=== PATIENT | female | born 1960 | race Caucasian/White ===

== ENCOUNTER 2024-11-26 13:51 | Outpatient (AMB) | payer OTHER, SELFPAY ==
--- NOTE | 2024-11-26 14:02 | MHC.OFFVIS ---
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 The patient describes her pain as sharp and severe in nature. Her pain and weakness have gotten worse over the last year in spite of continued non operative treatments. The patient also has intermittent right shoulder pain. She states that her left shoulder pain is more severe than is her right at this time. She did undergo right shoulder rotator cuff repair surgery in 2015. She injured both of her shoulders when she fell off of a ladder in 2022. He has been to formal physical therapy. She has also had cortisone injections. The most recent injection gave her minimal relief. She has tried Tylenol, anti-inflammatory medicines and gabapentin which gave her only mild relief. She also reports ?shooting pain? down her right arm to her right hand. Allergies No Known Allergies Allergy (Verified 11/26/24 14:05) Medication List - Last Reconciled 11/26/24 by Alonzo Costello MD gabapentin mg PO vilazodone 20 mg PO DAILY Physical Exam Vital Signs: BMI result Body Mass Index 29.6 Const Other: Well-nourished well-developed very friendly female awake alert and oriented x3 in no acute distress Extrem Other: Left shoulder examination shows decreased range of motion when compared to her right shoulder, 3/5 strength with supraspinatus testing, positive impingement signs, no instability Assessment & Plan Assessment & Plan (1) Rotator cuff insufficiency of left shoulder: Code(s): M25.312 - Other instability, left shoulder Category: Medical Plan Ms. Hill presents with progressively worsening left shoulder pain and weakness due to impingement syndrome and most likely a full-thickness rotator cuff tear. Thus, I will send the patient for an MRI of her left shoulder for further evaluation. I will see her back once the MRI is available to discuss the findings and treatment options. Feel free to call me at any time should questions regarding her orthopedic management arise. I spent 21 minutes in reviewing the patient's records and imaging studies, seeing the patient and documenting in the medical record. Orders: Orders MR shoulder LT wo con Today M25.312 - Other instability, left shoulder Coding Level of Care Code Est Pt Level 3 (57670) Complex EM visit Add On G2211 Diagnoses Rotator cuff insufficiency of left shoulder M25.312
[2024-11-26 14:05] VITALS: BMI 29.6
== END 2024-11-26 14:30 | disposition home or self-care (01) ==
LOC: HO.HOS 13:51
PROVIDERS: PCP Internal Medicine; Visit Provider Orthopaedic Surgery
DX: M25.312 Other instability, left shoulder (principal)
CPT/HCPCS: 99213; G2211

== ENCOUNTER → 2024-11-26 13:51 | Outpatient (BNVA) | payer OTHER, SELFPAY | PROVIDERS: PCP Internal Medicine; Visit Provider Orthopaedic Surgery | DX: M25.312 Other instability, left shoulder (principal) | CPT/HCPCS: 99212 ==

== ENCOUNTER 2024-11-29 19:26 | Outpatient (REF) | payer OTHER, SELFPAY ==
--- NOTE | ~2024-11-29 | MR_ITS ---
EXAMINATION: MRI LEFT SHOULDER WITHOUT CONTRAST HISTORY: M25.312 - Other instability, left shoulder COMPARISON: There are no prior studies for comparison. TECHNIQUE: Coronal T1, T2, and fat suppressed T2, axial fat suppressed proton density, and sagittal T2 weighted MR images of the left shoulder were obtained. FINDINGS: Bone Marrow: There are multiple cystic foci humeral head and the greater tuberosity. Bone marrow signal intensity is otherwise normal. Joint effusion: There is a large glenohumeral joint effusion. Glenohumeral joint: The humeral head is subluxed superiorly and posteriorly. AC joint: There is moderate osteoarthritis of the AC joint with osteophyte formation. Supraspinatus muscle/tendon: There is a large full-thickness tear of the supraspinatus tendon with retraction of the tendon to the level of the AC joint. There may be a few intact fibers anteriorly. There is moderate atrophy of the spinatus muscle. Infraspinatus muscle/tendon: There is rupture of the infraspinatus tendon with mild retraction. There is moderate muscle atrophy. Teres minor muscle/tendon: The teres minor tendon is intact. Normal muscle bulk. Subscapularis muscle/tendon: The subscapularis tendon is intact. Normal muscle bulk. Biceps tendon: The biceps tendon is intact and normally located. Glenoid labrum: No labral abnormality is identified. Other findings: None MR/MR shoulder LT wo con IMPRESSION: 1. Near-complete rupture of the supraspinatus tendon with a few probable intact fibers noted anteriorly. Complete rupture of the infraspinatus tendon. Moderate muscle atrophy involving the supraspinatus and infraspinatus muscles. 2. Large joint effusion. Superior and posterior subluxation of the humeral head. 3. Moderate osteoarthritis of the AC joint. Electronically signed by: Parish Goldsmith MD 12/03/2024 07:15 AM EDT
== END 2024-11-29 19:27 | disposition home or self-care (01) ==
LOC: HO.MRI 19:26
PROVIDERS: PCP Nurse Practitioner Family; Visit Provider Orthopaedic Surgery
DX: M25.312 Other instability, left shoulder (principal)
CPT/HCPCS: 73221

== ENCOUNTER → 2024-11-29 19:26 | Outpatient (BNV) | payer OTHER, SELFPAY | PROVIDERS: PCP Nurse Practitioner Family; Visit Provider Radiology Diagnostic Radiology | DX: M75.122 Complete rotator cuff tear or rupture of left shoulder, not specified as traumatic (principal); M25.412 Effusion, left shoulder; M19.012 Primary osteoarthritis, left shoulder | CPT/HCPCS: 73221 ==

== ENCOUNTER 2024-12-12 11:00 | Outpatient (AMB) | payer OTHER, SELFPAY ==
[2024-12-12 11:06] VITALS: BMI 29.6
--- NOTE | 2024-12-12 11:06 | MHC.OFFVIS ---
Vital Signs 12/12/24 11:06 Height 5 ft 3 in Weight 167 lb BMI 29.6 Intake Visit Reasons: Left shoulder pain, neck pain Intake Note: Khloe is a 64 year old right hand dominant female who presents with complaints of progressively worsening left shoulder pain and weakness as well as progressively worsening neck pain which radiates down her right arm. The patient describes her pain as sharp and severe in nature. Her pain and weakness have gotten worse over the last year in spite of continued non operative treatments. The patient also has intermittent right shoulder pain. She states that her left shoulder pain is more severe than is her right at this time. She did undergo right shoulder rotator cuff repair surgery in 2015. She injured both of her shoulders when she fell off of a ladder in 2022. He has been to formal physical therapy. She has also had cortisone injections. The most recent injection gave her minimal relief. She has tried Tylenol, anti-inflammatory medicines and gabapentin which gave her only mild relief. She also reports ?shooting pain? down her right arm to her right hand. She also reports intermittent weakness in her right upper extremity. Allergies No Known Allergies Allergy (Verified 12/12/24 11:06) Medication List - Last Reconciled 12/12/24 by Alonzo Costello MD gabapentin mg PO vilazodone 20 mg PO DAILY PFSH Social History (Updated 12/12/24 @ 09:12 by JESUS Del Cid) Current occupation: rt handed Physical Exam Vital Signs: BMI result Body Mass Index 29.6 Const Other: Well-nourished well-developed very friendly female awake alert and oriented x3 in no acute distress Neck Other: Cervical spine examination shows pain with range of motion, right-sided paraspinal muscle tenderness, positive Spurling's test, 4/5 strength with testing of her right biceps and wrist extensors when compared to 5/5 strength on her left side Extrem Other: Left shoulder examination shows decreased active range of motion when compared to her right shoulder, 3/5 strength with supraspinatus testing, no instability Results Reviewed Results Reviewed: MRI of the patient's left shoulder shows a large, chronic rotator cuff tear involving the supraspinatus and infraspinatus tendons with retraction almost to the lip of the glenoid, no acute bony abnormalities Assessment & Plan Assessment & Plan (1) Neck pain: Code(s): M54.2 - Cervicalgia Category: Medical (2) Left shoulder pain: Code(s): M25.512 - Pain in left shoulder Plan Ms. Hill presents with left shoulder pain due to a large, chronic rotator cuff tear. She also has neck pain which radiates into her right arm possibly due to cervical stenosis or a disc herniation. Thus, I will send the patient for an MRI of her cervical spine for further evaluation. I will contact her by phone once the MRI results are available. I will also arrange for her to have an evaluation with my partner, Dr. Perez, to further discuss the risks and benefits of reverse total shoulder replacement surgery. Feel free to call me at any time should questions regarding her orthopedic management arise. I spent 21 minutes in reviewing the patient's records and imaging studies, seeing the patient and documenting in the medical record. Orders: Orders MR cervical spine wo con Today M54.2 - Cervicalgia Coding Level of Care Code Est Pt Level 3 (89290) Complex EM visit Add On G2211 Diagnoses Neck pain M54.2 Left shoulder pain M25.512
--- OUTSIDE RECORDS SUMMARY | 2024-12-12 12:23 | XMS_ITS | Clinical Summary ---
Author Organization [facility] Address [address] [place], [place] [id number] Care Team Providers Care Manager Fashion Name Role Phone Unavailable Primary Care Provider Unavailabl e Allergies No known active allergies Medications Medication Sig Dispensed Refills Start Date End Date Status amphetamine-dextroa mphetamine (ADDERALL XR, 30MG,) 30 MG 24 hr capsule Take 1 capsule (30 mg total) by mouth. 0 09/30/2022 Active methylPREDNISolone (MEDROL DOSEPACK) 4 MG tablet FOLLOW PACKAGE DIRECTIONS 0 11/04/2022 Active escitalopram (Lexapro) 20 MG tablet See Instructions, 2 tablets, 0 Refills, Maintenance, 09/30/22 14:49:00 EST, Tablet, Partial fill upon patient request if the prescription is for a schedule II opioid drug. 0 09/30/2022 Active diclofenac (VOLTAREN) 75 MG EC tablet TAKE 1 TABLET BY MOUTH TWICE DAILY NEEDED FOR MODERATE PAIN 0 11/04/2022 Active clonazePAM (KlonoPIN) 0.5 MG tablet Take 1 tablet (0.5 mg total) by mouth 3 (three) times a day. 0 11/01/2022 Active naproxen (NAPROSYN) 500 MG tablet TAKE 1 TABLET BY MOUTH TWICE DAILY FOR 5 DAYS NEEDED FOR PAIN 0 09/30/2022 Active omeprazole (PriLOSEC) 20 MG capsule Take 1 capsule (20 mg total) by mouth daily. 0 11/04/2022 Active Social History Tobacco Use Types Packs/Day Years Used Date Smoking Tobacco: Unknown Tobacco Cessation:Counseling Given: Not Answered Alcohol Use Standard Drinks/Week Comments Not Currently 0 (1 standard drink = 0.6 oz pur e alcohol) Sex and Gender Information Value Date Recorded Sex Assigned at Not on file Gender Identity Not on file Sexual Orientation Not on file Job Start Date Occupation Industry Not on file Not on file Not on file Last Filed Vital Signs Vital Sign Reading Time Taken Comments Blood Pressure - - Pulse - - Temperature - - Respiratory Rate - - Oxygen Saturation - - Inhaled Oxygen Concentration - - Weight 81.6 kg (180 lb) 11/15/2022 11:31 AM EST Height 160 cm (5' 3 ) 11/15/2022 11:31 AM EST Body Mass Index 31.89 11/15/2022 11:31 AM EST Plan of Treatment Health Maintenance Due Date Last Done Comments Hepatitis C Screening 1960 Depression Screening 1972 BMI Counseling 02/17/1978 Preventative Health Evaluation 02/17/1978 DTap / Tdap / Td (1 - Tdap) 02/17/1979 Cervical Cancer Screening (Pap Smear) 02/17/1981 Colon Cancer Screening (Colonoscopy) 02/17/2005 Breast Cancer Screening (Mammogram) 02/17/2010 Shingrix-Zoster Vaccine (1 o f 2) 02/17/2010 COVID-19 Vaccine (3 - 2023-2 5 season) 2024 04/13/2021, 03/23/2021 Influenza Vaccine (#1) 2024 Pneumococcal Vaccine (1 of 1 - PCV) 02/17/2025 RSV Adult > 60+ Yrs or (1 - 1-dose 75+ series) 02/17/2035 Hepatitis B Vaccines Aged Out No long er eligible based on patient's age to complete this topic Pneumococcal Vaccine Aged Out No long er eligible based on patient's age to complete this topic RSV Ped < 20 months Aged Out No longe r eligible based on patient's age to complete this topic Insurance Payer Benefit Plan / Group Subscriber ID Effect nicole Dates Phone Address Type Fiksu. [id number] 08/11/2022-Pres ent [address] [place] [id number] PPO
--- OUTSIDE RECORDS SUMMARY | 2024-12-12 12:23 | XMS_ITS | Data Portability ---
Author Organization [facility] DCWafers, svmg_admin Address [address] [place] [id number] Care Team Providers Care Mail Sorting Supervisor Name Role Phone ROYA PALAFOX Primary Care Provider [phone] Assessment Encounter Date Assessment Date Assessment LastModified by Organization Details LastModified Time 02/15/2021 02/15/2021 F/u for physical in 4 months. Request sent to past PCP for medical records. Patient declines shingles vaccine. kmako Not available 02/15/2021 14:39:42 05/10/2021 05/10/2021 F/u in June for physical. kmako Not available 05/10/2021 10:17:46 06/29/2021 06/29/2021 Health maintenance discussed with patient The importance of regular pap smears, breast evaluation and sexual health discussed with patient. We discussed intake of calcium and Vitamin D and exercises for bone health Diet intake the importance of balanced diet and avoidance of excessive animal fats and red meat discussed with patient Labs reviewed and multivitamin use discussed The importance of regular sleep cycle and adequate hours of sleep discussed with patient We talked about avoidance of stress and healing therapies for the mind such as meditation and yoga. We discussed the importance of regular exercise and benefits of walking. We reviewed medications supplements and vaccines. All of patients questions answered to her satisfaction. Patient is comfortable with plan Flu shot declined. kmako Not available 06/29/2021 13:35:37 Plan of Treatment Reminders Order Date Submit Date Provider Last Modified By Organization Details Last Modified Time Details Appointments None recorded. Lab lipid panel, serum 2020 021 [facility], [address] [place] [address], [address], 2 07:56:34 HbA1c (hemoglobin A1c), blood 2020 [email or web address], [address] [place] [address], [address], 07:56:34 hepatitis panel (A+B+C), acute, serum 2020 [facility]21 [email or web address], [address] [place] [address], [address], 2 07:56:34 celiac disease comprehensi ve panel, serum 2020 021 [facility] [address] [place] [address], [address], 12:07:15 CMP, serum or plasma 2020 021 [facility], [address] [place] [address], [address], 12:07:17 CBC w/ auto diff 2020 021 [facility], [address] [place] [address], [address], 12:07:16 food allergen panel, serum 2020 021 [facility], [address] [place] [address], [address], 12:07:19 H pylori igm+igg+iga Ab, serum 2020 021 [facility], [address] [place] [address], [address], 12:07:18 Referral physical therapist referral [email or web address] [facility], [address] [facility], [place], [address], 11:44:06 physical therapist referral [address] Physical Therapy, [address] [facility], [place], [address], 11:44:05 nutritionis t/dietitian referral 2020 021 [facility] (N[facility]), [address] [place] [address], [address], 15:08:15 physical therapist referral [address] Physical Therapy, [address] [place] [address], [place], [address], 11:44:05 Procedures None recorded. Surgeries None recorded. Imaging MAMMO, screening, digital, bilateral [address] ([facility]), [place], [address], 09:05:41 US, liver [address] ([facility]), [address] [place] [address], [address], 09:05:51 electrocard iogram 2020 021 [email or web address] In-Office Order, Internal Use Only DO Not Attach Compendium DO Not Attach Compendium, Do Not Delete/merge, [id number] 12:10:49 Medication Orders omeprazole 40 mg capsule,del ayed release 2020 021 [facility] #[facility], [address] [address], [place], [address], 14:23:51 ropinirole 0.5 mg tablet 2020 021 [facility]/Pharmacy #0001, [address] [facility] [address], [place], [address], 13:08:25 Patient TargetsNo targets recorded. Patient Instructions Encounter Date Encounter Id Patient Instructions Last Modified By Organization Details Last Modified Time 02/15/2021 [id number] gastroesophageal reflux disease (GERD): care instructions kmako Not available 02/15/2021 14:23:43 restless legs syndrome: care instructions kmako Not available 02/15/2021 14:23:43 learning about m ood disorders kmako Not available 02/15/2021 14:39:27 body mass index: care instructions kmako Not available 02/15/2021 14:24:44 [facility] Not available 02/15/2021 14:24:44 06/29/2021 [id number] learning about breast cancer screening [facility] Not available 06/29/2021 13:27:21 Reason for Referral Physical Therapist Referral for Pain of right shoulder joint Referring Physician: Roya Palafox [facility], Encounter Date: 02/15/2021 Physical Therapist Referral for Bilateral hip joint pain Referring Physician: Roya Palafox [facility], Encounter Date: 02/15/2021 Physical Therapist Referral for Pain of left ankle joint Referring Physician: Roya Palafox [facility] Stefani, Encounter Date: 02/15/2021 Life Science Research Assistant/dietitian Refer ral for Body mass index 30+ - obesity Referring Physician: Roya Palafox [facility], Encounter Date: 02/15/2021 Results Created Date Observation Date Name Description Value Unit Range Abnormal Flag Note LastModifiedBy Organization Detail LastModifiedTime 05/10/20 21 05/11/2021 JOSE C DISEA SE PANEL T-transgluta minase (ttg) IgA <2 U/mL 0-3 Negat nicole 0 - 3 Weak Posit nicole 4 - 10 Posit nicole >10 Tissu e Trans gluta irene e (tTG) has been ident ified as the endom ysial antig en. Studi es have demon str- ated that endom ysial IgA antib odies have over 99% speci ficit y for glute n sensi tive enter opath y. Not Available [facility] ([facility]) [address] [facility], [place], [address], 05/13/2021 12:07:15 05/10/20 21 05/11/2021 JOSE C DISEA SE PANEL immunoglobul in A, qn, serum 241 mg/dL 87-352 Not Available [facility] ([facility]) [address] [facility], [place], [address], 05/13/2021 12:07:15 05/10/20 21 05/13/2021 JOSE C DISEA SE PANEL endomysial antibody IgA Negati ve negati ve Not Available [facility] ([facility]) [address] [facility], [place], [address], 05/13/2021 12:07:15 05/10/20 21 05/10/2021 CBC WITH DIFFE RENTI AL/PL ATELE T WBC 6.5 x10e3 /uL 3.4-10 .8 Not Available [facility] ([facility]) [address] [facility], [place], [address], 05/13/2021 12:07:16 05/10/20 21 05/10/2021 CBC WITH DIFFE RENTI AL/PL ATELE T RBC 5.15 x10e6 /uL 3.77-5 .28 Not Available [facility] ([facility]) [address] [facility], [place], [address], 05/13/2021 12:07:16 05/10/20 21 05/10/2021 CBC WITH DIFFE RENTI AL/PL ATELE T hemoglobin 14.9 g/dL 11.1-1 5.9 Not Available [facility] ([facility]) [address] [facility], [place], [address], 05/13/2021 12:07:16 05/10/20 21 05/10/2021 CBC WITH DIFFE RENTI AL/PL ATELE T hematocrit 43.6 % 34.0-4 6.6 Not Available [facility] ([facility]) [address] [facility], [place], [address], 05/13/2021 12:07:16 05/10/20 21 05/10/2021 CBC WITH DIFFE RENTI AL/PL ATELE T MCV 85 fL 79-97 Not Available [facility] ([facility]) [address] [facility], [place], [address], 05/13/2021 12:07:16 05/10/20 21 05/10/2021 CBC WITH DIFFE RENTI AL/PL ATELE T MCH 28.9 pg 26.6-3 3.0 Not Available [facility] ([facility]) [address] [facility], [place], [address], 05/13/2021 12:07:16 05/10/20 21 05/10/2021 CBC WITH DIFFE RENTI AL/PL ATELE T MCHC 34.2 g/dL 31.5-3 5.7 Not Available [facility] ([facility]) [address] [facility], [place], [address], 05/13/2021 12:07:16 05/10/20 21 05/10/2021 CBC WITH DIFFE RENTI AL/PL ATELE T RDW 14.4 % 11.7-1 5.4 Not Available [facility] ([facility]) [address] [facility], [place], [address], 05/13/2021 12:07:16 05/10/20 21 05/10/2021 CBC WITH DIFFE RENTI AL/PL ATELE T platelets 278 x10e3 /uL 150-45 0 Not Available [facility] ([facility]) [address] [place], [address], 05/13/2021 12:07:16 05/10/20 21 05/10/2021 CBC WITH DIFFE RENTI AL/PL ATELE T neutrophils 55 % not estab. Not Available [facility] ([facility]) [address] [facility], [place], [address], 05/13/2021 12:07:16 05/10/20 21 05/10/2021 CBC WITH DIFFE RENTI AL/PL ATELE T lymphs 33 % not estab. Not Available [facility] ([facility]) [address] [facility], [place], [address], 05/13/2021 12:07:16 05/10/20 21 05/10/2021 CBC WITH DIFFE RENTI AL/PL ATELE T monocytes 8 % not estab. Not Available [facility] ([facility]) [address] [facility], [place], [address], 05/13/2021 12:07:16 05/10/20 21 05/10/2021 CBC WITH DIFFE RENTI AL/PL ATELE T eos 3 % not estab. Not Available [facility] ([facility]) [address] [facility], [place], [address], 05/13/2021 12:07:16 05/10/20 21 05/10/2021 CBC WITH DIFFE RENTI AL/PL ATELE T basos 1 % not estab. Not Available [facility] ([facility]) [address] [facility], [place], [address], 05/13/2021 12:07:16 05/10/2005/10/2021 CBC WITH DIFFE RENTI AL/PL ATELE T immature cells ADMISSIONS OFFICER Not Available [facility] ([facility]) [address] [facility], [place], [address], 05/13/2021 12:07:16 05/10/20 21 05/10/2021 CBC WITH DIFFE RENTI AL/PL ATELE T neutrophils (absolute) 3.7 x10e3 /uL 1.4-7. 0 Not Available [facility] ([facility]) [address] [place], [address], 05/13/2021 12:07:16 05/10/20 21 05/10/2021 CBC WITH DIFFE RENTI AL/PL ATELE T lymphs (absolute) 2.1 x10e3 /uL 0.7-3. 1 Not Available [facility] ([facility]) [address] [facility], [place], [address], 05/13/2021 12:07:16 05/10/20 21 05/10/2021 CBC WITH DIFFE RENTI AL/PL ATELE T monocytes(ab solute) 0.5 x10e3 /uL 0.1-0. 9 Not Available [facility] ([facility]) [address] [facility], [place], [address], 05/13/2021 12:07:16 05/10/20 21 05/10/2021 CBC WITH DIFFE RENTI AL/PL ATELE T eos (absolute) 0.2 x10e3 /uL 0.0-0. 4 Not Available [facility] ([facility]) [address] [facility], [place], [address], 05/13/2021 12:07:16 05/10/20 21 05/10/2021 CBC WITH DIFFE RENTI AL/PL ATELE T baso (absolute) 0.0 x10e3 /uL 0.0-0. 2 Not Available [facility] ([facility]) [address] [facility], [place], [address], 05/13/2021 12:07:16 05/10/20 21 05/10/2021 CBC WITH DIFFE RENTI AL/PL ATELE T immature granulocytes ADMISSIONS OFFICER Not Available [facility] ([facility]) [address] [place], [address], 05/13/2021 12:07:16 05/10/20 21 05/10/2021 CBC WITH DIFFE RENTI AL/PL ATELE T immature grans (abs) ADMISSIONS OFFICER Not Available [facility] ([facility]) [address] [place], [address], 05/13/2021 12:07:16 05/10/20 21 05/10/2021 CBC WITH DIFFE RENTI AL/PL ATELE T NRBC ADMISSIONS OFFICER Not Available [facility] ([facility]) [address] [facility], [place], [address], 05/13/2021 12:07:16 05/10/20 21 05/10/2021 CBC WITH DIFFE RENTI AL/PL ATELE T hematology comments: ADMISSIONS OFFICER Not Available [facility] ([facility]) [address] [facility], [place], [address], 05/13/2021 12:07:16 05/10/20 21 05/10/2021 COMP. METAB OLIC PANEL (14) glucose 97 mg/dL 65-99 Not Available [facility] ([facility]) [address] [facility], [place], [address], 05/13/2021 12:07:17 05/10/20 21 05/10/2021 COMP. METAB OLIC PANEL (14) BUN 15 mg/dL 8-27 Not Available [facility] ([facility]) [address] [place], [address], 05/13/2021 12:07:17 05/10/20 21 05/10/2021 COMP. METAB OLIC PANEL (14) creatinine 0.78 mg/dL 0.57-1 .00 Not Available [facility] ([facility]) [address] [facility], [place], [address], 05/13/2021 12:07:17 05/10/20 21 05/10/2021 COMP. METAB OLIC PANEL (14) eGFR if nonafricn AM 82 mL/mi n/1.7 3 >59 Not Available [facility] ([facility]) [address] [facility], [place], [address], 05/13/2021 12:07:17 05/10/20 21 05/10/2021 COMP. METAB OLIC PANEL (14) eGFR if africn AM 95 mL/mi n/1.7 3 >59 Lab [facility] curre ntly repor ts eGFR in compl iance with the curre nt recom menda tions of the [facility] [employer] ation . [facility] will updat e repor ting as new guide lines are publi shed from the NKF-A SN Task force . Not Available [facility] ([facility]) [address] [place], [address], 05/13/2021 12:07:17 05/10/20 21 05/10/2021 COMP. METAB OLIC PANEL (14) BUN/creatini ne ratio 19 12-28 Not Available [facility] ([facility]) [address] [place], [address], 05/13/2021 12:07:17 05/10/20 21 05/10/2021 COMP. METAB OLIC PANEL (14) sodium 141 mmol/ L 134-14 4 Not Available [facility] ([facility]) [address] [place], [address], 05/13/2021 12:07:17 05/10/20 21 05/10/2021 COMP. METAB OLIC PANEL (14) potassium 4.7 mmol/ L 3.5-5. 2 Not Available [facility] ([facility]) [address] [place], [address], 05/13/2021 12:07:17 05/10/20 21 05/10/2021 COMP. METAB OLIC PANEL (14) chloride 103 mmol/ L 96-106 Not Available [facility] ([facility]) [address] [place], [address], 05/13/2021 12:07:17 05/10/20 21 05/10/2021 COMP. METAB OLIC PANEL (14) carbon dioxide, total 23 mmol/ L 20-29 Not Available [facility] ([facility]) [address] [place], [address], 05/13/2021 12:07:17 05/10/20 21 05/10/2021 COMP. METAB OLIC PANEL (14) calcium 9.9 mg/dL 8.7-10 .3 Not Available [facility] ([facility]) [address] [facility] [place], [address], 05/13/2021 12:07:17 05/10/20 21 05/10/2021 COMP. METAB OLIC PANEL (14) protein, total 6.9 g/dL 6.0-8. 5 Not Available [facility] ([facility]) [address] [facility] [place], [address], 05/13/2021 12:07:17 05/10/20 21 05/10/2021 COMP. METAB OLIC PANEL (14) albumin 4.7 g/dL 3.8-4. 8 Not Available [facility] ([facility]) [address] [facility] [place], [address], 05/13/2021 12:07:17 05/10/20 21 05/10/2021 COMP. METAB OLIC PANEL (14) globulin, total 2.2 g/dL 1.5-4. 5 Not Available [facility] ([facility]) [address] [facility] [place], [address], 05/13/2021 12:07:17 05/10/20 21 05/10/2021 COMP. METAB OLIC PANEL (14) A/G ratio 2.1 1.2-2. 2 Not Available [facility] ([facility]) [address] [facility] [place], [address], 05/13/2021 12:07:17 05/10/20 21 05/10/2021 COMP. METAB OLIC PANEL (14) bilirubin, total 0.3 mg/dL 0.0-1. 2 Not Available [facility] ([facility]) [address] [place], [address], 05/13/2021 12:07:17 05/10/20 21 05/10/2021 COMP. METAB OLIC PANEL (14) alkaline phosphatase 113 IU/L 48-121 Not Available [facility]) [address] [place], [address], 05/13/2021 12:07:17 05/10/20 21 05/10/2021 COMP. METAB OLIC PANEL (14) AST (SGOT) 45 IU/L 0-40 above high normal Not Available [facility] ([facility]) [address] [place], [address], 05/13/2021 12:07:17 05/10/20 21 05/10/2021 COMP. METAB OLIC PANEL (14) ALT (SGPT) 54 IU/L 0-32 above high normal Not Available [facility] ([facility]) [address] [place], [address], 05/13/2021 12:07:17 05/10/20 21 05/11/2021 H PYLOR I, IGM, IGG, IGA AB H. pylori, IgG abs 0.26 index _valu e 0.00-0 .79 Negat nicole <0.80 Equiv ocal 0.80 - 0.89 Posit nicole >0.89 Not Available [facility] ([facility]) [address] [place], [address], 05/13/2021 12:07:18 05/10/20 21 05/11/2021 H PYLOR I, IGM, IGG, IGA AB H. pylori, IgA abs 9.7 units 0.0-8. 9 above high normal Negat nicole <9.0 Equiv ocal 9.0 - 11.0 Posit nicole >11.0 Not Available [facility] ([facility]) [address] [place], [address], 05/13/2021 12:07:18 05/10/20 21 05/11/2021 H PYLOR I, IGM, IGG, IGA AB H pylori, IgM abs <9.0 units 0.0-8. 9 Negat nicole <9.0 Equiv ocal 9.0 - 11.0 Posit nicole >11.0 This test was clement cat and its perfo fani e ananya tiwari stics deter mined by [employer]. It has not been clear ed or appro taya by the Food and Drug Admin istra tion. Not Available [facility] ([facility]) [address] [place], [address], 05/13/2021 12:07:18 05/10/20 21 05/10/2021 FOOD ALLER GY PROFI LE class description Commen t Level s of Speci fic IgE Class Descr iptio n of Class ----- ----- ----- ----- ----- -- ----- ----- ----- ----- ----- < 0.10 0 Negat nicole 0.10 - 0.31 0/I Equiv ocal/ Low 0.32 - 0.55 I Low 0.56 - 1.40 II Moder ate 1.41 - 3.90 III High 3.91 - 19.00 IV Very High 19.01 - 100.0 0 V Very High >100. 00 Very High Not Available [facility] ([facility]) [address] [place], [address], 05/13/2021 12:07:19 05/10/2005/13/2021 FOOD ALLER GY PROFI LE C143-McB egg white <0.10 kU/L class 0 Not Available [facility] ([facility]) [address] [place], [address], 05/13/2021 12:07:19 05/10/2005/13/2021 FOOD ALLER GY PROFI LE O902-UgN peanut <0.10 kU/L class 0 Not Available [facility] ([facility]) [address] [place], [address], 05/13/2021 12:07:19 05/10/20 21 05/13/2021 FOOD ALLER GY PROFI LE Q069-KbI soybean <0.10 kU/L class 0 Not Available [facility] ([facility]) [address] [place], [address], 05/13/2021 12:07:19 05/10/20 21 05/13/2021 FOOD ALLER GY PROFI LE J637-NnT milk <0.10 kU/L class 0 Not Available [facility] ([facility]) [address] [place], [address], 05/13/2021 12:07:19 05/10/20 21 05/13/2021 FOOD ALLER GY PROFI LE B163-IfU clam <0.10 kU/L class 0 Not Available [facility] ([facility]) [address] [place], [address], 05/13/2021 12:07:19 05/10/20 21 05/13/2021 FOOD ALLER GY PROFI LE Z008-EhQ shrimp <0.10 kU/L class 0 Not Available [facility] ([facility]) [address] [place], [address], 05/13/2021 12:07:19 05/10/20 21 05/13/2021 FOOD ALLER GY PROFI LE F720-MgN walnut <0.10 kU/L class 0 Not Available [facility] ([facility]) [address] [place], [address], 05/13/2021 12:07:19 05/10/20 21 05/13/2021 FOOD ALLER GY PROFI LE C608-ShD codfish <0.10 kU/L class 0 Not Available [facility] ([facility]) [address] [place], [address], 05/13/2021 12:07:19 05/10/20 21 05/13/2021 FOOD ALLER GY PROFI LE V847-BdG scallop <0.10 kU/L class 0 Not Available [facility] ([facility]) [address] [facility], [place], [address], 05/13/2021 12:07:19 05/10/20 21 05/13/2021 FOOD ALLER GY PROFI LE B830-ZbO wheat <0.10 kU/L class 0 Not Available [facility] ([facility]) [address] [facility], [place], [address], 05/13/2021 12:07:19 05/10/20 21 05/13/2021 FOOD ALLER GY PROFI LE S470-GjO corn <0.10 kU/L class 0 Not Available [facility] ([facility]) [address] [facility], [place], [address], 05/13/2021 12:07:19 05/10/20 21 05/13/2021 FOOD ALLER GY PROFI LE K488-GwV sesame seed <0.10 kU/L class 0 Not Available [facility] ([facility]) [address] [facility], [place], [address], 05/13/2021 12:07:19 05/10/20 21 elect rocar diogr am No observ ation record ed. [email or web address] In-Office Order Internal Use Only DO Not Attach Compendium DO Not Attach Compendium, Do Not Delete/merge, [id number] 05/10/2021 09:54:21 05/10/20 21 05/10/2021 elect rocar diogr am No observ ation record ed. [email or web address] In-Office Order Internal Use Only DO Not Attach Compendium DO Not Attach Compendium, Do Not Delete/merge, [id number] 05/11/2021 14:27:15 07/19/20 21 07/19/2021 US, abdom en, limit ed [facility] [address], [address] Name: ARLENE HIDALGO : [id number] Date of Servic e: 0839 Acct Number : [id number] Order Number : [id number] Locati on: WUS Report Number : [id number] Servic e: REG REF/ Reques ting Physic hansa: Joaquin Orourke ADMISSIONS OFFICER Catego ry: ULTRAS OUND Exam: US ABDOME N SINGLE [employer] LTD Access ion #: [id number] VH Signs/ Sympto ms: ELEVAT ED LIVER ENZYME LEVEL Report Status : Sig jeffy LIMITE D ABDOME N ULTRAS OUND. INDICA TION: Elevat ed liver enzyme levels COMPAR MAXI: CT abdome n pelvis 03/14/20 16 FINDIN GS: PANCRE : Visual ized pancre atic head and proxim al body are unrema rkable . The pancre atic tail is not visual ized. HEPATO BILIAR Y: The liver is normal in contou r. There is at least modera tely increa sed echoge nicity of liver parenc hyma as compar ed to the renal. Liver is border line enlarg ed. No focal hepati c lesion . No intrah epatic or extrah epatic biliar y ductal dilata tion. Common bile duct measur es 3 mm. No gallbl adder stones . Sludge is noted within the gallbl adder lumen. Focal fatty sparin g is noted adjace nt to the gallbl adder fossa. No perich olecys tic fluid/ edema or gallbl adder wall thicke katy. Absent sonogr aphic Dominguez sign was report ed by the techno logist . RIGHT KIDNEY : Partia lly seen right kidney is unrema rkable . OTHER: No free fluid seen in the right upper quadra nt. IMPRES LISBETH: 1. Gallbl adder sludge noted. 2. No eviden ce of gallst ones or ultras ound findin gs sugges tive of acute cholec ystiti s. 3. Modera te hepati c steato sis. Date/T nathaly of Dictat ion: 48 Radiol ogy Reside nt (if applic able): Joaquin Briceno MD Approv ed By Attend ing Radiol ogist: Nathalia Garcia MD 48 Orderi ng physic hansa: Candy Orourke Other provid ers: Candy Orourke, Candy Orourke, , Brandee King, , , [facility] (Radiology) [address] [place] [address], [address], 08/09/2021 08:54:29 08/04/20 21 08/04/2021 MAMMO , scree katy, tomos ynthe sis, bilat eral [facility] Radiol ogy [address] [place] [address], [address] Name: ARLENE HIDALGO : [id number] Date of Servic e: 1431 Acct Number : [id number] Order Number : [id number] Locati on: WWELL Report Number : [id number] Servic e: REG REF/ Reques ting Physic hansa: Joaquin Orourek ADMISSIONS OFFICER Catego ry: MAMMOG SHINE Exam: DIGITA L BREAST JORDANA SCREEN ING Access ion #: [id number] VH Signs/ Sympto ms: SCREEN ING Report Status : Sig jeffy STUDY: Bilate ral screen ing mammog alethea with CAD and tomosy nthesi s. TECHNI QUE: Bilate ral cranio caudal and mediol ateral obliqu e views obtain ed. R2 [employer] Versio n 1.3 comput er aided detect ion system utiliz ed.R2 [employer] Versio n 1.3 comput er aided detect ion system utiliz ed with Tomosy nthesi s. COMPAR MAXI: No prior mammog robi are availa ble for compar maxi at comple tion of 10 day waitin g period . FAMILY HISTOR Y OF BREAST CANCER : None. PERSON AL HISTOR Y: Bilate ral breast reduct ion 20 years ago. BREAST COMPOS ITION: The breast s are almost entire ly fatty. RIGHT BREAST : Tomosy nthesi s images were review ed. No suspic ious mass, abnorm al calcif icatio n or levi ectura l distor tion is identi fied. A few charac terist ically benign calcif icatio ns are noted. Most of the calcif icatio ns are dermal . Postsu rgical change s relate d to prior reduct ion are noted in the lower breast . LEFT BREAST : Tomosy nthesi s images were review ed. No suspic ious mass, abnorm al calcif icatio n or levi ectura l distor tion is identi fied. A few charac terist ically benign calcif icatio ns are noted. Most of these calcif icatio ns are dermal calcif icatio ns. Postsu rgical change s relate d to prior reduct ion are noted in the lower breast . IMPRES LISBETH: RIGHT BREAST :Benig n findin gs. LEFT BREAST : Benign findin gs. BR- 2 - Benign Findin g FU- 1Y - Normal screen ing interv al D- A - Breast s are almost entire ly fatty Patien t was entere d into remain ward for annual screen ing mammog alethea. Date/T nathaly of Dictat ion: 164 Radiol ogy Reside nt (if applic able): Sheldon De La Cruz MD Approv ed By Attend ing Radiol ogist: Criselda Grayson MD 1643 Orderi ng physic hansa: Candy Orourke Other provid ers: Candy Ororuke, Candy Orourke, , Candy [place], , , [facility] (Radiology) [address] [place] [address], [id number], 08/09/2021 10:37:39 Result Notes None recorded. Problems Name Problem SNOMED Code Status Onset Date Resolution Date Notes Provider Name and Address Organization Details Recorded Time Depressi ve disorder 77496082 Active 2020 Kimberly gutiérrez MA [facility] 13:34:32 Anxiety 51329758 Active 2020 Kimberly gutiérrez MA [facility] 13:34:37 Gastroes ophageal reflux disease 247906407 Active 2020 Kimberly gutiérrez MA [facility] 13:34:42 Screenin g for malignan t neoplasm of breast Active 202007/08/20 wnl, 08/04/21 wnl ROYA PALAFOX NP [address] [place], [address], [facility] 08:56:16 Screenin g for malignan t neoplasm of cervix Completed 202002/15/2021 ROYA PALAFOX NP [address] [place], [address], [facility] 14:32:49 Screenin g for malignan t neoplasm of colon Active 2020 2019 [facility], repeat in 10 years ROYA PALAFOX NP [address] [place], [address], [facility] 13:39:33 Screenin g for osteopor osis Active 202007/08/20- osteopeni a ROYA PALAFOX NP [address] [place], [address], [facility] 15:20:47 Body mass index 30+ - obesity 506765219 Active 2020 ROYA PALAFOX NP [address] [place] [address], [address], [facility] 13:44:20 Osteopen ia 964441100 Active 2020 ROYA PALAFOX NP [address] [place], [address], [facility] 13:16:55 Steatosi s of liver 200176919 Active 2020 Moderate- abd US 07/19/21 ROYA PALAFOX NP [address] [place], [address], [facility] 10:21:31 Biliary sludge 75815611 Active 2020 ROYA PALAFOX NP [address] [place], [address], [facility] 10:21:44 Problem Notes None recorded. Procedures Surgical History Date Name Laterality Status Provider Name and Address Organization Details Recorded Time Orthopedic Surgery completed [facility] 05/10/2021 09:35:10 Breast Surgery (Lumpectomy, Biopsy, Implants) completed [facility] 05/10/2021 09:35:10 Imaging Results Imaging Date Name Status LastModified by Organization Details LastModified Time 05/10/2021 electrocardiogram completed [email or web address] Order Internal Use Only DO Not Attach Compendium DO Not Attach Compendium, Do Not Delete/merge, [id number] 05/10/2021 09:54:21 05/10/2021 electrocardiogram completed [email or web address] In-Offi ce Order Internal Use Only DO Not Attach Compendium DO Not Attach Compendium, Do Not Delete/merge, [id number] 05/11/2021 14:27:15 07/19/2021 US, abdomen, limited completed [facility] (Radiology) [address] [place] [address], [address], 08/09/2021 08:54:29 08/04/2021 MAMMO, screening, tomosynthesis, bilateral completed [facility] (Radiology) [address] [place] [address], [id number], 08/09/2021 10:37:39 Procedure Notes None recorded. Medical Equipment None Reported. Allergies No known drug allergies Medications Name Sig Start Date Stop Date Status Note LastModified by Organization Details LastModified Time clonazepam 1 mg tablet 1 tablet BID active Not Available Not Available No t Available omeprazole 40 mg capsule,de layed release Take 1 capsule every day by oral route. 2020 active Not Available Not Available Not Avai lable buspirone 30 mg tablet TAKE 1 TABLET BY MOUTH TWICE A DAY 05/10 completed Not Available Not Available Not Available ropinirole 0.5 mg tablet TAKE 1 TABLET BY MOUTH EVERYDAY AT BEDTIME 06/29 completed Not Available Not Available Not Available buspirone 10 mg tablet TAKE 1 TABLET (10 MG) BY ORAL ROUTE 2 TIMES PER DAY 05/10 completed Not Available Not Available Not Available dextroamph etamine-am phetamine 20 mg tablet active Not Available Not Available Not Available gabapentin 300 mg capsule Take 1 capsule 3 times a day by oral route. 02/15 completed Not Available Not Available Not Available omeprazole 20 mg capsule,de layed release Take 1 capsule every day by oral route. 05/10 completed Not Available Not Available Not Available dextroamph etamine-am phetamine ER 30 mg 24hr capsule,ex tend release active Not Available Not Available Not Available escitalopr am 20 mg tablet TAKE 1 TABLET BY MOUTH TWICE A DAY active 20mg daily Not Available Not Available Not Available Vitals Date Recorded Body height Body mass index (BMI) Body weight Body temperature Heart rate Oxygen saturation Oxygen saturation in Arterial blood by Pulse oximetry Systolic blood pressure Diastolic blood pressure Provider Name and Address Organization Details Last Updated DateTime 1 160.02 cm 33.1 kg/m2 10807.7 7 g 96.4 [degF] 65 /min 97 % 97 % 112 mm[Hg] 68 mm[Hg] [facility] 1 13:42:22 Date Recorded Body height Body mass index (BMI) Body weight Body temperature Heart rate Oxygen saturation Oxygen saturation in Arterial blood by Pulse oximetry Systolic blood pressure Diastolic blood pressure Provider Name and Address Organization Details Last Updated DateTime 1 160.02 cm 34 kg/m2 46447.7 4 g 98.7 [degF] 72 /min 98 % 98 % 116 mm[Hg] 72 mm[Hg] [facility] 1 09:39:34 Date Recorded Body height Body mass index (BMI) Body weight Body temperature Pain severity - 0-10 verbal numeric rating [Score] - Reported Oxygen saturation Oxygen saturation in Arterial blood by Pulse oximetry Heart rate Systolic blood pressure Diastolic blood pressure Provider Name and Address Organization Details Last Updated DateTime 1 158.75 cm 32.8 kg/m2 97148.6 1 g 97 [degF] 0 98 % 98 % 84 /min 114 mm[Hg] 70 mm[Hg] [place] [facility] 13:13:38 Social History Question Answer Notes LastModified by Organizat ion Details LastModified Time Tobacco Smoking Status Former Smoker [facility] 06/29/2021 13:10:59 Do You Have An Advance Directive? Yes Information not available 02/15/2021 What Is Your Level Of Alcohol Consumption? None Information not available 02/15/2021 Animal Exposure? Yes 1 Cat Informat ion not available 05/10/2021 Are You Blind Or Do You Have Difficulty Seeing? No Information not available 02/15/2021 Is Blood Transfusion Acceptable In An Emergency? Yes Information not available 02/15/2021 What Is Your Level Of Caffeine Consumption? Moderate Information not available 02/15/2021 How Much Tobacco Do You Chew? None Information not available 02/15/2021 Are You Currently Employed? Yes Information not available 05/10/2021 Are You Deaf Or Do You Have Serious Difficulty Hearing? No Information not available 02/15/2021 What Type Of Diet Are You Following? REGULAR Information not available 02/15/2021 Which Illicit Or Recreational Drugs Have You Used? Marijuana Information not available 05/10/2021 Do You Or Have You Ever Used E-cigarettes Or Vape? Never Used Electronic Cigarettes Information not available 02/15/2021 What Is The Highest Grade Or Level Of School You Have Completed Or The Highest Degree You Have Received? 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 No Information no t available 05/10/2021 How Hard Is It For You To Pay For The Very Basics Like Food, Housing, Medical Care, And Heating? Not Very Hard Information not available 05/10/2021 When Did You Quit Smoking? 16+yearssincel maxine oconnell Information not available 06/29/2021 How Many Days In The Past Year Have You Had A Heavy Drinking Consumption (4+ Female, 5+ Male)? 0 Information no t available 02/15/2021 Are There Any Guns Present In Your Home? No Information not available 05/10/2021 Which Of Your Hands Is Dominant? Right Information not available 02/15/2021 Do You Use Insect Repellent Routinely? Yes Information not available 05/10/2021 Live Alone Or With Others? Alone Information not available 05/10/2021 Do You Feel Safe In Your Home? Yes Information not available 02/15/2021 Do You Have Trouble Sleeping? Yes Information no t available 02/15/2021 Average Hours Of Sleep Per Night? 9 Information not available 02/15/2021 Does The Patient Have Fever OR Cough OR Shortness Of Breath? No Information not available 02/15/2021 If Yes To Fever Is There An Alternate Reason For The Fever? N/a Information not available 02/15/2021 In The Last 14 Days, Has The Patient Had Contact With A COVID-19 Positive Patient Or A COVID-19 Suspect Patient Awaiting Test Results? No Information not available 02/15/2021 If Pulse Oximetry Was Done: Is The Patient's Sp02 Less Than 93% On Room Air? No Information not available 02/15/2021 Document If There Could Be An Alternative Reason For The Low Sp02 Such As COPD. N/a Information not available 02/15/2021 Does The Patient Have At Least TWO Of These Symptoms? Diarrhea, Chills, Muscle Pain, Repeated Shaking & Chills, Headache, Sore Throat, Or New Loss Of Taste/Smell No Information not available 02/15/2021 If Yes, List Symptoms. N/a Information not available 02/15/2021 History Of Domestic Violence? No Information not available 02/15/2021 Recreational Drug Use Pre-? No Information not available 02/15/2021 Marital Status Informatio n not available 05/10/2021 What Was The Date Of Your Most Recent Tobacco Screening? 06/29/2021 Information not available 06/29/2021 How Many Children Do You Have? 1 Information not available 05/10/2021 Performs Monthly Self-breast Exam? No Information no t available 05/10/2021 Do You Have Any Pets? Yes Information not available 05/10/2021 What Is Your Relationship Status? Information not available 05/10/2021 Do You Have Smoke And Carbon Monoxide Detectors In Your Home? Yes Information not available 05/10/2021 At What Age Did You Start Smoking Tobacco? 15 Information not available 06/29/2021 Are You Passively Exposed To Smoke? Yes Information no t available 05/10/2021 Do You Or Have You Ever Used Smokeless Tobacco? Never Used Smokeless Tobacco Information not available 02/15/2021 Are There Any Smokers In Your House? Yes Information not available 05/10/2021 Smoking Pre- No Information not available 05/10/2021 General Stress Level Medium Information not available 05/10/2021 Do You Feel Stressed (tense, Restless, Nervous, Or Anxious, Or Unable To Sleep At Night)? [id number] Information not available 05/10/2021 Do You Use Any Illicit Or Recreational Drugs? Yes Information not available 05/10/2021 Do You Use Sunscreen Routinely? Yes Information not available 05/10/2021 Has Tobacco Cessation Counseling Been Provided? Yes Information not available 02/15/2021 On What Date Was Tobacco Cessation Counseling Provided? 06/29/2021 Information not available 06/29/2021 How Many Years Have You Smoked Tobacco? 25 Information not available 06/29/2021 Have You Used IV Drugs? No Information not available 05/10/2021 Are You Currently In School? No Information not available 05/10/2021 Do You Or Have You Ever Used Any Other Forms Of Tobacco Or Nicotine? No Information not available 06/29/2021 Sex: Female Functional Status Question Answer Note LastModified by Organizat ion Details LastModified Time Do you have difficulty walking or climbing stairs? No Information not available 05/10/2021 Do you have transportation difficulties? No Information not available 05/10/2021 Urinary incontinence assessment performed? Yes Information not available 05/10/2021 Are you able to walk? YESWOREST Information not available 05/10/2021 Do you have difficulty doing errands alone? No Information not available 05/10/2021 Are you able to care for yourself? Yes Information not available 02/15/2021 What is your exercise level? None Information not available 02/15/2021 Mental Status Question Answer Note LastModified by Organizat ion Details LastModified Time Do you have difficulty concentrating, remembering or making decisions? Yes concentrating Information not available 05/10/2021 Family History Relationship Description Onset Age of this Age Resolved Age Notes LastModified by Organization Details LastModified Time Mother No current problems or disability [email or web address] Not available 05/10 09:27:42 Mother Plaque psoriasis [email or web address] Not available 2020 09:27:42 Father Alcoholism [email or web address] Not available 05/10/2021 09:27:42 Father Malignant tumor of lung [email or web address] Not available 2020 09:27:42 Sister Depressive disorder [email or web address] Not available 2020 14:12:41 Brother Alcoholism [email or web address] Not availabl e 05/10/2021 09:27:42 Notes:mother- BOOP- Bronchio litis obliterans organizing pneumonia- she from this Medical History Condition Response Anxiety Y Back/Neck Pain Y Depression Y ADD/ADHD Y Bladder Problems Y Gynecological History Statement/Question Response History of Endometriosis N Date of last mammogram 06/2020 Breast Problems none History of polycystic ovarian disease N Date of last pap 2005 Facility of last mammogram [place] History of infertility N Number of Terminations? 0 Duration of Flow (days) 0 Do you perform routine breast exams? N Current Control Method Hysterectom y Vaginal discharge N Result of last mammogram normal Menses Monthly N Number of Pregnancies? 2 History of Abnormal Pap Smear? N Number of Live Births? 2 LMP Unknown History of frequent UTI N Number of Miscarriages? 0 Obstetrics History GPAL:G 2 P 0 0 0 2 Type Value Living 2 Total 2 Immunizations Vaccine Type Date Status Note Provider Nam e and Address Organization Details Recorded Time Tdap 02/15/2021 completed ROYA PALAFOX NP [address] [place], [address], [facility] 02/15/2021 15:11:54 COVID-19, mRNA, LNP-S, PF, 30 mcg/0.3 mL dose 04/13/2021 completed Kimberly gutiérrez [facility] 05/10/2021 09:40:46 COVID-19, mRNA, LNP-S, PF, 30 mcg/0.3 mL dose 03/23/2021 completed Kimberly gutiérrez [facility] 05/10/2021 09:40:55 Past Encounters Encounter ID Performer Location Encounter Start Date Encounter Closed Date Diagnosis/Indication Diagnosis SNOMED-CT Code Diagnosis ICD10 Code Diagnosis Note [id number] ROYA PALAFOX NP [facility] [address] [place] [address] 02/15/2021 13:27:22 02/15/2021 14:38:43 Borderline personality disorder 34702002 F60.3 Long history of anxiety, depression , and borderline personalit y disorder. Patient grew up with an alcoholic father and also lost her several years ago to a heart attack. She has been on lexapro, paxil, wellbutrin , abilify, buspirone, clonazepam , and adderall at various times in the past. She has also done holisitic healing, grief counseling and other mental health programs. She has an upcoming appt with a psychophar macist through [facility]. She is interested in restarting her adderall and will consult with them. Restless legs 74530491 G 25.81 For the past several years. Muscle cramping and restless legs keep her up every night. She has been taking gabapentin 300mg at bedtime but it has not been helping. She will d/c gabapentin and start ropinirole 0.5mg at bedtime. Gastroesop hageal reflux disease 578678623 K21.9 Gerd- Discussed etiology and management of gastoesoph ageal reflux. Non - pharmacolo gical management reviewed. Advised avoidance or strict limits on caffeine and alcohol intake, raising the head of the bed and avoidance of lying down within 2-3 hours of a meal . Reviewed dietary modificati on and smoking cessation. The various meds available and duration of therapy discussed. The following advised- {{OTC PPI or H2 jimy PP I as prescribed * change in med as below}}. Will increase omeprazole from 20mg to 40mg daily. Bilateral hip joint pain [id number] 7015558 M25.551 M25.552 Chronic. Patient has had cortisone injections in the past. She has also gained weight recently which could be adding to her pain. She will start PT. If no improvemen t, will consider imaging or referral for injections . Pain of ri ght shoulder joint [id number] 8956106 M25.511 Hx of right rotator cuff surgery. Referral to PT to help increase ROM and strength. Administra tion of diphtheria, pertussis, and tetanus vaccine 999781360 Z23 Pain of le ft ankle joint 6958839586 6685144 M25.572 S/p ankle fracture and surgery. She has been wearing a brace for 2 years and continues to have pain. Referral placed to PT. Body mass index 30+ - obesity 853655683 Z68.33 Diet and Exercise recommenda tions have been discussed with the patient. Patient setup for a followup to get patients BMI within normal range. Frequency of exercise and the utility of cardiac workout as well as weight training discussed with patient. A detailed nutritiona l assessment have been done with patient. We discussed the importance of different food groups in weight loss and avoidance of empty calories in diet. We discussed impact of of soda, alcohol and sweetened beverages on weight gain. We talked about counting steps. [facility] Anxiety 10527180 F41.9 Long history of anxiety, depression , and borderline personalit y disorder. Patient grew up with an alcoholic father and also lost her several years ago to a heart attack. She has been on lexapro, paxil, wellbutrin , abilify, buspirone, clonazepam , and adderall at various times in the past. She has also done holisitic healing, grief counseling and other mental health programs. She has an upcoming appt with a psychophar macist through [facility]. She is interested in restarting her adderall and will consult with them. Depressive disorder 0168 5475 F32.9 Long history of anxiety, depression , and borderline personalit y disorder. Patient grew up with an alcoholic father and also lost her several years ago to a heart attack. She has been on lexapro, paxil, wellbutrin , abilify, buspirone, clonazepam , and adderall at various times in the past. She has also done holisitic healing, grief counseling and other mental health programs. She has an upcoming appt with a psychophar macist through [facility]. She is interested in restarting her adderall and will consult with them. [id number] ROYA PALAFOX NP [facility] [address] [address] 05/10/2021 09:27:40 05/10/2021 12:10:48 Restless legs 10944570 G25.81 For the past several years. Muscle cramping and restless legs keep her up every night. She has been taking gabapentin 300mg at bedtime but it has not been helping. She stopped gabapentin and switched to ropinirole at her last visit. Restless legs have improved but she is now having trouble falling asleep for several hours. She will f/u with rehabilitation psychologist on Monday to discuss any sleep aids. Loose stool 307422331 R1 9.5 Multiple loose stools a day. Patient has not been able to identify any specific food triggers. She also has urgency, especially first thing in the morning. Will check labs. Advised bland diet and increased fluids as well. Anxiety 50659954 F41.9 Long history of anxiety, depression , and borderline personalit y disorder. Patient grew up with an alcoholic father and also lost her several years ago to a heart attack. She has been on lexapro, paxil, wellbutrin , abilify, buspirone, clonazepam , and adderall at various times in the past. She has also done holisitic healing, grief counseling and other mental health programs. She would like to restart her adderall but is still looking for a psych provider. She has an appt with a rehabilitation psychologist on Monday. She needs to EKG prior to her visit. EKG done today, normal sinus rhythm. She is currently on escitalopr am 40mg daily. Advised patient that all psych meds should come from psych provider. [id number] ROYA PALAFOX NP [facility] y [address] [facility] [place] [place] [address] 06/29/2021 12:59:34 06/29/2021 13:42:19 Adult health examination 784881486 Z00.00 Anxiety 67479877 F41.9 Long history of anxiety, depression , and borderline personalit y disorder. Patient grew up with an alcoholic father and also lost her several years ago to a heart attack. She has been on lexapro, paxil, wellbutrin , abilify, buspirone, clonazepam , and adderall at various times in the past. She has also done holisitic healing, grief counseling and other mental health programs. She has now establishe d care with a psychiatri and is feeling much better on current meds. She is on Adderall 30mg in am, 20mg in pm if needed, clonazepam 1mg BID, and escitalopr am 20mg daily. Screening for malignant neoplasm of breast 890526372 Z12.39 Liver enzy mes level above reference range 555638358 R74.8 AST 45, ALT 54 on 05/10/21. Will repeat. Order placed for liver US. Screening for cardiovascular system disease 964221424 Z13.6 Health Concerns Section Related Observation LastModified by Organization Detai ls LastModified Time None Recorded Concern Status LastModified by Organization Details LastModified Time None Recorded Advance Directives Directive Y: Payers Encounter Date Sequence Insurance Name Policy Number Policy Grace Covered Member ID Grace Member ID Guarantor Name 02/15/2021 1 [facility] [place] [facility] [employer] (O) [id number] Arlene F Liz [id number] Arlene Liz 05/10/2021 1 [facility] [employer] (O) [id number] Arlene F Liz [id number] Arlene Liz 06/29/2021 1 [facility] (O) [id number] Arlene Hidalgo [id number] Arlene Hidalgo Notes Date Note Type Note Provider Name and Address Organization Details Recorded Time 02/15/2021 text/html Patient thinks s he might have acid reflux. She has been taking omeprazole since June, she initially noticed some improvement but now it is wearing off. she was on an MAO inhibitor as a teen. She has been on several different medications. Lexapro, paxil, wellbutrin, abilify, buspirone. She was then put back on lexapro last year. She has also been on a low dose of adderall. clonazepam prn. she weaned herself off of clonazepam over the course of 8 months. She then developed restless leg syndrome. she did a skills class for borderline personality. Her anxiety levels are high, she is eating more than normal, she has been gaining weight. She is having a hard time focusing. She is looking to restart some of her medications. She is looking to restart adderall 20mg daily. She is taking gabapentin 300mg once a night for restless legs. She has b/l hip bursitis, she has had cortisone injections in the past. She also has low back pain. No recent imaging or PT recently. She has an appt with a psychopharmacist- [facility] in a few weeks. She will also get muscle cramps in her feet and legs. She also gets cramps in her fingers. Left ankle pain. She saw [facility] in [facility]. Mammogram, colonoscopy, bone density.Pt had a partial hysterectomy. ROYA PALAFOX NP [address] [place] [address], [address], [facility]. 02/15/2021 14:40:20 05/10/2021 text/html Patient has been on ropinorole since February. It is impacting her sleep, she is not falling asleep until late at night. She is still trying to find an appt with psychiatrist. She is very anxious. She is having a hard time focusing. She was on adderall in the past. She has also gained weight since being off of it. She weaned herself off of klonopin. She has been having multiple bowel movements a day. She is having urgency to use the restroom. Difficult to trace a food pattern. She is still having acid reflux. She is on 40mg of omeprazole daily. She is currently on escitalopram 40mg daily. She has been on multiple medications. She had multiple side effects from most other medications. She had an appt with [facility] but they do not prescribe adderall. She has an appt with a rehabilitation psychologist on Monday. She is working with a therapist. ROYA PALAFOX NP [address] [place], [address], [facility]. 05/10/2021 10:18:04 06/29/2021 text/html Patient has been feeling better. She is seeing a psych and is on adderall 30mg in the am, 20mg in the pm. She is on the clonazepam 1mg.She has been sleeping well, she has a hard time getting up in the morning.She is seeing psych once a month.Her stools have become less loose. She has been going regularly.Colonosc opy was in [place]- she was told to repeat in 10 years. 01/09/19. [facility] ROYA PALAFOX NP [address] [place], [address], [facility]. 06/29/2021 13:41:05 OBGyn Episode No OBEpisode recorded.
--- OUTSIDE RECORDS SUMMARY | 2024-12-12 12:23 | XMS_ITS | Data Portability ---
Author Organization [place] [facility] Coco Pittman [facility] [place] Address [address] [place] [address] Assessment Encounter Date Assessment Date Assessment LastModified by Organization Details LastModified Time 12/01/2022 12/01/2022 Diagnosis #1 bilateral trochanteric bursitis. I had a lengthy discussion with patient guarding management including therapy, lifestyle modification as well as [id number]-[id number] remedies. She states she has had good relief with cortisone injections within the trochanteric bursa of the hips which was done many years ago for which she opted for at today's visit bilaterally. After verbal consent was obtained the procedures were carried out. Patient tolerated the procedures well. Aftercare was as were discussed in detail. Follow-up visit 3 months time for repeat clinical exam. Should her symptoms not improve or worsen she should contact my office. The procedures and exam/interview were conducted in the presence of female plywood scarfer tender RT Rajan (Ken). Additional treatment plan discussed with the patient in detail included the following; - Provider focused nonsteroidal anti-inflammator y regimen (discussed were the pros, cons, benefits and risks as well as any black box warnings) - Analgesic pain medication for pain suppression (discussed were the pros, cons, benefits and risks as well as any black box warnings) - The use of topical pain relieving medication were discussed - The use of ice to decrease inflammation and pain - The use of assistive ambulatory devices for ambulation and fall prevention - Formal specific guided physical therapy program I reviewed my findings at length with the patient today. ? ? ?We discussed the nature and etiology of this problem along with current treatment options. We discussed the expected course and outcomes and what to expect. We also discussed risks and benefits. ? ? ?All of their questions were answered today, and there was exhibited understanding and comprehension of all that was discussed. 10 minutes were spent reviewing previous imaging and charting. ? ? ?10 minutes were spent obtaining patient history. ? ? ?5 minutes were spent on physical exam. ? ? ?5? ? ?minutes were spent explaining diagnosis and assessment. Today's documentation was made using voice recognition software. This note may contain grammatical errors secondary to the software. Not available 12/01/2022 12:15:10 12/21/2022 12/21/2022 62-year-old female ongoing right shoulder pain treated with cortisone injections. She has been taking [id number] pain medications for symptomatic relief which is minimal at best. She complains of weakness. She is still babying her arm . I explained to her this would likely worsen her symptoms of adhesive capsulitis. She does have previous history of rotator cuff repair many years ago. I will send her for an MRI for further work-up. I will call her with the results depending upon the findings I may have her see Dr. Pardo for surgical consultation if indicated. Once again I did reinforce her stretching her arm utilizing wall crawls, pendulum swings to prevent further freezing of the shoulder as well as discussing rotator cuff protective measures. Indirect care and treatment in conjunction with Dr. Ayala Additional treatment plan discussed with the patient in detail included the following; - Provider focused nonsteroidal anti-inflammator y regimen (discussed were the pros, cons, benefits and risks as well as any black box warnings) - Analgesic pain medication for pain suppression (discussed were the pros, cons, benefits and risks as well as any black box warnings) - The use of topical pain relieving medication were discussed - The use of ice to decrease inflammation and pain - The use of assistive ambulatory devices for ambulation and fall prevention - Formal specific guided physical therapy program I reviewed my findings at length with the patient today. ? ? ?We discussed the nature and etiology of this problem along with current treatment options. We discussed the expected course and outcomes and what to expect. We also discussed risks and benefits. ? ? ?All of their questions were answered today, and there was exhibited understanding and comprehension of all that was discussed. 10 minutes were spent reviewing previous imaging and charting. ? ? ?10 minutes were spent obtaining patient history. ? ? ?5 minutes were spent on physical exam. ? ? ?5? ? ?minutes were spent explaining diagnosis and assessment. Today's documentation was made using voice recognition software. This note may contain grammatical errors secondary to the software. Not available 12/21/2022 18:32:14 01/27/2023 01/27/2023 Diagnosis #1 recurrent rotator cuff tear of the right shoulder with retraction. I had a discussion with the patient regarding management. Due to the amount of retraction and atrophy she is not likely a rotator cuff repair candidate. Her best option would be to see a shoulder replacement specialist unfortunately due to her insurance she cannot be seen by Dr. Thomsaon in the [place] office. I will refer her to either [facility] for surgical consultation. Patient is asking regarding timeframe for which how quickly can we get this done. I explained to her we will put the referral in however they are not a part of our practice and they will deem scheduling as appropriate. In the meantime she can continue with stretching exercises. Rotator cuff protective measures were discussed. She was instructed to take her MRI study on disc with her to her appointment once that is established. We did burn copies of her x-rays. She is in agreement with the above-noted plan. Indirect care and treatment in conjunction with Dr. Ayala Additional treatment plan discussed with the patient in detail included the following; - Provider focused nonsteroidal anti-inflammator y regimen (discussed were the pros, cons, benefits and risks as well as any black box warnings) in patients over 60 years old they should be very cautious in taking these medications due to potential decreased kidney function and or elevated blood pressure. - Analgesic pain medication for pain suppression (discussed were the pros, cons, benefits and risks as well as any black box warnings) - The use of topical pain relieving medication were discussed - The use of ice to decrease inflammation and pain - The use of assistive ambulatory devices for ambulation and fall prevention - Formal specific guided physical therapy program I reviewed my findings at length with the patient today. ? ? ?We discussed the nature and etiology of this problem along with current treatment options. We discussed the expected course and outcomes and what to expect. We also discussed risks and benefits. ? ? ? All of their questions were answered today, and there was exhibited understanding and comprehension of all that was discussed. Time Spent: 15 minutes were spent reviewing previous imaging and charting. ? ? ?15 minutes were spent obtaining patient history. ? ? ?5 minutes were spent on physical exam. ? ? ?15? ? ?minutes were spent explaining diagnosis and assessment. Today's documentation was made using voice recognition software. This note may contain grammatical errors secondary to the software. [email or web address] Not available 01/27/2023 12:16:57 Plan of Treatment Reminders Order Date Submit Date Provider Last Modified By Organization Details Last Modified Time Details Appointments None recorded. Lab None recorded. Referral None recorded. Procedures None recorded. Surgeries None recorded. Imaging MRI, shoulder, w/o contrast - Previous history of rotator cuff tear and repair 2 suture anchors in right proximal humerus 2022 023 [email or web address] [facility] ([facility]), [address], [place], [address], 13:33:32 XR, hip + pelvis, unilateral, 2 or 3 view 2022 023 [facility], [address], [address], [place], [address], 3 10:06:52 XR, hip + pelvis, unilateral, 1 view 2022 023 [facility], [address], [address], [place], [address], 3 10:06:52 Medication Orders Kenalog 40 mg/mL suspension for injection 2022 023 [facility] #[id number], [address] [place] [address], [id number], 3 12:19:59 lidocaine (PF) 10 mg/mL (1 %) injection solution 2022 023 [facility] #[id number], [address] [place] [address], [id number], 3 12:19:59 Kenalog 40 mg/mL suspension for injection 2022 023 [facility] #[id number], [address] [place], [place], [id number], 12:19:59 lidocaine (PF) 10 mg/mL (1 %) injection solution 2022 023 [facility][id number], [address], [place], [id number], 12:19:59 Patient TargetsNo targets recorded. Patient Instructions Encounter Date Encounter Id Patient Instructions Last Modified By Organization Details Last Modified Time 12/01/2022 [id number] Patient Instructions Following Cortisone Injections Orlando Baker PA-C has recommended a cortisone injection for you in the office today. He/she has injected the area in order to reduce the pain and inflammation that you are experiencing. Please note that not everyone will have a lasting response following the injection. Here is some information that he would like for you to have: Content of the Injection: The injection consists of two medications. Cortisone (an anti-inflammatory that will take 48-72 hours to take effect) and Lidocaine (a numbing agent that will last 2-3 hours). Once the Lidocaine wears off, you may have an increase in your pain. Orlando Baker PA-C recommend icing the affected area for 20 minutes 3-4 times per day. Post-injection Instructions: It is recommended that you refrain from any high level activities using the joint or limb that was injected for approximately 24-48 hours. Normal day to day activities are generally not a problem. Possible Side Effects: Skin discoloration: Individuals with dark complexions may experience some skin discoloration locally at the site of the injection. Steroid Flare-Up: There is the possibility of an increase in discomfort within 48 hours following the injection. This is called a ? f lare? . To help minimize the chances of this, please see the post-injection instructions above. Infection: There is a less than 1% chance of an infection. If you notice any signs of infection (redness, warmth, drainage, fever greater than 100 degrees) you should call Orlando Baker PA-C office immediately. Not available 12/01/2022 12:18:51 X-rays of the AP pelvis left and right frog-leg view reveal well-maintained joint space mild superior acetabular subchondral sclerosis and lateral osteophyte formation without acute bony abnormality. Normal bone mineralization. Not available 12/01/2022 11:36:50 Reason for Referral None Reported. Results Created Date Observation Date Name Description Value Unit Range Abnormal Flag Note LastModifiedBy Organization Detail LastModifiedTime 01/26/2001/23/2023 MRI, shoul ward, w/o contr ast No observ ation record ed. [email or web address] [facility] ([facility]) [address] [place], [address], 01/30/2023 12:08:33 01/28/20 MRI, shoul ward, w/o contr ast No observ ation record ed. [email or web address] [facility] ([facility] [address] [place], [address], 01/27/2023 08:25:49 Result Notes None recorded. Problems Name Problem SNOMED Code Status Onset Date Resolution Date Notes Provider Name and Address Organization Details Recorded Time Adhesive capsulitis of right shoulder 2220609290904 09 Active 2022 ORLANDO BAKER PA-C [address], [place], [place], [address], [place] [facility] P 3 15:37:37 Full thickness rotator cuff tear 064369631 Active 2022 ORLANDO BAKER PA-C [address], [place], [address], [place] [facility], [facility] 3 12:16:35 Trochanteri c bursitis of right hip [id number] 00 Active 2022 ORLANDO BAKER PA-C [address], [place], [address], [place] [facility], [facility] 3 12:15:16 Trochanteri c bursitis of left hip 4670684982579 03 Active 2022 ORLANDO BAKER PA-C [address], [place], [address], [place] [facility] 12:15:21 Problem Notes None recorded. Procedures Surgical History Date Name Laterality Status Provider Name and Address Organization Details Recorded Time 12/02/19 LEOBARDO Troch Bursa Inj completed ORLANDO BAKER PA-C [address], [place], [address], [place] [facility], P 12/01/2022 12:13:08 Breast reduction completed Krystal Ba [facility] [place], P 12/01/2022 11:02:46 hysterectomy completed Krystal Ba [facility] 12/01/2022 11:02:59 Shoulder Surgery completed Krystal Ba [facility] [place] P 12/01/2022 11:03:08 Imaging Results Imaging Date Name Status LastModified by Organiz ation Details LastModified Time 01/23/2023 MRI, shoulder, w/o contrast completed [email or web address] [facility] ([facility] [address] [place], [address], 01/30/2023 12:08:33 01/27/2023 MRI, shoulder, w/o contrast completed [email or web address] [facility] [address] [place], [address], 01/27/2023 08:25:49 Procedure Notes None recorded. Medical Equipment None Reported. Allergies No known drug allergies Medications Name Sig Start Date Stop Date Status Note LastModified by Organization Details LastModified Time ibuprofen 800 mg tablet TAKE 1 TABLET BY MOUTH EVERY 8 HOURS NEEDED FOR PAIN active Not Available Not Available No t Available Medrol (Ian) 4 mg tablets in a dose pack Take by oral route. active Not Available Not Available No t Available clonazepam 0.5 mg tablet TAKE 1 TABLET BY MOUTH FOUR TIMES DAILY NEEDED FOR PANIC OR ANXIETY active Not Available Not Available No t Available clonazepam 1 mg tablet TAKE ONE TABLET BY MOUTH EVERY DAY ANXIETY -- NEEDED active Not Available Not Available No t Available amoxicillin 500 mg tablet TAKE 1 TABLET BY MOUTH THREE TIMES DAILY UNTIL ALL TAKEN active Not Available Not Available No t Available Kenalog 40 mg/mL suspension for injection Take 1 mL by injection route. 2022 active Not Available Not Available Not Avai lable dextroampheta mine-amphetam ine 30 mg tablet TAKE 1 TABLET BY MOUTH IN THE AM AND 1 TABLET AT NOON active Not Available Not Available No t Available omeprazole 20 mg capsule,delay ed release TAKE 1 CAPSULE BY MOUTH DAILY active Not Available Not Available No t Available diclofenac sodium 75 mg tablet,delaye d release TAKE 1 TABLET BY MOUTH TWICE DAILY NEEDED FOR MODERATE PAIN active Not Available Not Available No t Available dextroampheta mine-amphetam ine ER 30 mg 24hr capsule,exten d release TAKE 1 CAPSULE BY MOUTH DAILY IN THE MORNING active Not Available Not Available No t Available naproxen 500 mg tablet TAKE 1 TABLET BY MOUTH TWICE DAILY FOR 5 DAYS NEEDED FOR PAIN active Not Available Not Available No t Available escitalopram 20 mg tablet TAKE 2 TABLETS BY MOUTH EVERY DAY active Not Available Not Available No t Available Voltaren active Not Available Not Avai lable Not Available Klonopin active Not Available Not Avai lable Not Available Naprosyn active Not Available Not Avai lable Not Available Prilosec active Not Available Not Avai lable Not Available Adderall active Not Available Not Avai lable Not Available Lexapro active Not Available Not Avail able Not Available lidocaine (PF) 10 mg/mL (1 %) injection solution Take 2 mL by injection route. 2022 active Not Available Not Available Not Avai lable Vitals None Recorded Social History None recorded. Functional Status None recorded. Mental Status None recorded. Family History Nothing Reported. Medical History Condition Response Coronary Artery Disease N Gout N Hyperthyroidism N MRSA N Blood Transfusion N Emphysema N Depression N COPD N Hypothyroidism N Pacemaker N Vascular Disease N Gastrointestinal Disease N Anxiety Disorder N Autoimmune disease N Arthritis N Cancer N Stroke N High Cholesterol N Neurologic Disorder N Liver Disease N Organ Transplant N Rheumatoid Arthritis N Arrhythmia N Fibromyalgia N Kidney Disease N Allergies/Hayfever N Adverse Reaction to Anesthesia N Thyroid Problems N Anemia N Brain Injury N Heart Attack (SD) N Osteopenia N Diabetes N Bleeding Disorder N Seizures/Epilepsy N AIDS/HIV N Congestive Heart Failure (CHF) N Asthma N Amputation N Reflux/GERD N Sleep Apnea N Hepatitis N Aneurysm N Heart Disease N Pulmonary Embolism N Hypertension N Osteoporosis N Gynecological HistoryNo gynecological history recorded. Obstetrics History GPAL:G 0 P 0 0 0 0 Past Encounters Encounter ID Performer Location Encounter Start Date Encounter Closed Date Diagnosis/Indication Diagnosis SNOMED-CT Code Diagnosis ICD10 Code Diagnosis Note [id number] MD TYLOR Palmer [facility] [address] [facility] [address] [place] [address] 12/01/2022 10:58:59 12/01/2022 11:37:56 Pain in right hip joint [id number] 04286 M25.551 Pain of le ft hip joint 5466219979 30227 M25.552 Trochanter ic bursitis of right hip 7383810034 98354 M70.61 Trochanter ic bursitis of left hip 9348015675 33663 M70.62 [id number] MD TYLOR Avila [facility] [address] [facility] [address] [place] [address] 12/21/2022 15:06:01 12/21/2022 15:45:14 Adhesive capsulitis of right shoulder 4326164631 51229 M75.01 [id number] MD TYLOR Avila [facility] [address] [facility] [address] [place] [address] 01/27/2023 11:16:14 01/27/2023 12:01:48 Adhesive capsulitis of right shoulder 0778343050 63023 M75.01 Full thick ness rotator cuff tear 070373773 M75.121 Health Concerns Section Related Observation LastModified by Organization Detai ls LastModified Time None Recorded Concern Status LastModified by Organization Details LastModified Time None Recorded Advance Directives Directive None Recorded Payers Encounter Date Sequence Insurance Name Policy Number Policy Grace Covered Member ID Grace Member ID Guarantor Name 12/21/2022 1 [employer] (PP[employer] Khloe Liz [id number] K[place]oe [place] 01/27/2023 1 [employer] Khloe Liz [id number] Khloe Liz Notes Date Note Type Note Provider Name and Address Organization Details Recorded Time 12/01/2022 text/html 62-year-old fema le here for evaluation of bilateral outer hip pain. Patient states that she has had diagnosis of bilateral trochanteric bursitis many years ago for which she was treated out in [facility] with cortisone injections greater than 5 years ago. 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 She denies groin symptoms. She states she is currently in the process of being worked up for chronic neck and back pain which is been addressed by her primary care provider. She denies any urinary or bowel changes or saddle anesthesia. She denies any knee discomfort on either knee. She states she takes Tylenol which gives her mild symptomatic relief. ORLANDO BAKER PA-C [address] [facility],[address], [place], [address], [place] [facility] 12/01/2022 12:20:52 12/21/2022 text/html Assessment and Plan: Date of visit [id number] female with right shoulder pain history of rotator cuff repair back in 2017 with onset of discomfort after using a power tool 5 weeks ago. She is been doing physical therapy for 3 weeks.? ? ?She has however been in her sling which is impeding on her progress. We discussed treatment options including pros, cons, benefits and risk both inherent and unexpected regarding cortisone injection for which she did opt for. After verbal consent was obtained the procedure was carried out the right shoulder she had notable improvement immediately aftercare instructions were discussed in detail.? ? ?She has been instructed not to utilize the sling she should continue with stretching exercises which I gave her handout with diagrams. She will continue with physical therapy. She does not show improvement in 4 weeks we will obtain an MRI otherwise I will see her back in 3 months time for repeat clinical exam. Patient agrees with the above-noted plan. HPI:Patient states that she still has ongoing discomfort. States certain movements make it more difficult. She also complains of weakness. She states the cortisone injection did nothing for her . Here for follow-up evaluation. She does admit to babying her arm and not stretching it. I did review review her x-rays which were conducted on 11/15/2022 which show to suture anchors within the right proximal humerus. She has a type III acromion, AC joint space narrowing and mild glenohumeral joint space narrowing. ORLANDO BAKER PA-C [address] [facility],[address], [place], [address], [place] [facility] 12/21/2022 18:35:33 01/27/2023 text/html Female plywood scarfer tender present for the entirety of the interview and exam until exiting the room Leigh Denson This is a 62-year-old female who is following up after undergoing her MRI at [facility]. Imaging study was delayed secondary to the patient had an MRI already arranged up at [facility] however the patient did not feel as though the imaging was of the correct area within her shoulder. We had to reschedule it for which she then had a on the date of 01/23/2023. 1. MRI of the right shoulder reveals recurrent full-thickness retracted tears of the supraspinatus and infraspinatus tendons2. Patient still complains of ongoing weakness. Here for follow-up and treatment modalities. AC joint degenerative change, mild glenohumeral degenerative changes and degenerative tearing of the superior labrum and partial tear of the intra-articular biceps tendon. ORLANDO BAKER PA-C [address] [place] [address], [place], [address], [place] [facility], 01/27/2023 12:17:14 OBGyn Episode No OBEpisode recorded.
--- OUTSIDE RECORDS SUMMARY | 2024-12-12 12:24 | XMS_ITS | Data Portability ---
Author Organization [facility] [employer] Address [address] [place] [address] Assessment No assessment recorded. Plan of Treatment Reminders Order Date Submit Date Provider Last Modified By Organization Details Last Modified Time Details Appointments None recorded. Lab urinalysis , dipstick 2020 MATT [employer] [facility], [address] [facility] [address], [place], [address], 14:46:44 urinalysis complete, reflex culture 2020 MATT Not available 11:28:37 vitamin D, 25-hydroxy , total, serum 2020 MATT Not available 04:51:32 lipid panel, serum 2020 MATT Not available 04:51:30 TSH + free T4, serum 2020 MATT Not available 04:51:30 CBC w/ auto diff 2020 MATT Not available 04:51:32 CMP, serum or plasma 2020 MATT Not available 04:51:31 urinalysis complete, reflex culture 2020 MATT Not available 04:51:33 HbA1c (hemoglobi n A1c), blood 01/10/ 2021 01/11/2 021 MATT Not available 1 04:51:31 iron + TIBC + ferritin, serum 2019 MATT Not available 1 05:02:36 vitamin B12 + folate, serum or blood 2019 MATT Not available 1 05:02:36 H pylori Ag, stool 2019 MATT Not available 0 04:09:14 vitamin D, 25-hydroxy , total, serum 2019 wneira Not available 1 15:48:02 CBC w/ auto diff 2019 MATT Not available 0 11:09:19 CMP, serum or plasma 2019 MATT Not available 0 11:09:18 lipid panel, serum 2019 MATT Not available 0 11:09:16 HbA1c (hemoglobi n A1c), blood 2019 MATT Not available 0 11:09:19 TSH + free T4, serum 2019 MATT Not available 0 11:09:17 Referral physical therapist referral 2019 [facility], [address] [place], [address], 1 05:03:50 Procedures None recorded. Surgeries None recorded. Imaging electrocar diogram [address] [facility], [address], [address], [place], [address], 0 11:49:05 XR, chest, 2 view 2019 [facility], [address] [place], [address], 0 12:38:39 DEXA 2019 [facility], [address] [place], [address], 0 10:55:28 MAMMO, screening, digital, bilateral 2019 [facility], [address] [place], [address], 0 15:37:39 XR, ankle, 3 or more view 2019 [facility], [address] [place], [address], 1 05:08:53 Medication Orders Bactrim DS 800 mg-160 mg tablet 2020 021 [facility][id number], [address] [place], [address], 1 14:44:54 fluconazol e 150 mg tablet 2020 021 [facility][id number], [address] [place], [address], 1 14:44:55 gabapentin 300 mg capsule 2020 021 [facility] #[id number], [address] [place], [address], 1 08:55:14 pregabalin 50 mg capsule 2019 020 [facility][id number], [address] [place], [place], [id number], 1 08:35:15 omeprazole 20 mg capsule,de layed release 2019 020 INTERFACE [facility][id number], [address], [place], [place], [id number], 0 11:21:40 diclofenac 1 % topical gel 2019 020 INTERFACE [facility] #[id number], [address], [place], [place], [id number], 0 11:16:14 buspirone 30 mg tablet 2019 020 [email or web address] #[id number], [address], [place], [place], [id number], 0 11:16:50 Patient TargetsNo targets recorded. Patient Instructions Encounter Date Encounter Id Patient Instructions Last Modified By Organization Details Last Modified Time 06/24/2020 [id number] shoulder stretches: exercises [email or web address] Not available 06/24/2020 10:17:19 shoulder arthritis: exercises [email or web address] Not available 06/24/2020 10:17:19 Reason for Referral Physical Therapist Referral for Pain of right shoulder joint Referring Physician: Marina Gonzalez, Internal Medicine, Encounter Date: 06/24/2020 Results Created Date Observation Date Name Description Value Unit Range Abnormal Flag Note LastModifiedBy Organization Detail LastModifiedTime 06/24/2006/25/2020 lipid panel , serum cholesterol, total 260 mg/dL <200 high Not Available [employer] [facility] [address], [place], [address], 06/25/2020 11:09:16 06/24/2006/25/2020 lipid panel , serum HDL cholesterol 59 mg/dL > or = 50 normal Not Available [facility] [address], [place], [address], 06/25/2020 11:09:16 06/24/20 20 06/25/2020 lipid panel , serum triglyceride s 222 mg/dL <150 high If a non-f astin g speci men was colle cted, consi ward repea t trigl yceri de testi ng on a fasti ng speci men if clini bailey indic ated. Farhat potts et al. J. of Clin. Lipid ol. 2015; 9:129 -169. Not Available [facility] [place] [facility] [address], [place], [address], 06/25/2020 11:09:16 06/24/2006/25/2020 lipid panel , serum LDL-choleste rol 163 mg/dL _(david c) high Refer ence range : <100 Fabian able range <100 mg/dL for prima ry preve ntion ; <70 mg/dL for patie nts with CHD or diabe tic patie nts with > or = 2 CHD risk facto rs. LDL-C is now calcu lated using the Kaitlin n-Hop kins calcu jessie n, which is a valid ated novel roberto carloso grady provi ding liliana r accur acy than the Fried tamiko equat ion in the estim ation of LDL-C . Kaitlin hooks SS et al. NERY. 2013; 310(1 9): 2061- 2068 (http ://ed ucati on.Qu Seat 14A. com/f aq/FA Q164) Not Available [facility] [place] [facility] [address], [place], [address], 06/25/2020 11:09:16 06/24/2006/25/2020 lipid panel , serum chol/HDLC ratio 4.4 (calc ) <5.0 normal Not Available [facility] [place] [facility] [address], [place], [address], 06/25/2020 11:09:16 06/24/2006/25/2020 lipid panel , serum non HDL cholesterol 201 mg/dL _(david c) <130 high For patie nts with diabe patience plus 1 major ASCVD risk facto r, treat ing to a non-H DL-C goal of <100 mg/dL (LDL- C of <70 mg/dL ) is consi dered a thera peuti c optio n. Not Available [facility] [address], [place], [address], 06/25/2020 11:09:16 06/24/2006/25/2020 TSH + free T4, serum TSH 1.47 mIU/L 0.40-4 .50 normal Not Available [facility] [place] [facility] [address], [place], [address], 06/25/2020 11:09:17 06/24/2006/25/2020 TSH + free T4, serum T4, free 1.1 NG/dL 0.8-1. 8 normal Not Available [facility] [address], [place], [address], 06/25/2020 11:09:17 06/24/2006/25/2020 CMP, serum or plasm a glucose 89 mg/dL 65-99 normal Fasti ng refer ence inter izzy Not Available [facility] [address], [place], [address], 06/25/2020 11:09:18 06/24/2006/25/2020 CMP, serum or plasm a urea nitrogen (BUN) 19 mg/dL 7-25 normal Not Available [facility] [address], [place], [address], 06/25/2020 11:09:18 06/24/2006/25/2020 CMP, serum or plasm a creatinine 0.85 mg/dL 0.50-0 .99 normal For patie nts >49 years of age, the refer ence limit for Creat inine is appro ximat magda 13% highe r for peopl e ident ified as Afric an-Am anita n. Not Available [facility] [address], [place], [address], 06/25/2020 11:09:18 06/24/2006/25/2020 CMP, serum or plasm a eGFR non-afr. belgian 74 mL/mi n/1.7 3m2 > or = 60 normal Not Available [facility] [address], [place], [address], 06/25/2020 11:09:18 06/24/2006/25/2020 CMP, serum or plasm a eGFR 86 mL/mi n/1.7 3m2 > or = 60 normal Not Available [facility] [address], [place], [address], 06/25/2020 11:09:18 06/24/2006/25/2020 CMP, serum or plasm a BUN/creatini ne ratio NOT APPLIC ABLE (calc ) 6-22 Not Available [facility] [address], [place], [address], 06/25/2020 11:09:18 06/24/2006/25/2020 CMP, serum or plasm a sodium 142 mmol/ L 135-14 6 normal Not Available [facility] [address], [place], [address], 06/25/2020 11:09:18 06/24/2006/25/2020 CMP, serum or plasm a potassium 4.3 mmol/ L 3.5-5. 3 normal Not Available [facility] [address], [place], [address], 06/25/2020 11:09:18 06/24/2006/25/2020 CMP, serum or plasm a chloride 103 mmol/ L 98-110 normal Not Available [facility] [address], [place], [address], 06/25/2020 11:09:18 06/24/2006/25/2020 CMP, serum or plasm a carbon dioxide 25 mmol/ L 20-32 normal Not Available [facility] [address], [place], [address], 06/25/2020 11:09:18 06/24/2006/25/2020 CMP, serum or plasm a calcium 9.5 mg/dL 8.6-10 .4 normal Not Available [facility] [address], [place], [address], 06/25/2020 11:09:18 06/24/2006/25/2020 CMP, serum or plasm a protein, total 6.5 g/dL 6.1-8. 1 normal Not Available [facility] [address], [place], [address], 06/25/2020 11:09:18 06/24/2006/25/2020 CMP, serum or plasm a albumin 4.3 g/dL 3.6-5. 1 normal Not Available [facility] [address], [place], [address], 06/25/2020 11:09:18 06/24/2006/25/2020 CMP, serum or plasm a globulin 2.2 g/dL_ (calc ) 1.9-3. 7 normal Not Available [facility] [address], [place], [address], 06/25/2020 11:09:18 06/24/2006/25/2020 CMP, serum or plasm a albumin/glob ulin ratio 2.0 (calc ) 1.0-2. 5 normal Not Available [facility] [address], [place], [address], 06/25/2020 11:09:18 06/24/2006/25/2020 CMP, serum or plasm a bilirubin, total 0.6 mg/dL 0.2-1. 2 normal Not Available [facility] [address], [place], [address], 06/25/2020 11:09:18 06/24/20 20 06/25/2020 CMP, serum or plasm a alkaline phosphatase 81 U/L 37-153 normal Not Available [facility] [place] [facility] [address], [place], [address], 06/25/2020 11:09:18 06/24/2006/25/2020 CMP, serum or plasm a AST 26 U/L 10-35 normal Not Available [facility] [place] [facility] [address], [place], [address], 06/25/2020 11:09:18 06/24/2006/25/2020 CMP, serum or plasm a ALT 34 U/L 6-29 high Not Available [facility] [place] [facility] [address], [place], [address], 06/25/2020 11:09:18 06/24/2006/25/2020 HbA1c (hemo globi n A1c), blood hemoglobin A1C 5.0 %_of_ total _HGB <5.7 normal For the purpo se of scree katy for the prese nce of diabe patience: <5.7% Consi stent with the absen ce of diabe patience 5.7-6 .4% Consi stent with incre ased risk for diabe patience (pred iabet es) > or =6.5% Consi stent with diabe patience This assay resul t is consi stent with a decre ased risk of diabe patience. Curre ntly, no conse nsus exist s denise lopez use of hemog lobin A1c for diagn osis of diabe patience in child jason. Accor ding to Ameri can Diabe patience Assoc iatio n (ADA) guide lines , hemog lobin A1c <7.0% repre sents optim al contr ol in non-p regna nt diabe tic patie nts. Diffe rent metri cs may apply to speci fic patie nt popul ation s. Stand ards of Medic al Care in Diabe patience(A DA). Not Available [facility] [place] [facility] [address], [place], [address], 06/25/2020 11:09:19 06/24/2006/25/2020 CBC w/ auto diff white blood cell count 7.4 thous and/u L 3.8-10 .8 normal Not Available [facility] [address], [place], [address], 06/25/2020 11:09:19 06/24/2006/25/2020 CBC w/ auto diff red blood cell count 4.80 ne on/uL 3.80-5 .10 normal Not Available [facility] [address], [place], [address], 06/25/2020 11:09:19 06/24/2006/25/2020 CBC w/ auto diff hemoglobin 14.2 g/dL 11.7-1 5.5 normal Not Available [facility] [address], [place], [address], 06/25/2020 11:09:19 06/24/2006/25/2020 CBC w/ auto diff hematocrit 42.4 % 35.0-4 5.0 normal Not Available [facility] [address], [place], [address], 06/25/2020 11:09:19 06/24/2006/25/2020 CBC w/ auto diff MCV 88.3 fL 80.0-1 00.0 normal Not Available [facility] [address], [place], [address], 06/25/2020 11:09:19 06/24/2006/25/2020 CBC w/ auto diff MCH 29.6 pg 27.0-3 3.0 normal Not Available [facility] [address], [place], [address], 06/25/2020 11:09:19 06/24/2006/25/2020 CBC w/ auto diff MCHC 33.5 g/dL 32.0-3 6.0 normal Not Available [facility] [address], [place], [address], 06/25/2020 11:09:19 06/24/2006/25/2020 CBC w/ auto diff RDW 13.8 % 11.0-1 5.0 normal Not Available [facility] [address], [place], [address], 06/25/2020 11:09:19 06/24/2006/25/2020 CBC w/ auto diff platelet count 242 thous and/u L 140-40 0 normal Not Available [facility] [address], [place], [address], 06/25/2020 11:09:19 06/24/2006/25/2020 CBC w/ auto diff MPV 10.3 fL 7.5-12 .5 normal Not Available [facility] [address], [place], [address], 06/25/2020 11:09:19 06/24/2006/25/2020 CBC w/ auto diff absolute neutrophils 4248 cells /uL 1500-7 800 normal Not Available [facility] [address], [place], [address], 06/25/2020 11:09:19 06/24/2006/25/2020 CBC w/ auto diff absolute lymphocytes 2546 cells /uL 850-39 00 normal Not Available [facility] [address], [place], [address], 06/25/2020 11:09:19 06/24/2006/25/2020 CBC w/ auto diff absolute monocytes 459 cells /uL 200-95 0 normal Not Available [facility] [address], [place], [address], 06/25/2020 11:09:19 06/24/2006/25/2020 CBC w/ auto diff absolute eosinophils 111 cells /uL 15-500 normal Not Available [facility] [address], [place], [address], 06/25/2020 11:09:19 06/24/2006/25/2020 CBC w/ auto diff absolute basophils 37 cells /uL 0-200 normal Not Available [facility] [address], [place], [address], 06/25/2020 11:09:19 06/24/2006/25/2020 CBC w/ auto diff neutrophils 57.4 % normal Not Available [facility] [address], [place], [address], 06/25/2020 11:09:19 06/24/2006/25/2020 CBC w/ auto diff lymphocytes 34.4 % normal Not Available [facility] [address], [place], [address], 06/25/2020 11:09:19 06/24/2006/25/2020 CBC w/ auto diff monocytes 6.2 % normal Not Available [facility] [address], [place], [address], 06/25/2020 11:09:19 06/24/2006/25/2020 CBC w/ auto diff eosinophils 1.5 % normal Not Available [facility] [address], [place], [address], 06/25/2020 11:09:19 06/24/2006/25/2020 CBC w/ auto diff basophils 0.5 % normal Not Available [facility] [address], [place], [address], 06/25/2020 11:09:19 07/17/2007/18/2020 test in quest ion- quant ity not suffi cient question/pro blem: THE QUANT ITY OF SPECI MEN(S ) SUBMI TTED IS INSUF FICIE NT FOR THE TEST( S) REQUE TRISTAND. Not Available [facility] [place] [facility] [address] [place], [address], 07/18/2020 04:09:12 07/17/2007/18/2020 test in quest ion- quant ity not suffi cient test(s) ordered: 5616/7 306 Not Available [facility] [place] [facility] [address], [place], [address], 07/18/2020 04:09:12 07/17/2007/18/2020 test in quest ion- quant ity not suffi cient quantity received: 1.0 ML SERUM Not Available [facility] [address], [place], [address], 07/18/2020 04:09:12 07/17/2007/18/2020 test in quest ion- quant ity not suffi cient qn required: 2.7 ML SERUM Not Available [facility] [place] [facility] [address] [place], [address], 07/18/2020 04:09:12 07/17/2007/18/2020 test in quest ion- quant ity not suffi cient resolution: * Not Available [facility] [place] [facility] [address], [place], [address], 07/18/2020 04:09:12 07/17/2007/18/2020 test in quest ion- quant ity not suffi cient comment REQUE STED INFOR TRESA N ___ AUTHO RIZED SIGNA TURE ____ TO PREVE NT FURTH ER DELAY S IN TESTI NG, PLEAS E COMPL ETE INFOR TRESA N ABOVE AND FAX TO [phone] [phone] TO RESOL VE THIS ORDER . Not Available [facility] [place] [facility] [address], [place], [address], 07/18/2020 04:09:12 07/17/2007/18/2020 H pylor i Ag, stool result: SEE NOTE Not Available [facility] [place] [facility] [address], [place], [address], 07/18/2020 04:09:12 07/17/2007/20/2020 H pylor i Ag, stool helicobacter pylori Ag, EIA, stool HELIC OBACT ER PYLOR I AG, EIA, STOOL Micro Numbe r: [id number] Test Statu s: Final Speci men Sourc e: NOT GIVEN Speci men Quali ty: Adequ ate H.pyl hali Ag: Test not perfo rmed. No speci men recei taya. Refer ence Range : Not Detec damian Not Available [facility] [place] [facility] [address], [place], [address], 07/20/2020 13:05:44 08/26/2008/2608/26/2020 elect rocar diogr am Rate & Rhythm Not Available [facility] [address] [facility] [address] [facility] [address], [place], [address], 07/17/2020 11:19:45 08/26/20 20 08/26/2020 elect rocar diogr am QRS Not Available [facility] [employer] [facility] [address] [facility] [facility] [address], [place], [address], 07/17/2020 11:19:45 08/26/20 20 08/26/2020 elect rocar diogr am [place] Interval Not Available [facility] [address] [facility] [address] [facility] [address], [place], [address], 07/17/2020 11:19:45 08/26/20 20 08/26/2020 elect rocar diogr am QRS Duration Not Available [facility] [address] [facility] [address] [facility] [facility] [address], [place], [address], 07/17/2020 11:19:45 08/26/20 20 08/26/2020 elect rocar diogr am QT Interval Not Available [facility] [address] [facility] [address] [facility] [address], [place], [address], 07/17/2020 11:19:45 09/21/19 21 09/23/2020 lipid panel , serum cholesterol, total 231 mg/dL <200 high Not Available [facility] [facility] [address] [place], [address], 09/23/2020 04:51:30 09/21/19 21 09/23/2020 lipid panel , serum HDL cholesterol 52 mg/dL > or = 50 normal Not Available [facility] [address] [place], [address], 09/23/2020 04:51:30 09/21/19 21 09/23/2020 lipid panel , serum triglyceride s 152 mg/dL <150 high Not Available [facility] [address], [place], [address], 09/23/2020 04:51:30 09/21/19 21 09/23/2020 lipid panel , serum LDL-choleste rol 151 mg/dL _(david c) high Refer ence range : <100 Fabian able range <100 mg/dL for prima ry preve ntion ; <70 mg/dL for patie nts with CHD or diabe tic patie nts with > or = 2 CHD risk facto rs. LDL-C is now calcu lated using the Kaitlin n-Hop kins calcu lataneudy n, which is a valid ated novel ricky barr accur acy than the Fried tamiko equat ion in the estim ation of LDL-C . Kaitlin hooks SS et al. NERY. 2013; 310(1 9): 2061- 2068 (http ://ed ucati on.Radario skyVaioni. com/f aq/FA Q164) Not Available [facility] [place] [facility] [address], [place], [address], 09/23/2020 04:51:30 09/21/1909/23/2020 lipid panel , serum chol/HDLC ratio 4.4 (calc ) <5.0 normal Not Available [facility] [place] [facility] [address], [place], [address], 09/23/2020 04:51:30 09/21/19 21 09/23/2020 lipid panel , serum non HDL cholesterol 179 mg/dL _(david c) <130 high For patie nts with diabe patience plus 1 major ASCVD risk facto r, treat ing to a non-H DL-C goal of <100 mg/dL (LDL- C of <70 mg/dL ) is consi yulid froilan castilloo n. Not Available [facility] [place] [facility] [address], [place], [address], 09/23/2020 04:51:30 09/21/1909/23/2020 TSH + free T4, serum TSH 1.15 mIU/L 0.40-4 .50 normal Not Available [facility] [place] [facility] [address], [place], [address], 09/23/2020 04:51:30 09/21/19 21 09/23/2020 TSH + free T4, serum T4, free 1.1 NG/dL 0.8-1. 8 normal Not Available [facility] [place] [facility] [address], [place], [address], 09/23/2020 04:51:30 09/21/1909/23/2020 CMP, serum or plasm a glucose 103 mg/dL 65-99 high Fasti ng refer ence inter izzy For someo ne witho ut known diabe patience, a gluco se value betwe en 100 and 125 mg/dL is consi stent with predi abete s and shoul d be confi rmed with a follo w-up test. Not Available [facility] [place] [facility] [address], [place], [address], 09/23/2020 04:51:31 09/21/1909/23/2020 CMP, serum or plasm a urea nitrogen (BUN) 19 mg/dL 7-25 normal Not Available [facility] [place] [facility] [address], [place], [address], 09/23/2020 04:51:31 09/21/1909/23/2020 CMP, serum or plasm a creatinine 0.90 mg/dL 0.50-0 .99 normal For patie nts >49 years of age, the refer ence limit for Creat inine is appro ximat magda 13% highe r for peopl e ident ified as Afric an-Am anita n. Not Available [facility] [place] [facility] [address], [place], [address], 09/23/2020 04:51:31 09/21/19 21 09/23/2020 CMP, serum or plasm a eGFR non-afr. belgian 69 mL/mi n/1.7 3m2 > or = 60 normal Not Available [facility] [address], [place], [address], 09/23/2020 04:51:31 09/21/19 21 09/23/2020 CMP, serum or plasm a eGFR 81 mL/mi n/1.7 3m2 > or = 60 normal Not Available [facility] [address], [place], [address], 09/23/2020 04:51:31 09/21/1909/23/2020 CMP, serum or plasm a BUN/creatini ne ratio NOT APPLIC ABLE (calc ) 6-22 Not Available [facility] [address], [place], [address], 09/23/2020 04:51:31 09/21/19 21 09/23/2020 CMP, serum or plasm a sodium 144 mmol/ L 135-14 6 normal Not Available [facility] [address], [place], [address], 09/23/2020 04:51:31 09/21/19 21 09/23/2020 CMP, serum or plasm a potassium 4.4 mmol/ L 3.5-5. 3 normal Not Available [facility] [address], [place], [address], 09/23/2020 04:51:31 09/21/1909/23/2020 CMP, serum or plasm a chloride 105 mmol/ L 98-110 normal Not Available [facility] [address], [place], [address], 09/23/2020 04:51:31 09/21/19 21 09/23/2020 CMP, serum or plasm a carbon dioxide 20 mmol/ L 20-32 normal Not Available [facility] [place] [facility] [address], [place], [address], 09/23/2020 04:51:31 09/21/19 21 09/23/2020 CMP, serum or plasm a calcium 10.0 mg/dL 8.6-10 .4 normal Not Available [facility] [address], [place], [address], 09/23/2020 04:51:31 09/21/1909/23/2020 CMP, serum or plasm a protein, total 7.2 g/dL 6.1-8. 1 normal Not Available [facility] [address], [place], [address], 09/23/2020 04:51:31 09/21/1909/23/2020 CMP, serum or plasm a albumin 4.8 g/dL 3.6-5. 1 normal Not Available [facility], [place], [address], 09/23/2020 04:51:31 09/21/1909/23/2020 CMP, serum or plasm a globulin 2.4 g/dL_ (calc ) 1.9-3. 7 normal Not Available [facility] [address], [place], [address], 09/23/2020 04:51:31 09/21/1909/23/2020 CMP, serum or plasm a albumin/glob ulin ratio 2.0 (calc ) 1.0-2. 5 normal Not Available [facility] [address], [place], [address], 09/23/2020 04:51:31 09/21/1909/23/2020 CMP, serum or plasm a bilirubin, total 0.6 mg/dL 0.2-1. 2 normal Not Available [facility] [address], [place], [address], 09/23/2020 04:51:31 09/21/19 21 09/23/2020 CMP, serum or plasm a alkaline phosphatase 83 U/L 37-153 normal Not Available [facility] [place] [facility] [address], [place], [address], 09/23/2020 04:51:31 09/21/19 21 09/23/2020 CMP, serum or plasm a AST 31 U/L 10-35 normal Not Available [facility] [place] [facility] [address], [place], [address], 09/23/2020 04:51:31 09/21/19 21 09/23/2020 CMP, serum or plasm a ALT 35 U/L 6-29 high Not Available [facility] [place] [facility] [address], [place], [address], 09/23/2020 04:51:31 09/21/19 21 09/23/2020 HbA1c (hemo globi n A1c), blood hemoglobin A1C 5.0 %_of_ total _HGB <5.7 normal For the purpo se of screharry katy for the prese nce of diabe patience: <5.7% Consi stent with the absen ce of diabe patience 5.7-6 .4% Consi stent with incre ased risk for diabe patience (pred iabet es) > or =6.5% Consi stent with diabe patience This assay resul t is consi stent with a decre ased risk of diabe patience. Curre ntly, no conse nsus exist s denise lopez use of hemog lobin A1c for diagn osis of diabe patience in child jason. Accor ding to Ameri can Diabe patience Assoc iatio n (ADA) guide lines , hemog lobin A1c <7.0% repre sents optim al contr ol in non-p regna nt diabe tic patie nts. Diffe rent metri cs may apply to speci fic patie nt popul ation s. Stand ards of Medic al Care in Diabe patience(A DA). Not Available [facility] [place] [facility] [address], [place], [address], 09/23/2020 04:51:31 09/21/19 21 09/23/2020 vitam in D, 25-hy droxy , total , serum vitamin D,25-oh,tota l,ia 34 NG/mL 30-100 normal Vitam in D Statu s 25-OH Vitam in D: Defic iency : <20 ng/mL Insuf ficie ncy: 20 - 29 ng/mL Optim al: > or = 30 ng/mL For 25-OH Vitam in D testi ng on patie nts on D2-dukes pplem entat ion and patie nts for whom quant itati on of D2 and D3 fract ions is requi red, the [facility](TM ) 25-OH VIT D, (D2,D 3), LC/MS /MS is recom marilin d: order code 63197 (chioma ents >2yrs ). See Note 1 Note 1 For addit ional infor anais marshall e refer to http: //[facility] gn[employer].c om/fa q/FAQ 199 (This link is being provi ded for infor tresa ya/ educa renita l purpo ses only. ) Not Available [facility] [place] [facility] [address], [place], [address], 09/23/2020 04:51:32 09/21/19 21 09/23/2020 CBC w/ auto diff white blood cell count 5.4 thous and/u L 3.8-10 .8 normal Not Available [facility] [place] [facility] [address], [place], [address], 09/23/2020 04:51:32 09/21/19 21 09/23/2020 CBC w/ auto diff red blood cell count 5.06 en on/uL 3.80-5 .10 normal Not Available [facility] [place] [facility] [address], [place], [address], 09/23/2020 04:51:32 09/21/19 21 09/23/2020 CBC w/ auto diff hemoglobin 14.8 g/dL 11.7-1 5.5 normal Not Available [facility] [address], [place], [address], 09/23/2020 04:51:32 09/21/19 21 09/23/2020 CBC w/ auto diff hematocrit 43.4 % 35.0-4 5.0 normal Not Available [facility] [address], [place], [address], 09/23/2020 04:51:32 09/21/1909/23/2020 CBC w/ auto diff MCV 85.8 fL 80.0-1 00.0 normal Not Available [facility] [address], [place], [address], 09/23/2020 04:51:32 09/21/1909/23/2020 CBC w/ auto diff MCH 29.2 pg 27.0-3 3.0 normal Not Available [facility] [address], [place], [address], 09/23/2020 04:51:32 09/21/19 21 09/23/2020 CBC w/ auto diff MCHC 34.1 g/dL 32.0-3 6.0 normal Not Available [facility] [address], [place], [address], 09/23/2020 04:51:32 09/21/1909/23/2020 CBC w/ auto diff RDW 13.5 % 11.0-1 5.0 normal Not Available [facility] [address], [place], [address], 09/23/2020 04:51:32 09/21/19 21 09/23/2020 CBC w/ auto diff platelet count 278 thous and/u L 140-40 0 normal Not Available [facility] [address], [place], [address], 09/23/2020 04:51:32 09/21/19 21 09/23/2020 CBC w/ auto diff MPV 11.5 fL 7.5-12 .5 normal Not Available [facility] [address], [place], [address], 09/23/2020 04:51:32 09/21/19 21 09/23/2020 CBC w/ auto diff absolute neutrophils 2813 cells /uL 1500-7 800 normal Not Available [facility] [address], [place], [address], 09/23/2020 04:51:32 09/21/19 21 09/23/2020 CBC w/ auto diff absolute lymphocytes 1993 cells /uL 850-39 00 normal Not Available [facility] [address], [place], [address], 09/23/2020 04:51:32 09/21/19 21 09/23/2020 CBC w/ auto diff absolute monocytes 443 cells /uL 200-95 0 normal Not Available [facility] [address], [place], [address], 09/23/2020 04:51:32 09/21/19 21 09/23/2020 CBC w/ auto diff absolute eosinophils 119 cells /uL 15-500 normal Not Available [facility] [address], [place], [address], 09/23/2020 04:51:32 09/21/19 21 09/23/2020 CBC w/ auto diff absolute basophils 32 cells /uL 0-200 normal Not Available [facility] [address], [place], [address], 09/23/2020 04:51:32 09/21/19 21 09/23/2020 CBC w/ auto diff neutrophils 52.1 % normal Not Available [facility] [place] [facility] [address], [place], [address], 09/23/2020 04:51:32 09/21/19 21 09/23/2020 CBC w/ auto diff lymphocytes 36.9 % normal Not Available [facility] [place] [facility] [address], [place], [address], 09/23/2020 04:51:32 09/21/19 21 09/23/2020 CBC w/ auto diff monocytes 8.2 % normal Not Available [facility] [place] [facility] [address], [place], [address], 09/23/2020 04:51:32 09/21/19 21 09/23/2020 CBC w/ auto diff eosinophils 2.2 % normal Not Available [facility] [place] [facility] [address], [place], [address], 09/23/2020 04:51:32 09/21/19 21 09/23/2020 CBC w/ auto diff basophils 0.6 % normal Not Available [facility] [place] [facility] [address], [place], [address], 09/23/2020 04:51:32 09/21/19 21 09/23/2020 urina lysis compl ete, refle x cultu re color YELLOW yellow normal Not Available [facility] [place] [facility] [address], [place], [address], 09/23/2020 04:51:33 09/21/1909/23/2020 urina lysis compl ete, refle x cultu re appearance CLEAR clear normal Not Available [facility] [place] [facility] [address], [place], [address], 09/23/2020 04:51:33 09/21/19 21 09/23/2020 urina lysis compl ete, refle x cultu re specific gravity 1.022 1.001- 1.035 normal Not Available [facility] [place] [facility] [address], [place], [address], 09/23/2020 04:51:33 09/21/19 21 09/23/2020 urina lysis compl ete, refle x cultu re pH 5.5 5.0-8. 0 normal Not Available [facility] [place] [facility] [address], [place], [address], 09/23/2020 04:51:33 09/21/19 21 09/23/2020 urina lysis compl ete, refle x cultu re glucose NEGATI VE negati ve normal Not Available [facility] [place] [facility] [address], [place], [address], 09/23/2020 04:51:33 09/21/19 21 09/23/2020 urina lysis compl ete, refle x cultu re bilirubin NEGATI VE negati ve normal Not Available [facility] [place] [facility] [address], [place], [address], 09/23/2020 04:51:33 09/21/19 21 09/23/2020 urina lysis compl ete, refle x cultu re ketones TRACE negati ve abnormal Not Available [facility] [place] [facility] [address], [place], [address], 09/23/2020 04:51:33 09/21/1909/23/2020 urina lysis compl ete, refle x cultu re occult blood NEGATI VE negati ve normal Not Available [facility] [place] [facility] [address], [place], [address], 09/23/2020 04:51:33 01/11/20 21 09/23/2020 urina lysis compl ete, refle x cultu re protein NEGATI VE negati ve normal Not Available [facility] [place] [facility] [address], [place], [address], 09/23/2020 04:51:33 09/21/19 21 09/23/2020 urina lysis compl ete, refle x cultu re nitrite NEGATI VE negati ve normal Not Available [facility] [place] [facility] [address], [place], [address], 09/23/2020 04:51:33 09/21/19 21 09/23/2020 urina lysis compl ete, refle x cultu re leukocyte esterase NEGATI VE negati ve normal Not Available [facility] [place] [facility] [address], [place], [address], 09/23/2020 04:51:33 09/21/19 21 09/23/2020 urina lysis compl ete, refle x cultu re WBC NONE SEEN /hpf < or = 5 normal Not Available [facility] [place] [facility] [address], [place], [address], 09/23/2020 04:51:33 09/21/19 21 09/23/2020 urina lysis compl ete, refle x cultu re RBC NONE SEEN /hpf < or = 2 normal Not Available [facility] [place] [facility] [address], [place], [address], 09/23/2020 04:51:33 09/21/19 21 09/23/2020 urina lysis compl ete, refle x cultu re squamous epithelial cells 0-5 /hpf < or = 5 Not Available [facility] [address], [place], [address], 09/23/2020 04:51:33 09/21/19 21 09/23/2020 urina lysis compl ete, refle x cultu re bacteria NONE SEEN /hpf none seen normal Not Available [facility] [place] [facility] [address], [place], [address], 09/23/2020 04:51:33 09/21/19 21 09/23/2020 urina lysis compl ete, refle x cultu re hyaline cast NONE SEEN /lpf none seen normal Not Available [facility] [place] [facility] [address], [place], [address], 09/23/2020 04:51:33 09/21/19 21 09/23/2020 cultu re, urine reflexive urine culture NO CULTU RE INDIC ATED Not Available [facility] [address], [place], [address], 09/23/2020 04:51:33 10/15/19 21 10/17/2020 urina lysis compl ete, refle x cultu re color DARK YELLOW yellow normal Not Available [facility] [address], [place], [address], 10/17/2020 11:28:37 10/15/19 21 10/17/2020 urina lysis compl ete, refle x cultu re appearance TURBID clear abnormal Not Available [facility] [address], [place], [address], 10/17/2020 11:28:37 10/15/19 21 10/17/2020 urina lysis compl ete, refle x cultu re specific gravity 1.026 1.001- 1.035 normal Not Available [facility] [place] [facility] [address], [place], [address], 10/17/2020 11:28:37 10/15/19 21 10/17/2020 urina lysis compl ete, refle x cultu re pH 6.0 5.0-8. 0 normal Not Available [facility] [address], [place], [address], 10/17/2020 11:28:37 10/15/19 21 10/17/2020 urina lysis compl ete, refle x cultu re glucose NEGATI VE negati ve normal Not Available [facility] [place] [facility] [address], [place], [address], 10/17/2020 11:28:37 10/15/19 21 10/17/2020 urina lysis compl ete, refle x cultu re bilirubin NEGATI VE negati ve normal Not Available [facility] [place] [facility] [address], [place], [address], 10/17/2020 11:28:37 10/15/19 21 10/17/2020 urina lysis compl ete, refle x cultu re ketones NEGATI VE negati ve normal Not Available [facility] [place] [facility] [address], [place], [address], 10/17/2020 11:28:37 10/15/19 21 10/17/2020 urina lysis compl ete, refle x cultu re occult blood 3+ negati ve abnormal Not Available [facility] [place] [facility] [address], [place], [address], 10/17/2020 11:28:37 10/15/19 21 10/17/2020 urina lysis compl ete, refle x cultu re protein 2+ negati ve abnormal Not Available [facility] [place] [facility] [address], [place], [address], 10/17/2020 11:28:37 10/15/19 21 10/17/2020 urina lysis compl ete, refle x cultu re nitrite POSITI VE negati ve abnormal Not Available [facility] [place] [facility] [address], [place], [address], 10/17/2020 11:28:37 10/15/19 21 10/17/2020 urina lysis compl ete, refle x cultu re leukocyte esterase 2+ negati ve abnormal Not Available [facility] [place] [facility] [address], [place], [address], 10/17/2020 11:28:37 10/15/19 21 10/17/2020 urina lysis compl ete, refle x cultu re WBC > OR = 60 /hpf < or = 5 abnormal Not Available [facility] [place] [facility] [address], [place], [address], 10/17/2020 11:28:37 10/15/19 21 10/17/2020 urina lysis compl ete, refle x cultu re RBC > OR = 60 /hpf < or = 2 abnormal Not Available [facility] [place] [facility] [address], [place], [address], 10/17/2020 11:28:37 10/15/19 21 10/17/2020 urina lysis compl ete, refle x cultu re squamous epithelial cells 0-5 /hpf < or = 5 Not Available [facility] [place] [facility] [address], [place], [address], 10/17/2020 11:28:37 10/15/19 21 10/17/2020 urina lysis compl ete, refle x cultu re bacteria MODERA TE /hpf none seen abnormal Not Available [facility] [place] [facility] [address], [place], [address], 10/17/2020 11:28:37 10/15/19 21 10/17/2020 urina lysis compl ete, refle x cultu re hyaline cast NONE SEEN /lpf none seen normal Not Available [facility] [place] [facility] [address], [place], [address], 10/17/2020 11:28:37 10/15/19 21 10/17/2020 urina lysis compl ete, refle x cultu re comments FEW MUCOUS THREAD S Not Available [facility] [place] [facility] [address], [place], [address], 10/17/2020 11:28:37 10/15/19 21 10/17/2020 urina lysis compl ete, refle x cultu re reflexive urine culture CULTU RE INDIC ATED - RESUL TS TO FOLLO W Not Available [facility] [place] [facility] [address], [place], [address], 10/17/2020 11:28:37 10/15/19 21 10/18/2020 cultu re, urine culture, urine, routine SEE NOTE abnormal CULTU RE, URINE , ROUTI NE Micro Numbe r: [id number] Test Statu s: Final Speci men Sourc e: URINE Speci men Quali ty: Adequ ate Resul t: Great er than 100,0 00 CFU/m L of [place] a coli COMME NT: Addit ional non-p redom inati ng organ ism(s ) isola damian. These organ isms, commo nly found on exter nal and inter nal genit silverio, are consi dered colon izers . No furth er testi ng perfo rmed. E.col i ----- ----- ----- - INT GERA AMOX/ CLAVU LANAT E S <=2.0 AMPIC ILLIN S <=2.0 AMP/S ULBAC BUNN S <=2.0 CEFAZ JOSE NR <=4.0 2 CEFEP SANTIAGO S <=1.0 CEFTR IAXON E S <=1.0 CIPRO FLOXA MELIZA S <=0.2 5 GENTA MICIN S <=1.0 IMIPE NEM S 0.5 LEVOF LOXAC IN I 1.0 NITRO FURAN TOIN S <=16. 0 PIP/T AZOBA CTAM S <=4.0 TOBRA MYCIN S <=1.0 TRIME THOPR IM/DUKES LFA S <=20. 0 S=Denice cepti ble I=Int ermed iate R=Res istan t * = Not Teste d NR = Not Repor damian NN = See Thera py Comme nts THERA PY COMME NTS Note 1: For infec tions other than uncom plica damian UTI cause d by E. coli, K. pneum oniae or P. mirab ilis: Cefaz jose is resis tant if GERA > or = 8 mcg/m L. (Dist ingui shing susce ptibl e versu s inter media te for isola patience with GERA < or = 4 mcg/m L requi res addit ional testi ng.) Note 2: For uncom plica damian UTI cause d by E. coli, K. pneum oniae or P. mirab ilis: Cefaz jose is susce ptibl e if GERA <32 mcg/m L and predi cts susce ptibl e to the oral agent s cefac tanvi, cefdi nay, cefpo doxim e, cefpr ozil, cefur oxime , cepha lexin and lorac arbef . Not Available [facility] [place] [facility] [address], [place], [address], 10/18/2020 09:21:54 10/15/1910/15/2020 urina lysis , dipst ick Color Brown Not Available [facility] [address] [facility] [facility] [address], [place], [address], 10/15/2020 12:36:15 10/15/1910/15/2020 urina lysis , dipst ick Appearance Turbid Not Available [facility] [address] [facility] [address], [place], [address], 10/15/2020 12:36:15 10/15/19 21 10/15/2020 urina lysis , dipst ick Leukocytes Modera te 125 (++) Not Available [facility] [address] [facility] [address], [place], [address], 10/15/2020 12:36:15 10/15/19 21 10/15/2020 urina lysis , dipst ick Nitrite Positi ve Not Available [facility] [address] [facility] [address], [place], [address], 10/15/2020 12:36:15 10/15/19 21 10/15/2020 urina lysis , dipst ick Urobilinogen 8 (140) mg/dL Not Available [facility] [address], [place], [address], 10/15/2020 12:36:15 10/15/19 21 10/15/2020 urina lysis , dipst ick Protein 100 (1.0) mg/dL (++) Not Available [facility] [address], [place], [address], 10/15/2020 12:36:15 10/15/19 21 10/15/2020 urina lysis , dipst ick pH 5.0 Not Available [facility] [address], [place], [address], 10/15/2020 12:36:15 10/15/19 21 10/15/2020 urina lysis , dipst ick Blood Trace Not Available [facility] [address] [facility] [address] [address], [place], [address], 10/15/2020 12:36:15 10/15/19 21 10/15/2020 urina lysis , dipst ick Specific Shevlin 1.030 Not Available [facility] [address] [facility] [address], [place], [address], 10/15/2020 12:36:15 10/15/19 21 10/15/2020 urina lysis , dipst ick Ketone X-Larg e (++++) Not Available [facility] [address] [facility] [address], [place], [address], 10/15/2020 12:36:15 10/15/19 21 10/15/2020 urina lysis , dipst ick Bilirubin Small 1(17) mg/dL (+) Not Available [facility] [address], [place], [address], 10/15/2020 12:36:15 10/15/19 21 10/15/2020 urina lysis , dipst ick Glucose Negati ve Not Available [facility] [address], [place], [address], 10/15/2020 12:36:15 07/16/20 20 07/08/2020 DEXA No observ ation record ed. [facility] [address] [place], [address], 08/24/2020 16:00:56 07/16/2007/15/2020 XR, chest , 2 view No observ ation record ed. [facility] Not Available 2019 16:00:56 07/17/20 elect rayar diogr am No observ ation record ed. [email or web address] Not Available 2019 17:59:16 07/17/20 20 07/08/2020 MAMMO , scree katy, digit al, bilat eral No observ ation record ed. [facility] [address] [place], [address], 08/24/2020 16:00:57 Result Notes None recorded. Problems Name Problem SNOMED Code Status Onset Date Resolution Date Notes Provider Name and Address Organization Details Recorded Time Insomnia 574113939 Active 2019 Marina lauren MD [address], [place], [address], [facility] 0 10:04:17 Anxiety 40953609 Active 2019 Marina lauren MD [address], [place], [address], [facility] 0 10:04:18 Abnormal weight gain 131931411 Active 2019 Marina lauren MD [address], [place], [address], [facility] 0 10:04:20 Recurrent major depression 78752750 Active 2019 Marina lauren MD [address], [place], [address], [facility] 0 10:04:22 Persistent cough 822640171 Active 2019 Marina lauren MD [address], [place], [address], [facility] 0 10:04:26 Ankle pain 322747648 Active 2019 Marina lauren MD [address], [place], [address], [facility] 0 10:04:27 Pain of right shoulder joint 0619329296351 9100 Active 2019 Marina lauren MD [address], [place], [address], [facility] 0 10:04:29 Restless legs 19195979 Active 2019 Pili Ching MD [address], [place], [address], [facility] 0 11:11:16 Hyperlipide zachery 13739805 Active 2019 Pili Ching MD [address], [place], [address], [place] [facility] 0 11:11:21 Osteopenia 665092955 Active 2019 Pili Ching MD [address], [place], [address], [place] [facility] 0 01:59:25 Gastroesoph ageal reflux disease 574127883 Active 2019 Pili Ching MD [address], [place], [address], [place] [facility] 0 02:03:26 Problem Notes None recorded. Procedures Surgical History Date Name Laterality Status Provider Name and Address Organization Details Recorded Time 04/25/20 19 Date of Last Mammogram completed [facility] 06/24/2020 08:53:49 01/10/20 19 Colonoscopy completed [facility] 06/24/2020 08:53:03 12/20/19 18 Other completed [facility] 06/24/2020 08:53:03 10/11/19 17 Other completed [facility] 06/24/2020 08:53:03 10/21/19 14 Other completed [facility] 06/24/2020 08:53:03 01/10/20 05 Breast Surgery completed [facility] 06/24/2020 08:53:03 Hysterectomy completed [facility] 06/24/2020 08:53:03 Imaging Results Imaging Date Name Status LastModified by Organization Details LastModified Time 07/08/2020 DEXA completed [facility] [address] [place], [address], 08/24/2020 16:00:56 07/15/2020 XR, chest, 2 view completed [email or web address] Informa tion not available 08/24/2020 16:00:56 07/17/2020 electrocardiogram completed [email or web address] Informa tion not available 08/03/2020 17:59:16 07/08/2020 MAMMO, screening, digital, bilateral completed [facility] [address] [place], [address], 08/24/2020 16:00:57 Procedure Notes None recorded. Medical Equipment None Reported. Allergies No known drug allergies Medications Name Sig Start Date Stop Date Status Note LastModified by Organization Details LastModified Time glyburide micronized 6 mg tablet active Not Available Not Available Not Available fluconazole 150 mg tablet TAKE ONE TABLET BY MOUTH ONCE, IF NO RESOLUTIO N CAN REPEAT DOSE IN 72 HOURS. active Not Available Not Available No t Available sulfamethox azole 800 mg-trimetho prim 160 mg tablet TAKE 1 TABLET EVERY 12 HOURS BY ORAL ROUTE FOR 3 DAYS. active Not Available Not Available No t Available trazodone 150 mg tablet Take 1 tablet every day by oral route as needed. 09/21 completed Not Available Not Available Not Available buspirone 30 mg tablet Take 1 tablet twice a day by oral route for 90 days. 07/17 completed Not Available Not Available Not Available gabapentin 300 mg capsule TAKE 1 CAPSULE EVERY DAY BY ORAL ROUTE FOR 30 DAYS. active Not Available Not Available No t Available omeprazole 20 mg capsule,del ayed release TAKE 1 CAPSULE EVERY DAY BY ORAL ROUTE FOR 90 DAYS. active Not Available Not Available No t Available metronidazo le 0.75 % topical gel Apply by topical route for 30 days. active Not Available Not Available No t Available escitalopra m 20 mg tablet TAKE 1 TABLET BY MOUTH EVERY DAY active Not Available Not Available No t Available pregabalin 50 mg capsule Take 1 capsule 3 times a day by oral route for 30 days. 09/21 completed Not Available Not Available Not Available diclofenac 1 % topical gel APPLY 2 GRAMS TO THE AFFECTED AREA(S) BY TOPICAL ROUTE 4 TIMES PER DAY 2019 active Not Available Not Available Not Avai lable COVID-19 test specimen collection TEST DIRECTED active Not Available Not Available No t Available Vitals Date Recorded Body height Body mass index (BMI) Body weight Body temperature Heart rate Oxygen saturation Oxygen saturation in Arterial blood by Pulse oximetry Systolic blood pressure Diastolic blood pressure Provider Name and Address Organization Details Last Updated DateTime 0 160.02 cm 33.5 kg/m2 98586.9 6 g 97.4 [degF] 63 /min 96 % 96 % 115 mm[Hg] 75 mm[Hg] Juan barr [facility] 0 08:59:27 Date Recorded Body height Body mass index (BMI) Body weight Heart rate Oxygen saturation Oxygen saturation in Arterial blood by Pulse oximetry Body temperature Systolic blood pressure Diastolic blood pressure Provider Name and Address Organization Details Last Updated DateTime 0 160.02 cm 33.1 kg/m2 77309.7 7 g 59 /min 97 % 97 % 96.3 [degF] 107 mm[Hg] 73 mm[Hg] Juan barr [facility] 0 10:24:30 Date Recorded Body height Body temperature Body mass index (BMI) Body weight Heart rate Oxygen saturation Oxygen saturation in Arterial blood by Pulse oximetry Systolic blood pressure Diastolic blood pressure Provider Name and Address Organization Details Last Updated DateTime 1 160.02 cm 96.8 [degF] 33.4 kg/m2 69141.8 g 73 /min 95 % 95 % 121 mm[Hg] 75 mm[Hg] Fernandez Evin [facility] 1 08:35:26 Date Recorded Body height Body temperature Body mass index (BMI) Body weight Heart rate Oxygen saturation Oxygen saturation in Arterial blood by Pulse oximetry Systolic blood pressure Diastolic blood pressure Provider Name and Address Organization Details Last Updated DateTime 1 160.02 cm 96.7 [degF] 33.2 kg/m2 67820.2 1 g 61 /min 97 % 97 % 110 mm[Hg] 71 mm[Hg] Juan barr [facility] 1 14:22:49 Social History Question Answer Notes LastModified by Organizat ion Details LastModified Time Tobacco Smoking Status Former Smoker Juan gutiérrez [facility] 06/24/2020 08:53:30 What Is Your Level Of Alcohol Consumption? None Information not available 06/24/2020 What Is Your Level Of Caffeine Consumption? Occasional Information not available 06/24/2020 How Much Tobacco Do You Chew? None Information not available 06/24/2020 What Type Of Diet Are You Following? REGULAR Information not available 06/24/2020 Which Illicit Or Recreational Drugs Have You Used? 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 16+yearssincel astcigarette Information not available 06/24/2020 Recent Colonoscopy? 2019 Information not available 06/24/2020 Marital Status Informat ion not available 06/24/2020 What Is Your Current Pack Years? 30ormorepackye ars Information not available 06/24/2020 Do You Use Protection During Sex? No Information not available 06/24/2020 Are You Sexually Active? No Information not available 06/24/2020 Smoke Alarm In Home Yes Information not available 06/24/2020 Are You Passively Exposed To Smoke? No Information no t available 06/24/2020 How Much Tobacco Do You Smoke? 1 PPW Information not available 06/24/2020 General Stress Level Medium Information not available 06/24/2020 How Many Years Have You Smoked Tobacco? 15 Information not available 06/24/2020 Sex: Unknown Functional Status Question Answer Note LastModified by Organizat ion Details LastModified Time What is your exercise level? Occasional Information not available 06/24/2020 Mental Status None recorded. Family History Relationship Description Onset Age of this Age Resolved Age Notes LastModified by Organization Details LastModified Time Father Alcohol abuse [age] Not available 08:53:39 Medical History Condition Response HIV N Coronary Artery Disease N Mood Disorders N Sleep Disorders N Weight Problems Y Depression Y Anemia N Kidney disease N CVA/Stroke N Arthritis/Joint Disease N Anxiety Disorder Y Diabetes N Hemorrhoids N High blood pressure/Hypertension N Psych disorders N COPD/Lung Disease N Kidney stones N Cancer N Hearing problems N Heart disease N DVT/Blood clot N Dementia N Asthma N High cholesterol N ADHD N GERD N Liver Disease N Memory Loss N Vision problems N Heart murmur N Osteoporosis N Stomach issues N Muscle/joint/bone problems Y Gynecological History Statement/Question Response Date of Last Mammogram 04/25/2019 Date of LMP Sexually Active? N Menses Monthly N STIs/STDs N HPV Vaccine N Date of Last Pap Smear Age at Menarche 12 Current Control Method Hysterectom y Age at First Child 31 Hormone Replacement Therapy N Obstetrics History GPAL:G 4 P 0 0 0 2 Type Value Living 2 Total 4 Immunizations Vaccine Type Date Status Note Provider Nam e and Address Organization Details Recorded Time COVID-19, mRNA, LNP-S, PF, 30 mcg/0.3 mL dose 03/23/2021 completed Diaina Prepetit null, [facility] 03/25/2021 12:26:32 COVID-19, mRNA, LNP-S, PF, 30 mcg/0.3 mL dose 04/13/2021 completed Diaina Prepetit null, [facility] 04/15/2021 10:25:26 Past Encounters Encounter ID Performer Location Encounter Start Date Encounter Closed Date Diagnosis/Indication Diagnosis SNOMED-CT Code Diagnosis ICD10 Code Diagnosis Note [id number] Marina villegas MD [facility] [address] [place] [address] [address] [place] [address] 06/24/2020 08:44:32 06/24/2020 10:26:08 Pain of right shoulder joint 1796062492 3028068 M25.511 No red flag findings on exam May take NSAID as needed, must take with food to prevent GI upset Muscle relaxant prescribed for more severe and persistent pain Discussed medication regimen as well as diet and exercise modificati on Patient will apply heat/ice as needed for pain relief Follow up in 2 weeks for re-evaluat ion Ankle pain 018128935 M25 .5[address] Hx of [address] in place, referred for x-ray, further management as indicate dafter that Persistent cough 4152208 02 R05 Exam unremarkab le, will refer for chest x-ray Abnormal weight gain 161 245124 R63.5 R73.09 E78.9 R53.83 E61.1 Discussed lifestyle modificati ons, regular exercise and dietary changes Risk stratifica tion with A1c and lipids Follow up scheduled for monitoring Anxiety 33765146 F41.9 Contineu lexapro with busparPati ent identified triggers for anxiety and impact of anxious thinking on functionin g.Discusse d strategies to regulate symptoms and need for compliance with treatment. Insomnia 037242962 G47.0 0 Good sleep hygiene and natural remedies discussed: melatonin, sleepy time tea Trazodone as needed for persistent symptoms Recurrent major depression 84582179 F33.9 Stable on lexapro, continue as prescribed Renewal of prescription 091813195 Z76.0 Screening for malignant neoplasm of breast 058251055 Z12.39 Osteopenia 466384151 M85 .80 [id number] Pili Ching MD [place] [address] [facility],[address] [place] [address] 07/17/2020 10:13:59 07/17/2020 11:49:05 Pain of right shoulder joint 4300707365 4399354 M25.511 No red flag findings on exam May take NSAID as needed, must take with food to prevent GI upset Muscle relaxant prescribed for more severe and persistent pain Discussed medication regimen as well as diet and exercise modificati on Patient will apply heat/ice as needed for pain relief Ankle pain 200981507 M25 .579 Hx of hardware in place, x-ray 07/08/20 shows hardware intact.jhonny l place on diclofenac gel. further eval and ortho eval based on symptoms. Persistent cough 5059936 02 R05 Exam unremarkab le, CXR 07/15/20 N. Will treat for gerd. If symptoms persist despite PPI will get further eval with CT chest. Recurrent major depression 22232857 F33.9 Stable on lexapro, continue as prescribed Abnormal weight gain 161 960605 R63.5 R73.09 E78.9 R53.83 E61.1 Discussed lifestyle modificati ons, regular exercise and dietary changes Risk stratifica tion with A1c and lipids Follow up scheduled for monitoring Anxiety 82027438 F41.9 Continue lexapro with busparPati ent identified triggers for anxiety and impact of anxious thinking on functionin g.Discusse d strategies to regulate symptoms and need for compliance with treatment. Insomnia 348176590 G47.0 0 Good sleep hygiene and natural remedies discussed: melatonin, sleepy time tea Trazodone as needed for persistent symptoms but makes her feel groggy the next day. Osteopenia 799270511 M85 .80 DEXA 07/08/20 osteopenia L1-4 -1.5Patien t had bone density study performed that showed osteopenia . I recommende d calcium supplement ation with a goal of {{1200mg * 1000 mg}} daily including dietary intake and vitamin D {{800 units * 600 units}} daily; goal 25-OH vitamin D level >/= 30ng/mL. {{Plan to start oral bisphospho nates Do not plan to start oral bisphospho nates at this time*}}. Advised patient to perform daily weight bearing exercises daily, for instance walking 30 minutes/da y. Plan to recheck bone density q24 months. I discussed these results with the patient and the current guidelines for treatment of osteoporos is and osteopenia . We reviewed the various treatment options including conservati ve management with calcium, vitamin D and increased weight-patrizia ring exercise. Risks/bene fits and possible side effects of each were discussed. Questions were answered to the patient? s satisfact ion. Restless legs 77838783 G 25.81 will eval with labs. For now will start on lyrica and reassess. Hyperlipidemia 25234014 E78.5 06/24/20 TC 260, HDL 59, TG 222, LDL 163advised to exercise, eat a prudent diet and lose weight as appropriat e.pt advised to eat a diet full of fruits/veg etables and whole grains; replace butter/mar garine/hyd rogenated oils with olive or canola oil. Replace red meats with fish and chicken. Be physically active and get at least 30 min of exercise on most days of the week. Atypical chest pain 1025 04433 R07.89 Patient presents with {{chest* a rm back ja w}} pain with atypical features. Given the history, exam findings and {{his her* }} risk factors, I {{feel do not feel*}} additional investigat ion is warranted. Appropriat e labwork {{has* has not}} been performed recently, therefore I {{have not* have} } made arrangemen ts for further testing. I have {{made no made the following* }} adjustment s to the present medical regimen.If symptoms persist or worsen she is to inform. Pt to seek emergent medical care if symptoms worsen. Gastroesop hageal reflux disease 237179097 K21.[address] on trial of PPE and reassessIn structions to : Maintain a healthy weight. Get help to lose any extra pounds. Avoid lying down after meals. Avoid eating late at night. Elevate the head of your bed by 6 inches. Avoid wearing tight-fitt ing clothes. Avoid foods that might irritate your stomach Begin an exercise program Avoid over-the-c ounter nonsteroid al anti-infla mmatory medicines and asa [id number] HUMERA ALCANTARA [facility] [address] [facility] [address] [place] [address] 09/21/2020 08:27:49 09/21/2020 09:08:39 Recurrent major depression 93335832 F33.9 Stable on lexapro, continue as prescribed PHQ 9 score zero today. Abnormal weight gain 161 322338 R63.5 R73.09 E78.9 R53.83 E61.1 Discussed lifestyle modificati ons, regular exercise and dietary changes Risk stratifica tion with A1c and lipids Follow up scheduled for monitoring Anxiety 75600998 F41.9 Continue lexaproPat ient identified triggers for anxiety and impact of anxious thinking on functionpavel rasmussen strategies to regulate symptoms and need for compliance with treatment. Insomnia 071480771 G47.0 0 Good sleep hygiene and natural remedies discussed: melatonin, sleepy time tea Gabapentin prescribed for her restless legs since lyrica was not covered, it maybe able to help with her sleep . Osteopenia 866779075 M85 .80 Dexa 06/2020. Adult heal th examination 036918538 Z00.00 Patient presented to office today for their Annual Wellness Visit. She has started a diet and has lost 10 lbs since her last visit.Cont inue current regimen. No acute findings on exam.Refus es influenza vaccine and all other vaccines. Screening for disorder 493512657 Z13.9 CAGE and PHQ-9 screening, negative Advance di rective discussed with patient 154781647 Z71.89 Does not have a living will. She is working on it at this time. Hyperlipidemia 40973063 E78.5 LDL elevated at last visit.She has changed her diet and lost weigh.Foll ow up labs. Restless legs 33231613 G 25.81 Lyrica was not covered by Insurance. Trial of Gabapentin today discussed. [id number] HUMERA ALCANTARA [facility] [address] [place] [address] 10/15/2020 13:58:29 10/15/2020 14:46:58 Acute urinary tract infection 382123945 N39.0 Meds as directed.D iscussed clear fluids.David l if no resolution . Candidiasis of vagina 72 208521 B37.3 Discussed meds as directed.D iscussed probiotics . Health Concerns Section Related Observation LastModified by Organization Detai ls LastModified Time None Recorded Concern Status LastModified by Organization Details LastModified Time None Recorded Advance Directives Directive None Recorded Payers Encounter Date Sequence Insurance Name Policy Number Policy Grace Covered Member ID Grace Member ID Guarantor Name 06/24/2020 1 [place] Pamela Liz [id number] Pamela Liz 07/17/2020 1 [employer] Pamela Liz [id number] Pamela Liz 09/21/2020 1 [employer] Pamela Liz [id number] Pamela Liz 10/15/2020 1 [employer] Pamela Liz [id number] Pamela Liz Notes Date Note Type Note Provider Name and Address Organization Details Recorded Time 06/24/2020 text/html New patient visi t for chronic disease management:- Right shoulder pain: she has a history of rotator cuff injury with surgery in 2017, has pain now that is concerning - Left ankle: Hx of ankle surgery with hardware, reports recents swelling and pain. - Chest pressure, dry cough: developed recently, has had similar symptoms at the onset of COVID, but never had a fever. No history of asthma, does not smoke. - Abnormal weight gain: has gained 19 lbs since the pandemic, recently joined weight watchers - Depression/Anxiety disorder/Insomnia: lost her a few years ago, moved to [place] for healing, she recently moved to [place], lives with her elderly aunt. Takes trazodone as needed at bedtime. She is on lexapro and buspar. Marina desai MD [address], [place], [address], [facility] 06/24/2020 10:18:27 07/17/2020 text/html Seen on follow u p for continued management of multiple chronic health issues. The patient does not have any new problem since the last visit. All medications taken as prescribed, no unwanted side effects. Denies shortness of breath, lower extremity swelling or PND symptoms. She complains of multiple joint pains of her ankle and hip.She states the past 2 years she has hip pains since her hip fracture 2 years ago.- Right shoulder pain: she has a history of rotator cuff injury with surgery in 2017, has pain now that is concerning - Left ankle: Hx of ankle surgery with hardware, reports recents swelling and pain. chest pressure/cough- She complains of a chest heaviness/pressure sensation that lasts all day.It makes her want to cough. Denies exertional symptoms or any restriction on exercise capacity.She has had similar symptoms at the onset of COVID, but never had a fever. No history of asthma, does not smoke. Insomnia- Trazodone made her groggy the next day so takes it only as needed.She feels she hasnt slept well since she stopped the benzo.She weaned off clonazepam over covid. She was on a few mg for many years for her anxiety. - Depression/Anxiety disorder/Insomnia: lost her a few years ago, moved to [place] for healing, she recently moved to [place], lives with her elderly aunt. Takes trazodone as needed at bedtime. She is on lexapro and buspar. She feels she has restless leg syndrome since september when she stopped taking the clonazepam 07/2019. She saw neurology as she also developed tingling and numbness and told she likely was experiencing withdrawals. She was placed on buspirone which did not help. - Abnormal weight gain: has gained 19 lbs since the pandemic, recently joined weight watchers Pili Ching MD [address], [place], [address], [facility] 08/10/2020 02:18:49 09/21/2020 text/html 60 y/o female presents today for annual wellness exam.Lyrica was prescribed at her last visit for her restless legs however it was not covered by her insurance. Chronic medical conditions:- Right shoulder pain: she has a history of rotator cuff injury with surgery in 2017. - Left ankle: Hx of ankle surgery with hardware, reports recents swelling and pain. - Insomnia- Trazodone made her groggy the next day so takes it only as needed.She feels she hasnt slept well since she stopped the benzo.She weaned off clonazepam over covid. She was on a few mg for many years for her anxiety. - Depression/Anxiety disorder/Insomnia: lost her a few years ago, moved to [place] for healing, she recently moved to [place], lives with her elderly aunt. She is on lexapro. She feels she has restless leg syndrome since september when she stopped taking the clonazepam 07/2019. She saw neurology as she also developed tingling and numbness and told she likely was experiencing withdrawals. She was placed on buspirone which did not help. - Abnormal weight gain: has gained 19 lbs since the pandemic, had gained 10 lbs since her last visit in 06/2020, now down the 10 lbs again by diet. Mammogram 07/08/2020CXR 07/15/2020 NegativeDexa 07/08/2020 Osteopenia HUMERA DAVIS [address], [place], [address], [facility] 09/21/2020 08:59:05 10/15/2020 text/html 60 y/o female presents today for a same day sick visit.C/O of dysuria for the past 2 days. Took AZO and cranberry without any help.Admits to some urinary frequency and urgency and suprapubic discomfort. Denies any hematuria.Admits to discharge and some pruritus. HUMERA DAVIS [address], [place], [address], [facility] 10/15/2020 14:47:24 OBGyn Episode No OBEpisode recorded.
--- OUTSIDE RECORDS SUMMARY | 2024-12-12 12:24 | XMS_ITS | Continuity of Care Document ---
Author Organization [facility] Address [address] [address] [place] [address] Phone Care Team Providers Care Energy Economist Name Role Phone Angelo Ochoa OD Unavailable [...] Date Provider Providers Copied on Encounter Eye [facility], [address] [address], [place], [place], [id number], [place] tel:[phone] Patient is here for a complete eye exam (chief complaint) Nuclear sclerosis senile cataract, bilateral H25.13Myopi a, bilateral H52.13 Don Stephens. Daria [employer] [place], [address], [place], [id number], [place]. tel:[phone] Referring Provider: Daria Buenrostro [employer] [place] [address], [place], [address]. tel:[phone] Family History Family Member Type Diagnosis Age At Onset Problem (finding) No relevant family hist ory Payers Payer name Insurance type Covered libertarian ID Authoriza tion(s) No Information Social History [...]
== END 2024-12-12 11:27 | disposition home or self-care (01) ==
LOC: HO.HOS 11:00
PROVIDERS: PCP Nurse Practitioner Family; Visit Provider Orthopaedic Surgery
DX: M54.2 Cervicalgia (principal); M25.512 Pain in left shoulder
CPT/HCPCS: 99213; G2211

== ENCOUNTER → 2024-12-12 11:00 | Outpatient (BNVA) | payer OTHER, SELFPAY | PROVIDERS: PCP Nurse Practitioner Family; Visit Provider Orthopaedic Surgery | DX: M25.512 Pain in left shoulder (principal); M54.2 Cervicalgia | CPT/HCPCS: 99212 ==

== ENCOUNTER → 2024-12-25 17:41 | Outpatient (BNV) | payer OTHER, SELFPAY | PROVIDERS: PCP Nurse Practitioner Family; Visit Provider Radiology Diagnostic Radiology | DX: M99.61 Osseous and subluxation stenosis of intervertebral foramina of cervical region (principal) | CPT/HCPCS: 72141 ==

== ENCOUNTER 2024-12-25 18:00 | Outpatient (REF) | payer OTHER, SELFPAY ==
--- NOTE | ~2024-12-25 | MR_ITS ---
EXAMINATION: MR CERVICAL SPINE WITHOUT CONTRAST CLINICAL INFORMATION: Cervicalgia COMPARISON: None available. TECHNIQUE: MRI of the cervical spine was obtained using routine sequences without contrast. FINDINGS: Craniocervical junction is intact. No bone marrow STIR signal abnormality. Multilevel disc desiccation and marginal osteophyte formation C4 C6. Buckling deformity of the dorsal aspect of the thecal sac related to ligamentum flavum hypertrophy at C4-5 C5-6 and C6-7 levels. Cervical spinal cord signal is normal. C2-3: No disc herniation. No neuroforamina stenosis. C3-4: Broad-based disc osteophyte complex formation. No cord compression. Right neuroforamina narrowing on a degenerative basis. The C4-5: Broad-based disc osteophyte complex formation resulting in ventral deformity of the spinal cord. Bilateral neuroforamina narrowing right greater than left on a degenerative basis. C5-6: Broad-based disc osteophyte complex formation resulting in ventral deformity of spinal cord and CSF effacement of the thecal sac. Bilateral neuroforamina left greater than right stenosis. Small perineural cysts, bilaterally. C6-7: Central and left subarticular disc herniation resulting in ventral deformity of the spinal cord. No cord signal abnormality. No neuroforamina stenosis. Small perineural cysts bilaterally. C7-T1: Broad-based osteophyte complex formation resulting in ventral deformity of spinal cord no cord signal abnormality. No neuroforamina stenosis. No prevertebral compartment hematoma, mass or fluid collection. Flow-void signal within the vessels is normal. Right vertebral artery slightly dominant. MR/MR cervical spine wo con IMPRESSION: Multilevel cervical spondylosis C4 C7 more conspicuous at C6-7 with the central and left subarticular disc herniation resulting in cord deformity without cord edema and or myelopathy. Bilateral neuroforamina stenosis at C4-5 C5-6 levels on a degenerative basis. Electronically signed by: Umer Castro MD 12/26/2024 07:40 AM EDT
--- OUTSIDE RECORDS SUMMARY | 2024-12-25 18:27 | XMS_ITS | Clinical Summary ---
Author Organization [facility] Address [address] [place], [place] [id number] Care Team Providers Care Multisensor Intelligence Officer Name Role Phone Unavailable Primary Care Provider [...] ID Effect nicole Dates Phone Address Type [employer]. [id number] 08/11/2022-Pres ent [address] HUMERA BOLAÑOS [id number] PPO
--- OUTSIDE RECORDS SUMMARY | 2024-12-25 18:27 | XMS_ITS | Continuity of Care Document ---
Author Organization [facility] Address [address] [place] [address]- Care Team Providers Care Sternman Name Role Phone Yue GRAPHIC ART DESIGNER, Rio Aguirre Primary Care Physician Encounter [facility] Date(s): 11/22/24 - 12/22/24 [facility] Care [address] [address] Encounter Type: Triage Allergies, Adverse Reactions, Alerts No Known Allergies Immunizations Given and Recorded Vaccine Date Status Refusal Reason tetanus/diphtheria/pertussis, acel(Tdap) 08/23/23 Given tetanus/diphtheria/pertussis, acel(Tdap) 02/15/21 Recorded tetanus/diphtheria/pertussis, acel(Tdap) 09/17/15 Recorded SARS-CoV-2 (COVID-19) mRNA BNT-162b2 vac 04/13/21 Recorded SARS-CoV-2 (COVID-19) mRNA BNT-162b2 vac 03/23/21 Recorded Medications hydrOXYzine hydrochloride 25 mg oral tablet 1 tablet = 25 mg, By Mouth, 2 times a day, PRN for anxiety, for 30 days, # 60 tablet, 1 Refills, Acute 01/03/25 1:13:00 PM EDT, 11/04/24 1:13:00 PM EST, Tablet, [id number], Partial fill upon patient request if the prescription is for a schedule II opioid drug., 158, cm, 11/04/24 11:53:00 EST, Height, 75.6, kg, 07/10/24 13:19:00 EDT, Dry Weight Start Date: 11/04/24 Stop Date: 01/03/25 Status: Ordered Quantity: 60.0 Unit: tablet Repeat number: 2 Indication: Generalized anxiety disorder vilazodone 40 mg oral tablet 1 tablet = 40 mg, By Mouth, Daily, with food, # 90 tablet, 1 Refills, Maintenance, 11/22/24 4:49:00 PM EDT, Tablet, [facility] #[id number], Partial fill upon patient request if the prescription is for a schedule II opioid drug., 160, cm, 11/10/24 13:37:00 EST, Height, 78.2, kg, 11/10/24 13:37:00 EST, Dry Weight Start Date: 11/22/24 Status: Ordered Quantity: 90.0 Unit: tablet Repeat number: 2 Vyvanse 50 mg oral capsule TAKE 1 CAPSULE BY MOUTH DAILY Start Date: 09/17/24 Status: Ordered Repeat number: 1 Problem List Condition Confirmation Course Effective Dates Status H ealth Status Informant ADHD (attention deficit hyperactivity disorder) Confirmed Active ELISABET (generalized anxiety disorder) Confirmed Active Obese class I Confirmed Active RLS (restless legs syndrome) Confirmed Active Pain in right shoulder Confirmed Active Social History Social History Type Response Smoking Status Former smoker, quit more than 30 days ago entered on: 03/10/23 Sex Sex Representation Female (finding) Patient Care team information Care Team Personnel Name: Rio Turner NP Position: [facility] PCO Associate Professional Member Role: PCP Address: [address] [place] [address] [address] Telecom: Care Team Related Persons Name: LACEY DOWNEY Name: ADY HIDALGO Name: MATEO HIDALGO Insurance Providers Guarantor name: ARLENE ROCKY Health Plan Information #: 1 Payer: [facility] [employer] Member Number: NA Policy Number: NA Group Number: NA
--- OUTSIDE RECORDS SUMMARY | 2024-12-25 18:27 | XMS_ITS | Data Portability ---
Author Organization [place] [facility] Coco Pittman AONE [place] Address [address] [place] [address] Assessment Encounter Date Assessment Date Assessment LastModified by Organization Details LastModified Time 12/01/2022 12/01/2022 Diagnosis #1 bilateral trochanteric bursitis. I had a lengthy discussion with patient guarding management including therapy, lifestyle modification as well as jzak-[id number]-[id number] remedies. She states she has had good [...] were conducted in the presence of female general surgeon RT Rajan (Ken). Additional treatment plan discussed [...] with cortisone injections. She has been taking lkiy-put-pgjjolo pain medications for symptomatic relief which is [...] insurance she cannot be seen by Dr. Thomason in the [place] office. I will refer her to either [place] [facility] for surgical consultation. Patient is [...] in right proximal humerus 2022 023 [email or web address] [facility] ([facility]), [address], [place], [address], 13:33:32 XR, hip + pelvis, unilateral, 2 or 3 view 2022 023 [facility], [address], [address], [place], [address], 3 10:06:52 XR, hip + pelvis, unilateral, 1 view 2022 023 [facility], [address], [address], [place], [address], 3 10:06:52 Medication Orders Kenalog 40 mg/mL suspension for injection 2022 023 [facility] #[id number], [address] [place] [address], [id number], 3 12:19:59 lidocaine (PF) 10 mg/mL (1 %) injection solution 2022 023 [facility] #[id number], [address] [place] [address], [id number], 3 12:19:59 Kenalog 40 mg/mL suspension for injection 2022 023 [facility] #[id number], [address], [place], [id number], 12:19:59 lidocaine (PF) 10 mg/mL (1 %) injection solution 2022 023 [facility] #[id number], [address], [place], [id number], 12:19:59 Patient TargetsNo targets recorded. Patient Instructions Encounter Date Encounter Id Patient Instructions Last Modified By Organization Details Last Modified Time 12/01/2022 [id number] Patient Instructions Following Cortisone Injections Orlando Baker [...] contr ast No observ ation record ed. [email or web address] [facility] ([facility]) [address] [place], [address], 01/30/2023 12:08:33 01/28/20 MRI, shoul ward, w/o contr ast No observ ation record ed. [email or web address] [facility] ([facility] [address], [address], 01/27/2023 08:25:49 Result Notes None recorded. Problems Name Problem SNOMED Code Status Onset Date Resolution Date Notes Provider Name and Address Organization Details Recorded Time Adhesive capsulitis of right shoulder 3487455946776 09 Active 2022 ORLANDO BAKER PA-C [address], [place], [place], [address], [place] [facility], [facility] 3 15:37:37 Full thickness rotator cuff tear 042173822 Active 2022 ORLANDO BAKER PA-C [address], [place], [address], [place] [facility], P 3 12:16:35 Trochanteri c bursitis of right hip 7193815264221 00 Active 2022 ORLANDO BAKER PA-C [address], [place], [address], [place] [facility] [place], P 3 12:15:16 Trochanteri c bursitis of left hip 7155818106776 03 Active 2022 ORLANDO BAKER PA-C [address], [place], [address], [place] [facility] [place], P 12:15:21 Problem Notes None recorded. Procedures Surgical History Date Name Laterality Status Provider Name and Address Organization Details Recorded Time 12/02/19 LEOBARDO Troch Bursa Inj completed ORLANDO BAKER PA-C [address], [place], [address], [place] [facility] [place], P 12/01/2022 12:13:08 Breast reduction completed Krystal Ba [facility] [place], P 12/01/2022 11:02:46 hysterectomy completed [place]rystal Ba [facility] [place], P 12/01/2022 11:02:59 Shoulder Surgery completed Krystal Ba [facility] [place], P 12/01/2022 11:03:08 Imaging Results Imaging Date Name Status LastModified by Organiz ation Details LastModified Time 01/23/2023 MRI, shoulder, w/o contrast completed [email or web address] [facility] ([facility] [address] [place], [address], 01/30/2023 12:08:33 01/27/2023 MRI, shoulder, w/o contrast completed [email or web address] [facility] ([facility] [address] [place], [address], 01/27/2023 08:25:49 Procedure Notes None recorded. Medical [...] MRSA N Blood Transfusion N Emphysema N Hypothyroidism N COPD N Depression N Pacemaker N Vascular Disease N Gastrointestinal Disease N Anxiety Disorder N Autoimmune disease N Arthritis N Cancer N Stroke N High Cholesterol N Neurologic Disorder N Liver Disease N Organ Transplant N Arrhythmia N Rheumatoid Arthritis N Fibromyalgia N Kidney Disease N Allergies/Hayfever N Adverse Reaction to Anesthesia N Thyroid Problems N Anemia N Brain Injury N Heart Attack ([place]) N Osteopenia N Diabetes N Bleeding Disorder [...] Code Diagnosis Note [id number] [facility] [address] [facility] [address] [place] [address] 12/01/2022 10:58:59 12/01/2022 11:37:56 Pain in right hip joint [id number] 59126 M25.551 Pain of le ft hip joint 4260213480 91854 M25.552 Trochanter ic bursitis of right hip 7272818075 39332 M70.61 Trochanter ic bursitis of left hip 5003546756 45908 M70.62 [id number] [facility] [address] [facility] [address] [place] [address] 12/21/2022 15:06:01 12/21/2022 15:45:14 Adhesive capsulitis of right shoulder 2912930188 02154 M75.[id number] [facility] [address] [facility] [address] [place] [address] 01/27/2023 11:16:14 01/27/2023 12:01:48 Adhesive capsulitis of right shoulder 2019388409 68072 M75.01 Full thick ness rotator cuff tear 624655104 M75.121 Health Concerns Section Related Observation LastModified by Organization Detai ls LastModified Time None Recorded Concern Status LastModified by Organization Details LastModified Time None Recorded Advance Directives Directive None Recorded Payers Encounter Date Sequence Insurance Name Policy Number Policy Grace Covered Member ID Grace Member ID Guarantor Name 12/21/2022 1 [employer] - M[employer] (PPO) Khloe Liz [id number] [place] 01/27/2023 1 [employer] - [employer] (PPO) Khloe Liz [id number] Khloe Liz Notes Date Note Type Note Provider Name and Address Organization Details Recorded Time 12/01/2022 text/html 62-year-old fema le here for evaluation of bilateral outer hip pain. Patient states that she has had diagnosis of bilateral trochanteric bursitis many years ago for which she was treated out in [facility] with cortisone injections greater than 5 years [...] mild symptomatic relief. ORLANDO BAKER PA-C [address] [facility],[address], [place], [address], [place] [facility] [place], P 12/01/2022 12:20:52 12/21/2022 text/html Assessment and Plan: Date of visit [id number] female with right shoulder pain history of [...] joint space narrowing. ORLANDO BAKER PA-C [address] [facility],[address], [place], [address], [place] [facility] [place], [facility] 12/21/2022 18:35:33 01/27/2023 text/html Female general surgeon present for the entirety of the interview and exam until exiting the room Leigh Denson This is a 62-year-old female who is following up after undergoing her MRI at [facility]. Imaging study was delayed secondary to the patient had an MRI already arranged up at [facility] however the patient did not feel as [...] the intra-articular biceps tendon. ORLANDO BAKER PA-C [address] [place] [address], [place], [address], [place] [facility] [place], 01/27/2023 12:17:14 OBGyn Episode No OBEpisode recorded.
--- OUTSIDE RECORDS SUMMARY | 2024-12-25 18:27 | XMS_ITS | Data Portability ---
Author Organization [facility] [employer], svmg_admin Address [address] [place] [id number] Care Team Providers Care Balling Machine Operator Name Role Phone ROYA PALAFOX Primary Care Provider Assessment Encounter Date Assessment Date Assessment LastModified [...] Lab lipid panel, serum 2020 021 [facility], [address] [place] [address], [address], 2 07:56:34 HbA1c (hemoglobin A1c), blood 2020 021 [facility], [address] [place] [address], [address], 07:56:34 hepatitis panel (A+B+C), acute, serum 2020 021 [facility], [address] [place] [address], [address], 2 07:56:34 celiac disease comprehensi ve panel, serum 2020 021 [facility], [address] [place] [address], [address], 12:07:15 CMP, serum or plasma 2020 021 [facility], [address] [place] [address], [address], 12:07:17 CBC w/ auto diff 2020 021 [facility] [facility], [address] [place] [address], [address], 12:07:16 food allergen panel, serum 2020 021 [facility] [facility], [address] [place] [address], [address], 12:07:19 H pylori igm+igg+iga Ab, serum 2020 021 [facility], [address] [place] [address], [address], 12:07:18 Referral physical therapist referral [email or web address] [facility], [address] [facility], [place], [address], 11:44:06 physical therapist referral [address] Physical [facility], [address] [facility], [place], [address], 11:44:05 nutritionis t/dietitian referral 2020 021 [facility] ([facility]), [address] [place] [address], [address], 15:08:15 physical therapist referral [address] [facility], [address] [place] [address], [place], [address], 11:44:05 Procedures None recorded. Surgeries None recorded. Imaging MAMMO, screening, digital, bilateral [address] ([facility] [place], [address], 09:05:41 US, liver [address] ([facility]), [address] [place] [address], [address], 09:05:51 electrocard iogram 2020 021 [email or web address] In-Office Order, Internal Use Only DO Not Attach Compendium DO Not Attach Compendium, Do Not Delete/merge, [id number] 12:10:49 Medication Orders omeprazole 40 mg capsule,del ayed release [address] [facility] #000, [address] [address], [place], [address], 14:23:51 ropinirole 0.5 mg tablet 2020 021 [facility]/Pharmacy #0006, [address] [facility] [address], [place], [address], 13:08:25 Patient TargetsNo targets recorded. Patient Instructions Encounter Date Encounter Id Patient Instructions Last Modified By Organization Details Last Modified Time 02/15/2021 [id number] gastroesophageal reflux disease (GERD): care instructions kmako Not available 02/15/2021 14:23:43 restless legs syndrome: care instructions kmako Not available 02/15/2021 14:23:43 learning about m ood disorders kmako Not available 02/15/2021 14:39:27 body mass index: care instructions kmako Not available 02/15/2021 14:24:44 learning about healthy [facility] Not available 02/15/2021 14:24:44 06/29/2021 [id number] learning about breast cancer screening [facility] Not available 06/29/2021 13:27:21 Reason for Referral Physical Therapist Referral for Pain of right shoulder joint Referring Physician: Roya Palafox [facility], Encounter Date: 02/15/2021 Physical Therapist Referral for Bilateral hip joint pain Referring Physician: Roya Palafox [facility], Encounter Date: 02/15/2021 Physical Therapist Referral for Pain of left ankle joint Referring Physician: Roya Palafox [facility] Stefani, Encounter Date: 02/15/2021 Slip Dumper/dietitian Refer ral for Body mass index 30+ - obesity Referring Physician: Roya Palafox [facility], Encounter Date: 02/15/2021 Results Created Date Observation [...] tive enter opath y. Not Available [facility] ([facility]) [address] [facility], [place], [address], 05/13/2021 12:07:15 05/10/20 21 05/11/2021 JOSE C DISEA SE PANEL immunoglobul in A, qn, serum 241 mg/dL 87-352 Not Available [facility] ([facility]) [address] [facility], [place], [address], 05/13/2021 12:07:15 05/10/20 21 05/13/2021 JOSE C DISEA SE PANEL endomysial antibody IgA Negati ve negati ve Not Available [facility] ([facility]) [address] [facility], [place], [address], 05/13/2021 12:07:15 05/10/20 21 05/10/2021 CBC WITH DIFFE RENTI AL/PL ATELE T WBC 6.5 x10e3 /uL 3.4-10 .8 Not Available [facility] ([facility]) [address] [facility], [place], [address], 05/13/2021 12:07:16 05/10/20 21 05/10/2021 CBC WITH DIFFE RENTI AL/PL ATELE T RBC 5.15 x10e6 /uL 3.77-5 .28 Not Available [facility] ([facility]) [address] [facility], [place], [address], 05/13/2021 12:07:16 05/10/20 21 05/10/2021 CBC WITH DIFFE RENTI AL/PL ATELE T hemoglobin 14.9 g/dL 11.1-1 5.9 Not Available [facility] ([facility]) [address] [facility], [place], [address], 05/13/2021 12:07:16 05/10/20 21 05/10/2021 CBC WITH DIFFE RENTI AL/PL ATELE T hematocrit 43.6 % 34.0-4 6.6 Not Available [facility] ([facility]) [address] [facility], [place], [address], 05/13/2021 12:07:16 05/10/20 21 05/10/2021 CBC WITH DIFFE RENTI AL/PL ATELE T MCV 85 fL 79-97 Not Available [facility] ([facility]) [address] [facility], [place], [address], 05/13/2021 12:07:16 05/10/20 21 05/10/2021 CBC WITH DIFFE RENTI AL/PL ATELE T MCH 28.9 pg 26.6-3 3.0 Not Available [facility] ([facility]) [address] [facility], [place], [address], 05/13/2021 12:07:16 05/10/20 21 05/10/2021 CBC WITH DIFFE RENTI AL/PL ATELE T MCHC 34.2 g/dL 31.5-3 5.7 Not Available [facility] ([facility]) [address] [facility], [place], [address], 05/13/2021 12:07:16 05/10/20 21 05/10/2021 CBC WITH DIFFE RENTI AL/PL ATELE T RDW 14.4 % 11.7-1 5.4 Not Available [facility] ([facility]) [address] [facility], [place], [address], 05/13/2021 12:07:16 05/10/20 21 05/10/2021 CBC WITH DIFFE RENTI AL/PL ATELE T platelets 278 x10e3 /uL 150-45 0 Not Available [facility] ([facility]) [address] [place], [address], 05/13/2021 12:07:16 05/10/20 21 05/10/2021 CBC WITH DIFFE RENTI AL/PL ATELE T neutrophils 55 % not estab. Not Available [facility] ([facility]) [address] [facility], [place], [address], 05/13/2021 12:07:16 05/10/20 21 05/10/2021 CBC WITH DIFFE RENTI AL/PL ATELE T lymphs 33 % not estab. Not Available [facility] ([facility]) [address] [facility], [place], [address], 05/13/2021 12:07:16 05/10/20 21 05/10/2021 CBC WITH DIFFE RENTI AL/PL ATELE T monocytes 8 % not estab. Not Available [facility] ([facility]) [address] [facility], [place], [address], 05/13/2021 12:07:16 05/10/20 21 05/10/2021 CBC WITH DIFFE RENTI AL/PL ATELE T eos 3 % not estab. Not Available [facility] ([facility]) [address] [facility], [place], [address], 05/13/2021 12:07:16 05/10/20 21 05/10/2021 CBC WITH DIFFE RENTI AL/PL ATELE T basos 1 % not estab. Not Available [facility] ([facility]) [address] [facility], [place], [address], 05/13/2021 12:07:16 05/10/2005/10/2021 CBC WITH DIFFE RENTI AL/PL ATELE T immature cells FELLING MACHINE OPERATOR Not Available [facility]) [address] [facility], [place], [address], 05/13/2021 12:07:16 05/10/20 21 05/10/2021 CBC WITH DIFFE RENTI AL/PL ATELE T neutrophils (absolute) 3.7 x10e3 /uL 1.4-7. 0 Not Available [facility] ([facility]) [address] [place], [address], 05/13/2021 12:07:16 05/10/20 21 05/10/2021 CBC WITH DIFFE RENTI AL/PL ATELE T lymphs (absolute) 2.1 x10e3 /uL 0.7-3. 1 Not Available [facility] ([facility]) [address] [facility], [place], [address], 05/13/2021 12:07:16 05/10/20 21 05/10/2021 CBC WITH DIFFE RENTI AL/PL ATELE T monocytes(ab solute) 0.5 x10e3 /uL 0.1-0. 9 Not Available [facility] ([facility]) [address] [facility], [place], [address], 05/13/2021 12:07:16 05/10/20 21 05/10/2021 CBC WITH DIFFE RENTI AL/PL ATELE T eos (absolute) 0.2 x10e3 /uL 0.0-0. 4 Not Available [facility] ([facility]) [address] [facility], [place], [address], 05/13/2021 12:07:16 05/10/20 21 05/10/2021 CBC WITH DIFFE RENTI AL/PL ATELE T baso (absolute) 0.0 x10e3 /uL 0.0-0. 2 Not Available [facility] ([facility]) [address] [facility], [place], [address], 05/13/2021 12:07:16 05/10/20 21 05/10/2021 CBC WITH DIFFE RENTI AL/PL ATELE T immature granulocytes FELLING MACHINE OPERATOR Not Available [facility]) [address] [place], [address], 05/13/2021 12:07:16 05/10/20 21 05/10/2021 CBC WITH DIFFE RENTI AL/PL ATELE T immature grans (abs) FELLING MACHINE OPERATOR Not Available [facility]) [address] [place], [address], 05/13/2021 12:07:16 05/10/20 21 05/10/2021 CBC WITH DIFFE RENTI AL/PL ATELE T NRBC FELLING MACHINE OPERATOR Not Available [facility] ([facility]) [address] [facility], [place], [address], 05/13/2021 12:07:16 05/10/20 21 05/10/2021 CBC WITH DIFFE RENTI AL/PL ATELE T hematology comments: FELLING MACHINE OPERATOR Not Available [facility] ([facility]) [address] [facility], [place], [address], 05/13/2021 12:07:16 05/10/20 21 05/10/2021 COMP. METAB OLIC PANEL (14) glucose 97 mg/dL 65-99 Not Available [facility] ([facility]) [address] [facility], [place], [address], 05/13/2021 12:07:17 05/10/20 21 05/10/2021 COMP. METAB OLIC PANEL (14) BUN 15 mg/dL 8-27 Not Available [facility] ([facility]) [address] [place], [address], 05/13/2021 12:07:17 05/10/20 21 05/10/2021 COMP. METAB OLIC PANEL (14) creatinine 0.78 mg/dL 0.57-1 .00 Not Available [facility] ([facility]) [address] [facility], [place], [address], 05/13/2021 12:07:17 05/10/20 21 05/10/2021 COMP. METAB OLIC PANEL (14) eGFR if nonafricn AM 82 mL/mi n/1.7 3 >59 Not Available [facility] ([facility]) [address] [facility], [place], [address], 05/13/2021 12:07:17 05/10/20 21 05/10/2021 COMP. METAB [...] SN Task force . Not Available [facility] ([facility]) [address] [place], [address], 05/13/2021 12:07:17 05/10/20 21 05/10/2021 COMP. METAB OLIC PANEL (14) BUN/creatini ne ratio 19 12-28 Not Available [facility] ([facility]) [address] [place], [address], 05/13/2021 12:07:17 05/10/20 21 05/10/2021 COMP. METAB OLIC PANEL (14) sodium 141 mmol/ L 134-14 4 Not Available [facility] ([facility]) [address] [place], [address], 05/13/2021 12:07:17 05/10/20 21 05/10/2021 COMP. METAB OLIC PANEL (14) potassium 4.7 mmol/ L 3.5-5. 2 Not Available [facility] ([facility]) [address] [place], [address], 05/13/2021 12:07:17 05/10/20 21 05/10/2021 COMP. METAB OLIC PANEL (14) chloride 103 mmol/ L 96-106 Not Available [facility] ([facility]) [address] [place], [address], 05/13/2021 12:07:17 05/10/20 21 05/10/2021 COMP. METAB OLIC PANEL (14) carbon dioxide, total 23 mmol/ L 20-29 Not Available [facility] ([facility]) [address] [place], [address], 05/13/2021 12:07:17 05/10/20 21 05/10/2021 COMP. METAB OLIC PANEL (14) calcium 9.9 mg/dL 8.7-10 .3 Not Available [facility] ([facility]) [address] [place], [address], 05/13/2021 12:07:17 05/10/20 21 05/10/2021 COMP. METAB OLIC PANEL (14) protein, total 6.9 g/dL 6.0-8. 5 Not Available [facility] ([facility]) [address] [place], [address], 05/13/2021 12:07:17 05/10/20 21 05/10/2021 COMP. METAB OLIC PANEL (14) albumin 4.7 g/dL 3.8-4. 8 Not Available [facility] ([facility]) [address] [place], [address], 05/13/2021 12:07:17 05/10/20 21 05/10/2021 COMP. METAB OLIC PANEL (14) globulin, total 2.2 g/dL 1.5-4. 5 Not Available [facility] ([facility]) [address] [place], [address], 05/13/2021 12:07:17 05/10/20 21 05/10/2021 COMP. METAB OLIC PANEL (14) A/G ratio 2.1 1.2-2. 2 Not Available [facility] ([facility]) [address] [place], [address], 05/13/2021 12:07:17 05/10/20 21 05/10/2021 COMP. METAB OLIC PANEL (14) bilirubin, total 0.3 mg/dL 0.0-1. 2 Not Available [facility] ([facility]) [address] [place], [address], 05/13/2021 12:07:17 05/10/20 21 05/10/2021 COMP. METAB OLIC PANEL (14) alkaline phosphatase 113 IU/L 48-121 Not Available [facility]) [address] [place], [address], 05/13/2021 12:07:17 05/10/20 21 05/10/2021 COMP. METAB OLIC PANEL (14) AST (SGOT) 45 IU/L 0-40 above high normal Not Available [facility] ([facility]) [address] [place], [address], 05/13/2021 12:07:17 05/10/20 21 05/10/2021 COMP. METAB OLIC PANEL (14) ALT (SGPT) 54 IU/L 0-32 above high normal Not Available [facility] ([facility]) [address] [place], [address], 05/13/2021 12:07:17 05/10/20 21 05/11/2021 H PYLOR I, IGM, IGG, IGA AB H. pylori, IgG abs 0.26 index _valu e 0.00-0 .79 Negat nicole <0.80 Equiv ocal 0.80 - 0.89 Posit nicole >0.89 Not Available [facility] ([facility]) [address] [place], [address], 05/13/2021 12:07:18 05/10/20 21 05/11/2021 H PYLOR I, IGM, IGG, IGA AB H. pylori, IgA abs 9.7 units 0.0-8. 9 above high normal Negat nicole <9.0 Equiv ocal 9.0 - 11.0 Posit nicole >11.0 Not Available [facility] ([facility]) [address] [place], [address], 05/13/2021 12:07:18 05/10/20 21 05/11/2021 H PYLOR I, IGM, IGG, IGA AB H pylori, IgM abs <9.0 units 0.0-8. 9 Negat nicole <9.0 Equiv ocal 9.0 - 11.0 Posit nicole >11.0 This test was clement cat and its perfo fani e ananya tiwari stics deter mined by [employer]. It has not been clear ed or appro taya by the Food and Drug Admin istra tion. Not Available [facility] ([facility]) [address] [place], [address], 05/13/2021 12:07:18 05/10/20 21 05/10/2021 FOOD ALLER [...] >100. 00 Very High Not Available [facility] ([facility]) [address] [place], [address], 05/13/2021 12:07:19 05/10/2005/13/2021 FOOD ALLER GY PROFI LE M918-KwL egg white <0.10 kU/L class 0 Not Available [facility] ([facility]) [address] [place], [address], 05/13/2021 12:07:19 05/10/2005/13/2021 FOOD ALLER GY PROFI LE W910-IpK peanut <0.10 kU/L class 0 Not Available [facility] ([facility]) [address] [place], [address], 05/13/2021 12:07:19 05/10/20 21 05/13/2021 FOOD ALLER GY PROFI LE L019-DiX soybean <0.10 kU/L class 0 Not Available [facility] ([facility]) [address] [place], [address], 05/13/2021 12:07:19 05/10/20 21 05/13/2021 FOOD ALLER GY PROFI LE M401-EnB milk <0.10 kU/L class 0 Not Available [facility] ([facility]) [address] [place], [address], 05/13/2021 12:07:19 05/10/20 21 05/13/2021 FOOD ALLER GY PROFI LE B629-YyG clam <0.10 kU/L class 0 Not Available [facility] ([facility]) [address] [place], [address], 05/13/2021 12:07:19 05/10/20 21 05/13/2021 FOOD ALLER GY PROFI LE I136-PzT shrimp <0.10 kU/L class 0 Not Available [facility] ([facility]) [address] [place], [address], 05/13/2021 12:07:19 05/10/20 21 05/13/2021 FOOD ALLER GY PROFI LE O297-CsP walnut <0.10 kU/L class 0 Not Available [facility] ([facility]) [address] [place], [address], 05/13/2021 12:07:19 05/10/20 21 05/13/2021 FOOD ALLER GY PROFI LE L846-JfI codfish <0.10 kU/L class 0 Not Available [facility] ([facility]) [address] [place], [address], 05/13/2021 12:07:19 05/10/20 21 05/13/2021 FOOD ALLER GY PROFI LE B899-DlK scallop <0.10 kU/L class 0 Not Available [facility] ([facility]) [address] [facility], [place], [address], 05/13/2021 12:07:19 05/10/20 21 05/13/2021 FOOD ALLER GY PROFI LE X019-BdN wheat <0.10 kU/L class 0 Not Available [facility] ([facility]) [address] [facility], [place], [address], 05/13/2021 12:07:19 05/10/20 21 05/13/2021 FOOD ALLER GY PROFI LE C243-HeM corn <0.10 kU/L class 0 Not Available [facility] ([facility]) [address] [facility], [place], [address], 05/13/2021 12:07:19 05/10/20 21 05/13/2021 FOOD ALLER GY PROFI LE W487-EyI sesame seed <0.10 kU/L class 0 Not Available [facility]) [address] [facility], [place], [address], 05/13/2021 12:07:19 05/10/20 21 elect rocar diogr am No observ ation record ed. [email or web address] In-Office Order Internal Use Only DO Not Attach Compendium DO Not Attach Compendium, Do Not Delete/merge, [id number] 05/10/2021 09:54:21 05/10/20 21 05/10/2021 elect rocar diogr am No observ ation record ed. [email or web address] In-Office Order Internal Use Only DO Not Attach Compendium DO Not Attach Compendium, Do Not Delete/merge, [id number] 05/11/2021 14:27:15 07/19/20 21 07/19/2021 US, abdom en, limit ed [facility] [address], [address] [phone] Name: ARLENE HIDALGO : [id number] Date of Servic e: 08[birth year] Acct Number : [id number] Order Number : [id number] Locati on: WUS Report Number : [id number] Servic e: REG REF/ Reques ting Physic hansa: Joaquin Orourke FELLING MACHINE OPERATOR Catego ry: ULTRAS OUND Exam: US ABDOME N SINGLE [employer]GAN LTD Access ion #: [id number] 8.001S VH Signs/ Sympto ms: ELEVAT ED [...] Candy Orourke, , Brandee King, , , [facility] (Radiology) [address] [place] [address], [address], 08/09/2021 08:54:29 08/04/20 21 08/04/2021 MAMMO , scree katy, tomos ynthe sis, bilat eral [facility] Radiol ogy [address] [place] [address], [address] Name: ARLENE HIDALGO : [id number] Date of Servic e: 1431 Acct Number : [id number] Order Number : [id number] Locati on: WWELL Report Number : [id number] Servic e: REG REF/ Reques ting Physic hansa: Joaquin Orourke FELLING MACHINE OPERATOR Catego ry: MAMMOG SHINE Exam: DIGITA L BREAST JORDANA SCREEN ING Access ion #: [id number] 6.001S VH Signs/ Sympto ms: SCREEN ING [...] provid ers: Candy Orourke, Candy Orourke, , Candy Orourke, , , [facility] (Radiology) [address] [place] [address], [address], 08/09/2021 10:37:39 Result Notes None recorded. Problems Name Problem SNOMED Code Status Onset Date Resolution Date Notes Provider Name and Address Organization Details Recorded Time Depressi ve disorder 60183515 Active 2020 Kimberly gutiérrez MA [facility] 13:34:32 Anxiety 94139796 Active 2020 Kimberly gutiérrez MA [facility] 13:34:37 Gastroes ophageal reflux disease 544288202 Active 2020 Kimberly gutiérrez MA [facility] 13:34:42 Screenin g for malignan t neoplasm of breast Active 202007/08/20 wnl, 08/04/21 wnl ROYA PALAFOX NP [address] [place], [address], [facility] 08:56:16 Screenin g for malignan t neoplasm of cervix Completed 202002/15/2021 ROYA PALAFOX NP [address] [place], [address], [facility] [employer] [facility] 14:32:49 Screenin g for malignan t neoplasm of colon Active 2020 [facility], repeat in 10 years ROYA PALAFOX NP [address] [place], [address], [facility] 13:39:33 Screenin g for osteopor osis Active 202007/08/20- osteopeni a ROYA PALAFOX NP [address] [place], [address], [facility] [employer] [facility] 15:20:47 Body mass index 30+ - obesity 074869222 Active 2020 ROYA PALAFOX NP [address] [place] [address], [address], [facility] [employer] [facility] 13:44:20 Osteopen ia 447432463 Active 2020 ROYA PALAFOX NP [address] [place], [address], [facility] [employer] [facility] 13:16:55 Steatosi s of liver 899004015 Active 2020 Moderate- abd US 07/19/21 ROYA PALAFOX NP [address] [place], [address], [facility] [employer] [facility] 10:21:31 Biliary sludge 83191466 Active 2020 ROYA PALAFOX NP [address] [place], [address], [facility] 10:21:44 Problem Notes None recorded. Procedures Surgical History Date Name Laterality Status Provider Name and Address Organization Details Recorded Time Orthopedic Surgery completed [facility] 05/10/2021 09:35:10 Breast Surgery (Lumpectomy, Biopsy, Implants) completed [facility] 05/10/2021 09:35:10 Imaging Results Imaging Date Name Status LastModified by Organization Details LastModified Time 05/10/2021 electrocardiogram completed [email or web address] In-Offi ce Order Internal Use Only DO Not Attach Compendium DO Not Attach Compendium, Do Not Delete/merge, [id number] 05/10/2021 09:54:21 05/10/2021 electrocardiogram completed [email or web address] In-Offi ce Order Internal Use Only DO Not Attach Compendium DO Not Attach Compendium, Do Not Delete/merge, [id number] 05/11/2021 14:27:15 07/19/2021 US, abdomen, limited completed [facility] (Radiology) [address] [place] [address], [address], 08/09/2021 08:54:29 08/04/2021 MAMMO, screening, tomosynthesis, bilateral completed [facility] (Radiology) [address] [place] [address], [address], 08/09/2021 10:37:39 Procedure Notes None recorded. Medical [...] Updated DateTime 1 160.02 cm 33.1 kg/m2 24519.7 7 g 96.4 [degF] 65 /min 97 % 97 % 112 mm[Hg] 68 mm[Hg] [facility] 1 13:42:22 Date Recorded Body height Body mass index (BMI) Body weight Body temperature Heart rate Oxygen saturation Oxygen saturation in Arterial blood by Pulse oximetry Systolic blood pressure Diastolic blood pressure Provider Name and Address Organization Details Last Updated DateTime 1 160.02 cm 34 kg/m2 52550.7 4 g 98.7 [degF] 72 /min 98 % 98 % 116 mm[Hg] 72 mm[Hg] [facility] 1 09:39:34 Date Recorded Body height Body mass index (BMI) Body weight Body temperature Pain severity - 0-10 verbal numeric rating [Score] - Reported Oxygen saturation Oxygen saturation in Arterial blood by Pulse oximetry Heart rate Systolic blood pressure Diastolic blood pressure Provider Name and Address Organization Details Last Updated DateTime 1 158.75 cm 32.8 kg/m2 78696.6 1 g 97 [degF] 0 98 % 98 % 84 /min 114 mm[Hg] 70 mm[Hg] [place] [facility] 13:13:38 Social History Question Answer Notes LastModified by Organizat ion Details LastModified Time Tobacco Smoking Status Former Smoker [place] [facility] 06/29/2021 13:10:59 Do You Have An Advance [...] Or The Highest Degree You Have Received? 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 [id number] Information not available 05/10/2021 Do You Use [...] she from this Medical History Condition Response Back/Neck Pain Y Depression Y Anxiety Y ADD/ADHD Y Bladder Problems Y Gynecological [...] Tdap 02/15/2021 completed ROYA PALAFOX NP [address] [place], [address], [facility] 02/15/2021 15:11:54 COVID-19, mRNA, LNP-S, PF, 30 mcg/0.3 mL dose 04/13/2021 completed Kimberly gutiérrez [facility] 05/10/2021 09:40:46 COVID-19, mRNA, LNP-S, PF, 30 mcg/0.3 mL dose 03/23/2021 completed Kimberly gutiérrez [facility] 05/10/2021 09:40:55 Past Encounters Encounter ID Performer Location Encounter Start Date Encounter Closed Date Diagnosis/Indication Diagnosis SNOMED-CT Code Diagnosis ICD10 Code Diagnosis Note [id number] ROYA PALAFOX NP [facility] [address] [place] [address] 02/15/2021 13:27:22 02/15/2021 14:38:43 Borderline personality disorder [id number] F60.3 Long history of anxiety, depression , [...] upcoming appt with a psychophar macist through [facility]. She is interested in restarting her adderall and will consult with them. Restless legs [id number] G 25.81 For the past several years. Muscle cramping and restless legs keep her up every night. She has been taking gabapentin 300mg at bedtime but it has not been helping. She will d/c gabapentin and start ropinirole 0.5mg at bedtime. Gastroesop hageal reflux disease [id number] K21.9 Gerd- Discussed etiology and management of [...] to 40mg daily. Bilateral hip joint pain [id number] M25.551 M25.552 Chronic. Patient has had cortisone injections in the past. She has also gained weight recently which could be adding to her pain. She will start PT. If no improvemen t, will consider imaging or referral for injections . Pain of ri ght shoulder joint [id number] M25.511 Hx of right rotator cuff surgery. Referral to PT to help increase ROM and strength. Administra tion of diphtheria, pertussis, and tetanus vaccine 074872429 Z23 Pain of le ft ankle joint [id number] 2163249 M25.572 S/p ankle fracture and surgery. She has been wearing a brace for 2 years and continues to have pain. Referral placed to PT. Body mass index 30+ - obesity 452592633 Z68.33 Diet and Exercise recommenda tions have [...] talked about counting steps. [facility] Anxiety 70804446 F41.9 Long history of anxiety, depression , [...] upcoming appt with a psychophar macist through [email or web address]. She is interested in restarting her adderall and will consult with them. Depressive disorder 2658 [id number] F32.9 Long history of anxiety, depression , [...] upcoming appt with a psychophar macist through [email or web address]. She is interested in restarting her adderall and will consult with them. [id number] ROYA PALAFOX NP [facility] [address] [address] 05/10/2021 09:27:40 05/10/2021 12:10:48 Restless legs [id number] G25.81 For the past several years. Muscle cramping and restless legs keep her up every night. She has been taking gabapentin 300mg at bedtime but it has not been helping. She stopped gabapentin and switched to ropinirole at her last visit. Restless legs have improved but she is now having trouble falling asleep for several hours. She will f/u with psychometric examiner on Monday to discuss any sleep aids. Loose stool [id number] R1 9.5 Multiple loose stools a day. Patient has not been able to identify any specific food triggers. She also has urgency, especially first thing in the morning. Will check labs. Advised bland diet and increased fluids as well. Anxiety 36394656 F41.9 Long history of anxiety, depression , [...] provider. She has an appt with a psychometric examiner on Monday. She needs to EKG prior to her visit. EKG done today, normal sinus rhythm. She is currently on escitalopr am 40mg daily. Advised patient that all psych meds should come from psych provider. [id number] ROYA PALAFOX NP [facility] y [address] [facility] [place] [address] 06/29/2021 12:59:34 06/29/2021 13:42:19 Adult health examination [id number] Z00.00 Anxiety 06459826 F41.9 Long history of anxiety, depression , [...] daily. Screening for malignant neoplasm of breast 771237074 Z12.39 Liver enzy mes level above reference range 346764940 R74.8 AST 45, ALT 54 on 05/10/21. Will repeat. Order placed for liver US. Screening for cardiovascular system disease 738736164 Z13.6 Health Concerns Section Related Observation LastModified by Organization Detai ls LastModified Time None Recorded Concern Status LastModified by Organization Details LastModified Time None Recorded Advance Directives Directive Y: Payers Encounter Date Sequence Insurance Name Policy Number Policy Grace Covered Member ID Grace Member ID Guarantor Name 02/15/2021 1 [facility] [employer] [facility] [employer] (O) [id number] Arlene F Liz [id number] Arlene Liz 05/10/2021 1 [facility] [employer] (O) [id number] Arlene F Liz [id number] Arlene Liz 06/29/2021 1 [facility] (O) [id number] Arlene Hidalgo [id number] Arlene Hidalgo Notes Date Note Type Note [...] Left ankle pain. She saw [facility] in [facility]. Mammogram, colonoscopy, bone density.Pt had a partial hysterectomy. ROYA PALAFOX NP [address] [place] [address], [phone], [facility]. 02/15/2021 14:40:20 05/10/2021 text/html Patient has been [...] other medications. She had an appt with [facility] but they do not prescribe adderall. She has an appt with a psychometric examiner on Monday. She is working with a therapist. ROYA PALAFOX NP [address] [place], [address], [facility]. 05/10/2021 10:18:04 06/29/2021 text/html Patient has been [...] has been going regularly.Colonosc opy was in [place]- she was told to repeat in 10 years. 01/09/19. [facility] ROYA PALAFOX NP [address] [place], [address], [facility]. 06/29/2021 13:41:05 OBGyn Episode No OBEpisode recorded.
--- OUTSIDE RECORDS SUMMARY | 2024-12-25 18:27 | XMS_ITS | Continuity of Care Document ---
Author Organization [facility] Primary Car e [address] Address [address] [place] [address]- Care Team Providers Care Day Spa Manager Name Role Phone Yue SALES COORDINATOR, Rio Aguirre Primary Care Physician ( [phone] Encounter [facility] Date(s): 11/21/24 - 12/21/24 [facility] Care [address] [address] Encounter Type: Triage Allergies, Adverse Reactions, Alerts [...] PM EDT, 11/04/24 1:13:00 PM EST, Tablet, [id number], Partial fill upon patient request if the [...] Refills, Maintenance, 11/22/24 4:49:00 PM EDT, Tablet, [facility] #[id number], Partial fill upon patient request if the [...] Team Personnel Name: Rio Turner NP Position: [facility] Associate Professional Member Role: PCP Address: [address] [place] [address] Primary [address] Telecom: Care Team Related Persons Name: LACEY DOWNEY Name: ADY HIDALGO Name: MATEO HIDALGO Insurance Providers Guarantor name: ARLENE ROCKY Health Plan Information #: 1 Payer: [facility] [employer] DIRECT Member Number: NA Policy Number: NA Group Number: NA
--- OUTSIDE RECORDS SUMMARY | 2024-12-25 18:27 | XMS_ITS | Data Portability ---
Author Organization [facility] GoPlaceIt, [employer] Address [address] [place] [address] Assessment No assessment recorded. Plan of Treatment Reminders Order Date Submit Date Provider Last Modified By Organization Details Last Modified Time Details Appointments None recorded. Lab urinalysis , dipstick [address] [employer] [facility], [address] [facility] [facility], [address], [place], [address], 14:46:44 urinalysis complete, reflex culture 2020 MATT [...] 0 11:09:17 Referral physical therapist referral 2019 [facility], [address] [place], [address], 1 05:03:50 Procedures None recorded. Surgeries None recorded. Imaging electrocar diogram [address] [employer] [facility], [address], [address], [place], [address], 0 11:49:05 XR, chest, 2 view 2019 [facility], [address] [place], [address], 0 12:38:39 DEXA 2019 [facility], [address] [place], [address], 0 10:55:28 MAMMO, screening, digital, bilateral 2019 [facility], [address] [place], [address], 0 15:37:39 XR, ankle, 3 or more view 2019 [facility], [address] [place], [address], 1 05:08:53 Medication Orders Bactrim DS 800 mg-160 mg tablet 2020 021 [facility]acy #[id number], [address] [place], [address], 1 14:44:54 fluconazol e 150 mg tablet 2020 021 [facility] #[id number], [address] [place], [address], 1 14:44:55 gabapentin 300 mg capsule 2020 021 [facility]acy #[id number], [address] [place], [address], 1 08:55:14 pregabalin 50 mg capsule 2019 020 [facility][id number], [address] [place], [place], [id number], 1 08:35:15 omeprazole 20 mg capsule,de layed release 2019 020 INTERFACE [facility] #[id number], [address], [place], [place], [id number], 0 11:21:40 diclofenac 1 % topical gel 2019 020 INTERFACE [facility] #[id number], [address], [place], [place], [id number], 0 11:16:14 buspirone 30 mg tablet 2019 020 [email or web address] [facility] #[id number], [address], [place], [place], [id number], 0 11:16:50 Patient TargetsNo targets recorded. Patient Instructions Encounter Date Encounter Id Patient Instructions Last Modified By Organization Details Last Modified Time 06/24/2020 [id number] shoulder stretches: exercises [email or web address] Not available 06/24/2020 [...] total 260 mg/dL <200 high Not Available [facility] [address], [place], [address], 06/25/2020 11:09:16 06/24/2006/25/2020 lipid panel , serum HDL cholesterol 59 mg/dL > or = 50 normal Not Available [facility] [address], [place], [address], 06/25/2020 11:09:16 06/24/20 20 06/25/2020 lipid panel , serum triglyceride s 222 mg/dL <150 high If a non-f astin g speci men was colle cted, consi ward repea t trigl yceri de testi ng on a fasti ng speci men if clini bailey indic ated. Farhat potts et al. J. of Clin. Lipid ol. 2015; 9:129 -169. Not Available [facility] [place] [facility] [address], [place], [address], 06/25/2020 11:09:16 06/24/2006/25/2020 lipid panel , serum [...] 9): 2061- 2068 (http ://ed ucati on.Qu MyMusic. com/f aq/FA Q164) Not Available [facility] [place] [facility] [address], [place], [address], 06/25/2020 11:09:16 06/24/2006/25/2020 lipid panel , serum chol/HDLC ratio 4.4 (calc ) <5.0 normal Not Available [facility] [place] [facility] [address], [place], [address], 06/25/2020 11:09:16 06/24/2006/25/2020 lipid panel , serum non HDL cholesterol 201 mg/dL _(david c) <130 high For patie nts with diabe patience plus 1 major ASCVD risk facto r, treat ing to a non-H DL-C goal of <100 mg/dL (LDL- C of <70 mg/dL ) is consi dered a thera peuti c optio n. Not Available [facility] [address], [place], [address], 06/25/2020 11:09:16 06/24/2006/25/2020 TSH + free T4, serum TSH 1.47 mIU/L 0.40-4 .50 normal Not Available [facility] [place] [facility] [address], [place], [address], 06/25/2020 11:09:17 06/24/2006/25/2020 TSH + free T4, serum T4, free 1.1 NG/dL 0.8-1. 8 normal Not Available [facility] [address], [place], [address], 06/25/2020 11:09:17 06/24/2006/25/2020 CMP, serum or plasm a glucose 89 mg/dL 65-99 normal Fasti ng refer ence inter izzy Not Available [facility] [address], [place], [address], 06/25/2020 11:09:18 06/24/2006/25/2020 CMP, serum or plasm a urea nitrogen (BUN) 19 mg/dL 7-25 normal Not Available [facility] [address], [place], [address], 06/25/2020 11:09:18 06/24/2006/25/2020 CMP, serum or plasm a creatinine 0.85 mg/dL 0.50-0 .99 normal For patie nts >49 years of age, the refer ence limit for Creat inine is appro ximat magda 13% highe r for peopl e ident ified as Afric an-Am anita n. Not Available [facility] [address], [place], [address], 06/25/2020 11:09:18 06/24/2006/25/2020 CMP, serum or plasm a eGFR non-afr. gibraltarian 74 mL/mi n/1.7 3m2 > or = 60 normal Not Available [facility] [address], [place], [address], 06/25/2020 11:09:18 06/24/2006/25/2020 CMP, serum or plasm a eGFR 86 mL/mi n/1.7 3m2 > or = 60 normal Not Available [facility] [address], [place], [address], 06/25/2020 11:09:18 06/24/2006/25/2020 CMP, serum or plasm a BUN/creatini ne ratio NOT APPLIC ABLE (calc ) 6-22 Not Available [facility] [address], [place], [address], 06/25/2020 11:09:18 06/24/2006/25/2020 CMP, serum or plasm a sodium 142 mmol/ L 135-14 6 normal Not Available [facility] [address], [place], [address], 06/25/2020 11:09:18 06/24/2006/25/2020 CMP, serum or plasm a potassium 4.3 mmol/ L 3.5-5. 3 normal Not Available [facility] [address], [place], [address], 06/25/2020 11:09:18 06/24/2006/25/2020 CMP, serum or plasm a chloride 103 mmol/ L 98-110 normal Not Available [facility] [address], [place], [address], 06/25/2020 11:09:18 06/24/2006/25/2020 CMP, serum or plasm a carbon dioxide 25 mmol/ L 20-32 normal Not Available [facility] [address], [place], [address], 06/25/2020 11:09:18 06/24/2006/25/2020 CMP, serum or plasm a calcium 9.5 mg/dL 8.6-10 .4 normal Not Available [facility] [address], [place], [address], 06/25/2020 11:09:18 06/24/2006/25/2020 CMP, serum or plasm a protein, total 6.5 g/dL 6.1-8. 1 normal Not Available [facility] [address], [place], [address], 06/25/2020 11:09:18 06/24/2006/25/2020 CMP, serum or plasm a albumin 4.3 g/dL 3.6-5. 1 normal Not Available [facility] [address], [place], [address], 06/25/2020 11:09:18 06/24/2006/25/2020 CMP, serum or plasm a globulin 2.2 g/dL_ (calc ) 1.9-3. 7 normal Not Available [facility] [address], [place], [address], 06/25/2020 11:09:18 06/24/2006/25/2020 CMP, serum or plasm a albumin/glob ulin ratio 2.0 (calc ) 1.0-2. 5 normal Not Available [facility] [address], [place], [address], 06/25/2020 11:09:18 06/24/2006/25/2020 CMP, serum or plasm a bilirubin, total 0.6 mg/dL 0.2-1. 2 normal Not Available [facility] [address], [place], [address], 06/25/2020 11:09:18 06/24/20 20 06/25/2020 CMP, serum or plasm a alkaline phosphatase 81 U/L 37-153 normal Not Available [facility] [place] [facility] [address], [place], [address], 06/25/2020 11:09:18 06/24/2006/25/2020 CMP, serum or plasm a AST 26 U/L 10-35 normal Not Available [facility] [place] [facility] [address], [place], [address], 06/25/2020 11:09:18 06/24/2006/25/2020 CMP, serum or plasm a ALT 34 U/L 6-29 high Not Available [facility] [place] [facility] [address], [place], [address], 06/25/2020 11:09:18 06/24/2006/25/2020 HbA1c (hemo globi n [...] patience(A DA). Not Available [facility] [place] [facility] [address], [place], [address], 06/25/2020 11:09:19 06/24/2006/25/2020 CBC w/ auto diff white blood cell count 7.4 thous and/u L 3.8-10 .8 normal Not Available [facility] [address], [place], [address], 06/25/2020 11:09:19 06/24/2006/25/2020 CBC w/ auto diff red blood cell count 4.80 en on/uL 3.80-5 .10 normal Not Available [facility] [address], [place], [address], 06/25/2020 11:09:19 06/24/2006/25/2020 CBC w/ auto diff hemoglobin 14.2 g/dL 11.7-1 5.5 normal Not Available [facility] [address], [place], [address], 06/25/2020 11:09:19 06/24/2006/25/2020 CBC w/ auto diff hematocrit 42.4 % 35.0-4 5.0 normal Not Available [facility] [address], [place], [address], 06/25/2020 11:09:19 06/24/2006/25/2020 CBC w/ auto diff MCV 88.3 fL 80.0-1 00.0 normal Not Available [facility] [address], [place], [address], 06/25/2020 11:09:19 06/24/2006/25/2020 CBC w/ auto diff MCH 29.6 pg 27.0-3 3.0 normal Not Available [facility] [address], [place], [address], 06/25/2020 11:09:19 06/24/2006/25/2020 CBC w/ auto diff MCHC 33.5 g/dL 32.0-3 6.0 normal Not Available [facility] [address], [place], [address], 06/25/2020 11:09:19 06/24/2006/25/2020 CBC w/ auto diff RDW 13.8 % 11.0-1 5.0 normal Not Available [facility] [address], [place], [address], 06/25/2020 11:09:19 06/24/2006/25/2020 CBC w/ auto diff platelet count 242 thous and/u L 140-40 0 normal Not Available [facility] [address], [place], [address], 06/25/2020 11:09:19 06/24/2006/25/2020 CBC w/ auto diff MPV 10.3 fL 7.5-12 .5 normal Not Available [facility] [address], [place], [address], 06/25/2020 11:09:19 06/24/2006/25/2020 CBC w/ auto diff absolute neutrophils 4248 cells /uL 1500-7 800 normal Not Available [facility] [address], [place], [address], 06/25/2020 11:09:19 06/24/2006/25/2020 CBC w/ auto diff absolute lymphocytes 2546 cells /uL 850-39 00 normal Not Available [facility] [address], [place], [address], 06/25/2020 11:09:19 06/24/2006/25/2020 CBC w/ auto diff absolute monocytes 459 cells /uL 200-95 0 normal Not Available [facility] [address], [place], [address], 06/25/2020 11:09:19 06/24/2006/25/2020 CBC w/ auto diff absolute eosinophils 111 cells /uL 15-500 normal Not Available [facility] [address], [place], [address], 06/25/2020 11:09:19 06/24/2006/25/2020 CBC w/ auto diff absolute basophils 37 cells /uL 0-200 normal Not Available [facility] [address], [place], [address], 06/25/2020 11:09:19 06/24/2006/25/2020 CBC w/ auto diff neutrophils 57.4 % normal Not Available [facility] [address], [place], [address], 06/25/2020 11:09:19 06/24/2006/25/2020 CBC w/ auto diff lymphocytes 34.4 % normal Not Available [facility] [address], [place], [address], 06/25/2020 11:09:19 06/24/2006/25/2020 CBC w/ auto diff monocytes 6.2 % normal Not Available [facility] [address], [place], [address], 06/25/2020 11:09:19 06/24/2006/25/2020 CBC w/ auto diff eosinophils 1.5 % normal Not Available [facility] [address], [place], [address], 06/25/2020 11:09:19 06/24/2006/25/2020 CBC w/ auto diff basophils 0.5 % normal Not Available [facility] [address], [place], [address], 06/25/2020 11:09:19 07/17/2007/18/2020 test in quest ion- quant ity not suffi cient question/pro blem: THE QUANT ITY OF SPECI MEN(S ) SUBMI TTED IS INSUF FICIE NT FOR THE TEST( S) REQUE TRISTAND. Not Available [facility] [place] [facility] [address] [place] [place], [address], 07/18/2020 04:09:12 07/17/2007/18/2020 test in quest ion- quant ity not suffi cient test(s) ordered: 5616/7 306 Not Available [facility] [place] [facility] [address], [place], [address], 07/18/2020 04:09:12 07/17/2007/18/2020 test in quest ion- quant ity not suffi cient quantity received: 1.0 ML SERUM Not Available [facility] [address], [place], [address], 07/18/2020 04:09:12 07/17/2007/18/2020 test in quest ion- quant ity not suffi cient qn required: 2.7 ML SERUM Not Available [facility] [place] [facility] [address] [place], [address], 07/18/2020 04:09:12 07/17/2007/18/2020 test in quest ion- quant ity not suffi cient resolution: * Not Available [facility] [place] [facility] [address], [place], [address], 07/18/2020 04:09:12 07/17/2007/18/2020 test in quest ion- quant ity not suffi cient comment REQUE STED INFOR TRESA N ___ AUTHO RIZED SIGNA TURE ____ TO PREVE NT FURTH ER DELAY S IN TESTI NG, PLEAS E COMPL ETE INFOR TRESA N ABOVE AND FAX TO [phone] TO RESOL VE THIS ORDER . Not Available [facility] [place] [facility] [address], [place], [address], 07/18/2020 04:09:12 07/17/2007/18/2020 H pylor i Ag, stool result: SEE NOTE Not Available [facility] [place] [facility] [address], [place], [address], 07/18/2020 04:09:12 07/17/2007/20/2020 H pylor i Ag, stool helicobacter pylori Ag, EIA, stool HELIC OBACT ER PYLOR I AG, EIA, STOOL Micro Numbe r: [id number] Test Statu s: Final Speci men Sourc e: NOT GIVEN Speci men Quali ty: Adequ ate H.pyl hali Ag: Test not perfo rmed. No speci men recei taya. Refer ence Range : Not Detec damian Not Available [facility] [place] [facility] [address], [place], [address], 07/20/2020 13:05:44 08/26/2008/2608/26/2020 elect rocar diogr am Rate & Rhythm Not Available [facility] [employer] [facility] [address], [place], [address], 07/17/2020 11:19:45 08/26/20 20 08/26/2020 elect rocar diogr am QRS Not Available [facility] [employer] [facility] [address], [place], [address], 07/17/2020 11:19:45 08/26/20 20 08/26/2020 elect rocar diogr am SC Interval Not Available [facility] [employer] [facility] [address] [facility] [facility] [address], [place], [address], 07/17/2020 11:19:45 08/26/20 20 08/26/2020 elect rocar diogr am QRS Duration Not Available [facility] [employer] [facility] [address], [place], [address], 07/17/2020 11:19:45 08/26/20 20 08/26/2020 elect rocar diogr am QT Interval Not Available [facility] [employer] [facility] [address], [place], [address], 07/17/2020 11:19:45 09/21/19 21 09/23/2020 lipid panel , serum cholesterol, total 231 mg/dL <200 high Not Available [facility] [address] [place], [address], 09/23/2020 04:51:30 09/21/19 21 09/23/2020 lipid panel , serum HDL cholesterol 52 mg/dL > or = 50 normal Not Available [facility] [address] [place], [address], 09/23/2020 04:51:30 09/21/19 21 09/23/2020 lipid panel , serum triglyceride s 152 mg/dL <150 high Not Available [facility] [address], [place], [address], 09/23/2020 04:51:30 09/21/19 21 09/23/2020 lipid panel [...] 310(1 9): 2061- 2068 (http ://ed ucati on.[employer] skyLocqus. com/f aq/FA Q164) Not Available [facility] [place] [facility] [address], [place], [address], 09/23/2020 04:51:30 09/21/1909/23/2020 lipid panel , serum chol/HDLC ratio 4.4 (calc ) <5.0 normal Not Available [facility] [place] [facility] [address], [place], [address], 09/23/2020 04:51:30 09/21/19 21 09/23/2020 lipid panel , serum non HDL cholesterol 179 mg/dL _(david c) <130 high For patie nts with diabe patience plus 1 major ASCVD risk facto r, treat ing to a non-H DL-C goal of <100 mg/dL (LDL- C of <70 mg/dL ) is consi yulid froilan castilloo n. Not Available [facility] [place] [facility] [address], [place], [address], 09/23/2020 04:51:30 09/21/1909/23/2020 TSH + free T4, serum TSH 1.15 mIU/L 0.40-4 .50 normal Not Available [facility] [place] [facility] [address], [place], [address], 09/23/2020 04:51:30 09/21/19 21 09/23/2020 TSH + free T4, serum T4, free 1.1 NG/dL 0.8-1. 8 normal Not Available [facility] [place] [facility] [address], [place], [address], 09/23/2020 04:51:30 09/21/1909/23/2020 CMP, serum or plasm a glucose 103 mg/dL 65-99 high Fasti ng refer ence inter izzy For someo ne witho ut known diabe patience, a gluco se value betwe en 100 and 125 mg/dL is consi stent with predi abete s and shoul d be confi rmed with a follo w-up test. Not Available [facility] [place] [facility] [address], [place], [address], 09/23/2020 04:51:31 09/21/1909/23/2020 CMP, serum or plasm a urea nitrogen (BUN) 19 mg/dL 7-25 normal Not Available [facility] [place] [facility] [address], [place], [address], 09/23/2020 04:51:31 09/21/1909/23/2020 CMP, serum or plasm a creatinine 0.90 mg/dL 0.50-0 .99 normal For patie nts >49 years of age, the refer ence limit for Creat inine is appro ximat magda 13% highe r for peopl e ident ified as Afric an-Am anita n. Not Available [facility] [place] [facility] [address], [place], [address], 09/23/2020 04:51:31 09/21/19 21 09/23/2020 CMP, serum or plasm a eGFR non-afr. gibraltarian 69 mL/mi n/1.7 3m2 > or = 60 normal Not Available [facility] [address], [place], [address], 09/23/2020 04:51:31 09/21/19 21 09/23/2020 CMP, serum or plasm a eGFR 81 mL/mi n/1.7 3m2 > or = 60 normal Not Available [facility] [address], [place], [address], 09/23/2020 04:51:31 09/21/1909/23/2020 CMP, serum or plasm a BUN/creatini ne ratio NOT APPLIC ABLE (calc ) 6-22 Not Available [facility] [address], [place], [address], 09/23/2020 04:51:31 09/21/19 21 09/23/2020 CMP, serum or plasm a sodium 144 mmol/ L 135-14 6 normal Not Available [facility] [address], [place], [address], 09/23/2020 04:51:31 09/21/19 21 09/23/2020 CMP, serum or plasm a potassium 4.4 mmol/ L 3.5-5. 3 normal Not Available [facility] [address], [place], [address], 09/23/2020 04:51:31 09/21/1909/23/2020 CMP, serum or plasm a chloride 105 mmol/ L 98-110 normal Not Available [facility] [address], [place], [address], 09/23/2020 04:51:31 09/21/19 21 09/23/2020 CMP, serum or plasm a carbon dioxide 20 mmol/ L 20-32 normal Not Available [facility] [place] [facility] [address], [place], [address], 09/23/2020 04:51:31 09/21/19 21 09/23/2020 CMP, serum or plasm a calcium 10.0 mg/dL 8.6-10 .4 normal Not Available [facility] [address], [place], [address], 09/23/2020 04:51:31 09/21/1909/23/2020 CMP, serum or plasm a protein, total 7.2 g/dL 6.1-8. 1 normal Not Available [facility] [address], [place], [address], 09/23/2020 04:51:31 09/21/1909/23/2020 CMP, serum or plasm a albumin 4.8 g/dL 3.6-5. 1 normal Not Available [facility], [place], [address], 09/23/2020 04:51:31 09/21/1909/23/2020 CMP, serum or plasm a globulin 2.4 g/dL_ (calc ) 1.9-3. 7 normal Not Available [facility] [address], [place], [address], 09/23/2020 04:51:31 09/21/1909/23/2020 CMP, serum or plasm a albumin/glob ulin ratio 2.0 (calc ) 1.0-2. 5 normal Not Available [facility] [address], [place], [address], 09/23/2020 04:51:31 09/21/1909/23/2020 CMP, serum or plasm a bilirubin, total 0.6 mg/dL 0.2-1. 2 normal Not Available [facility] [address], [place], [address], 09/23/2020 04:51:31 09/21/19 21 09/23/2020 CMP, serum or plasm a alkaline phosphatase 83 U/L 37-153 normal Not Available [facility] [place] [facility] [address], [place], [address], 09/23/2020 04:51:31 09/21/19 21 09/23/2020 CMP, serum or plasm a AST 31 U/L 10-35 normal Not Available [facility] [place] [facility] [address], [place], [address], 09/23/2020 04:51:31 09/21/19 21 09/23/2020 CMP, serum or plasm a ALT 35 U/L 6-29 high Not Available [facility] [place] [facility] [address], [place], [address], 09/23/2020 04:51:31 09/21/19 21 09/23/2020 HbA1c (hemo [...] patience(A DA). Not Available [facility] [place] [facility] [address], [place], [address], 09/23/2020 04:51:31 09/21/19 21 09/23/2020 vitam in [...] /MS is recom marilin d: order code 70939 (chioma ents >2yrs ). See Note 1 Note 1 For addit ional infor anais marshall e refer to http: //oneida De La Cruzia gnost ics.c om/fa q/FAQ 199 (This link is being provi ded for infor tresa ya/ educa renita l purpo ses only. ) Not Available [facility] [place] [facility] [address], [place], [address], 09/23/2020 04:51:32 09/21/19 21 09/23/2020 CBC w/ auto diff white blood cell count 5.4 thous and/u L 3.8-10 .8 normal Not Available [facility] [place] [facility] [address], [place], [address], 09/23/2020 04:51:32 09/21/19 21 09/23/2020 CBC w/ auto diff red blood cell count 5.06 en on/uL 3.80-5 .10 normal Not Available [facility] [place] [facility] [address], [place], [address], 09/23/2020 04:51:32 09/21/19 21 09/23/2020 CBC w/ auto diff hemoglobin 14.8 g/dL 11.7-1 5.5 normal Not Available [facility] [address], [place], [address], 09/23/2020 04:51:32 09/21/19 21 09/23/2020 CBC w/ auto diff hematocrit 43.4 % 35.0-4 5.0 normal Not Available [facility] [address], [place], [address], 09/23/2020 04:51:32 09/21/1909/23/2020 CBC w/ auto diff MCV 85.8 fL 80.0-1 00.0 normal Not Available [facility] [address], [place], [address], 09/23/2020 04:51:32 09/21/1909/23/2020 CBC w/ auto diff MCH 29.2 pg 27.0-3 3.0 normal Not Available [facility] Lab [address], [place], [address], 09/23/2020 04:51:32 09/21/19 21 09/23/2020 CBC w/ auto diff MCHC 34.1 g/dL 32.0-3 6.0 normal Not Available [facility] [address], [place], [address], 09/23/2020 04:51:32 09/21/1909/23/2020 CBC w/ auto diff RDW 13.5 % 11.0-1 5.0 normal Not Available [facility] [address], [place], [address], 09/23/2020 04:51:32 09/21/19 21 09/23/2020 CBC w/ auto diff platelet count 278 thous and/u L 140-40 0 normal Not Available [facility] [address], [place], [address], 09/23/2020 04:51:32 09/21/19 21 09/23/2020 CBC w/ auto diff MPV 11.5 fL 7.5-12 .5 normal Not Available [facility] [address], [place], [address], 09/23/2020 04:51:32 09/21/19 21 09/23/2020 CBC w/ auto diff absolute neutrophils 2813 cells /uL 1500-7 800 normal Not Available [facility] [address], [place], [address], 09/23/2020 04:51:32 09/21/19 21 09/23/2020 CBC w/ auto diff absolute lymphocytes 1993 cells /uL 850-39 00 normal Not Available [facility] [address], [place], [address], 09/23/2020 04:51:32 09/21/19 21 09/23/2020 CBC w/ auto diff absolute monocytes 443 cells /uL 200-95 0 normal Not Available [facility] [address], [place], [address], 09/23/2020 04:51:32 09/21/19 21 09/23/2020 CBC w/ auto diff absolute eosinophils 119 cells /uL 15-500 normal Not Available [facility] [address], [place], [address], 09/23/2020 04:51:32 09/21/19 21 09/23/2020 CBC w/ auto diff absolute basophils 32 cells /uL 0-200 normal Not Available [facility] [address], [place], [address], 09/23/2020 04:51:32 09/21/19 21 09/23/2020 CBC w/ auto diff neutrophils 52.1 % normal Not Available [facility] [place] [facility] [address], [place], [address], 09/23/2020 04:51:32 09/21/19 21 09/23/2020 CBC w/ auto diff lymphocytes 36.9 % normal Not Available [facility] [place] [facility] [address], [place], [address], 09/23/2020 04:51:32 09/21/19 21 09/23/2020 CBC w/ auto diff monocytes 8.2 % normal Not Available [facility] [place] [facility] [address], [place], [address], 09/23/2020 04:51:32 09/21/19 21 09/23/2020 CBC w/ auto diff eosinophils 2.2 % normal Not Available [facility] [place] [facility] [address], [place], [address], 09/23/2020 04:51:32 09/21/19 21 09/23/2020 CBC w/ auto diff basophils 0.6 % normal Not Available [facility] [place] [facility] [address], [place], [address], 09/23/2020 04:51:32 09/21/19 21 09/23/2020 urina lysis compl ete, refle x cultu re color YELLOW yellow normal Not Available [facility] [place] [facility] [address], [place], [address], 09/23/2020 04:51:33 09/21/1909/23/2020 urina lysis compl ete, refle x cultu re appearance CLEAR clear normal Not Available [facility] [place] [facility] [address], [place], [address], 09/23/2020 04:51:33 09/21/19 21 09/23/2020 urina lysis compl ete, refle x cultu re specific gravity 1.022 1.001- 1.035 normal Not Available [facility] [place] [facility] [address], [place], [address], 09/23/2020 04:51:33 09/21/19 21 09/23/2020 urina lysis compl ete, refle x cultu re pH 5.5 5.0-8. 0 normal Not Available [facility] [place] [facility] [address], [place], [address], 09/23/2020 04:51:33 09/21/19 21 09/23/2020 urina lysis compl ete, refle x cultu re glucose NEGATI VE negati ve normal Not Available [facility] [place] [facility] [address], [place], [address], 09/23/2020 04:51:33 09/21/19 21 09/23/2020 urina lysis compl ete, refle x cultu re bilirubin NEGATI VE negati ve normal Not Available [facility] [place] [facility] [address], [place], [address], 09/23/2020 04:51:33 09/21/19 21 09/23/2020 urina lysis compl ete, refle x cultu re ketones TRACE negati ve abnormal Not Available [facility] [place] [facility] [address], [place], [address], 09/23/2020 04:51:33 09/21/1909/23/2020 urina lysis compl ete, refle x cultu re occult blood NEGATI VE negati ve normal Not Available [facility] [place] [facility] [address], [place], [address], 09/23/2020 04:51:33 01/11/20 21 09/23/2020 urina lysis compl ete, refle x cultu re protein NEGATI VE negati ve normal Not Available [facility] [place] [facility] [address], [place], [address], 09/23/2020 04:51:33 09/21/19 21 09/23/2020 urina lysis compl ete, refle x cultu re nitrite NEGATI VE negati ve normal Not Available [facility] [place] [facility] [address], [place], [address], 09/23/2020 04:51:33 09/21/19 21 09/23/2020 urina lysis compl ete, refle x cultu re leukocyte esterase NEGATI VE negati ve normal Not Available [facility] [place] [facility] [address], [place], [address], 09/23/2020 04:51:33 09/21/19 21 09/23/2020 urina lysis compl ete, refle x cultu re WBC NONE SEEN /hpf < or = 5 normal Not Available [facility] [place] [facility] [address], [place], [address], 09/23/2020 04:51:33 09/21/19 21 09/23/2020 urina lysis compl ete, refle x cultu re RBC NONE SEEN /hpf < or = 2 normal Not Available [facility] [place] [facility] [address], [place], [address], 09/23/2020 04:51:33 09/21/19 21 09/23/2020 urina lysis compl ete, refle x cultu re squamous epithelial cells 0-5 /hpf < or = 5 Not Available [facility] [address], [place], [address], 09/23/2020 04:51:33 09/21/19 21 09/23/2020 urina lysis compl ete, refle x cultu re bacteria NONE SEEN /hpf none seen normal Not Available [facility] [place] [facility] [address], [place], [address], 09/23/2020 04:51:33 09/21/19 21 09/23/2020 urina lysis compl ete, refle x cultu re hyaline cast NONE SEEN /lpf none seen normal Not Available [facility] [place] [facility] [address], [place], [address], 09/23/2020 04:51:33 09/21/19 21 09/23/2020 cultu re, urine reflexive urine culture NO CULTU RE INDIC ATED Not Available [facility] [address], [place], [address], 09/23/2020 04:51:33 10/15/19 21 10/17/2020 urina lysis compl ete, refle x cultu re color DARK YELLOW yellow normal Not Available [facility] [address], [place], [address], 10/17/2020 11:28:37 10/15/19 21 10/17/2020 urina lysis compl ete, refle x cultu re appearance TURBID clear abnormal Not Available [facility] [address], [place], [address], 10/17/2020 11:28:37 10/15/19 21 10/17/2020 urina lysis compl ete, refle x cultu re specific gravity 1.026 1.001- 1.035 normal Not Available [facility] [place] [facility] [address], [place], [address], 10/17/2020 11:28:37 10/15/19 21 10/17/2020 urina lysis compl ete, refle x cultu re pH 6.0 5.0-8. 0 normal Not Available [facility] [address], [place], [address], 10/17/2020 11:28:37 10/15/19 21 10/17/2020 urina lysis compl ete, refle x cultu re glucose NEGATI VE negati ve normal Not Available [facility] [place] [facility] [address], [place], [address], 10/17/2020 11:28:37 10/15/19 21 10/17/2020 urina lysis compl ete, refle x cultu re bilirubin NEGATI VE negati ve normal Not Available [facility] [place] [facility] [address], [place], [address], 10/17/2020 11:28:37 10/15/19 21 10/17/2020 urina lysis compl ete, refle x cultu re ketones NEGATI VE negati ve normal Not Available [facility] [place] [facility] [address], [place], [address], 10/17/2020 11:28:37 10/15/19 21 10/17/2020 urina lysis compl ete, refle x cultu re occult blood 3+ negati ve abnormal Not Available [facility] [place] [facility] [address], [place], [address], 10/17/2020 11:28:37 10/15/19 21 10/17/2020 urina lysis compl ete, refle x cultu re protein 2+ negati ve abnormal Not Available [facility] [place] [facility] [address], [place], [address], 10/17/2020 11:28:37 10/15/19 21 10/17/2020 urina lysis compl ete, refle x cultu re nitrite POSITI VE negati ve abnormal Not Available [facility] [place] [facility] [address], [place], [address], 10/17/2020 11:28:37 10/15/19 21 10/17/2020 urina lysis compl ete, refle x cultu re leukocyte esterase 2+ negati ve abnormal Not Available [facility] [place] [facility] [address], [place], [address], 10/17/2020 11:28:37 10/15/19 21 10/17/2020 urina lysis compl ete, refle x cultu re WBC > OR = 60 /hpf < or = 5 abnormal Not Available [facility] [place] [facility] [address], [place], [address], 10/17/2020 11:28:37 10/15/19 21 10/17/2020 urina lysis compl ete, refle x cultu re RBC > OR = 60 /hpf < or = 2 abnormal Not Available [facility] [place] [facility] [address], [place], [address], 10/17/2020 11:28:37 10/15/19 21 10/17/2020 urina lysis compl ete, refle x cultu re squamous epithelial cells 0-5 /hpf < or = 5 Not Available [facility] [place] [facility] [address], [place], [address], 10/17/2020 11:28:37 10/15/19 21 10/17/2020 urina lysis compl ete, refle x cultu re bacteria MODERA TE /hpf none seen abnormal Not Available [facility] [place] [facility] [address], [place], [address], 10/17/2020 11:28:37 10/15/19 21 10/17/2020 urina lysis compl ete, refle x cultu re hyaline cast NONE SEEN /lpf none seen normal Not Available [facility] [place] [facility] [address], [place], [address], 10/17/2020 11:28:37 10/15/19 21 10/17/2020 urina lysis compl ete, refle x cultu re comments FEW MUCOUS THREAD S Not Available [facility] [place] [facility] [address], [place], [address], 10/17/2020 11:28:37 10/15/19 21 10/17/2020 urina lysis compl ete, refle x cultu re reflexive urine culture CULTU RE INDIC ATED - RESUL TS TO FOLLO W Not Available [facility] [place] [facility] [address], [place], [address], 10/17/2020 11:28:37 10/15/19 21 10/18/2020 cultu re, urine culture, urine, routine SEE NOTE abnormal CULTU RE, URINE , ROUTI NE Micro Numbe r: [id number] Test Statu s: Final Speci men [...] lexin and lorac arbef . Not Available [facility] [place] [facility] [address], [place], [address], 10/18/2020 09:21:54 10/15/1910/15/2020 urina lysis , dipst ick Color Brown Not Available [facility] [address], [place], [address], 10/15/2020 12:36:15 10/15/1910/15/2020 urina lysis , dipst ick Appearance Turbid Not Available [facility] [address], [place], [address], 10/15/2020 12:36:15 10/15/19 21 10/15/2020 urina lysis , dipst ick Leukocytes Modera te 125 (++) Not Available [facility] [address], [place], [address], 10/15/2020 12:36:15 10/15/19 21 10/15/2020 urina lysis , dipst ick Nitrite Positi ve Not Available [facility] [address], [place], [address], 10/15/2020 12:36:15 10/15/19 21 10/15/2020 urina lysis , dipst ick Urobilinogen 8 (140) mg/dL Not Available [facility] [address], [place], [address], 10/15/2020 12:36:15 10/15/19 21 10/15/2020 urina lysis , dipst ick Protein 100 (1.0) mg/dL (++) Not Available [facility] [address], [place], [address], 10/15/2020 12:36:15 10/15/19 21 10/15/2020 urina lysis , dipst ick pH 5.0 Not Available [facility] [address], [place], [address], 10/15/2020 12:36:15 10/15/19 21 10/15/2020 urina lysis , dipst ick Blood Trace Not Available [facility] [address], [place], [address], 10/15/2020 12:36:15 10/15/19 21 10/15/2020 urina lysis , dipst ick Specific [place] 1.030 Not Available [facility] [address], [place], [address], 10/15/2020 12:36:15 10/15/19 21 10/15/2020 urina lysis , dipst ick Ketone X-Larg e (++++) Not Available [facility] [address] [facility] [address], [place], [address], 10/15/2020 12:36:15 10/15/19 21 10/15/2020 urina lysis , dipst ick Bilirubin Small 1(17) mg/dL (+) Not Available [facility] [address], [place], [address], 10/15/2020 12:36:15 10/15/19 21 10/15/2020 urina lysis , dipst ick Glucose Negati ve Not Available [facility] [address], [place], [address], 10/15/2020 12:36:15 07/16/20 20 07/08/2020 DEXA No observ ation record ed. [facility] [address] [place], [address], 08/24/2020 16:00:56 07/16/2007/15/2020 XR, chest , 2 view No observ ation record ed. [facility] Not Available 2019 16:00:56 07/17/20 elect rayar diogr am No observ ation record ed. [email or web address] Not Available 2019 17:59:16 07/17/20 20 07/08/2020 MAMMO , scree katy, digit al, bilat eral No observ ation record ed. [facility] [address] [place], [address], 08/24/2020 16:00:57 Result Notes None recorded. Problems Name Problem SNOMED Code Status Onset Date Resolution Date Notes Provider Name and Address Organization Details Recorded Time Insomnia 835794480 Active 2019 Marina lauren MD [address], [place], [address], [facility] 0 10:04:17 Anxiety 69962723 Active 2019 Marina lauren MD [address], [place], [address], [facility] 0 10:04:18 Abnormal weight gain 976654489 Active 2019 Marina lauren MD [address], [place], [address], [facility] 0 10:04:20 Recurrent major depression 29620733 Active 2019 Marina lauren MD [address], [place], [address], [facility] 0 10:04:22 Persistent cough 339722725 Active 2019 Marina lauren MD [address], [place], [address], [facility] 0 10:04:26 Ankle pain 204049209 Active 2019 Marina lauren MD [address], [place], [address], [facility] 0 10:04:27 Pain of right shoulder joint 5702370914662 9100 Active 2019 Marina lauren MD [address], [place], [address], [facility] 0 10:04:29 Restless legs 17356518 Active 2019 Pili Ching MD [address], [place], [address], [facility] 0 11:11:16 Hyperlipide zachery 89654774 Active 2019 Pili Ching MD [address], [place], [address], [facility] 0 11:11:21 Osteopenia 596091856 Active 2019 iPli Ching MD [address], [place], [address], [facility] 0 01:59:25 Gastroesoph ageal reflux disease 243428666 Active 2019 Pili Ching MD [address], [place], [address], [place] [facility] 0 02:03:26 Problem Notes None recorded. Procedures Surgical History Date Name Laterality Status Provider Name and Address Organization Details Recorded Time 04/25/20 19 Date of Last Mammogram completed [facility] 06/24/2020 08:53:49 01/10/20 19 Colonoscopy completed [facility] 06/24/2020 08:53:03 12/20/19 18 Other completed [facility] 06/24/2020 08:53:03 10/11/19 17 Other completed [facility] 06/24/2020 08:53:03 10/21/19 14 Other completed [facility] 06/24/2020 08:53:03 01/10/20 05 Breast Surgery completed [facility] 06/24/2020 08:53:03 Hysterectomy completed [facility] 06/24/2020 08:53:03 Imaging Results Imaging Date Name Status LastModified by Organization Details LastModified Time 07/08/2020 DEXA completed [facility] [address] [place], [address], 08/24/2020 16:00:56 07/15/2020 XR, chest, 2 view completed [facility] Informa tion not available 08/24/2020 16:00:56 07/17/2020 electrocardiogram completed [email or web address] Informa tion not available 08/03/2020 17:59:16 07/08/2020 MAMMO, screening, digital, bilateral completed [facility] [address] [place], [address], 08/24/2020 16:00:57 Procedure Notes None recorded. Medical [...] Updated DateTime 0 160.02 cm 33.5 kg/m2 35456.9 6 g 97.4 [degF] 63 /min 96 % 96 % 115 mm[Hg] 75 mm[Hg] Juan barr [facility] 0 08:59:27 Date Recorded Body height Body mass index (BMI) Body weight Heart rate Oxygen saturation Oxygen saturation in Arterial blood by Pulse oximetry Body temperature Systolic blood pressure Diastolic blood pressure Provider Name and Address Organization Details Last Updated DateTime 0 160.02 cm 33.1 kg/m2 03195.7 7 g 59 /min 97 % 97 % 96.3 [degF] 107 mm[Hg] 73 mm[Hg] Juan barr [facility] 0 10:24:30 Date Recorded Body height Body temperature Body mass index (BMI) Body weight Heart rate Oxygen saturation Oxygen saturation in Arterial blood by Pulse oximetry Systolic blood pressure Diastolic blood pressure Provider Name and Address Organization Details Last Updated DateTime 1 160.02 cm 96.8 [degF] 33.4 kg/m2 48581.8 g 73 /min 95 % 95 % 121 mm[Hg] 75 mm[Hg] Fernandez Evin [facility] 1 08:35:26 Date Recorded Body height Body temperature Body mass index (BMI) Body weight Heart rate Oxygen saturation Oxygen saturation in Arterial blood by Pulse oximetry Systolic blood pressure Diastolic blood pressure Provider Name and Address Organization Details Last Updated DateTime 1 160.02 cm 96.7 [degF] 33.2 kg/m2 02313.2 1 g 61 /min 97 % 97 % 110 mm[Hg] 71 mm[Hg] Juan barr [facility] 1 14:22:49 Social History Question Answer Notes LastModified by Organizat ion Details LastModified Time Tobacco Smoking Status Former Smoker Juan gutiérrez [facility] 06/24/2020 08:53:30 What Is Your Level Of [...] mL dose 03/23/2021 completed Diaina Prepetit null, [facility] 03/25/2021 12:26:32 COVID-19, mRNA, LNP-S, PF, 30 mcg/0.3 mL dose 04/13/2021 completed Diaina Prepetit null, [facility] 04/15/2021 10:25:26 Past Encounters Encounter ID Performer Location Encounter Start Date Encounter Closed Date Diagnosis/Indication Diagnosis SNOMED-CT Code Diagnosis ICD10 Code Diagnosis Note [id number] Marina villegas MD [facility] [address] [place] [address] [address] [place] [address] 06/24/2020 08:44:32 06/24/2020 10:26:08 Pain of right shoulder joint 4469375543 4640955 M25.511 No red flag findings on exam May take NSAID as needed, must take with food to prevent GI upset Muscle relaxant prescribed for more severe and persistent pain Discussed medication regimen as well as diet and exercise modificati on Patient will apply heat/ice as needed for pain relief Follow up in 2 weeks for re-evaluat ion Ankle pain 052882836 M25 .579 Hx of hardware in place, referred for x-ray, further management as indicate dafter that Persistent cough 9067221 02 R05 Exam unremarkab le, will refer for chest x-ray Abnormal weight gain 161 144891 R63.5 R73.09 E78.9 R53.83 E61.1 Discussed lifestyle modificati ons, regular exercise and dietary changes Risk stratifica tion with A1c and lipids Follow up scheduled for monitoring Anxiety 08227286 F41.9 Contineu lexapro with busparPati ent identified triggers for anxiety and impact of anxious thinking on functionin g.Discusse d strategies to regulate symptoms and need for compliance with treatment. Insomnia 424233105 G47.0 0 Good sleep hygiene and natural remedies discussed: melatonin, sleepy time tea Trazodone as needed for persistent symptoms Recurrent major depression 30724296 F33.9 Stable on lexapro, continue as prescribed Renewal of prescription 630617580 Z76.0 Screening for malignant neoplasm of breast 557539117 Z12.39 Osteopenia 937909520 M85 .80 [id number] Pili Ching MD [facility] [address] [place] [address] 07/17/2020 10:13:59 07/17/2020 11:49:05 Pain of right shoulder joint 2524375299 3259759 M25.511 No red flag findings on exam May take NSAID as needed, must take with food to prevent GI upset Muscle relaxant prescribed for more severe and persistent pain Discussed medication regimen as well as diet and exercise modificati on Patient will apply heat/ice as needed for pain relief Ankle pain 450268770 M25 .579 Hx of [address] in place, x-ray 07/08/20 shows hardware intact.jhonny l place on diclofenac gel. further eval and ortho eval based on symptoms. Persistent cough 9731457 02 R05 Exam unremarkab le, CXR 07/15/20 N. Will treat for gerd. If symptoms persist despite PPI will get further eval with CT chest. Recurrent major depression 08109885 F33.9 Stable on lexapro, continue as prescribed Abnormal weight gain 161 121550 R63.5 R73.09 E78.9 R53.83 E61.1 Discussed lifestyle modificati ons, regular exercise and dietary changes Risk stratifica tion with A1c and lipids Follow up scheduled for monitoring Anxiety 80470179 F41.9 Continue lexapro with busparPati ent identified triggers for anxiety and impact of anxious thinking on functionin g.Discusse d strategies to regulate symptoms and need for compliance with treatment. Insomnia 306268287 G47.0 0 Good sleep hygiene and natural remedies discussed: melatonin, sleepy time tea Trazodone as needed for persistent symptoms but makes her feel groggy the next day. Osteopenia 956063368 M85 .80 DEXA 07/08/20 osteopenia L1-4 -1.5Patien [...] the patient? s satisfact ion. Restless legs 35662714 G 25.81 will eval with labs. For now will start on lyrica and reassess. Hyperlipidemia 75580490 E78.5 06/24/20 TC 260, HDL 59, TG [...] of the week. Atypical chest pain 1025 55379 R07.89 Patient presents with {{chest* a rm [...] if symptoms worsen. Gastroesop hageal reflux disease 286083118 K21.[address] on trial of PPE [...] nonsteroid al anti-infla mmatory medicines and asa [id number] HUMERA ALCANTARA [facility] [address] [facility] [place] [address] 09/21/2020 08:27:49 09/21/2020 09:08:39 Recurrent major depression 02947783 F33.9 Stable on lexapro, continue as prescribed PHQ 9 score zero today. Abnormal weight gain 161 754878 R63.5 R73.09 E78.9 R53.83 E61.1 Discussed lifestyle modificati ons, regular exercise and dietary changes Risk stratifica tion with A1c and lipids Follow up scheduled for monitoring Anxiety 84331116 F41.9 Continue lexaproPat ient identified triggers for anxiety and impact of anxious thinking on functionpavel rasmussen strategies to regulate symptoms and need for compliance with treatment. Insomnia 336528513 G47.0 0 Good sleep hygiene and natural remedies discussed: melatonin, sleepy time tea Gabapentin prescribed for her restless legs since lyrica was not covered, it maybe able to help with her sleep . Osteopenia 428160275 M85 .80 Dexa 06/2020. Adult heal th examination 830670057 Z00.00 Patient presented to office today for their Annual Wellness Visit. She has started a diet and has lost 10 lbs since her last visit.Cont inue current regimen. No acute findings on exam.Refus es influenza vaccine and all other vaccines. Screening for disorder 913812648 Z13.9 CAGE and PHQ-9 screening, negative Advance di rective discussed with patient 420002552 Z71.89 Does not have a living will. She is working on it at this time. Hyperlipidemia 53398521 E78.5 LDL elevated at last visit.She has changed her diet and lost weigh.Foll ow up labs. Restless legs 58301719 G 25.81 Lyrica was not covered by Insurance. Trial of Gabapentin today discussed. [id number] HUMERA ALCANTARA [facility] [address] [place] [address] 10/15/2020 13:58:29 10/15/2020 14:46:58 Acute urinary tract infection 805320050 N39.0 Meds as directed.D iscussed clear fluids.David l if no resolution . Candidiasis of vagina [id number] B37.3 Discussed meds as directed.D iscussed probiotics . Health Concerns Section Related Observation LastModified by Organization Detai ls LastModified Time None Recorded Concern Status LastModified by Organization Details LastModified Time None Recorded Advance Directives Directive None Recorded Payers Encounter Date Sequence Insurance Name Policy Number Policy Grace Covered Member ID Grace Member ID Guarantor Name 06/24/2020 1 [employer] Pamela Liz [id number] Pamela Liz 07/17/2020 1 [employer] [place] Pamela Liz [id number] Pamela Liz 09/21/2020 1 [employer] Pamela Liz [id number] Pamela Liz 10/15/2020 1 [employer] Pamela Liz [id number] Pamela Liz Notes Date Note Type [...] her a few years ago, moved to [place] for healing, she recently moved to [place], lives with her elderly aunt. Takes trazodone as needed at bedtime. She is on lexapro and buspar. Marina desai MD [address], [place], [address], [facility] 06/24/2020 10:18:27 07/17/2020 text/html Seen on [...] her a few years ago, moved to [place] for healing, she recently moved to [place], lives with her elderly aunt. Takes trazodone [...] Ching MD [address], [place], [address], [facility] 08/10/2020 02:18:49 09/21/2020 text/html 60 y/o [...] her a few years ago, moved to [place] for healing, she recently moved to [place], lives with her elderly aunt. She is [...] HUMERA DAVIS [address], [place], [address], [facility] 09/21/2020 08:59:05 10/15/2020 text/html 60 y/o female presents today for a same day sick visit.C/O of dysuria for the past 2 days. Took AZO and cranberry without any help.Admits to some urinary frequency and urgency and suprapubic discomfort. Denies any hematuria.Admits to discharge and some pruritus. HUMERA DAVIS [address], [place], [address], [facility] 10/15/2020 14:47:24 OBGyn Episode No OBEpisode recorded.
== END 2024-12-25 18:01 | disposition home or self-care (01) ==
LOC: HO.MRI 18:00
PROVIDERS: PCP Nurse Practitioner Family; Visit Provider Orthopaedic Surgery
DX: M54.2 Cervicalgia (principal)
CPT/HCPCS: 72141

== ENCOUNTER 2025-01-01 14:03 | Outpatient (AMB) | payer OTHER, SELFPAY ==
--- NOTE | 2025-01-01 14:04 | A.OFFVIS_ITS ---
Intake Visit Reasons: Tele-Cervical Spine MRI Review [phone] Intake Note: Khloe is a 64 year old right hand dominant female who presents with complaints of progressively worsening left shoulder pain and weakness as well as progressively worsening neck pain which radiates down her right arm. The patient describes her pain as sharp and severe in nature. Her pain and weakness have gotten worse over the last year in spite of continued non operative treatments. The patient also has intermittent right shoulder pain. She states that her left shoulder pain is more severe than is her right at this time. She did undergo right shoulder rotator cuff repair surgery in 2015. She injured both of her shoulders when she fell off of a ladder in 2022. He has been to formal physical therapy. She has also had cortisone injections. The most recent injection gave her minimal relief. She has tried Tylenol, anti- inflammatory medicines and gabapentin which gave her only mild relief. She also reports ?shooting pain? down her right arm to her right hand. She also reports intermittent weakness in her right upper extremity. The patient also reports progressively worsening low back pain. Allergies No Known Allergies Allergy (Verified 01/01/25 14:06) Medication List - Last Reconciled 01/01/25 by Alonzo Costello MD vilazodone 20 mg PO DAILY PFSH Social History (Updated 12/12/24 @ 09:12 by JESUS Del Cid) Current occupation: rt handed Physical Exam Const Other: No exam was performed today Telehealth Telehealth Telehealth Platform: Telephone Location of provider rendering services: practice address Location of patient: address on file Patient Identification confirmed using: Name, : Yes Telehealth method: voice only Patient verbally consented to treatment: No Patient verbally consented to billing insurance company: No Patient informed of any privacy concerns related to visit: No Minutes spent on Phone/Video with Pt.: 12 Results Reviewed Results Reviewed: MRI of the patient's cervical spine performed on 12/25/2024 shows bilateral foraminal stenosis at levels C4-C5 and C5-C6, multilevel cervical spondylosis most significant at level C6-C7 with central and left subarticular disc herniation resulting in cord deformity without cord edema or myelopathy Assessment & Plan Assessment & Plan (1) Neck pain: Code(s): M54.2 - Cervicalgia Category: Medical Plan Ms. Hill presents with progressively worsening neck pain due to cervical stenosis. I had a lengthy discussion with the patient regarding the treatment options. The patient is already set up to see our neurosurgery specialists here at [facility] next week. She will follow up as scheduled. She will contact me prior to that appointment should her symptoms worsen in any way. Feel free to call me at any time should questions regarding her orthopedic management arise. Coding Level of Care Code Tele Est Pt Level 2 (09315) Diagnoses Neck pain M54.2
--- OUTSIDE RECORDS SUMMARY | 2025-01-01 16:54 | XMS_ITS | Data Portability ---
Author Organization [facility] [employer], [employer] Address [address] [place] [address] Assessment No assessment recorded. Plan of Treatment Reminders Order Date Submit Date Provider Last Modified By Organization Details Last Modified Time Details Appointments None recorded. Lab urinalysis , dipstick 2020 [facility] [employer] [facility], [address], [address], [place], [address], 14:46:44 urinalysis complete, reflex culture 2020 MATT [...] 0 11:09:17 Referral physical therapist referral 2019 [facility], [address] [place], [address], 1 05:03:50 Procedures None recorded. Surgeries None recorded. Imaging electrocar diogram [address] [facility], [address], [address], [place], [address], 0 11:49:05 XR, chest, 2 view 2019 [facility], [address] [place], [address], 0 12:38:39 DEXA 2019 [facility], [address] [place], [address], 0 10:55:28 MAMMO, screening, digital, bilateral 2019 [facility], [address] [place], [address], 0 15:37:39 XR, ankle, 3 or more view 2019 [facility], [address] [place], [address], 1 05:08:53 Medication Orders Bactrim DS 800 mg-160 mg tablet 2020 021 [facility] #[id number], [address] [place], [address], 1 14:44:54 fluconazol e 150 mg tablet 2020 021 [facility] #[id number], [email or web address] [place], [address], 1 14:44:55 gabapentin 300 mg capsule 2020 021 [facility] #[id number], [address] [place], [address], 1 08:55:14 pregabalin 50 mg capsule 2019 020 [id number], [address], [place], [id number], 1 08:35:15 omeprazole 20 mg capsule,de layed release 2019 020 [facility] #[id number], [address], [place], [place], [id number], 0 11:21:40 diclofenac 1 % topical gel 2019 020 [facility]88404, [address], [place], [place], [id number], 0 11:16:14 buspirone 30 mg tablet 2019 020 [email or web address]29100, [address], [place], [place], [id number], 0 11:16:50 Patient TargetsNo targets recorded. Patient Instructions Encounter Date Encounter Id Patient Instructions Last Modified By Organization Details Last Modified Time 06/24/2020 [id number] shoulder stretches: exercises [email or web address] Not available 06/24/2020 [...] total 260 mg/dL <200 high Not Available [facility] [address], [place], [address], 06/25/2020 11:09:16 06/24/2006/25/2020 lipid panel , serum HDL cholesterol 59 mg/dL > or = 50 normal Not Available [facility] [address], [place], [address], 06/25/2020 11:09:16 06/24/20 20 06/25/2020 lipid panel , serum triglyceride s 222 mg/dL <150 high If a non-f astin g speci men was colle cted, consi ward repea t trigl yceri de testi ng on a fasti ng speci men if clini bailey indic ated. Farhat potts et al. J. of Clin. Lipid ol. 2015; 9:129 -169. Not Available [facility] [place] [facility] [address], [place], [address], 06/25/2020 11:09:16 06/24/2006/25/2020 lipid panel , serum [...] in the estim ation of LDL-C . Kaitlni hooks SS et al. NERY. 2013; 310(1 9): 2061- 2068 (http ://ed ucati on.Qu KartMe. com/f aq/FA Q164) Not Available [facility] [place] [address], [place], [address], 06/25/2020 11:09:16 06/24/2006/25/2020 lipid panel , serum chol/HDLC ratio 4.4 (calc ) <5.0 normal Not Available [facility] [address], [place], [address], 06/25/2020 11:09:16 06/24/2006/25/2020 lipid panel , serum non HDL cholesterol 201 mg/dL _(david c) <130 high For patie nts with diabe patience plus 1 major ASCVD risk facto r, treat ing to a non-H DL-C goal of <100 mg/dL (LDL- C of <70 mg/dL ) is consi dered a thera peuti c optio n. Not Available [facility] [address], [place], [address], 06/25/2020 11:09:16 06/24/2006/25/2020 TSH + free T4, serum TSH 1.47 mIU/L 0.40-4 .50 normal Not Available [facility] [address], [place], [address], 06/25/2020 11:09:17 06/24/2006/25/2020 TSH + free T4, serum T4, free 1.1 NG/dL 0.8-1. 8 normal Not Available [facility] [address], [place], [address], 06/25/2020 11:09:17 06/24/2006/25/2020 CMP, serum or plasm a glucose 89 mg/dL 65-99 normal Fasti ng refer ence inter izzy Not Available [facility] [address], [place], [address], 06/25/2020 11:09:18 06/24/2006/25/2020 CMP, serum or plasm a urea nitrogen (BUN) 19 mg/dL 7-25 normal Not Available [facility] [address], [place], [address], 06/25/2020 11:09:18 06/24/2006/25/2020 CMP, serum or plasm a creatinine 0.85 mg/dL 0.50-0 .99 normal For patie nts >49 years of age, the refer ence limit for Creat inine is appro ximat magda 13% highe r for peopl e ident ified as Afric an-Am anita n. Not Available [facility] [address], [place], [address], 06/25/2020 11:09:18 06/24/2006/25/2020 CMP, serum or plasm a eGFR non-afr. tuvaluan 74 mL/mi n/1.7 3m2 > or = 60 normal Not Available [facility] [address], [place], [address], 06/25/2020 11:09:18 06/24/2006/25/2020 CMP, serum or plasm a eGFR 86 mL/mi n/1.7 3m2 > or = 60 normal Not Available [facility] [address], [place], [address], 06/25/2020 11:09:18 06/24/2006/25/2020 CMP, serum or plasm a BUN/creatini ne ratio NOT APPLIC ABLE (calc ) 6-22 Not Available [facility] [address], [place], [address], 06/25/2020 11:09:18 06/24/2006/25/2020 CMP, serum or plasm a sodium 142 mmol/ L 135-14 6 normal Not Available [facility] [address], [place], [address], 06/25/2020 11:09:18 06/24/2006/25/2020 CMP, serum or plasm a potassium 4.3 mmol/ L 3.5-5. 3 normal Not Available [facility] [address], [place], [address], 06/25/2020 11:09:18 06/24/2006/25/2020 CMP, serum or plasm a chloride 103 mmol/ L 98-110 normal Not Available [facility] [address], [place], [address], 06/25/2020 11:09:18 06/24/2006/25/2020 CMP, serum or plasm a carbon dioxide 25 mmol/ L 20-32 normal Not Available [facility] [address], [place], [address], 06/25/2020 11:09:18 06/24/2006/25/2020 CMP, serum or plasm a calcium 9.5 mg/dL 8.6-10 .4 normal Not Available [facility] [address], [place], [address], 06/25/2020 11:09:18 06/24/2006/25/2020 CMP, serum or plasm a protein, total 6.5 g/dL 6.1-8. 1 normal Not Available [facility] [address], [place], [address], 06/25/2020 11:09:18 06/24/2006/25/2020 CMP, serum or plasm a albumin 4.3 g/dL 3.6-5. 1 normal Not Available [facility] [address], [place], [address], 06/25/2020 11:09:18 06/24/2006/25/2020 CMP, serum or plasm a globulin 2.2 g/dL_ (calc ) 1.9-3. 7 normal Not Available [facility] [address], [place], [address], 06/25/2020 11:09:18 06/24/2006/25/2020 CMP, serum or plasm a albumin/glob ulin ratio 2.0 (calc ) 1.0-2. 5 normal Not Available [facility] [address], [place], [address], 06/25/2020 11:09:18 06/24/2006/25/2020 CMP, serum or plasm a bilirubin, total 0.6 mg/dL 0.2-1. 2 normal Not Available [facility] [address], [place], [address], 06/25/2020 11:09:18 06/24/20 20 06/25/2020 CMP, serum or plasm a alkaline phosphatase 81 U/L 37-153 normal Not Available [facility] [place] [facility] [address], [place], [address], 06/25/2020 11:09:18 06/24/2006/25/2020 CMP, serum or plasm a AST 26 U/L 10-35 normal Not Available [facility] [address], [place], [address], 06/25/2020 11:09:18 06/24/2006/25/2020 CMP, serum or plasm a ALT 34 U/L 6-29 high Not Available [facility] [address], [place], [address], 06/25/2020 11:09:18 06/24/2006/25/2020 HbA1c (hemo globi n [...] patience(A DA). Not Available [facility] [place] [facility] [address], [place], [address], 06/25/2020 11:09:19 06/24/2006/25/2020 CBC w/ auto diff white blood cell count 7.4 thous and/u L 3.8-10 .8 normal Not Available [facility] [address], [place], [address], 06/25/2020 11:09:19 06/24/2006/25/2020 CBC w/ auto diff red blood cell count 4.80 en on/uL 3.80-5 .10 normal Not Available [facility] [address], [place], [address], 06/25/2020 11:09:19 06/24/2006/25/2020 CBC w/ auto diff hemoglobin 14.2 g/dL 11.7-1 5.5 normal Not Available [facility] [address], [place], [address], 06/25/2020 11:09:19 06/24/2006/25/2020 CBC w/ auto diff hematocrit 42.4 % 35.0-4 5.0 normal Not Available [facility] [address], [place], [address], 06/25/2020 11:09:19 06/24/2006/25/2020 CBC w/ auto diff MCV 88.3 fL 80.0-1 00.0 normal Not Available [facility] [address], [place], [address], 06/25/2020 11:09:19 06/24/2006/25/2020 CBC w/ auto diff MCH 29.6 pg 27.0-3 3.0 normal Not Available [facility] [address], [place], [address], 06/25/2020 11:09:19 06/24/2006/25/2020 CBC w/ auto diff MCHC 33.5 g/dL 32.0-3 6.0 normal Not Available [facility] [address], [place], [address], 06/25/2020 11:09:19 06/24/2006/25/2020 CBC w/ auto diff RDW 13.8 % 11.0-1 5.0 normal Not Available [facility] [address], [place], [address], 06/25/2020 11:09:19 06/24/2006/25/2020 CBC w/ auto diff platelet count 242 thous and/u L 140-40 0 normal Not Available [facility] [address], [place], [address], 06/25/2020 11:09:19 06/24/2006/25/2020 CBC w/ auto diff MPV 10.3 fL 7.5-12 .5 normal Not Available [facility] [address], [place], [address], 06/25/2020 11:09:19 06/24/2006/25/2020 CBC w/ auto diff absolute neutrophils 4248 cells /uL 1500-7 800 normal Not Available [facility] [address], [place], [address], 06/25/2020 11:09:19 06/24/2006/25/2020 CBC w/ auto diff absolute lymphocytes 2546 cells /uL 850-39 00 normal Not Available [facility] [address], [place], [address], 06/25/2020 11:09:19 06/24/2006/25/2020 CBC w/ auto diff absolute monocytes 459 cells /uL 200-95 0 normal Not Available [facility] [address], [place], [address], 06/25/2020 11:09:19 06/24/2006/25/2020 CBC w/ auto diff absolute eosinophils 111 cells /uL 15-500 normal Not Available [facility] [address], [place], [address], 06/25/2020 11:09:19 06/24/2006/25/2020 CBC w/ auto diff absolute basophils 37 cells /uL 0-200 normal Not Available [facility] [address], [place], [address], 06/25/2020 11:09:19 06/24/2006/25/2020 CBC w/ auto diff neutrophils 57.4 % normal Not Available [facility] [address], [place], [address], 06/25/2020 11:09:19 06/24/2006/25/2020 CBC w/ auto diff lymphocytes 34.4 % normal Not Available [facility] [address], [place], [address], 06/25/2020 11:09:19 06/24/2006/25/2020 CBC w/ auto diff monocytes 6.2 % normal Not Available [facility] [address], [place], [address], 06/25/2020 11:09:19 06/24/2006/25/2020 CBC w/ auto diff eosinophils 1.5 % normal Not Available [facility] [address], [place], [address], 06/25/2020 11:09:19 06/24/2006/25/2020 CBC w/ auto diff basophils 0.5 % normal Not Available [facility] [address], [place], [address], 06/25/2020 11:09:19 07/17/2007/18/2020 test in quest ion- quant ity not suffi cient question/pro blem: THE QUANT ITY OF SPECI MEN(S ) SUBMI TTED IS INSUF FICIE NT FOR THE TEST( S) REQUE TRISTAND. Not Available [facility] [place] [facility] [address] [place], [address], 07/18/2020 04:09:12 07/17/2007/18/2020 test in quest ion- quant ity not suffi cient test(s) ordered: 5616/7 306 Not Available [facility] [place] [facility] [address], [place], [address], 07/18/2020 04:09:12 07/17/2007/18/2020 test in quest ion- quant ity not suffi cient quantity received: 1.0 ML SERUM Not Available [facility] [address], [place], [address], 07/18/2020 04:09:12 07/17/2007/18/2020 test in quest ion- quant ity not suffi cient qn required: 2.7 ML SERUM Not Available [facility] [place] [facility] [address] [place], [address], 07/18/2020 04:09:12 07/17/2007/18/2020 test in quest ion- quant ity not suffi cient resolution: * Not Available [facility] [place] [facility] [address], [place], [address], 07/18/2020 04:09:12 07/17/2007/18/2020 test in quest ion- quant ity not suffi cient comment REQUE STED INFOR TRESA N ___ AUTHO RIZED SIGNA TURE ____ TO PREVE NT FURTH ER DELAY S IN TESTI NG, PLEAS E COMPL ETE INFOR TRESA N ABOVE AND FAX TO [phone] TO RESOL VE THIS ORDER . Not Available [facility] [place] [facility] [address], [place], [address], 07/18/2020 04:09:12 07/17/2007/18/2020 H pylor i Ag, stool result: SEE NOTE Not Available [facility] [place] [facility] [address], [place], [address], 07/18/2020 04:09:12 07/17/2007/20/2020 H pylor i Ag, stool helicobacter pylori Ag, EIA, stool HELIC OBACT ER PYLOR I AG, EIA, STOOL Micro Numbe r: [id number] Test Statu s: Final Speci men Sourc e: NOT GIVEN Speci men Quali ty: Adequ ate H.pyl hali Ag: Test not perfo rmed. No speci men recei taya. Refer ence Range : Not Detec damian Not Available [facility] [place] [facility] [address], [place], [address], 07/20/2020 13:05:44 08/26/2008/2608/26/2020 elect rocar diogr am Rate & Rhythm Not Available [facility] [address], [place], [address], 07/17/2020 11:19:45 08/26/20 20 08/26/2020 elect rocar diogr am QRS Not Available [facility] [address], [place], [address], 07/17/2020 11:19:45 08/26/20 20 08/26/2020 elect rocar diogr am IN Interval Not Available [facility] [address], [place], [address], 07/17/2020 11:19:45 08/26/20 20 08/26/2020 elect rocar diogr am QRS Duration Not Available [facility] [address], [place], [address], 07/17/2020 11:19:45 08/26/20 20 08/26/2020 elect rocar diogr am QT Interval Not Available [facility] [address], [place], [address], 07/17/2020 11:19:45 09/21/19 21 09/23/2020 lipid panel , serum cholesterol, total 231 mg/dL <200 high Not Available [facility] [address] [place], [address], 09/23/2020 04:51:30 09/21/19 21 09/23/2020 lipid panel , serum HDL cholesterol 52 mg/dL > or = 50 normal Not Available [facility] [address] [place], [address], 09/23/2020 04:51:30 09/21/19 21 09/23/2020 lipid panel , serum triglyceride s 152 mg/dL <150 high Not Available [facility] [address], [place], [address], 09/23/2020 04:51:30 09/21/19 21 09/23/2020 lipid panel [...] 310(1 9): 2061- 2068 (http ://ed ucati on.[employer] skydooub. com/f aq/FA Q164) Not Available [facility] [place] [facility] [address], [place], [address], 09/23/2020 04:51:30 09/21/1909/23/2020 lipid panel , serum chol/HDLC ratio 4.4 (calc ) <5.0 normal Not Available [facility] [place] [facility] [address], [place], [address], 09/23/2020 04:51:30 09/21/19 21 09/23/2020 lipid panel , serum non HDL cholesterol 179 mg/dL _(david c) <130 high For patie nts with diabe patience plus 1 major ASCVD risk facto r, treat ing to a non-H DL-C goal of <100 mg/dL (LDL- C of <70 mg/dL ) is consi yulid froilan castilloo n. Not Available [facility] [place] [facility] [address], [place], [address], 09/23/2020 04:51:30 09/21/1909/23/2020 TSH + free T4, serum TSH 1.15 mIU/L 0.40-4 .50 normal Not Available [facility] [place] [facility] [address], [place], [address], 09/23/2020 04:51:30 09/21/19 21 09/23/2020 TSH + free T4, serum T4, free 1.1 NG/dL 0.8-1. 8 normal Not Available [facility] [place] [facility] [address], [place], [address], 09/23/2020 04:51:30 09/21/1909/23/2020 CMP, serum or plasm a glucose 103 mg/dL 65-99 high Fasti ng refer ence inter izzy For someo ne witho ut known diabe patience, a gluco se value betwe en 100 and 125 mg/dL is consi stent with predi abete s and shoul d be confi rmed with a follo w-up test. Not Available [facility] [place] [facility] [address], [place], [address], 09/23/2020 04:51:31 09/21/1909/23/2020 CMP, serum or plasm a urea nitrogen (BUN) 19 mg/dL 7-25 normal Not Available [facility] [place] [facility] [address], [place], [address], 09/23/2020 04:51:31 09/21/1909/23/2020 CMP, serum or plasm a creatinine 0.90 mg/dL 0.50-0 .99 normal For patie nts >49 years of age, the refer ence limit for Creat inine is appro ximat magda 13% highe r for peopl e ident ified as Afric an-Am anita n. Not Available [facility] [place] [facility] [address], [place], [address], 09/23/2020 04:51:31 09/21/19 21 09/23/2020 CMP, serum or plasm a eGFR non-afr. tuvaluan 69 mL/mi n/1.7 3m2 > or = 60 normal Not Available [facility] [address], [place], [address], 09/23/2020 04:51:31 09/21/19 21 09/23/2020 CMP, serum or plasm a eGFR 81 mL/mi n/1.7 3m2 > or = 60 normal Not Available [facility] [address], [place], [address], 09/23/2020 04:51:31 09/21/1909/23/2020 CMP, serum or plasm a BUN/creatini ne ratio NOT APPLIC ABLE (calc ) 6-[address] [facility] [address], [place], [address], 09/23/2020 04:51:31 09/21/19 21 09/23/2020 CMP, serum or plasm a sodium 144 mmol/ L 135-14 6 normal Not Available [facility] [address], [place], [address], 09/23/2020 04:51:31 09/21/19 21 09/23/2020 CMP, serum or plasm a potassium 4.4 mmol/ L 3.5-5. 3 normal Not Available [facility] [address], [place], [address], 09/23/2020 04:51:31 09/21/1909/23/2020 CMP, serum or plasm a chloride 105 mmol/ L 98-110 normal Not Available [facility] [address], [place], [address], 09/23/2020 04:51:31 09/21/19 21 09/23/2020 CMP, serum or plasm a carbon dioxide 20 mmol/ L 20-32 normal Not Available [facility] [place] [address], [place], [address], 09/23/2020 04:51:31 09/21/19 21 09/23/2020 CMP, serum or plasm a calcium 10.0 mg/dL 8.6-10 [address] [facility] [address], [place], [address], 09/23/2020 04:51:31 09/21/1909/23/2020 CMP, serum or plasm a protein, total 7.2 g/dL 6.1-8. 1 normal Not Available [facility] [address], [place], [address], 09/23/2020 04:51:31 09/21/1909/23/2020 CMP, serum or plasm a albumin 4.8 g/dL 3.6-5. [address] [facility], [place], [address], 09/23/2020 04:51:31 09/21/1909/23/2020 CMP, serum or plasm a globulin 2.4 g/dL_ (calc ) 1.9-3. [address] [facility] [address], [place], [address], 09/23/2020 04:51:31 09/21/1909/23/2020 CMP, serum or plasm a albumin/glob ulin ratio 2.0 (calc ) 1.0-2. 5 normal Not Available [facility] [address], [place], [address], 09/23/2020 04:51:31 09/21/1909/23/2020 CMP, serum or plasm a bilirubin, total 0.6 mg/dL 0.2-1. 2 normal Not Available [facility] [address], [place], [address], 09/23/2020 04:51:31 09/21/19 21 09/23/2020 CMP, serum or plasm a alkaline phosphatase 83 U/L 37-153 normal Not Available [facility] [place] [facility] [address], [place], [address], 09/23/2020 04:51:31 09/21/19 21 09/23/2020 CMP, serum or plasm a AST 31 U/L 10-35 normal Not Available [facility] [place] [facility] [address], [place], [address], 09/23/2020 04:51:31 09/21/19 21 09/23/2020 CMP, serum or plasm a ALT 35 U/L 6-29 high Not Available [facility] [place] [facility] [address], [place], [address], 09/23/2020 04:51:31 09/21/19 21 09/23/2020 HbA1c (hemo [...] patience(A DA). Not Available [facility] [place] [facility] [address], [place], [address], 09/23/2020 04:51:31 09/21/19 21 09/23/2020 vitam in [...] /MS is recom marilin d: order code 14910 (chioma ents >2yrs ). See Note 1 Note 1 For addit ional infor anais marshall e refer to http: //oneida De La Cruzia gnost ics.c om/fa q/FAQ 199 (This link is being provi ded for infor tresa ya/ educa renita l purpo ses only. ) Not Available [facility] [place] [facility] [address], [place], [address], 09/23/2020 04:51:32 09/21/19 21 09/23/2020 CBC w/ auto diff white blood cell count 5.4 thous and/u L 3.8-10 .8 normal Not Available [facility] [place] [facility] [address], [place], [address], 09/23/2020 04:51:32 09/21/19 21 09/23/2020 CBC w/ auto diff red blood cell count 5.06 en on/uL 3.80-5 .10 normal Not Available [facility] [place] [facility] [address], [place], [address], 09/23/2020 04:51:32 09/21/19 21 09/23/2020 CBC w/ auto diff hemoglobin 14.8 g/dL 11.7-1 5.5 normal Not Available [facility] [address], [place], [address], 09/23/2020 04:51:32 09/21/19 21 09/23/2020 CBC w/ auto diff hematocrit 43.4 % 35.0-4 5.0 normal Not Available [facility] [address], [place], [address], 09/23/2020 04:51:32 09/21/1909/23/2020 CBC w/ auto diff MCV 85.8 fL 80.0-1 00.0 normal Not Available [facility] [address], [place], [address], 09/23/2020 04:51:32 09/21/1909/23/2020 CBC w/ auto diff MCH 29.2 pg 27.0-3 3.0 normal Not Available [facility] [address], [place], [address], 09/23/2020 04:51:32 09/21/19 21 09/23/2020 CBC w/ auto diff MCHC 34.1 g/dL 32.0-3 6.0 normal Not Available [facility] [address], [place], [address], 09/23/2020 04:51:32 09/21/1909/23/2020 CBC w/ auto diff RDW 13.5 % 11.0-1 5.0 normal Not Available [facility] [address], [place], [address], 09/23/2020 04:51:32 09/21/19 21 09/23/2020 CBC w/ auto diff platelet count 278 thous and/u L 140-40 0 normal Not Available [facility] [address], [place], [address], 09/23/2020 04:51:32 09/21/19 21 09/23/2020 CBC w/ auto diff MPV 11.5 fL 7.5-12 .5 normal Not Available [facility] [address], [place], [address], 09/23/2020 04:51:32 09/21/19 21 09/23/2020 CBC w/ auto diff absolute neutrophils 2813 cells /uL 1500-7 800 normal Not Available [facility] [address], [place], [address], 09/23/2020 04:51:32 09/21/19 21 09/23/2020 CBC w/ auto diff absolute lymphocytes 1993 cells /uL 850-39 00 normal Not Available [facility] [address], [place], [address], 09/23/2020 04:51:32 09/21/19 21 09/23/2020 CBC w/ auto diff absolute monocytes 443 cells /uL 200-95 0 normal Not Available [facility] [address], [place], [address], 09/23/2020 04:51:32 09/21/19 21 09/23/2020 CBC w/ auto diff absolute eosinophils 119 cells /uL 15-500 normal Not Available [facility] [address], [place], [address], 09/23/2020 04:51:32 09/21/19 21 09/23/2020 CBC w/ auto diff absolute basophils 32 cells /uL 0-200 normal Not Available [facility] [address], [place], [address], 09/23/2020 04:51:32 09/21/19 21 09/23/2020 CBC w/ auto diff neutrophils 52.1 % normal Not Available [facility] [place] [facility] [address], [place], [address], 09/23/2020 04:51:32 09/21/19 21 09/23/2020 CBC w/ auto diff lymphocytes 36.9 % normal Not Available [facility] [place] [facility] [address], [place], [address], 09/23/2020 04:51:32 09/21/19 21 09/23/2020 CBC w/ auto diff monocytes 8.2 % normal Not Available [facility] [place] [facility] [address], [place], [address], 09/23/2020 04:51:32 09/21/19 21 09/23/2020 CBC w/ auto diff eosinophils 2.2 % normal Not Available [facility] [place] [facility] [address], [place], [address], 09/23/2020 04:51:32 09/21/19 21 09/23/2020 CBC w/ auto diff basophils 0.6 % normal Not Available [facility] [place] [facility] [address], [place], [address], 09/23/2020 04:51:32 09/21/19 21 09/23/2020 urina lysis compl ete, refle x cultu re color YELLOW yellow normal Not Available [facility] [place] [facility] [address], [place], [address], 09/23/2020 04:51:33 09/21/1909/23/2020 urina lysis compl ete, refle x cultu re appearance CLEAR clear normal Not Available [facility] [place] [facility] [address], [place], [address], 09/23/2020 04:51:33 09/21/19 21 09/23/2020 urina lysis compl ete, refle x cultu re specific gravity 1.022 1.001- 1.035 normal Not Available [facility] [place] [facility] [address], [place], [address], 09/23/2020 04:51:33 09/21/19 21 09/23/2020 urina lysis compl ete, refle x cultu re pH 5.5 5.0-8. 0 normal Not Available [facility] [place] [facility] [address], [place], [address], 09/23/2020 04:51:33 09/21/19 21 09/23/2020 urina lysis compl ete, refle x cultu re glucose NEGATI VE negati ve normal Not Available [facility] [place] [facility] [address], [place], [address], 09/23/2020 04:51:33 09/21/19 21 09/23/2020 urina lysis compl ete, refle x cultu re bilirubin NEGATI VE negati ve normal Not Available [facility] [place] [facility] [address], [place], [address], 09/23/2020 04:51:33 09/21/19 21 09/23/2020 urina lysis compl ete, refle x cultu re ketones TRACE negati ve abnormal Not Available [facility] [place] [facility] [address], [place], [address], 09/23/2020 04:51:33 09/21/1909/23/2020 urina lysis compl ete, refle x cultu re occult blood NEGATI VE negati ve normal Not Available [facility] [place] [facility] [address], [place], [address], 09/23/2020 04:51:33 01/11/20 21 09/23/2020 urina lysis compl ete, refle x cultu re protein NEGATI VE negati ve normal Not Available [facility] [place] [facility] [address], [place], [address], 09/23/2020 04:51:33 09/21/19 21 09/23/2020 urina lysis compl ete, refle x cultu re nitrite NEGATI VE negati ve normal Not Available [facility] [place] [facility] [address], [place], [address], 09/23/2020 04:51:33 09/21/19 21 09/23/2020 urina lysis compl ete, refle x cultu re leukocyte esterase NEGATI VE negati ve normal Not Available [facility] [place] [facility] [address], [place], [address], 09/23/2020 04:51:33 09/21/19 21 09/23/2020 urina lysis compl ete, refle x cultu re WBC NONE SEEN /hpf < or = 5 normal Not Available [facility] [place] [facility] [address], [place], [address], 09/23/2020 04:51:33 09/21/19 21 09/23/2020 urina lysis compl ete, refle x cultu re RBC NONE SEEN /hpf < or = 2 normal Not Available [facility] [place] [facility] [address], [place], [address], 09/23/2020 04:51:33 09/21/19 21 09/23/2020 urina lysis compl ete, refle x cultu re squamous epithelial cells 0-5 /hpf < or = 5 Not Available [facility] [address], [place], [address], 09/23/2020 04:51:33 09/21/19 21 09/23/2020 urina lysis compl ete, refle x cultu re bacteria NONE SEEN /hpf none seen normal Not Available [facility] [place] [facility] [address], [place], [address], 09/23/2020 04:51:33 09/21/19 21 09/23/2020 urina lysis compl ete, refle x cultu re hyaline cast NONE SEEN /lpf none seen normal Not Available [facility] [place] [facility] [address], [place], [address], 09/23/2020 04:51:33 09/21/19 21 09/23/2020 cultu re, urine reflexive urine culture NO CULTU RE INDIC ATED Not Available [facility] [address], [place], [address], 09/23/2020 04:51:33 10/15/19 21 10/17/2020 urina lysis compl ete, refle x cultu re color DARK YELLOW yellow normal Not Available [facility] [address], [place], [address], 10/17/2020 11:28:37 10/15/19 21 10/17/2020 urina lysis compl ete, refle x cultu re appearance TURBID clear abnormal Not Available [facility] [address], [place], [address], 10/17/2020 11:28:37 10/15/19 21 10/17/2020 urina lysis compl ete, refle x cultu re specific gravity 1.026 1.001- 1.035 normal Not Available [facility] [place] [facility] [address], [place], [address], 10/17/2020 11:28:37 10/15/19 21 10/17/2020 urina lysis compl ete, refle x cultu re pH 6.0 5.0-8. 0 normal Not Available [facility] [address], [place], [address], 10/17/2020 11:28:37 10/15/19 21 10/17/2020 urina lysis compl ete, refle x cultu re glucose NEGATI VE negati ve normal Not Available [facility] [place] [facility] [address], [place], [address], 10/17/2020 11:28:37 10/15/19 21 10/17/2020 urina lysis compl ete, refle x cultu re bilirubin NEGATI VE negati ve normal Not Available [facility] [place] [facility] [address], [place], [address], 10/17/2020 11:28:37 10/15/19 21 10/17/2020 urina lysis compl ete, refle x cultu re ketones NEGATI VE negati ve normal Not Available [facility] [place] [facility] [address], [place], [address], 10/17/2020 11:28:37 10/15/19 21 10/17/2020 urina lysis compl ete, refle x cultu re occult blood 3+ negati ve abnormal Not Available [facility] [place] [facility] [address], [place], [address], 10/17/2020 11:28:37 10/15/19 21 10/17/2020 urina lysis compl ete, refle x cultu re protein 2+ negati ve abnormal Not Available [facility] [place] [facility] [address], [place], [address], 10/17/2020 11:28:37 10/15/19 21 10/17/2020 urina lysis compl ete, refle x cultu re nitrite POSITI VE negati ve abnormal Not Available [facility] [place] [facility] [address], [place], [address], 10/17/2020 11:28:37 10/15/19 21 10/17/2020 urina lysis compl ete, refle x cultu re leukocyte esterase 2+ negati ve abnormal Not Available [facility] [place] [facility] [address], [place], [address], 10/17/2020 11:28:37 10/15/19 21 10/17/2020 urina lysis compl ete, refle x cultu re WBC > OR = 60 /hpf < or = 5 abnormal Not Available [facility] [place] [facility] [address], [place], [address], 10/17/2020 11:28:37 10/15/19 21 10/17/2020 urina lysis compl ete, refle x cultu re RBC > OR = 60 /hpf < or = 2 abnormal Not Available [facility] [place] [facility] [address], [place], [address], 10/17/2020 11:28:37 10/15/19 21 10/17/2020 urina lysis compl ete, refle x cultu re squamous epithelial cells 0-5 /hpf < or = 5 Not Available [facility] [place] [facility] [address], [place], [address], 10/17/2020 11:28:37 10/15/19 21 10/17/2020 urina lysis compl ete, refle x cultu re bacteria MODERA TE /hpf none seen abnormal Not Available [facility] [place] [facility] [address], [place], [address], 10/17/2020 11:28:37 10/15/19 21 10/17/2020 urina lysis compl ete, refle x cultu re hyaline cast NONE SEEN /lpf none seen normal Not Available [facility] [place] [facility] [address], [place], [address], 10/17/2020 11:28:37 10/15/19 21 10/17/2020 urina lysis compl ete, refle x cultu re comments FEW MUCOUS THREAD S Not Available [facility] [place] [facility] [address], [place], [address], 10/17/2020 11:28:37 10/15/19 21 10/17/2020 urina lysis compl ete, refle x cultu re reflexive urine culture CULTU RE INDIC ATED - RESUL TS TO FOLLO W Not Available [facility] [place] [facility] [address], [place], [address], 10/17/2020 11:28:37 10/15/19 21 10/18/2020 cultu re, urine culture, urine, routine SEE NOTE abnormal CULTU RE, URINE , ROUTI NE Micro Numbe r: [id number] Test Statu s: Final Speci men [...] lexin and lorac arbef . Not Available [facility] [place] [facility] [address], [place], [address], 10/18/2020 09:21:54 10/15/1910/15/2020 urina lysis , dipst ick Color Brown Not Available [facility] [address], [place], [address], 10/15/2020 12:36:15 10/15/1910/15/2020 urina lysis , dipst ick Appearance Turbid Not Available [facility] [address], [place], [address], 10/15/2020 12:36:15 10/15/19 21 10/15/2020 urina lysis , dipst ick Leukocytes Modera te 125 (++) Not Available [facility] [address], [place], [address], 10/15/2020 12:36:15 10/15/19 21 10/15/2020 urina lysis , dipst ick Nitrite Positi ve Not Available [facility] [address], [place], [address], 10/15/2020 12:36:15 10/15/19 21 10/15/2020 urina lysis , dipst ick Urobilinogen 8 (140) mg/dL Not Available [facility] [address] [facility] [facility] [address], [place], [address], 10/15/2020 12:36:15 10/15/19 21 10/15/2020 urina lysis , dipst ick Protein 100 (1.0) mg/dL (++) Not Available [facility] [address] [facility] [address] [facility] [address], [place], [address], 10/15/2020 12:36:15 10/15/19 21 10/15/2020 urina lysis , dipst ick pH 5.0 Not Available [facility] [address] [facility] [address] [facility] [address], [place], [address], 10/15/2020 12:36:15 10/15/19 21 10/15/2020 urina lysis , dipst ick Blood Trace Not Available [facility] [address], [place], [address], 10/15/2020 12:36:15 10/15/19 21 10/15/2020 urina lysis , dipst ick Specific Jordan 1.030 Not Available [facility] [address], [place], [address], 10/15/2020 12:36:15 10/15/19 21 10/15/2020 urina lysis , dipst ick Ketone X-Larg e (++++) Not Available [facility] [address] [address], [place], [address], 10/15/2020 12:36:15 10/15/19 21 10/15/2020 urina lysis , dipst ick Bilirubin Small 1(17) mg/dL (+) Not Available [facility] [address], [place], [address], 10/15/2020 12:36:15 10/15/19 21 10/15/2020 urina lysis , dipst ick Glucose Negati ve Not Available [facility] [address], [place], [address], 10/15/2020 12:36:15 07/16/20 20 07/08/2020 DEXA No observ ation record ed. [facility] [address] [place], [address], 08/24/2020 16:00:56 07/16/2007/15/2020 XR, chest , 2 view No observ ation record ed. [facility] Not Available 2019 16:00:56 07/17/20 elect rayar diogr am No observ ation record ed. [email or web address] Not Available 2019 17:59:16 07/17/20 20 07/08/2020 MAMMO , scree katy, digit al, bilat eral No observ ation record ed. [facility] [address] [place], [address], 08/24/2020 16:00:57 Result Notes None recorded. Problems Name Problem SNOMED Code Status Onset Date Resolution Date Notes Provider Name and Address Organization Details Recorded Time Insomnia 690607347 Active 2019 Marina lauren MD [address], [place], [address], [facility] 0 10:04:17 Anxiety 38010147 Active 2019 Marina lauren MD [address], [place], [address], [facility] 0 10:04:18 Abnormal weight gain 392610737 Active 2019 Marina lauren MD [address], [place], [address], [facility] 0 10:04:20 Recurrent major depression 71740420 Active 2019 Marina lauren MD [address], [place], [address], [facility] 0 10:04:22 Persistent cough 493326214 Active 2019 Marina lauren MD [address], [place], [address], [facility] 0 10:04:26 Ankle pain 506004504 Active 2019 Marina lauren MD [address], [place], [address], [facility] 0 10:04:27 Pain of right shoulder joint 4363160214382 9100 Active 2019 Marina lauren MD [address], [place], [address], [facility] 0 10:04:29 Restless legs 79565626 Active 2019 Pili Ching MD [address], [place], [address], [facility] 0 11:11:16 Hyperlipide zachery 66649958 Active 2019 Pili Ching MD [address], [place], [address], [place] [facility] 0 11:11:21 Osteopenia 435264485 Active 2019 Pili Ching MD [address], [place], [address], [place] [facility] 0 01:59:25 Gastroesoph ageal reflux disease 743847127 Active 2019 Pili Ching MD [address], [place], [address], [place] [facility] 0 02:03:26 Problem Notes None recorded. Procedures Surgical History Date Name Laterality Status Provider Name and Address Organization Details Recorded Time 04/25/20 19 Date of Last Mammogram completed [facility] 06/24/2020 08:53:49 01/10/20 19 Colonoscopy completed [facility] 06/24/2020 08:53:03 12/20/19 18 Other completed [facility] 06/24/2020 08:53:03 10/11/19 17 Other completed [facility] 06/24/2020 08:53:03 10/21/19 14 Other completed [facility] 06/24/2020 08:53:03 01/10/20 05 Breast Surgery completed [facility] 06/24/2020 08:53:03 Hysterectomy completed [facility] 06/24/2020 08:53:03 Imaging Results Imaging Date Name Status LastModified by Organization Details LastModified Time 07/08/2020 DEXA completed [facility] [address] [place], [address], 08/24/2020 16:00:56 07/15/2020 XR, chest, 2 view completed [facility] Informa tion not available 08/24/2020 16:00:56 07/17/2020 electrocardiogram completed [email or web address] Informa tion not available 08/03/2020 17:59:16 07/08/2020 MAMMO, screening, digital, bilateral completed [facility] [address] [place], [address], 08/24/2020 16:00:57 Procedure Notes None recorded. Medical [...] Updated DateTime 0 160.02 cm 33.5 kg/m2 21633.9 6 g 97.4 [degF] 63 /min 96 % 96 % 115 mm[Hg] 75 mm[Hg] Juan barr [facility] 0 08:59:27 Date Recorded Body height Body mass index (BMI) Body weight Heart rate Oxygen saturation Oxygen saturation in Arterial blood by Pulse oximetry Body temperature Systolic blood pressure Diastolic blood pressure Provider Name and Address Organization Details Last Updated DateTime 0 160.02 cm 33.1 kg/m2 13390.7 7 g 59 /min 97 % 97 % 96.3 [degF] 107 mm[Hg] 73 mm[Hg] Juan barr [facility] 0 10:24:30 Date Recorded Body height Body temperature Body mass index (BMI) Body weight Heart rate Oxygen saturation Oxygen saturation in Arterial blood by Pulse oximetry Systolic blood pressure Diastolic blood pressure Provider Name and Address Organization Details Last Updated DateTime 1 160.02 cm 96.8 [degF] 33.4 kg/m2 96423.8 g 73 /min 95 % 95 % 121 mm[Hg] 75 mm[Hg] Fernandez Evin [facility] 1 08:35:26 Date Recorded Body height Body temperature Body mass index (BMI) Body weight Heart rate Oxygen saturation Oxygen saturation in Arterial blood by Pulse oximetry Systolic blood pressure Diastolic blood pressure Provider Name and Address Organization Details Last Updated DateTime 1 160.02 cm 96.7 [degF] 33.2 kg/m2 67727.2 1 g 61 /min 97 % 97 % 110 mm[Hg] 71 mm[Hg] Juan barr [facility] 1 14:22:49 Social History Question Answer Notes LastModified by Organizat ion Details LastModified Time Tobacco Smoking Status Former Smoker Juan gutiérrez [facility] 06/24/2020 08:53:30 What Is Your Level [...] Weight Problems Y Depression Y Anemia N CVA/Stroke N Kidney disease N Arthritis/Joint Disease N Anxiety Disorder Y Diabetes N Hemorrhoids N High blood pressure/Hypertension N Psych disorders N COPD/Lung Disease N Kidney stones N Hearing problems N Cancer N DVT/Blood clot N Heart disease N Dementia N Asthma N High cholesterol [...] mL dose 03/23/2021 completed Diaina Prepetit null, [facility] 03/25/2021 12:26:32 COVID-19, mRNA, LNP-S, PF, 30 mcg/0.3 mL dose 04/13/2021 completed Diaina Prepetit null, [facility] 04/15/2021 10:25:26 Past Encounters Encounter ID Performer Location Encounter Start Date Encounter Closed Date Diagnosis/Indication Diagnosis SNOMED-CT Code Diagnosis ICD10 Code Diagnosis Note [id number] Marina villegas MD [facility] [address] [place] [address] [address] [place] [address] 06/24/2020 08:44:32 06/24/2020 10:26:08 Pain of right shoulder joint 7053203341 6752968 M25.511 No red flag findings on exam May take NSAID as needed, must take with food to prevent GI upset Muscle relaxant prescribed for more severe and persistent pain Discussed medication regimen as well as diet and exercise modificati on Patient will apply heat/ice as needed for pain relief Follow up in 2 weeks for re-evaluat ion Ankle pain 678150115 M25 .579 Hx of hardware in place, referred for x-ray, further management as indicate dafter that Persistent cough 3146665 02 R05 Exam unremarkab le, will refer for chest x-ray Abnormal weight gain 161 216253 R63.5 R73.09 E78.9 R53.83 E61.1 Discussed lifestyle modificati ons, regular exercise and dietary changes Risk stratifica tion with A1c and lipids Follow up scheduled for monitoring Anxiety 52998765 F41.9 Contineu lexapro with busparPati ent identified triggers for anxiety and impact of anxious thinking on functionin g.Discusse d strategies to regulate symptoms and need for compliance with treatment. Insomnia 971698482 G47.0 0 Good sleep hygiene and natural remedies discussed: melatonin, sleepy time tea Trazodone as needed for persistent symptoms Recurrent major depression 80738539 F33.9 Stable on lexapro, continue as prescribed Renewal of prescription 773773343 Z76.0 Screening for malignant neoplasm of breast 874846847 Z12.39 Osteopenia 311997652 M85 .80 [id number] Pili Ching MD [facility] [address] [facility] [place] [address] 07/17/2020 10:13:59 07/17/2020 11:49:05 Pain of right shoulder joint 1998307328 1289948 M25.511 No red flag findings on exam May take NSAID as needed, must take with food to prevent GI upset Muscle relaxant prescribed for more severe and persistent pain Discussed medication regimen as well as diet and exercise modificati on Patient will apply heat/ice as needed for pain relief Ankle pain 314853659 M25 .579 Hx of [address] in place, x-ray 07/08/20 shows hardware intact.jhonny l place on diclofenac gel. further eval and ortho eval based on symptoms. Persistent cough 4627058 02 R05 Exam unremarkab le, CXR 07/15/20 N. Will treat for gerd. If symptoms persist despite PPI will get further eval with CT chest. Recurrent major depression 94111156 F33.9 Stable on lexapro, continue as prescribed Abnormal weight gain 161 715328 R63.5 R73.09 E78.9 R53.83 E61.1 Discussed lifestyle modificati ons, regular exercise and dietary changes Risk stratifica tion with A1c and lipids Follow up scheduled for monitoring Anxiety 90496773 F41.9 Continue lexapro with busparPati ent identified triggers for anxiety and impact of anxious thinking on functionin g.Discusse d strategies to regulate symptoms and need for compliance with treatment. Insomnia 177726306 G47.0 0 Good sleep hygiene and natural remedies discussed: melatonin, sleepy time tea Trazodone as needed for persistent symptoms but makes her feel groggy the next day. Osteopenia 395003516 M85 .80 DEXA 07/08/20 osteopenia L1-4 -1.5Patien [...] the patient? s satisfact ion. Restless legs 70983463 G 25.81 will eval with labs. For now will start on lyrica and reassess. Hyperlipidemia 01418709 E78.5 06/24/20 TC 260, HDL 59, TG [...] of the week. Atypical chest pain 1025 86806 R07.89 Patient presents with {{chest* a rm [...] if symptoms worsen. Gastroesop hageal reflux disease 895462971 K21.[address] on trial of PPE [...] nonsteroid al anti-infla mmatory medicines and asa [id number] [facility] [address] [facility] [address] [place] [address] 09/21/2020 08:27:49 09/21/2020 09:08:39 Recurrent major depression 83008895 F33.9 Stable on lexapro, continue as prescribed PHQ 9 score zero today. Abnormal weight gain 161 252416 R63.5 R73.09 E78.9 R53.83 E61.1 Discussed lifestyle modificati ons, regular exercise and dietary changes Risk stratifica tion with A1c and lipids Follow up scheduled for monitoring Anxiety 23519087 F41.9 Continue lexaproPat ient identified triggers for anxiety and impact of anxious thinking on functionpavel rasmussen strategies to regulate symptoms and need for compliance with treatment. Insomnia 219856051 G47.0 0 Good sleep hygiene and natural remedies discussed: melatonin, sleepy time tea Gabapentin prescribed for her restless legs since lyrica was not covered, it maybe able to help with her sleep . Osteopenia 362374837 M85 .80 Dexa 06/2020. Adult heal th examination 595660145 Z00.00 Patient presented to office today for their Annual Wellness Visit. She has started a diet and has lost 10 lbs since her last visit.Cont inue current regimen. No acute findings on exam.Refus es influenza vaccine and all other vaccines. Screening for disorder 771764952 Z13.9 CAGE and PHQ-9 screening, negative Advance di rective discussed with patient 505960889 Z71.89 Does not have a living will. She is working on it at this time. Hyperlipidemia 50533413 E78.5 LDL elevated at last visit.She has changed her diet and lost weigh.Foll ow up labs. Restless legs 52504967 G 25.81 Lyrica was not covered by Insurance. Trial of Gabapentin today discussed. [id number] HUMERA ALCANTARA [facility] [address] [place] [address] 10/15/2020 13:58:29 10/15/2020 14:46:58 Acute urinary tract infection [id number] N39.0 Meds as directed.D iscussed clear fluids.David l if no resolution . Candidiasis of vagina [id number] B37.3 Discussed meds as directed.D iscussed probiotics . Health Concerns Section Related Observation LastModified by Organization Detai ls LastModified Time None Recorded Concern Status LastModified by Organization Details LastModified Time None Recorded Advance Directives Directive None Recorded Payers Encounter Date Sequence Insurance Name Policy Number Policy Grace Covered Member ID Grace Member ID Guarantor Name 06/24/2020 1 [employer] Pamela Liz [id number] Pamela Liz 07/17/2020 1 [employer] Pamela Liz [id number] Pamela Liz 09/21/2020 1 [place] Pameal Liz [id number] Pamela Liz 10/15/2020 1 [employer] Pamela Liz [id number] Pamela Liz Notes Date Note Type [...] her a few years ago, moved to [place] for healing, she recently moved to [place], lives with her elderly aunt. Takes trazodone as needed at bedtime. She is on lexapro and buspar. Marina desai MD [address], [place], [address], [facility] 06/24/2020 10:18:27 07/17/2020 text/html Seen on [...] her a few years ago, moved to [place] for healing, she recently moved to [place], lives with her elderly aunt. Takes trazodone [...] Ching MD [address], [place], [address], [facility] 08/10/2020 02:18:49 09/21/2020 text/html 60 y/o female [...] her a few years ago, moved to [place] for healing, she recently moved to [place], lives with her elderly aunt. She is [...] HUMERA DAVIS [address], [place], [address], [facility] 09/21/2020 08:59:05 10/15/2020 text/html 60 y/o female presents today for a same day sick visit.C/O of dysuria for the past 2 days. Took AZO and cranberry without any help.Admits to some urinary frequency and urgency and suprapubic discomfort. Denies any hematuria.Admits to discharge and some pruritus. HUMERA DAVIS [address], [place], [address], [facility] 10/15/2020 14:47:24 OBGyn Episode No OBEpisode recorded.
--- OUTSIDE RECORDS SUMMARY | 2025-01-01 16:54 | XMS_ITS | Clinical Summary ---
Author Organization [facility] Address [address] [place], [place] [id number] Care Team Providers Care Check Out Clerk Name Role Phone Unavailable Primary Care Provider [...] ID Effect nicole Dates Phone Address Type [id number]. [id number] 08/11/2022-Pres ent [address] HUMER[place]OLAÑOS [id number] PPO
--- OUTSIDE RECORDS SUMMARY | 2025-01-01 16:54 | XMS_ITS | Data Portability ---
Author Organization [facility] [employer], svmg_admin Address [address] [place] [id number] Care Team Providers Care Business Process Architect Name Role Phone ROYA PALAFOX Primary Care [...] Lab lipid panel, serum 2020 021 [facility], [address] [place] [address], [address], 2 07:56:34 HbA1c (hemoglobin A1c), blood 2020 021 [facility], [address] [place] [address], [address], 07:56:34 hepatitis panel (A+B+C), acute, serum 2020 021 [email or web address], [address] [place] [address], [address], 2 07:56:34 celiac disease comprehensi ve panel, serum 2020 021 [facility], [address] [place] [address], [address], 12:07:15 CMP, serum or plasma 2020 021 [facility], [address] [place] [address], [address], 12:07:17 CBC w/ auto diff 2020 021 [place] [facility], [address] [place] [address], [address], 12:07:16 food allergen panel, serum 2020 021 [place] [facility], [address] [place] [address], [address], 12:07:19 H pylori igm+igg+iga Ab, serum 2020 021 [facility], [address] [place] [address], [address], 12:07:18 Referral physical therapist referral [email or web address] [facility], [address] [facility], [place], [address], 11:44:06 physical therapist referral [address] Physical Therapy, [address] [facility], [place], [address], 11:44:05 nutritionis t/dietitian referral 2020 021 [facility] ([facility]ut[facility]), [address] [place] [address], [address], 15:08:15 physical therapist referral [address] [facility], [address] [place] [address], [place], [address], 11:44:05 Procedures None recorded. Surgeries None recorded. Imaging MAMMO, screening, digital, bilateral [address] ([facility]), [place], [address], 09:05:41 US, liver [address] ([facility]), [address] [place] [address], [address], 09:05:51 electrocard iogram 2020 021 In-Office Order, Internal Use Only DO Not Attach Compendium DO Not Attach Compendium, Do Not Delete/merge, [id number] 12:10:49 Medication Orders omeprazole 40 mg capsule,del ayed release 2020 021 [facility]/Pharmacy #0007, [address] [address], [place], [address], 14:23:51 ropinirole 0.5 mg tablet 2020 021 [facility]/Pharmacy #0003, [address], [place], [address], 13:08:25 Patient TargetsNo targets recorded. Patient Instructions Encounter Date Encounter Id Patient Instructions Last Modified By Organization Details Last Modified Time 02/15/2021 [id number] gastroesophageal reflux disease (GERD): care instructions kmako Not available 02/15/2021 14:23:43 restless legs syndrome: care instructions kmako Not available 02/15/2021 14:23:43 learning about m ood disorders kmako Not available 02/15/2021 14:39:27 body mass index: care instructions kmako Not available 02/15/2021 14:24:44 learning about healthy [facility] Not available 02/15/2021 14:24:44 06/29/2021 [id number] learning about breast cancer screening [facility] Not available 06/29/2021 13:27:21 Reason for Referral Physical Therapist Referral for Pain of right shoulder joint Referring Physician: Roya Palafox [facility], Encounter Date: 02/15/2021 Physical Therapist Referral for Bilateral hip joint pain Referring Physician: Roya Palafox [facility], Encounter Date: 02/15/2021 Physical Therapist Referral for Pain of left ankle joint Referring Physician: Roya Palafox [facility] Stefani, Encounter Date: 02/15/2021 [employer] Hand/dietitian Refer ral for Body mass index 30+ - obesity Referring Physician: Roya Palafox [facility], Encounter Date: 02/15/2021 Results Created Date Observation [...] tive enter opath y. Not Available [facility] ([facility]) [address] [facility], [place], [address], 05/13/2021 12:07:15 05/10/20 21 05/11/2021 JOSE C DISEA SE PANEL immunoglobul in A, qn, serum 241 mg/dL 87-352 Not Available [facility] ([facility]) [address] [facility], [place], [address], 05/13/2021 12:07:15 05/10/20 21 05/13/2021 JOSE C DISEA SE PANEL endomysial antibody IgA Negati ve negati ve Not Available [facility] ([facility]) [address] [facility], [place], [address], 05/13/2021 12:07:15 05/10/20 21 05/10/2021 CBC WITH DIFFE RENTI AL/PL ATELE T WBC 6.5 x10e3 /uL 3.4-10 .8 Not Available [facility] ([facility]) [address] [facility], [place], [address], 05/13/2021 12:07:16 05/10/20 21 05/10/2021 CBC WITH DIFFE RENTI AL/PL ATELE T RBC 5.15 x10e6 /uL 3.77-5 .28 Not Available [facility] ([facility]) [address] [facility], [place], [address], 05/13/2021 12:07:16 05/10/20 21 05/10/2021 CBC WITH DIFFE RENTI AL/PL ATELE T hemoglobin 14.9 g/dL 11.1-1 5.9 Not Available [facility] ([facility]) [address] [facility], [place], [address], 05/13/2021 12:07:16 05/10/20 21 05/10/2021 CBC WITH DIFFE RENTI AL/PL ATELE T hematocrit 43.6 % 34.0-4 6.6 Not Available [facility] ([facility]) [address] [facility], [place], [address], 05/13/2021 12:07:16 05/10/20 21 05/10/2021 CBC WITH DIFFE RENTI AL/PL ATELE T MCV 85 fL 79-97 Not Available [facility] ([facility]) [address] [facility], [place], [address], 05/13/2021 12:07:16 05/10/20 21 05/10/2021 CBC WITH DIFFE RENTI AL/PL ATELE T MCH 28.9 pg 26.6-3 3.0 Not Available [facility] ([facility]) [address] [facility], [place], [address], 05/13/2021 12:07:16 05/10/20 21 05/10/2021 CBC WITH DIFFE RENTI AL/PL ATELE T MCHC 34.2 g/dL 31.5-3 5.7 Not Available [facility] ([facility]) [address] [facility], [place], [address], 05/13/2021 12:07:16 05/10/20 21 05/10/2021 CBC WITH DIFFE RENTI AL/PL ATELE T RDW 14.4 % 11.7-1 5.4 Not Available [facility] ([facility]) [address] [facility], [place], [address], 05/13/2021 12:07:16 05/10/20 21 05/10/2021 CBC WITH DIFFE RENTI AL/PL ATELE T platelets 278 x10e3 /uL 150-45 0 Not Available [facility] ([facility]) [address] [place], [address], 05/13/2021 12:07:16 05/10/20 21 05/10/2021 CBC WITH DIFFE RENTI AL/PL ATELE T neutrophils 55 % not estab. Not Available [facility] ([facility]) [address] [facility], [place], [address], 05/13/2021 12:07:16 05/10/20 21 05/10/2021 CBC WITH DIFFE RENTI AL/PL ATELE T lymphs 33 % not estab. Not Available [facility] ([facility]) [address] [facility], [place], [address], 05/13/2021 12:07:16 05/10/20 21 05/10/2021 CBC WITH DIFFE RENTI AL/PL ATELE T monocytes 8 % not estab. Not Available [facility] ([facility]) [address] [facility], [place], [address], 05/13/2021 12:07:16 05/10/20 21 05/10/2021 CBC WITH DIFFE RENTI AL/PL ATELE T eos 3 % not estab. Not Available [facility] ([facility]) [address] [facility], [place], [address], 05/13/2021 12:07:16 05/10/20 21 05/10/2021 CBC WITH DIFFE RENTI AL/PL ATELE T basos 1 % not estab. Not Available [facility] ([facility]) [address] [facility], [place], [address], 05/13/2021 12:07:16 05/10/2005/10/2021 CBC WITH DIFFE RENTI AL/PL ATELE T immature cells CREDIT CONTROL OFFICER Not Available [facility] ([facility]) [address] [facility], [place], [address], 05/13/2021 12:07:16 05/10/20 21 05/10/2021 CBC WITH DIFFE RENTI AL/PL ATELE T neutrophils (absolute) 3.7 x10e3 /uL 1.4-7. 0 Not Available [facility] ([facility]) [address] [place], [address], 05/13/2021 12:07:16 05/10/20 21 05/10/2021 CBC WITH DIFFE RENTI AL/PL ATELE T lymphs (absolute) 2.1 x10e3 /uL 0.7-3. 1 Not Available [facility] ([facility]) [address] [facility], [place], [address], 05/13/2021 12:07:16 05/10/20 21 05/10/2021 CBC WITH DIFFE RENTI AL/PL ATELE T monocytes(ab solute) 0.5 x10e3 /uL 0.1-0. 9 Not Available [facility] ([facility]) [address] [facility], [place], [address], 05/13/2021 12:07:16 05/10/20 21 05/10/2021 CBC WITH DIFFE RENTI AL/PL ATELE T eos (absolute) 0.2 x10e3 /uL 0.0-0. 4 Not Available [facility] ([facility]) [address] [facility], [place], [address], 05/13/2021 12:07:16 05/10/20 21 05/10/2021 CBC WITH DIFFE RENTI AL/PL ATELE T baso (absolute) 0.0 x10e3 /uL 0.0-0. 2 Not Available [facility] ([facility]) [address] [facility], [place], [address], 05/13/2021 12:07:16 05/10/20 21 05/10/2021 CBC WITH DIFFE RENTI AL/PL ATELE T immature granulocytes CREDIT CONTROL OFFICER Not Available [facility]) [address] [place], [address], 05/13/2021 12:07:16 05/10/20 21 05/10/2021 CBC WITH DIFFE RENTI AL/PL ATELE T immature grans (abs) CREDIT CONTROL OFFICER Not Available [facility] ([facility]) [address] [place], [address], 05/13/2021 12:07:16 05/10/20 21 05/10/2021 CBC WITH DIFFE RENTI AL/PL ATELE T NRBC CREDIT CONTROL OFFICER Not Available [facility] ([facility]) [address] [facility], [place], [address], 05/13/2021 12:07:16 05/10/20 21 05/10/2021 CBC WITH DIFFE RENTI AL/PL ATELE T hematology comments: CREDIT CONTROL OFFICER Not Available [facility] ([facility]) [address] [facility], [place], [address], 05/13/2021 12:07:16 05/10/20 21 05/10/2021 COMP. METAB OLIC PANEL (14) glucose 97 mg/dL 65-99 Not Available [facility] ([facility]) [address] [facility], [place], [address], 05/13/2021 12:07:17 05/10/20 21 05/10/2021 COMP. METAB OLIC PANEL (14) BUN 15 mg/dL 8-27 Not Available [facility] ([facility]) [address] [place], [address], 05/13/2021 12:07:17 05/10/20 21 05/10/2021 COMP. METAB OLIC PANEL (14) creatinine 0.78 mg/dL 0.57-1 .00 Not Available [facility] ([facility]) [address] [facility], [place], [address], 05/13/2021 12:07:17 05/10/20 21 05/10/2021 COMP. METAB OLIC PANEL (14) eGFR if nonafricn AM 82 mL/mi n/1.7 3 >59 Not Available [facility] ([facility]) [address] [facility], [place], [address], 05/13/2021 12:07:17 05/10/20 21 05/10/2021 COMP. METAB [...] SN Task force . Not Available [facility] ([facility]) [address] [place], [address], 05/13/2021 12:07:17 05/10/20 21 05/10/2021 COMP. METAB OLIC PANEL (14) BUN/creatini ne ratio 19 12-28 Not Available [facility] ([facility]) [address] [place], [address], 05/13/2021 12:07:17 05/10/20 21 05/10/2021 COMP. METAB OLIC PANEL (14) sodium 141 mmol/ L 134-14 4 Not Available [facility] ([facility]) [address] [place], [address], 05/13/2021 12:07:17 05/10/20 21 05/10/2021 COMP. METAB OLIC PANEL (14) potassium 4.7 mmol/ L 3.5-5. 2 Not Available [facility] ([facility]) [address] [place], [address], 05/13/2021 12:07:17 05/10/20 21 05/10/2021 COMP. METAB OLIC PANEL (14) chloride 103 mmol/ L 96-106 Not Available [facility] ([facility]) [address] [place], [address], 05/13/2021 12:07:17 05/10/20 21 05/10/2021 COMP. METAB OLIC PANEL (14) carbon dioxide, total 23 mmol/ L 20-29 Not Available [facility] ([facility]) [address] [place], [address], 05/13/2021 12:07:17 05/10/20 21 05/10/2021 COMP. METAB OLIC PANEL (14) calcium 9.9 mg/dL 8.7-10 .3 Not Available [facility] ([facility]) [address] [place], [address], 05/13/2021 12:07:17 05/10/20 21 05/10/2021 COMP. METAB OLIC PANEL (14) protein, total 6.9 g/dL 6.0-8. 5 Not Available [facility] ([facility]) [address] [place], [address], 05/13/2021 12:07:17 05/10/20 21 05/10/2021 COMP. METAB OLIC PANEL (14) albumin 4.7 g/dL 3.8-4. 8 Not Available [facility] ([facility]) [address] [place], [address], 05/13/2021 12:07:17 05/10/20 21 05/10/2021 COMP. METAB OLIC PANEL (14) globulin, total 2.2 g/dL 1.5-4. 5 Not Available [facility] ([facility]) [address] [place], [address], 05/13/2021 12:07:17 05/10/20 21 05/10/2021 COMP. METAB OLIC PANEL (14) A/G ratio 2.1 1.2-2. 2 Not Available [facility] ([facility]) [address] [place], [address], 05/13/2021 12:07:17 05/10/20 21 05/10/2021 COMP. METAB OLIC PANEL (14) bilirubin, total 0.3 mg/dL 0.0-1. 2 Not Available [facility] ([facility]) [address] [place], [address], 05/13/2021 12:07:17 05/10/20 21 05/10/2021 COMP. METAB OLIC PANEL (14) alkaline phosphatase 113 IU/L 48-121 Not Available [facility]) [address] [place], [address], 05/13/2021 12:07:17 05/10/20 21 05/10/2021 COMP. METAB OLIC PANEL (14) AST (SGOT) 45 IU/L 0-40 above high normal Not Available [facility] ([facility]) [address] [place], [address], 05/13/2021 12:07:17 05/10/20 21 05/10/2021 COMP. METAB OLIC PANEL (14) ALT (SGPT) 54 IU/L 0-32 above high normal Not Available [facility] ([facility]) [address] [place], [address], 05/13/2021 12:07:17 05/10/20 21 05/11/2021 H PYLOR I, IGM, IGG, IGA AB H. pylori, IgG abs 0.26 index _valu e 0.00-0 .79 Negat nicole <0.80 Equiv ocal 0.80 - 0.89 Posit nicole >0.89 Not Available [facility] ([facility]) [address] [place], [address], 05/13/2021 12:07:18 05/10/20 21 05/11/2021 H PYLOR I, IGM, IGG, IGA AB H. pylori, IgA abs 9.7 units 0.0-8. 9 above high normal Negat nicole <9.0 Equiv ocal 9.0 - 11.0 Posit nicole >11.0 Not Available [facility] ([facility]) [address] [place], [address], 05/13/2021 12:07:18 05/10/20 21 05/11/2021 H PYLOR I, IGM, IGG, IGA AB H pylori, IgM abs <9.0 units 0.0-8. 9 Negat nicole <9.0 Equiv ocal 9.0 - 11.0 Posit nicole >11.0 This test was clement cat and its perfo fani e ananya tiwari stics deter mined by FIGS rp. It has not been clear ed or appro taya by the Food and Drug Admin istra tion. Not Available [facility] ([facility]) [address] [place], [address], 05/13/2021 12:07:18 05/10/20 21 05/10/2021 FOOD ALLER [...] >100. 00 Very High Not Available [facility] ([facility]) [address] [place], [address], 05/13/2021 12:07:19 05/10/2005/13/2021 FOOD ALLER GY PROFI LE M710-MgA egg white <0.10 kU/L class 0 Not Available [facility] ([facility]) [address] [place], [address], 05/13/2021 12:07:19 05/10/2005/13/2021 FOOD ALLER GY PROFI LE Z855-YlR peanut <0.10 kU/L class 0 Not Available [facility] ([facility]) [address] [place], [address], 05/13/2021 12:07:19 05/10/20 21 05/13/2021 FOOD ALLER GY PROFI LE C352-MjJ soybean <0.10 kU/L class 0 Not Available [facility] ([facility]) [address] [place], [address], 05/13/2021 12:07:19 05/10/20 21 05/13/2021 FOOD ALLER GY PROFI LE G346-XsA milk <0.10 kU/L class 0 Not Available [facility] ([facility]) [address] [place], [address], 05/13/2021 12:07:19 05/10/20 21 05/13/2021 FOOD ALLER GY PROFI LE G593-VnJ clam <0.10 kU/L class 0 Not Available [facility] ([facility]) [address] [place], [address], 05/13/2021 12:07:19 05/10/20 21 05/13/2021 FOOD ALLER GY PROFI LE I580-NhE shrimp <0.10 kU/L class 0 Not Available [facility] ([facility]) [address] [place], [address], 05/13/2021 12:07:19 05/10/20 21 05/13/2021 FOOD ALLER GY PROFI LE S619-VkK walnut <0.10 kU/L class 0 Not Available [facility] ([facility]) [address] [place], [address], 05/13/2021 12:07:19 05/10/20 21 05/13/2021 FOOD ALLER GY PROFI LE A581-NhK codfish <0.10 kU/L class 0 Not Available [facility] ([facility]) [address] [place], [address], 05/13/2021 12:07:19 05/10/20 21 05/13/2021 FOOD ALLER GY PROFI LE L779-DcV scallop <0.10 kU/L class 0 Not Available [facility] ([facility]) [address] [facility], [place], [address], 05/13/2021 12:07:19 05/10/20 21 05/13/2021 FOOD ALLER GY PROFI LE K260-XpO wheat <0.10 kU/L class 0 Not Available [facility] ([facility]) [address] [facility], [place], [address], 05/13/2021 12:07:19 05/10/20 21 05/13/2021 FOOD ALLER GY PROFI LE T897-HlZ corn <0.10 kU/L class 0 Not Available [facility] ([facility]) [address] [facility], [place], [address], 05/13/2021 12:07:19 05/10/20 21 05/13/2021 FOOD ALLER GY PROFI LE A156-YhX sesame seed <0.10 kU/L class 0 Not Available [facility] ([facility]) [address] [facility], [place], [address], 05/13/2021 12:07:19 05/10/20 21 elect rocar diogr am No observ ation record ed. [email or web address] In-Office Order Internal Use Only DO Not Attach Compendium DO Not Attach Compendium, Do Not Delete/merge, [id number] 05/10/2021 09:54:21 05/10/20 21 05/10/2021 elect rocar diogr am No observ ation record ed. [email or web address] In-Office Order Internal Use Only DO Not Attach Compendium DO Not Attach Compendium, Do Not Delete/merge, [id number] 05/11/2021 14:27:15 07/19/20 21 07/19/2021 US, abdom en, limit ed [facility] [address], [address] [phone] Name: ARLENE HIDALGO : [id number] Date of Servic e: 08[birth year] Acct Number : [id number] Order Number : [id number] Locati on: WUS Report Number : [id number] Servic e: REG REF/ Reques ting Physic hansa: Joaquin Orourke CREDIT CONTROL OFFICER Catego ry: ULTRAS OUND Exam: US ABDOME N SINGLE ORGAN LTD Access ion #: [id number] 8.001S VH Signs/ Sympto ms: ELEVAT ED [...] Candy Orourke, , Brandee King, , , [facility] (Radiology) [address] [place] [address], [address], 08/09/2021 08:54:29 08/04/20 21 08/04/2021 MAMMO , scree katy, tomos ynthe sis, bilat eral [facility] Radiol ogy [address] [place] [address], [address] Name: ARLENE HIDALGO : [birth year]17 Date of Servic e: 1431 Acct Number : [id number] Order Number : [id number] Locati on: WWELL Report Number : [id number] Servic e: REG REF/ Reques ting Physic hansa: oJaquin Orourke CREDIT CONTROL OFFICER Catego ry: MAMMOG SHINE Exam: DIGITA L BREAST JORDANA SCREEN ING Access ion #: [id number] VH Signs/ Sympto ms: SCREEN ING [...] nthesi s. COMPAR MAXI: No prior mammog rboi are availa ble for compar maxi at [...] Orourke Other provid ers: Candy Orourke, Candy Oruorke, , Candy Orourke, , , [facility] (Radiology) [address] [place] [address], [address], 08/09/2021 10:37:39 Result Notes None recorded. Problems Name Problem SNOMED Code Status Onset Date Resolution Date Notes Provider Name and Address Organization Details Recorded Time Depressi ve disorder 69912214 Active 2020 Kimberly gutiérrez MA [facility] 13:34:32 Anxiety 27877757 Active 2020 Kimberly gutiérrez MA [facility] 13:34:37 Gastroes ophageal reflux disease 356880436 Active 2020 Kimberly gutiérrez MA [facility] 13:34:42 Screenin g for malignan t neoplasm of breast Active 202007/08/20 wnl, 08/04/21 wnl ROYA PALFAOX NP [address] [place], [address], [facility] 08:56:16 Screenin g for malignan t neoplasm of cervix Completed 202002/15/2021 ROYA PALAFOX NP [address] [place], [address], [facility] 14:32:49 Screenin g for malignan t neoplasm of colon Active 2020 2019 [facility], repeat in 10 years ROYA PALAFOX NP [address] [place], [address], [facility] 13:39:33 Screenin g for osteopor osis Active 202007/08/20- osteopeni a ROYA PALAFOX NP [address] [place], [address], [facility] 15:20:47 Body mass index 30+ - obesity 943635005 Active 2020 ROYA PALAFOX NP [address] [place] [address], [address], [facility] 13:44:20 Osteopen ia 477583895 Active 2020 ROYA PALAFOX NP [address] [place], [address], [facility] 13:16:55 Steatosi s of liver 730491452 Active 2020 Moderate- abd US 07/19/21 ROYA PALAFOX NP [address] [place], [address], [facility] 10:21:31 Biliary sludge 15158349 Active 2020 ROYA PALAFOX NP [address] [place], [address], [facility] 10:21:44 Problem Notes None recorded. Procedures Surgical History Date Name Laterality Status Provider Name and Address Organization Details Recorded Time Orthopedic Surgery completed [facility] 05/10/2021 09:35:10 Breast Surgery (Lumpectomy, Biopsy, Implants) completed [facility] 05/10/2021 09:35:10 Imaging Results Imaging Date Name Status LastModified by Organization Details LastModified Time 05/10/2021 electrocardiogram completed [email or web address] In-Offi ce Order Internal Use Only DO Not Attach Compendium DO Not Attach Compendium, Do Not Delete/merge, [id number] 05/10/2021 09:54:21 05/10/2021 electrocardiogram completed [email or web address] In-Offi ce Order Internal Use Only DO Not Attach Compendium DO Not Attach Compendium, Do Not Delete/merge, [id number] 05/11/2021 14:27:15 07/19/2021 US, abdomen, limited completed [facility] (Radiology) [address] [place] [address], [address], 08/09/2021 08:54:29 08/04/2021 MAMMO, screening, tomosynthesis, bilateral completed [facility] (Radiology) [address] [place] [address], [address], 08/09/2021 10:37:39 Procedure Notes None recorded. Medical [...] Updated DateTime 1 160.02 cm 33.1 kg/m2 92861.7 7 g 96.4 [degF] 65 /min 97 % 97 % 112 mm[Hg] 68 mm[Hg] [facility] 1 13:42:22 Date Recorded Body height Body mass index (BMI) Body weight Body temperature Heart rate Oxygen saturation Oxygen saturation in Arterial blood by Pulse oximetry Systolic blood pressure Diastolic blood pressure Provider Name and Address Organization Details Last Updated DateTime 1 160.02 cm 34 kg/m2 46694.7 4 g 98.7 [degF] 72 /min 98 % 98 % 116 mm[Hg] 72 mm[Hg] [facility] 1 09:39:34 Date Recorded Body height Body mass index (BMI) Body weight Body temperature Pain severity - 0-10 verbal numeric rating [Score] - Reported Oxygen saturation Oxygen saturation in Arterial blood by Pulse oximetry Heart rate Systolic blood pressure Diastolic blood pressure Provider Name and Address Organization Details Last Updated DateTime 1 158.75 cm 32.8 kg/m2 89490.6 1 g 97 [degF] 0 98 % 98 % 84 /min 114 mm[Hg] 70 mm[Hg] [place] [facility] 13:13:38 Social History Question Answer Notes LastModified by Organizat ion Details LastModified Time Tobacco Smoking Status Former Smoker [place] [facility] 06/29/2021 13:10:59 Do You Have [...] Or The Highest Degree You Have Received? [id number] Information not available 05/10/2021 What Is Your Occupation? [employer] Information not available 02/15/2021 Have There Been [...] Anxious, Or Unable To Sleep At Night)? [id number] Information not available 05/10/2021 Do You Use [...] she from this Medical History Condition Response ADD/ADHD Y Bladder Problems Y Back/Neck Pain Y Anxiety Y Depression Y Gynecological History Statement/Question Response History of [...] Tdap 02/15/2021 completed ROYA PALAFOX NP [address] [place], [address], [facility] 02/15/2021 15:11:54 COVID-19, mRNA, LNP-S, PF, 30 mcg/0.3 mL dose 04/13/2021 completed Kimberly gutiérrez [facility] 05/10/2021 09:40:46 COVID-19, mRNA, LNP-S, PF, 30 mcg/0.3 mL dose 03/23/2021 completed Kimberly gutiérrez [facility] 05/10/2021 09:40:55 Past Encounters Encounter ID Performer Location Encounter Start Date Encounter Closed Date Diagnosis/Indication Diagnosis SNOMED-CT Code Diagnosis ICD10 Code Diagnosis Note [id number] ROYA PALAFOX NP SVMG_Prim [facility] [address] [place] [address] 02/15/2021 13:27:22 02/15/2021 14:38:43 Borderline personality disorder [id number] F60.3 Long history of anxiety, depression , [...] upcoming appt with a psychophar macist through [employer] [facility]. She is interested in restarting her adderall and will consult with them. Restless legs [id number] G 25.81 For the past several years. Muscle cramping and restless legs keep her up every night. She has been taking gabapentin 300mg at bedtime but it has not been helping. She will d/c gabapentin and start ropinirole 0.5mg at bedtime. Gastroesop hageal reflux disease 519406430 K21.9 Gerd- Discussed etiology and management of [...] to 40mg daily. Bilateral hip joint pain [id number] 5283619 M25.551 M25.552 Chronic. Patient has had cortisone injections in the past. She has also gained weight recently which could be adding to her pain. She will start PT. If no improvemen t, will consider imaging or referral for injections . Pain of ri ght shoulder joint [id number] 5076627 M25.511 Hx of right rotator cuff surgery. Referral to PT to help increase ROM and strength. Administra tion of diphtheria, pertussis, and tetanus vaccine 153361313 Z23 Pain of le ft ankle joint [id number] 3121044 M25.572 S/p ankle fracture and surgery. She has been wearing a brace for 2 years and continues to have pain. Referral placed to PT. Body mass index 30+ - obesity 117137926 Z68.33 Diet and Exercise recommenda tions have [...] talked about counting steps. [facility] Anxiety 27282319 F41.9 Long history of anxiety, depression , [...] upcoming appt with a psychophar macist through [employer]. She is interested in restarting her adderall and will consult with them. Depressive disorder 9503 0416 F32.9 Long history of anxiety, depression , [...] upcoming appt with a psychophar macist through [employer]. She is interested in restarting her adderall and will consult with them. [id number] ROYA PALAFOX NP SVMG_Prim [address] [address] 05/10/2021 09:27:40 05/10/2021 12:10:48 Restless legs 32856457 G25.81 For the past several years. Muscle cramping and restless legs keep her up every night. She has been taking gabapentin 300mg at bedtime but it has not been helping. She stopped gabapentin and switched to ropinirole at her last visit. Restless legs have improved but she is now having trouble falling asleep for several hours. She will f/u with psychology lecturer on Monday to discuss any sleep aids. Loose stool [id number] R1 9.5 Multiple loose stools a day. Patient has not been able to identify any specific food triggers. She also has urgency, especially first thing in the morning. Will check labs. Advised bland diet and increased fluids as well. Anxiety 36697383 F41.9 Long history of anxiety, depression , [...] provider. She has an appt with a psychology lecturer on Monday. She needs to EKG prior to her visit. EKG done today, normal sinus rhythm. She is currently on escitalopr am 40mg daily. Advised patient that all psych meds should come from psych provider. [id number] ROYA PALAFOX NP SVMG_Prim [facility] y [address] [facility] [place] [address] 06/29/2021 12:59:34 06/29/2021 13:42:19 Adult health examination 421872885 Z00.00 Anxiety 20132908 F41.9 Long history of anxiety, depression , [...] daily. Screening for malignant neoplasm of breast 778048255 Z12.39 Liver enzy mes level above reference range 511015341 R74.8 AST 45, ALT 54 on 05/10/21. Will repeat. Order placed for liver US. Screening for cardiovascular system disease 893047393 Z13.6 Health Concerns Section Related Observation LastModified by Organization Detai ls LastModified Time None Recorded Concern Status LastModified by Organization Details LastModified Time None Recorded Advance Directives Directive Y: Payers Encounter Date Sequence Insurance Name Policy Number Policy Grace Covered Member ID Grace Member ID Guarantor Name 02/15/2021 1 [facility] J C Lads [facility] [place] [employer] ([employer]) [id number] Arlene F Liz [id number] Arlene Liz 05/10/2021 1 [place] [facility] [employer] (O) [id number] Arlene F Liz [id number] Arlene Liz 06/29/2021 1 [facility] (O) [id number] Arlene Hidalgo [id number] Arlene Hidalgo Notes Date Note Type Note [...] Left ankle pain. She saw [facility] in [facility]. Mammogram, colonoscopy, bone density.Pt had a partial hysterectomy. ROYA PALAFOX NP [address] [place] [address], [address], [facility]. 02/15/2021 14:40:20 05/10/2021 text/html Patient has [...] other medications. She had an appt with [employer] but they do not prescribe adderall. She has an appt with a psychology lecturer on Monday. She is working with a therapist. ROYA PALAFOX NP [address] [place], [address], [facility]. 05/10/2021 10:18:04 06/29/2021 text/html [...] has been going regularly.Colonosc opy was in [place]- she was told to repeat in 10 years. 01/09/19. [facility] ROYA PALAFOX NP [address] [place], [address], [facility]. 06/29/2021 13:41:05 OBGyn Episode No OBEpisode recorded.
--- OUTSIDE RECORDS SUMMARY | 2025-01-01 16:54 | XMS_ITS | Data Portability ---
Author Organization [place] [facility] [place] Address [address] [place] [address] Assessment Encounter Date Assessment Date Assessment LastModified by Organization Details LastModified Time 12/01/2022 12/01/2022 Diagnosis #1 bilateral trochanteric bursitis. I had a lengthy discussion with patient guarding management including therapy, lifestyle modification as well as slnx-fxv-gehptch remedies. She states she has had good [...] were conducted in the presence of female valve maker RT Rajan (Ken). Additional treatment plan discussed [...] with cortisone injections. She has been taking hood-joz-twzvzmo pain medications for symptomatic relief which is [...] be seen by Dr. Thomason in the [place] office. I will refer her to either [facility] for surgical consultation. Patient is [...] in right proximal humerus 2022 023 [email or web address] [facility] ([facility]), [address], [place], [address], 13:33:32 XR, hip + pelvis, unilateral, 2 or 3 view 2022 023 [facility], [address], [address], [place], [address], 3 10:06:52 XR, hip + pelvis, unilateral, 1 view 2022 023 [facility], [address], [address], [place], [address], 3 10:06:52 Medication Orders Kenalog 40 mg/mL suspension for injection 2022 023 [facility] #84977, [address] [place] [address], [id number], 3 12:19:59 lidocaine (PF) 10 mg/mL (1 %) injection solution 2022 023 [employer] [facility], [address] [place] [address], [id number], 3 12:19:59 Kenalog 40 mg/mL suspension for injection 2022 023 [employer] [facility] [employer] [facility] #29027, [address] [place], [place], [id number], 12:19:59 lidocaine (PF) 10 mg/mL (1 %) injection solution 2022 023 [facility]76210, [address], [place], [id number], 12:19:59 Patient TargetsNo targets recorded. Patient Instructions Encounter Date Encounter Id Patient Instructions Last Modified By Organization Details Last Modified Time 12/01/2022 [id number] Patient Instructions Following Cortisone Injections Orlando Baker [...] contr ast No observ ation record ed. [email or web address] [facility] [address] [place], [address], 01/30/2023 12:08:33 01/28/20 MRI, shoul ward, w/o contr ast No observ ation record ed. [email or web address] [facility] [address] [place], [address], 01/27/2023 08:25:49 Result Notes None recorded. Problems Name Problem SNOMED Code Status Onset Date Resolution Date Notes Provider Name and Address Organization Details Recorded Time Adhesive capsulitis of right shoulder [id number] 09 Active 2022 ORLANDO BAKER PA-C [address], [place], [place], [address], [place] [facility], P 3 15:37:37 Full thickness rotator cuff tear 789924710 Active 2022 ORLANDO BAKER PA-C [address], [place], [address], [place] [facility] [place], P 3 12:16:35 Trochanteri c bursitis of right hip 9043335646675 00 Active 2022 ORLANDO BAKER PA-C [address], [place], [address], [place] [facility] [place], P 3 12:15:16 Trochanteri c bursitis of left hip 1344915928062 03 Active 2022 ORLANDO BAKER PA-C [address], [place], [address], [place] [facility], P 12:15:21 Problem Notes None recorded. Procedures Surgical History Date Name Laterality Status Provider Name and Address Organization Details Recorded Time 12/02/19 LEOBARDO Troch Bursa Inj completed ORLANDO BAKER PA-C [address], [place], [address], [place] [facility] [place], P 12/01/2022 12:13:08 Breast reduction completed Krystal Ba [facility] [place], P 12/01/2022 11:02:46 hysterectomy completed Krystal Ba [facility] [place], P 12/01/2022 11:02:59 Shoulder Surgery completed Krystal Ba [facility] [place], P 12/01/2022 11:03:08 Imaging Results Imaging Date Name Status LastModified by Organiz ation Details LastModified Time 01/23/2023 MRI, shoulder, w/o contrast completed [email or web address] [facility] [address] [place], [address], 01/30/2023 12:08:33 01/27/2023 MRI, shoulder, w/o contrast completed [email or web address] [facility] [address] [place], [address], 01/27/2023 08:25:49 Procedure Notes None recorded. Medical [...] Artery Disease N Gout N Hyperthyroidism N Blood Transfusion N MRSA N Emphysema N Hypothyroidism N Depression N COPD N Pacemaker N Vascular Disease N Gastrointestinal Disease N Anxiety Disorder N Autoimmune disease N Arthritis N Cancer N Stroke N High Cholesterol N Neurologic Disorder N Liver Disease N Organ Transplant N Rheumatoid Arthritis N Arrhythmia N Fibromyalgia N Kidney Disease N Allergies/Hayfever N Adverse Reaction to Anesthesia N Thyroid Problems N Anemia N Brain Injury N Heart Attack (RI) N Osteopenia N Diabetes N Bleeding Disorder [...] Code Diagnosis Note [id number] MD TYLOR Palmer [facility] [address] [facility] [address] [place] [address] 12/01/2022 10:58:59 12/01/2022 11:37:56 Pain in right hip joint 3383766896 50546 M25.551 Pain of le ft hip joint 1507763247 47252 M25.552 Trochanter ic bursitis of right hip 6119616449 74959 M70.61 Trochanter ic bursitis of left hip 2235624737 83148 M70.62 [id number] MD TYLOR Avila [facility] [address] [facility] [address] [place] [address] 12/21/2022 15:06:01 12/21/2022 15:45:14 Adhesive capsulitis of right shoulder 8528767036 17182 M75.01 [id number] MD TYLOR Avila [facility] [address] [facility] [address] [place] [address] 01/27/2023 11:16:14 01/27/2023 12:01:48 Adhesive capsulitis of right shoulder 5790963763 13750 M75.01 Full thick ness rotator cuff tear 887929166 M75.121 Health Concerns Section Related Observation LastModified by Organization Detai ls LastModified Time None Recorded Concern Status LastModified by Organization Details LastModified Time None Recorded Advance Directives Directive None Recorded Payers Encounter Date Sequence Insurance Name Policy Number Policy Grace Covered Member ID Grace Member ID Guarantor Name 12/21/2022 1 [employer] Khloe Liz [id number] Khloe Hill 01/27/2023 1 [employer] Khloe Liz [id number] Khloe Liz Notes Date Note Type Note Provider Name and Address Organization Details Recorded Time 12/01/2022 text/html 62-year-old fema le here for evaluation of bilateral outer hip pain. Patient states that she has had diagnosis of bilateral trochanteric bursitis many years ago for which she was treated out in [facility] with cortisone injections greater than 5 [...] mild symptomatic relief. ORLANDO BAKER PA-C [address] [facility],[address], [place], [address], [place] [facility], P 12/01/2022 12:20:52 12/21/2022 text/html Assessment and Plan: Date of visit [id number] female with right shoulder pain history of [...] joint space narrowing. ORLANDO BAKER PA-C [address] [facility],[address], [place], [address], [place] [facility] [place], P 12/21/2022 18:35:33 01/27/2023 text/html Female valve maker present for the entirety of the interview and exam until exiting the room Leigh Denson This is a 62-year-old female who is following up after undergoing her MRI at [facility]. Imaging study was delayed secondary to the patient had an MRI already arranged up at [facility] however the patient did not feel as [...] the intra-articular biceps tendon. ORLANDO BAKER PA-C [address] [place] [address], [place], [address], [place] [facility], 01/27/2023 12:17:14 OBGyn Episode No OBEpisode recorded.
== END 2025-01-01 14:38 | disposition home or self-care (01) ==
LOC: HO.HOS 14:03
PROVIDERS: PCP Nurse Practitioner Family; Visit Provider Orthopaedic Surgery
DX: M54.2 Cervicalgia (principal)
CPT/HCPCS: 98012

== ENCOUNTER 2025-01-07 13:45 | Outpatient (AMB) | payer OTHER, SELFPAY ==
--- NOTE | 2025-01-07 13:51 | A.SPINEOV_ITS ---
Vital Signs 01/07/25 14:12 Height 5 ft 3 in Weight 168 lb BMI 29.8 Intake Visit Reasons: LBP Intake Note: Ms. Hill is here today c/o low back pain. Eligibility Supervisor Required: No Allergies No Known Allergies Allergy (Verified 01/07/25 14:12) Assessment & Plan Assessment & Plan (1) Lumbago: Code(s): M54.50 - Low back pain, unspecified Category: Medical Plan Dear HUMERA Gomez, Thank you for referring Khloe to our office today. She is a pleasant 64-year-old female who comes in today for a 2nd opinion after being evaluated by Dr. Saucedo at [facility] who offered her L4-5 lumbar fusion. She comes in with a chief complaint of low back pain and bilateral hip pain. She reports this 1st began back in 2011 after breaking her left ankle. She has a somewhat complicated history and states that she has a discrepancy between the length of her legs, and at 1 point had both hip adjustments and what sounds like a boot spacer recommended by a chiropractor, which she reports worsened her pain. She also has a severe right-sided rotator cuff tear, and some unspecified issues with her left shoulder as well. She denies any shooting radicular pain down her bilateral lower extremities. She denies any numbness/tingling associated with the pain. She reports that lying flat is the worst position for her, and causes her the most pain. She also has significant exacerbations of pain with positional changes such as sitting up from a lying position or standing from a seated position. She reports that over the course of the last few months her pain has became so severe that it is waking her up at night, despite her attempts to treat the pain with the Tylenol, ibuprofen, Biofreeze, and gabapentin. She has attempted physical therapy without any relief of symptoms, and has had cortisone injections completed without significant relief of symptoms. PMH: Right-sided rotator cuff repair, broken left ankle x2, partial hysterectomy, breast reduction surgery, depression. Social hx: Patient does not smoke, reports no substance use. Medications: Vilazodone, naproxen. Allergies: NKDA. Physical exam: The patient has 5/5 strength in her upper and lower extremities. She ambulates well, and rises from a seated position with the assistance of the chair. She is able to get up onto the examination table without much issue. She has no significant sensational deficits on exam. Her gait is nonantalgic and non spastic. (-) bilateral straight leg raise, (-) Escalante's, (-) clonus. Imaging review: MRI of the lumbar spine completed at [facility] on 03-17-2024 shows a grade 1 spondylolisthesis at L4-5 causing severe central canal and bilateral foraminal stenosis at this level. Impression: Khloe is a pleasant 64-year-old female who comes in today as a 2nd opinion after being evaluated by Dr. Saucedo at [facility] who offered her a L4-5 lumbar fusion. I explained to the patient that she most likely is symptomatic from the spondylolisthesis at L4-5 given her disclosure of severe low back pain, worsening with lying flat and positional changes. She reports that she already has reviewed her MRI, and did not wish to review it again, but I did explain this to her fairly extensively on the spine models we have an office. I explained to her that our recommendation would be very similar, and likely would also be L4-5 lumbar fusion. The main difference between having it done at [facility] or having here, is that Dr. Torres is a spine fellowship trained neurosurgeon, who is able to preserve the spinous process and lamina, and p erform a truly minimally invasive lumbar fusion compared to a traditional open spine surgery. I answered all questions that she and her had, and she reported that she would like to proceed with surgery with Dr. Torres. She understands that I will need to review her case with Dr. Torres who ultimately will make the surgical decision. I will call her with a update once I am able to review her case. Thank you for allowing us to care for your patient. The total time spent with this visit with this patient was 45 minutes reviewing history, physical exam, MRI imaging review, and implementation of treatment plan or further diagnostic testing Mauro Torres MD,PhD [facility] Orders: Orders XR lumbar spine 4V min Today M54.50 - Low back pain, unspecified Medications: New naproxen 250 mg PO BID PRN 28 tabs 1RF pain Coding Level of Care Code New Pt Level 4 (43809) Diagnoses Lumbago M54.50
[2025-01-07 14:12] VITALS: BMI 29.8
--- OUTSIDE RECORDS SUMMARY | 2025-01-07 15:54 | XMS_ITS | Data Portability ---
Author Organization [place] [facility] Coco Pittman [facility] [place] Address [address] [place] [address] Assessment Encounter Date Assessment Date Assessment LastModified by Organization Details LastModified Time 12/01/2022 12/01/2022 Diagnosis #1 bilateral trochanteric bursitis. I had a lengthy discussion with patient guarding management including therapy, lifestyle modification as well as oftd-ozz-kmfvvbj remedies. She states she has had good [...] were conducted in the presence of female surveyor's assistant RT Rajan (Ken). Additional treatment plan discussed [...] with cortisone injections. She has been taking vhuf-gns-sngzfvr pain medications for symptomatic relief which is [...] be seen by Dr. Thomason in the [place] office. I will refer her to either [facility] for surgical consultation. Patient is [...] in right proximal humerus 2022 023 [email or web address] [facility] ([facility]), [address], [place], [address], 13:33:32 XR, hip + pelvis, unilateral, 2 or 3 view 2022 023 [facility], [address], [place], [address], 3 10:06:52 XR, hip + pelvis, unilateral, 1 view 2022 023 [facility], [address], [address], [place], [address], 3 10:06:52 Medication Orders Kenalog 40 mg/mL suspension for injection 2022 023 [facility] #[id number], [address] [place] [address], [id number], 3 12:19:59 lidocaine (PF) 10 mg/mL (1 %) injection solution 2022 023 [facility] #[id number], [address] [place] [address], [id number], 3 12:19:59 Kenalog 40 mg/mL suspension for injection 2022 023 [facility] #[id number], [address] [place], [place], [id number], 12:19:59 lidocaine (PF) 10 mg/mL (1 %) injection solution 2022 023 [facility][id number], [address] [place], [place], [id number], 12:19:59 Patient TargetsNo targets recorded. Patient Instructions Encounter Date Encounter Id Patient Instructions Last Modified By Organization Details Last Modified Time 12/01/2022 [id number] Patient Instructions Following Cortisone Injections Orlando Baker [...] contr ast No observ ation record ed. [email or web address] [facility] ([facility]) [address] [place], [address], 01/30/2023 12:08:33 01/28/20 MRI, shoul ward, w/o contr ast No observ ation record ed. [email or web address] [facility] ([facility]) [address] [place], [address], 01/27/2023 08:25:49 Result Notes None recorded. Problems Name Problem SNOMED Code Status Onset Date Resolution Date Notes Provider Name and Address Organization Details Recorded Time Adhesive capsulitis of right shoulder 9418749326301 09 Active 2022 ORLANDO BAKER PA-C [address], [place], [place], [address], [facility] 3 15:37:37 Full thickness rotator cuff tear 878438745 Active 2022 ORLANDO BAKER PA-C [address], [place], [address], [facility] 3 12:16:35 Trochanteri c bursitis of right hip 5605165100933 00 Active 2022 ORLANDO BAKER PA-C [address], [place], [address], [facility] 3 12:15:16 Trochanteri c bursitis of left hip 0351642104312 03 Active 2022 ORLANDO BAKER PA-C [address], [place], [address], [facility] P 12:15:21 Problem Notes None recorded. Procedures Surgical History Date Name Laterality Status Provider Name and Address Organization Details Recorded Time 12/02/19 LEOBARDO Troch Bursa Inj completed ORLANDO BAKER PA-C [address], [place], [address], [place] [facility] P 12/01/2022 12:13:08 Breast reduction completed Krystal Ba [facility], P 12/01/2022 11:02:46 hysterectomy completed [facility]rystal Ba [facility] 12/01/2022 11:02:59 Shoulder Surgery completed Krystal Ba [facility] P 12/01/2022 11:03:08 Imaging Results Imaging Date Name Status LastModified by Organiz ation Details LastModified Time 01/23/2023 MRI, shoulder, w/o contrast completed [email or web address] [facility] ([facility] [address] [place], [address], 01/30/2023 12:08:33 01/27/2023 MRI, shoulder, w/o contrast completed [email or web address] [facility] ([facility] [address] [place], [address], 01/27/2023 08:25:49 Procedure Notes None recorded. Medical [...] Anemia N Brain Injury N Heart Attack (OR) N Osteopenia N Diabetes N Bleeding Disorder [...] Diagnosis ICD10 Code Diagnosis Note [id number] MD TLYOR Palmer [facility] [address] [facility] [address] [place] [address] 12/01/2022 10:58:59 12/01/2022 11:37:56 Pain of right hip joint 2685765034 16193 M25.551 Pain of le ft hip joint 9453077668 76570 M25.552 Trochanter ic bursitis of right hip 4950674640 87315 M70.61 Trochanter ic bursitis of left hip 3512442915 71065 M70.62 [id number] MD TYLOR Avila [facility] [address] [facility] [address] [place] [address] 12/21/2022 15:06:01 12/21/2022 15:45:14 Adhesive capsulitis of right shoulder 3636836714 79911 M75.01 [id number] MD TYLOR Avila [facility] [address] [facility] [address] [place] [address] 01/27/2023 11:16:14 01/27/2023 12:01:48 Adhesive capsulitis of right shoulder 1012934352 53897 M75.01 Full thick ness rotator cuff tear 356699588 M75.121 Health Concerns Section Related Observation LastModified by Organization Detai ls LastModified Time None Recorded Concern Status LastModified by Organization Details LastModified Time None Recorded Advance Directives Directive None Recorded Payers Encounter Date Sequence Insurance Name Policy Number Policy Grace Covered Member ID Grace Member ID Guarantor Name 12/21/2022 1 [employer] - [employer] (PPO) Khloe Liz [id number] [place]oe [place] 01/27/2023 1 [employer] (PPO) Khloe Liz [id number] Khloe Liz Notes Date Note Type Note Provider Name and Address Organization Details Recorded Time 12/01/2022 text/html 62-year-old fema le here for evaluation of bilateral outer hip pain. Patient states that she has had diagnosis of bilateral trochanteric bursitis many years ago for which she was treated out in [facility] with cortisone injections greater than 5 [...] mild symptomatic relief. ORLANDO BAKER PA-C [address] [facility],[address], [place], [address], [place] [facility] 12/01/2022 12:20:52 12/21/2022 text/html Assessment and Plan: Date of visit [id number] female with right shoulder pain history of [...] joint space narrowing. ORLANDO BAKER PA-C [address] [facility],[address], [place], [address], [facility] 12/21/2022 18:35:33 01/27/2023 text/html Female surveyor's assistant present for the entirety of the interview and exam until exiting the room Leigh Denson This is a 62-year-old female who is following up after undergoing her MRI at [facility]. Imaging study was delayed secondary to the patient had an MRI already arranged up at [facility] however the patient did not [...] the intra-articular biceps tendon. ORLANDO BAKER PA-C [address] [place] [address], [place], [address], [place] [facility], 01/27/2023 12:17:14 OBGyn Episode No OBEpisode recorded.
--- OUTSIDE RECORDS SUMMARY | 2025-01-07 15:54 | XMS_ITS | Data Portability ---
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 Name Role Phone ROYA PALAFOX Primary Care Provider [phone] Assessment Encounter Date Assessment Date Assessment LastModified [...] Lab lipid panel, serum 2020 021 [facility], [address] [place] [address], [address], 2 07:56:34 HbA1c (hemoglobin A1c), blood 2020 021 [facility], [address] [place] [address], [address], 07:56:34 hepatitis panel (A+B+C), acute, serum 2020 021 [facility], [address] [place] [address], [address], 2 07:56:34 celiac disease comprehensi ve panel, serum 2020 021 [facility], [address] [place] [address], [address], 12:07:15 CMP, serum or plasma 2020 021 [facility], [address] [place] [address], [address], 12:07:17 CBC w/ auto diff 2020 021 OL[facility], [address] [place] [address], [address], 12:07:16 food allergen panel, serum 2020 021 [facility], [address] [place] [address], [address], 12:07:19 H pylori igm+igg+iga Ab, serum 2020 021 MATT [facility], [address] [place] [address], [address], 12:07:18 Referral physical therapist referral [email or web address] [facility], [address] [facility], [place], [address], 11:44:06 physical therapist referral [address] Physical Therapy, [address] [facility], [place], [address], 11:44:05 nutritionis t/dietitian referral 2020 021 [facility] ([facility]), [address] [place] [address], [address], 15:08:15 physical therapist referral [address] [facility], [address] [place] [address], [place], [address], 11:44:05 Procedures None recorded. Surgeries None recorded. Imaging MAMMO, screening, digital, bilateral [address] ([facility]), [place], [address], 09:05:41 US, liver [address] ([facility]), [address] [place] [address], [address], 09:05:51 electrocard iogram 2020 021 [email or web address] In-Office Order, Internal Use Only DO Not Attach Compendium DO Not Attach Compendium, Do Not Delete/merge, [address] 12:10:49 Medication Orders omeprazole 40 mg capsule,del ayed release 2020 021 [facility]0009, [address] [address], [place], [address], 14:23:51 ropinirole 0.5 mg tablet 2020 021 [facility]Pharmacy #0004, [address] [facility] [address], [place], [address], 13:08:25 Patient TargetsNo targets recorded. Patient Instructions Encounter Date Encounter Id Patient Instructions Last Modified By Organization Details Last Modified Time 02/15/2021 [id number] gastroesophageal reflux disease (GERD): care instructions kmako Not available 02/15/2021 14:23:43 restless legs syndrome: care instructions kmako Not available 02/15/2021 14:23:43 learning about m ood disorders kmako Not available 02/15/2021 14:39:27 body mass index: care instructions kmako Not available 02/15/2021 14:24:44 learning about healthy [facility] Not available 02/15/2021 14:24:44 06/29/2021 [id number] learning about breast cancer screening [facility] Not available 06/29/2021 13:27:21 Reason for Referral Physical Therapist Referral for Pain of right shoulder joint Referring Physician: Roya Palafox [facility], Encounter Date: 02/15/2021 Physical Therapist Referral for Pain of bilateral hip joints Referring Physician: [facility], Encounter Date: 02/15/2021 Physical Therapist Referral for Pain of left ankle joint Referring Physician: Roya Palafox [facility]ani, Encounter Date: 02/15/2021 Assisted Sales Representative/dietitian Refer ral for Body mass index 30+ - obesity Referring Physician: Roya Palafox [facility] [place], Encounter Date: 02/15/2021 Results Created Date Observation [...] tive enter opath y. Not Available [facility] ([facility]) [address] [facility], [place], [address], 05/13/2021 12:07:15 05/10/20 21 05/11/2021 JOSE C DISEA SE PANEL immunoglobul in A, qn, serum 241 mg/dL 87-352 Not Available [facility] ([facility]) [address] [facility], [place], [address], 05/13/2021 12:07:15 05/10/20 21 05/13/2021 JOSE C DISEA SE PANEL endomysial antibody IgA Negati ve negati ve Not Available [facility] ([facility]) [address] [facility], [place], [address], 05/13/2021 12:07:15 05/10/20 21 05/10/2021 CBC WITH DIFFE RENTI AL/PL ATELE T WBC 6.5 x10e3 /uL 3.4-10 .8 Not Available [facility] ([facility]) [address] [place], [address], 05/13/2021 12:07:16 05/10/20 21 05/10/2021 CBC WITH DIFFE RENTI AL/PL ATELE T RBC 5.15 x10e6 /uL 3.77-5 .28 Not Available [facility] ([facility]) [address] [facility], [place], [address], 05/13/2021 12:07:16 05/10/20 21 05/10/2021 CBC WITH DIFFE RENTI AL/PL ATELE T hemoglobin 14.9 g/dL 11.1-1 5.9 Not Available [facility] ([facility]) [address] [facility], [place], [address], 05/13/2021 12:07:16 05/10/20 21 05/10/2021 CBC WITH DIFFE RENTI AL/PL ATELE T hematocrit 43.6 % 34.0-4 6.6 Not Available [facility] ([facility]) [address] [facility], [place], [address], 05/13/2021 12:07:16 05/10/20 21 05/10/2021 CBC WITH DIFFE RENTI AL/PL ATELE T MCV 85 fL 79-97 Not Available [facility] ([facility]) [address] [facility], [place], [address], 05/13/2021 12:07:16 05/10/20 21 05/10/2021 CBC WITH DIFFE RENTI AL/PL ATELE T MCH 28.9 pg 26.6-3 3.0 Not Available [facility] ([facility]) [address] [facility], [place], [address], 05/13/2021 12:07:16 05/10/20 21 05/10/2021 CBC WITH DIFFE RENTI AL/PL ATELE T MCHC 34.2 g/dL 31.5-3 5.7 Not Available [facility] ([facility]) [address] [facility], [place], [address], 05/13/2021 12:07:16 05/10/20 21 05/10/2021 CBC WITH DIFFE RENTI AL/PL ATELE T RDW 14.4 % 11.7-1 5.4 Not Available [facility] ([facility]) [address] [facility], [place], [address], 05/13/2021 12:07:16 05/10/20 21 05/10/2021 CBC WITH DIFFE RENTI AL/PL ATELE T platelets 278 x10e3 /uL 150-45 0 Not Available [facility] ([facility]) [address] [facility], [place], [address], 05/13/2021 12:07:16 05/10/20 21 05/10/2021 CBC WITH DIFFE RENTI AL/PL ATELE T neutrophils 55 % not estab. Not Available [facility] ([facility]) [address] [facility], [place], [address], 05/13/2021 12:07:16 05/10/20 21 05/10/2021 CBC WITH DIFFE RENTI AL/PL ATELE T lymphs 33 % not estab. Not Available [facility] ([facility]) [address] [facility], [place], [address], 05/13/2021 12:07:16 05/10/20 21 05/10/2021 CBC WITH DIFFE RENTI AL/PL ATELE T monocytes 8 % not estab. Not Available [facility] ([facility]) [address] [facility], [place], [address], 05/13/2021 12:07:16 05/10/20 21 05/10/2021 CBC WITH DIFFE RENTI AL/PL ATELE T eos 3 % not estab. Not Available [facility] ([facility]) [address] [facility], [place], [address], 05/13/2021 12:07:16 05/10/20 21 05/10/2021 CBC WITH DIFFE RENTI AL/PL ATELE T basos 1 % not estab. Not Available [facility] ([facility]) [address] [facility], [place], [address], 05/13/2021 12:07:16 05/10/20 21 05/10/2021 CBC WITH DIFFE RENTI AL/PL ATELE T immature cells CENTRAL SUPPLY NURSE Not Available [facility] ([facility]) [address] [facility], [place], [address], 05/13/2021 12:07:16 05/10/20 21 05/10/2021 CBC WITH DIFFE RENTI AL/PL ATELE T neutrophils (absolute) 3.7 x10e3 /uL 1.4-7. 0 Not Available [facility] ([facility]) [address] [place], [address], 05/13/2021 12:07:16 05/10/20 21 05/10/2021 CBC WITH DIFFE RENTI AL/PL ATELE T lymphs (absolute) 2.1 x10e3 /uL 0.7-3. 1 Not Available [facility] ([facility]) [address] [facility], [place], [address], 05/13/2021 12:07:16 05/10/20 21 05/10/2021 CBC WITH DIFFE RENTI AL/PL ATELE T monocytes(ab solute) 0.5 x10e3 /uL 0.1-0. 9 Not Available [facility] ([facility]) [address] [facility], [place], [address], 05/13/2021 12:07:16 05/10/20 21 05/10/2021 CBC WITH DIFFE RENTI AL/PL ATELE T eos (absolute) 0.2 x10e3 /uL 0.0-0. 4 Not Available [facility] ([facility]) [address] [facility], [place], [address], 05/13/2021 12:07:16 05/10/20 21 05/10/2021 CBC WITH DIFFE RENTI AL/PL ATELE T baso (absolute) 0.0 x10e3 /uL 0.0-0. 2 Not Available [facility] ([facility]) [address] [facility], [place], [address], 05/13/2021 12:07:16 05/10/20 21 05/10/2021 CBC WITH DIFFE RENTI AL/PL ATELE T immature granulocytes CENTRAL SUPPLY NURSE Not Available [facility] ([facility]) [address] [facility], [place], [address], 05/13/2021 12:07:16 05/10/20 21 05/10/2021 CBC WITH DIFFE RENTI AL/PL ATELE T immature grans (abs) CENTRAL SUPPLY NURSE Not Available [facility] ([facility]) [address] [facility], [place], [address], 05/13/2021 12:07:16 05/10/20 21 05/10/2021 CBC WITH DIFFE RENTI AL/PL ATELE T NRBC CENTRAL SUPPLY NURSE Not Available [facility] ([facility]) [address] [facility], [place], [address], 05/13/2021 12:07:16 05/10/20 21 05/10/2021 CBC WITH DIFFE RENTI AL/PL ATELE T hematology comments: CENTRAL SUPPLY NURSE Not Available [facility] ([facility]) [address] [facility], [place], [address], 05/13/2021 12:07:16 05/10/20 21 05/10/2021 COMP. METAB OLIC PANEL (14) glucose 97 mg/dL 65-99 Not Available [facility] ([facility]) [address] [facility], [place], [address], 05/13/2021 12:07:17 05/10/20 21 05/10/2021 COMP. METAB OLIC PANEL (14) BUN 15 mg/dL 8-27 Not Available [facility] ([facility]) [address] [place], [address], 05/13/2021 12:07:17 05/10/20 21 05/10/2021 COMP. METAB OLIC PANEL (14) creatinine 0.78 mg/dL 0.57-1 .00 Not Available [facility] ([facility]) [address] [facility], [place], [address], 05/13/2021 12:07:17 05/10/20 21 05/10/2021 COMP. METAB OLIC PANEL (14) eGFR if nonafricn AM 82 mL/mi n/1.7 3 >59 Not Available [facility] ([facility]) [address] [facility], [place], [address], 05/13/2021 12:07:17 05/10/20 21 05/10/2021 COMP. METAB OLIC PANEL (14) eGFR if africn AM 95 mL/mi n/1.7 3 >59 Lab donn curre ntly repor ts eGFR in compl iance with the curre nt recom menda tions of the [facility] y [employer] ation . [facility] will updat e repor ting as new guide lines are publi shed from the NKF-A SN Task force . Not Available [facility] ([facility]) [address] [place], [address], 05/13/2021 12:07:17 05/10/20 21 05/10/2021 COMP. METAB OLIC PANEL (14) BUN/creatini ne ratio 19 12-28 Not Available [facility] ([facility]) [address] [place], [address], 05/13/2021 12:07:17 05/10/20 21 05/10/2021 COMP. METAB OLIC PANEL (14) sodium 141 mmol/ L 134-14 4 Not Available [facility] ([facility]) [address] [place], [address], 05/13/2021 12:07:17 05/10/20 21 05/10/2021 COMP. METAB OLIC PANEL (14) potassium 4.7 mmol/ L 3.5-5. 2 Not Available [facility] ([facility]) [address] [place], [address], 05/13/2021 12:07:17 05/10/20 21 05/10/2021 COMP. METAB OLIC PANEL (14) chloride 103 mmol/ L 96-106 Not Available [facility] ([facility]) [address] [place], [address], 05/13/2021 12:07:17 05/10/20 21 05/10/2021 COMP. METAB OLIC PANEL (14) carbon dioxide, total 23 mmol/ L 20-29 Not Available [facility] ([facility]) [address] [place], [address], 05/13/2021 12:07:17 05/10/20 21 05/10/2021 COMP. METAB OLIC PANEL (14) calcium 9.9 mg/dL 8.7-10 .3 Not Available [facility] ([facility]) [address] [facility], [place], [address], 05/13/2021 12:07:17 05/10/20 21 05/10/2021 COMP. METAB OLIC PANEL (14) protein, total 6.9 g/dL 6.0-8. 5 Not Available [facility] ([facility]) [address] [facility] [place], [address], 05/13/2021 12:07:17 05/10/20 21 05/10/2021 COMP. METAB OLIC PANEL (14) albumin 4.7 g/dL 3.8-4. 8 Not Available [facility] ([facility]) [address] [facility], [place], [address], 05/13/2021 12:07:17 05/10/20 21 05/10/2021 COMP. METAB OLIC PANEL (14) globulin, total 2.2 g/dL 1.5-4. 5 Not Available [facility] ([facility]) [address] [facility] [place] [place], [address], 05/13/2021 12:07:17 05/10/20 21 05/10/2021 COMP. METAB OLIC PANEL (14) A/G ratio 2.1 1.2-2. 2 Not Available [facility] ([facility]) [address] [facility] [place], [address], 05/13/2021 12:07:17 05/10/20 21 05/10/2021 COMP. METAB OLIC PANEL (14) bilirubin, total 0.3 mg/dL 0.0-1. 2 Not Available [facility] ([facility]) [address] [facility] [place] [place], [address], 05/13/2021 12:07:17 05/10/20 21 05/10/2021 COMP. METAB OLIC PANEL (14) alkaline phosphatase 113 IU/L 48-121 Not Available [facility] ([facility]) [address] [place], [address], 05/13/2021 12:07:17 05/10/20 21 05/10/2021 COMP. METAB OLIC PANEL (14) AST (SGOT) 45 IU/L 0-40 above high normal Not Available [facility] ([facility]) [address] [place], [address], 05/13/2021 12:07:17 05/10/20 21 05/10/2021 COMP. METAB OLIC PANEL (14) ALT (SGPT) 54 IU/L 0-32 above high normal Not Available [facility] ([facility]) [address] [place], [address], 05/13/2021 12:07:17 05/10/20 21 05/11/2021 H PYLOR I, IGM, IGG, IGA AB H. pylori, IgG abs 0.26 index _valu e 0.00-0 .79 Negat nicole <0.80 Equiv ocal 0.80 - 0.89 Posit nicole >0.89 Not Available [facility] ([facility]) [address] [place], [address], 05/13/2021 12:07:18 05/10/20 21 05/11/2021 H PYLOR I, IGM, IGG, IGA AB H. pylori, IgA abs 9.7 units 0.0-8. 9 above high normal Negat nicole <9.0 Equiv ocal 9.0 - 11.0 Posit nicole >11.0 Not Available [facility] ([facility]) [address] [place], [address], 05/13/2021 12:07:18 05/10/20 21 05/11/2021 H PYLOR I, IGM, IGG, IGA AB H pylori, IgM abs <9.0 units 0.0-8. 9 Negat nicole <9.0 Equiv ocal 9.0 - 11.0 Posit nicole >11.0 This test was clement cat and its perfo fani e ananya méndezri stics deter mined by [facility]. It has not been clear ed or appro taya by the Food and Drug Admin istra tion. Not Available [facility] ([facility]) [address] [place], [address], 05/13/2021 12:07:18 05/10/20 21 05/10/2021 FOOD ALLER [...] >100. 00 Very High Not Available [facility] ([facility]) [address] [place], [address], 05/13/2021 12:07:19 05/10/2005/13/2021 FOOD ALLER GY PROFI LE N747-ThI egg white <0.10 kU/L class 0 Not Available [facility] ([facility]) [address] [place], [address], 05/13/2021 12:07:19 05/10/2005/13/2021 FOOD ALLER GY PROFI LE M045-RqX peanut <0.10 kU/L class 0 Not Available [facility] ([facility]) [address] [place], [address], 05/13/2021 12:07:19 05/10/20 21 05/13/2021 FOOD ALLER GY PROFI LE M991-GrZ soybean <0.10 kU/L class 0 Not Available [facility] ([facility]) [address] [place], [address], 05/13/2021 12:07:19 05/10/20 21 05/13/2021 FOOD ALLER GY PROFI LE D417-BoF milk <0.10 kU/L class 0 Not Available [facility] ([facility]) [address] [place], [address], 05/13/2021 12:07:19 05/10/20 21 05/13/2021 FOOD ALLER GY PROFI LE Q795-BjP clam <0.10 kU/L class 0 Not Available [facility] ([facility]) [address] [place], [address], 05/13/2021 12:07:19 05/10/20 21 05/13/2021 FOOD ALLER GY PROFI LE J101-YfQ shrimp <0.10 kU/L class 0 Not Available [facility] ([facility]) [address] [place], [address], 05/13/2021 12:07:19 05/10/20 21 05/13/2021 FOOD ALLER GY PROFI LE Y769-MiD walnut <0.10 kU/L class 0 Not Available [facility] ([facility]) [address] [place], [address], 05/13/2021 12:07:19 05/10/20 21 05/13/2021 FOOD ALLER GY PROFI LE J330-AzQ codfish <0.10 kU/L class 0 Not Available [facility] ([facility]) [address] [place], [address], 05/13/2021 12:07:19 05/10/20 21 05/13/2021 FOOD ALLER GY PROFI LE D515-LgG scallop <0.10 kU/L class 0 Not Available [facility] ([facility]) [address] [facility], [place], [address], 05/13/2021 12:07:19 05/10/20 21 05/13/2021 FOOD ALLER GY PROFI LE R262-MuV wheat <0.10 kU/L class 0 Not Available [facility] ([facility]) [address] [facility], [place], [address], 05/13/2021 12:07:19 05/10/20 21 05/13/2021 FOOD ALLER GY PROFI LE K090-AiJ corn <0.10 kU/L class 0 Not Available [facility] ([facility]) [address] [facility], [place], [address], 05/13/2021 12:07:19 05/10/20 21 05/13/2021 FOOD ALLER GY PROFI LE E127-YjQ sesame seed <0.10 kU/L class 0 Not Available [facility] ([facility]) [address] [facility], [place], [address], 05/13/2021 12:07:19 05/10/20 21 elect rocar diogr am No observ ation record ed. [email or web address] In-Office Order Internal Use Only DO Not Attach Compendium DO Not Attach Compendium, Do Not Delete/merge, [id number] 05/10/2021 09:54:21 05/10/20 21 05/10/2021 elect rocar diogr am No observ ation record ed. [email or web address] In-Office Order Internal Use Only DO Not Attach Compendium DO Not Attach Compendium, Do Not Delete/merge, [id number] 05/11/2021 14:27:15 07/19/20 21 07/19/2021 US, abdom en, limit ed [facility] [address], [address] Name: ARLENE HIDALGO : [id number] Date of Servic e: 0839 Acct Number : [id number] Order Number : [id number] Locati on: WUS Report Number : [id number] Servic e: REG REF/ Reques ting Physic hansa: Joaquin Orourke CENTRAL SUPPLY NURSE Catego ry: ULTRAS OUND Exam: US ABDOME N SINGLE ORGAN LTD Access ion #: [id number] VH Signs/ Sympto ms: ELEVAT ED [...] Attend ing Radiol ogist: Nathalia Garcia MD 0948 Orderi ng physic hansa: Candy Orourke Other provid ers: Candy Orourke, Candy Orourke, , Brandee King, , , [facility] (Radiology) [address] [place] [address], [address], 08/09/2021 08:54:29 08/04/20 21 08/04/2021 MAMMO , scree katy, tomos ynthe sis, bilat eral [facility] ogy [address] [place] [address], [address] Name: ARLENE HIDALGO : [birth year]17 Date of Servic e: 1431 Acct Number : [id number] Order Number : [id number] Locati on: WWELL Report Number : [id number] Servic e: REG REF/ Reques ting Physic hansa: Joaquin rOourke CENTRAL SUPPLY NURSE Catego ry: MAMMOG SHINE Exam: DIGITA L BREAST JORDANA SCREEN ING Access ion #: [id number] VH Signs/ Sympto ms: SCREEN ING [...] mammog alethea. Date/T nathaly of Dictat ion: 1643 Radiol ogy Reside nt (if applic able): Sheldon De La Cruz MD Approv ed By Attend ing Radiol ogist: Criselda Grayson MD 1643 Orderi ng physic hansa: Candy Orourke Other provid ers: Candy Orourke, Candy Orourke, , Candy Orourke, , , [facility] (Radiology) [address] [place] [address], [address], 08/09/2021 10:37:39 Result Notes None recorded. Problems Name Problem SNOMED Code Status Onset Date Resolution Date Notes Provider Name and Address Organization Details Recorded Time Depressi ve disorder 30372026 Active [address] gut[address]ér[address] MA [facility] 13:34:32 Anxiety 94550796 Active [address]ly gutiérrez MA [facility] 13:34:37 Gastroes ophageal reflux disease 567035152 Active [address] gutiérrez MA [facility] 13:34:42 Screenin g for malignan t neoplasm of breast Active 202007/08/20 wnl, 08/04/21 wnl ROYA PALAFOX NP [address] [place], [address], [facility] 08:56:16 Screenin g for malignan t neoplasm of cervix Completed 202002/15/2021 ROYA PALAFOX NP [address] [place], [address], [facility] 14:32:49 Screenin g for malignan t neoplasm of colon Active 2020 2019 [facility], repeat in 10 years ROYA PALAFOX NP [address] [place], [address], [facility] 13:39:33 Screenin g for osteopor osis Active 202007/08/20- osteopeni a ROYA PALAFOX NP [address] [place], [address], [facility] 15:20:47 Body mass index 30+ - obesity 597513981 Active 2020 ROYA PALAFOX NP [address] [place] [address], [address], [facility] 13:44:20 Osteopen ia 301360815 Active 2020 ROYA PALAFOX NP [address] [place], [address], [facility] 13:16:55 Steatoti c liver disease 689693836 Active 2020 Moderate- abd US 07/19/21 ROYA PALAFOX NP [address] [place], [address], [facility] 10:21:31 Biliary sludge 76547369 Active 2020 ROYA PALAFOX NP [address] [place], [address], [facility] 10:21:44 Problem Notes None recorded. Procedures Surgical History Date Name Laterality Status Provider Name and Address Organization Details Recorded Time Orthopedic Surgery completed [facility] 05/10/2021 09:35:10 Breast Surgery (Lumpectomy, Biopsy, Implants) completed [facility] 05/10/2021 09:35:10 Imaging Results Imaging Date Name Status LastModified by Organization Details LastModified Time 05/10/2021 electrocardiogram completed [email or web address] In-Offi ce Order Internal Use Only DO Not Attach Compendium DO Not Attach Compendium, Do Not Delete/merge, [id number] 05/10/2021 09:54:21 05/10/2021 electrocardiogram completed [email or web address] In-Offi ce Order Internal Use Only DO Not Attach Compendium DO Not Attach Compendium, Do Not Delete/merge, [id number] 05/11/2021 14:27:15 07/19/2021 US, abdomen, limited completed [facility] (Radiology) [address] [place] [address], [address], 08/09/2021 08:54:29 08/04/2021 MAMMO, screening, tomosynthesis, bilateral completed [facility] (Radiology) [address] [place] [address], [address], 08/09/2021 10:37:39 Procedure Notes None recorded. Medical [...] Updated DateTime 1 160.02 cm 33.1 kg/m2 58171.7 7 g 96.4 [degF] 65 /min 97 % 97 % 112 mm[Hg] 68 mm[Hg] [facility] 1 13:42:22 Date Recorded Body height Body mass index (BMI) Body weight Body temperature Heart rate Oxygen saturation Oxygen saturation in Arterial blood by Pulse oximetry Systolic blood pressure Diastolic blood pressure Provider Name and Address Organization Details Last Updated DateTime 1 160.02 cm 34 kg/m2 52649.7 4 g 98.7 [degF] 72 /min 98 % 98 % 116 mm[Hg] 72 mm[Hg] [facility]. 1 09:39:34 Date Recorded Body height Body mass index (BMI) Body weight Body temperature Pain severity - 0-10 verbal numeric rating [Score] - Reported Oxygen saturation Oxygen saturation in Arterial blood by Pulse oximetry Heart rate Systolic blood pressure Diastolic blood pressure Provider Name and Address Organization Details Last Updated DateTime 1 158.75 cm 32.8 kg/m2 90350.6 1 g 97 [degF] 0 98 % 98 % 84 /min 114 mm[Hg] 70 mm[Hg] [place] [facility] 13:13:38 Social History Question Answer Notes LastModified by Organizat ion Details LastModified Time Tobacco Smoking Status Former Smoker Palmira gutiérrez [facility] 06/29/2021 13:10:59 Do You Have An Advance [...] Or The Highest Degree You Have Received? 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 [id number] Information not available 05/10/2021 Do You Use [...] [email or web address] Not available 05/10/2021 09:27:42 Father Malignant neoplasm of lung [email or web address] Not available 2020 09:27:42 [...] last pap 2005 Facility of last mammogram [place] History of infertility N Number of Terminations? [...] Tdap 02/15/2021 completed ROYA PALAFOX NP [address] [place], [address], [facility] 02/15/2021 15:11:54 COVID-19, mRNA, LNP-S, PF, 30 mcg/0.3 mL dose 04/13/2021 completed Kimberly gutiérrez [facility] 05/10/2021 09:40:46 COVID-19, mRNA, LNP-S, PF, 30 mcg/0.3 mL dose 03/23/2021 completed Kimberly gutiérrez [facility] 05/10/2021 09:40:55 Past Encounters Encounter ID Performer Location Encounter Start Date Encounter Closed Date Diagnosis/Indication Diagnosis SNOMED-CT Code Diagnosis ICD10 Code Diagnosis Note [id number] ROYA PALAFOX NP [facility] [address] [place] [address] 02/15/2021 13:27:22 02/15/2021 14:38:43 Borderline personality disorder 92173427 F60.3 Long history of anxiety, depression , [...] upcoming appt with a psychophar macist through [facility]. She is interested in restarting her adderall and will consult with them. Restless legs 77114058 G 25.81 For the past several years. Muscle cramping and restless legs keep her up every night. She has been taking gabapentin 300mg at bedtime but it has not been helping. She will d/c gabapentin and start ropinirole 0.5mg at bedtime. Gastroesop hageal reflux disease [id number] K21.9 Gerd- Discussed etiology and management of [...] increase omeprazole from 20mg to 40mg daily. Pain of bi lateral hip joints [id number] M25.551 M25.552 Chronic. Patient has had cortisone injections in the past. She has also gained weight recently which could be adding to her pain. She will start PT. If no improvemen t, will consider imaging or referral for injections . Pain of ri ght shoulder joint [id number] M25.511 Hx of right rotator cuff surgery. Referral to PT to help increase ROM and strength. Administra tion of diphtheria, pertussis, and tetanus vaccine 223632286 Z23 Pain of le ft ankle joint [id number] 5278270 M25.572 S/p ankle fracture and surgery. She has been wearing a brace for 2 years and continues to have pain. Referral placed to PT. Body mass index 30+ - obesity 889844283 Z68.33 Diet and Exercise recommenda tions have [...] talked about counting steps. Referral placed to nutrition . Anxiety 63607870 F41.9 Long history of anxiety, depression , [...] upcoming appt with a psychophar macist through [facility]. She is interested in restarting her adderall and will consult with them. Depressive disorder 8162 1502 F32.9 Long history of anxiety, depression , [...] upcoming appt with a psychophar macist through [facility]. She is interested in restarting her adderall and will consult with them. [id number] ROYA PALAFOX NP [facility] [address] [address] 05/10/2021 09:27:40 05/10/2021 12:10:48 Restless legs 09737601 G25.81 For the past several years. Muscle cramping and restless legs keep her up every night. She has been taking gabapentin 300mg at bedtime but it has not been helping. She stopped gabapentin and switched to ropinirole at her last visit. Restless legs have improved but she is now having trouble falling asleep for several hours. She will f/u with clinical psychology teacher on Monday to discuss any sleep aids. Loose stool [id number] R1 9.5 Multiple loose stools a day. Patient has not been able to identify any specific food triggers. She also has urgency, especially first thing in the morning. Will check labs. Advised bland diet and increased fluids as well. Anxiety 87299434 F41.9 Long history of anxiety, depression , [...] provider. She has an appt with a clinical psychology teacher on Monday. She needs to EKG prior to her visit. EKG done today, normal sinus rhythm. She is currently on escitalopr am 40mg daily. Advised patient that all psych meds should come from psych provider. [id number] ROYA PALAFOX NP [facility] [address] [facility] [place] [address] 06/29/2021 12:59:34 06/29/2021 13:42:19 Adult health examination [id number] Z00.00 Anxiety 52260438 F41.9 Long history of anxiety, depression , [...] now establishe d care with a psychiatri st and is feeling much better on current meds. She is on Adderall 30mg in am, 20mg in pm if needed, clonazepam 1mg BID, and escitalopr am 20mg daily. Screening for malignant neoplasm of breast 294162916 Z12.39 Liver enzy mes level above reference range 512777106 R74.8 AST 45, ALT 54 on 05/10/21. Will repeat. Order placed for liver US. Screening for cardiovascular system disease 861384302 Z13.6 Health Concerns Section Related Observation LastModified by Organization Detai ls LastModified Time None Recorded Concern Status LastModified by Organization Details LastModified Time None Recorded Advance Directives Directive Y: Payers Encounter Date Sequence Insurance Name Policy Number Policy Grace Covered Member ID Grace Member ID Guarantor Name 02/15/[address] [facility] [id number] Arlene F Liz [id number] Arlene Liz 05/10/[address] [facility] [employer] (O) [id number] Arlene F Liz [id number] Arlene Liz 06/29/[address] [facility] ([facility]) [id number] Arlene Hidalgo [id number] Arlene Hidalgo Notes Date Note Type Note [...] Left ankle pain. She saw [facility] in [facility]. Mammogram, colonoscopy, bone density.Pt had a partial hysterectomy. ROYA PALAFOX NP [address] [place] [address], [address], [facility]. 02/15/2021 14:40:20 05/10/2021 text/html Patient has [...] other medications. She had an appt with [facility] but they do not prescribe adderall. She has an appt with a clinical psychology teacher on Monday. She is working with a therapist. ROYA PALAFOX NP [address] [place], [address], [facility] 05/10/2021 10:18:04 06/29/2021 text/html Patient has been [...] has been going regularly.Colonosc opy was in [place]- she was told to repeat in 10 years. 01/09/19. [facility] ROYA PALAFOX NP [address] [place], [address], [facility] 06/29/2021 13:41:05 OBGyn Episode No OBEpisode recorded.
--- OUTSIDE RECORDS SUMMARY | 2025-01-07 15:54 | XMS_ITS | Data Portability ---
Author Organization [facility] [employer] Address [address] [place] [address] Assessment No assessment recorded. Plan of Treatment Reminders Order Date Submit Date Provider Last Modified By Organization Details Last Modified Time Details Appointments None recorded. Lab urinalysis , dipstick 2020 MATT LiB [facility], [address], [address], [place], [address], 14:46:44 urinalysis complete, reflex culture 2020 MATT [...] 11:09:17 Referral physical therapist referral 2019 [facility], [address] [place], [address], 1 05:03:50 Procedures None recorded. Surgeries None recorded. Imaging electrocar diogram [address] [employer] [facility], [address], [address], [place], [address], 0 11:49:05 XR, chest, 2 view 2019 [facility], [address] [place], [address], 0 12:38:39 DEXA 2019 [facility], [address] [place], [address], 0 10:55:28 MAMMO, screening, digital, bilateral 2019 [facility], [address] [place], [address], 0 15:37:39 XR, ankle, 3 or more view 2019 [facility], [address] [place], [address], 1 05:08:53 Medication Orders Bactrim DS 800 mg-160 mg tablet 2020 021 [facility][id number], [address] [place], [address], 1 14:44:54 fluconazol e 150 mg tablet 2020 021 [facility]29[facility], [address] [place], [address], 1 14:44:55 gabapentin 300 mg capsule 2020 021 [facility]2966, [address] [place], [address], 1 08:55:14 pregabalin 50 mg capsule 2019 020 [email or web address] [facility] #29981, [address] [place], [place], [id number], 1 08:35:15 omeprazole 20 mg capsule,de layed release 2019 020 INTERFACE [facility] #85483, [address], [place], [place], [id number], 0 11:21:40 diclofenac 1 % topical gel 2019 020 INTERFACE [facility] #79955, [address], [place], [place], [id number], 0 11:16:14 buspirone 30 mg tablet 2019 020 [email or web address] [facility] #74135, [address], [place], [place], [id number], 0 11:16:50 Patient TargetsNo targets recorded. Patient Instructions Encounter Date Encounter Id Patient Instructions Last Modified By Organization Details Last Modified Time 06/24/2020 [id number] shoulder stretches: exercises [email or web address] Not available 06/24/2020 [...] total 260 mg/dL <200 high Not Available [facility] [address], [place], [address], 06/25/2020 11:09:16 06/24/2006/25/2020 lipid panel , serum HDL cholesterol 59 mg/dL > or = 50 normal Not Available [facility] [address], [place], [address], 06/25/2020 11:09:16 06/24/20 20 06/25/2020 lipid panel , serum triglyceride s 222 mg/dL <150 high If a non-f astin g speci men was colle cted, consi ward repea t trigl yceri de testi ng on a fasti ng speci men if clini bailey indic ated. Farhat potts et al. J. of Clin. Lipid ol. 2015; 9:129 -169. Not Available [facility] [place] [facility] [address], [place], [address], 06/25/2020 11:09:16 06/24/2006/25/2020 lipid panel , serum LDL-choleste rol 163 mg/dL _(advid c) high Refer ence range : <100 [...] 9): 2061- 2068 (http ://ed ucati on.Qu CrowdFlik. com/f aq/FA Q164) Not Available [facility] [place] [facility] [address], [place], [address], 06/25/2020 11:09:16 06/24/2006/25/2020 lipid panel , serum chol/HDLC ratio 4.4 (calc ) <5.0 normal Not Available [facility] [place] [facility] [address], [place], [address], 06/25/2020 11:09:16 06/24/2006/25/2020 lipid panel , serum non HDL cholesterol 201 mg/dL _(david c) <130 high For patie nts with diabe patience plus 1 major ASCVD risk facto r, treat ing to a non-H DL-C goal of <100 mg/dL (LDL- C of <70 mg/dL ) is consi dered a thera peuti c optio n. Not Available [facility] [address], [place], [address], 06/25/2020 11:09:16 06/24/2006/25/2020 TSH + free T4, serum TSH 1.47 mIU/L 0.40-4 .50 normal Not Available [facility] [place] [facility] [address], [place], [address], 06/25/2020 11:09:17 06/24/2006/25/2020 TSH + free T4, serum T4, free 1.1 NG/dL 0.8-1. 8 normal Not Available [facility] [address], [place], [address], 06/25/2020 11:09:17 06/24/2006/25/2020 CMP, serum or plasm a glucose 89 mg/dL 65-99 normal Fasti ng refer ence inter izzy Not Available [facility] [address], [place], [address], 06/25/2020 11:09:18 06/24/2006/25/2020 CMP, serum or plasm a urea nitrogen (BUN) 19 mg/dL 7-25 normal Not Available [facility] [address], [place], [address], 06/25/2020 11:09:18 06/24/2006/25/2020 CMP, serum or plasm a creatinine 0.85 mg/dL 0.50-0 .99 normal For patie nts >49 years of age, the refer ence limit for Creat inine is appro ximat magda 13% highe r for peopl e ident ified as Afric an-Am anita n. Not Available [facility] [address], [place], [address], 06/25/2020 11:09:18 06/24/2006/25/2020 CMP, serum or plasm a eGFR non-afr. nigerian 74 mL/mi n/1.7 3m2 > or = 60 normal Not Available [facility] [address], [place], [address], 06/25/2020 11:09:18 06/24/2006/25/2020 CMP, serum or plasm a eGFR 86 mL/mi n/1.7 3m2 > or = 60 normal Not Available [facility] [address], [place], [address], 06/25/2020 11:09:18 06/24/2006/25/2020 CMP, serum or plasm a BUN/creatini ne ratio NOT APPLIC ABLE (calc ) 6-22 Not Available [facility] [address], [place], [address], 06/25/2020 11:09:18 06/24/2006/25/2020 CMP, serum or plasm a sodium 142 mmol/ L 135-14 6 normal Not Available [facility] [address], [place], [address], 06/25/2020 11:09:18 06/24/2006/25/2020 CMP, serum or plasm a potassium 4.3 mmol/ L 3.5-5. 3 normal Not Available [facility] [address], [place], [address], 06/25/2020 11:09:18 06/24/2006/25/2020 CMP, serum or plasm a chloride 103 mmol/ L 98-110 normal Not Available [facility] [address], [place], [address], 06/25/2020 11:09:18 06/24/2006/25/2020 CMP, serum or plasm a carbon dioxide 25 mmol/ L 20-32 normal Not Available [facility] [address], [place], [address], 06/25/2020 11:09:18 06/24/2006/25/2020 CMP, serum or plasm a calcium 9.5 mg/dL 8.6-10 .4 normal Not Available [facility] [address], [place], [address], 06/25/2020 11:09:18 06/24/2006/25/2020 CMP, serum or plasm a protein, total 6.5 g/dL 6.1-8. 1 normal Not Available [facility] [address], [place], [address], 06/25/2020 11:09:18 06/24/2006/25/2020 CMP, serum or plasm a albumin 4.3 g/dL 3.6-5. 1 normal Not Available [facility] [address], [place], [address], 06/25/2020 11:09:18 06/24/2006/25/2020 CMP, serum or plasm a globulin 2.2 g/dL_ (calc ) 1.9-3. 7 normal Not Available [facility] [address], [place], [address], 06/25/2020 11:09:18 06/24/2006/25/2020 CMP, serum or plasm a albumin/glob ulin ratio 2.0 (calc ) 1.0-2. 5 normal Not Available [facility] [address], [place], [address], 06/25/2020 11:09:18 06/24/2006/25/2020 CMP, serum or plasm a bilirubin, total 0.6 mg/dL 0.2-1. 2 normal Not Available [facility] [address], [place], [address], 06/25/2020 11:09:18 06/24/20 20 06/25/2020 CMP, serum or plasm a alkaline phosphatase 81 U/L 37-153 normal Not Available [facility] [place] [facility] [address], [place], [address], 06/25/2020 11:09:18 06/24/2006/25/2020 CMP, serum or plasm a AST 26 U/L 10-35 normal Not Available [facility] [place] [facility] [address], [place], [address], 06/25/2020 11:09:18 06/24/2006/25/2020 CMP, serum or plasm a ALT 34 U/L 6-29 high Not Available [facility] [place] [facility] [address], [place], [address], 06/25/2020 11:09:18 06/24/2006/25/2020 HbA1c (hemo globi n [...] patience(A DA). Not Available [facility] [place] [facility] [address], [place], [address], 06/25/2020 11:09:19 06/24/2006/25/2020 CBC w/ auto diff white blood cell count 7.4 thous and/u L 3.8-10 .8 normal Not Available [facility] [address], [place], [address], 06/25/2020 11:09:19 06/24/2006/25/2020 CBC w/ auto diff red blood cell count 4.80 en on/uL 3.80-5 .10 normal Not Available [facility] [address], [place], [address], 06/25/2020 11:09:19 06/24/2006/25/2020 CBC w/ auto diff hemoglobin 14.2 g/dL 11.7-1 5.5 normal Not Available [facility] [address], [place], [address], 06/25/2020 11:09:19 06/24/2006/25/2020 CBC w/ auto diff hematocrit 42.4 % 35.0-4 5.0 normal Not Available [facility] [address], [place], [address], 06/25/2020 11:09:19 06/24/2006/25/2020 CBC w/ auto diff MCV 88.3 fL 80.0-1 00.0 normal Not Available [facility] [address], [place], [address], 06/25/2020 11:09:19 06/24/2006/25/2020 CBC w/ auto diff MCH 29.6 pg 27.0-3 3.0 normal Not Available [facility] [address], [place], [address], 06/25/2020 11:09:19 06/24/2006/25/2020 CBC w/ auto diff MCHC 33.5 g/dL 32.0-3 6.0 normal Not Available [facility] [address], [place], [address], 06/25/2020 11:09:19 06/24/2006/25/2020 CBC w/ auto diff RDW 13.8 % 11.0-1 5.0 normal Not Available [facility] [address], [place], [address], 06/25/2020 11:09:19 06/24/2006/25/2020 CBC w/ auto diff platelet count 242 thous and/u L 140-40 0 normal Not Available [facility] [address], [place], [address], 06/25/2020 11:09:19 06/24/2006/25/2020 CBC w/ auto diff MPV 10.3 fL 7.5-12 .5 normal Not Available [facility] [address], [place], [address], 06/25/2020 11:09:19 06/24/2006/25/2020 CBC w/ auto diff absolute neutrophils 4248 cells /uL 1500-7 800 normal Not Available [facility] [address], [place], [address], 06/25/2020 11:09:19 06/24/2006/25/2020 CBC w/ auto diff absolute lymphocytes 2546 cells /uL 850-39 00 normal Not Available [facility] [address], [place], [address], 06/25/2020 11:09:19 06/24/2006/25/2020 CBC w/ auto diff absolute monocytes 459 cells /uL 200-95 0 normal Not Available [facility] [address], [place], [address], 06/25/2020 11:09:19 06/24/2006/25/2020 CBC w/ auto diff absolute eosinophils 111 cells /uL 15-500 normal Not Available [facility] [address], [place], [address], 06/25/2020 11:09:19 06/24/2006/25/2020 CBC w/ auto diff absolute basophils 37 cells /uL 0-200 normal Not Available [facility] [address], [place], [address], 06/25/2020 11:09:19 06/24/2006/25/2020 CBC w/ auto diff neutrophils 57.4 % normal Not Available [facility] [address], [place], [address], 06/25/2020 11:09:19 06/24/2006/25/2020 CBC w/ auto diff lymphocytes 34.4 % normal Not Available [facility] [address], [place], [address], 06/25/2020 11:09:19 06/24/2006/25/2020 CBC w/ auto diff monocytes 6.2 % normal Not Available [facility] [address], [place], [address], 06/25/2020 11:09:19 06/24/2006/25/2020 CBC w/ auto diff eosinophils 1.5 % normal Not Available [facility] [address], [place], [address], 06/25/2020 11:09:19 06/24/2006/25/2020 CBC w/ auto diff basophils 0.5 % normal Not Available [facility] [address], [place], [address], 06/25/2020 11:09:19 07/17/2007/18/2020 test in [facility]- quant ity not suffi cient question/pro blem: THE QUANT ITY OF SPECI MEN(S ) SUBMI TTED IS INSUF FICIE NT FOR THE TEST( S) REQUE TRISTAND. Not Available [facility] [place] [facility] [address] [place], [address], 07/18/2020 04:09:12 07/17/2007/18/2020 test in quest ion- quant ity not suffi cient test(s) ordered: 5616/7 306 Not Available [facility] [place] [facility] [address], [place], [address], 07/18/2020 04:09:12 07/17/2007/18/2020 test in [facility] ion- quant ity not suffi cient quantity received: 1.0 ML SERUM Not Available [facility] [address], [place], [address], 07/18/2020 04:09:12 07/17/2007/18/2020 test in [facility]- quant ity not suffi cient qn required: 2.7 ML SERUM Not Available [facility] [place] [facility] [address] [place], [address], 07/18/2020 04:09:12 07/17/2007/18/2020 test in [facility] ion- quant ity not suffi cient resolution: * Not Available [facility] [place] [facility] [address], [place], [address], 07/18/2020 04:09:12 07/17/2007/18/2020 test in [facility]- quant ity not suffi cient comment REQUE STED INFOR TRESA N ___ AUTHO RIZED SIGNA TURE ____ TO PREVE NT FURTH ER DELAY S IN TESTI NG, PLEAS E COMPL ETE INFOR TRESA N ABOVE AND FAX TO [phone] TO RESOL VE THIS ORDER . Not Available [facility] [place] [facility] [address], [place], [address], 07/18/2020 04:09:12 07/17/2007/18/2020 H pylor i Ag, stool result: SEE NOTE Not Available [facility] [place] [facility] [address], [place], [address], 07/18/2020 04:09:12 07/17/2007/20/2020 H pylor i Ag, stool helicobacter pylori Ag, EIA, stool HELIC OBACT ER PYLOR I AG, EIA, STOOL Micro Numbe r: [id number] Test Statu s: Final Speci men Sourc e: NOT GIVEN Speci men Quali ty: Adequ ate H.pyl hali Ag: Test not perfo rmed. No speci men recei taya. Refer ence Range : Not Detec damian Not Available [facility] [place] [facility] [address], [place], [address], 07/20/2020 13:05:44 08/26/2008/2608/26/2020 elect rocar diogr am Rate & Rhythm Not Available [facility] [employer] [facility] [address], [place], [address], 07/17/2020 11:19:45 08/26/20 20 08/26/2020 elect rocar diogr am QRS Not Available [facility] [employer] [facility] [address], [place], [address], 07/17/2020 11:19:45 08/26/20 20 08/26/2020 elect rocar diogr am VT Interval Not Available [facility] [employer] [facility] [address], [place], [address], 07/17/2020 11:19:45 08/26/20 20 08/26/2020 elect rocar diogr am QRS Duration Not Available [facility] [employer] [facility] [address], [place], [address], 07/17/2020 11:19:45 08/26/20 20 08/26/2020 elect rocar diogr am QT Interval Not Available [facility] [employer] [facility] [address], [place], [address], 07/17/2020 11:19:45 09/21/19 21 09/23/2020 lipid panel , serum cholesterol, total 231 mg/dL <200 high Not Available [facility] [address] [place], [address], 09/23/2020 04:51:30 09/21/19 21 09/23/2020 lipid panel , serum HDL cholesterol 52 mg/dL > or = 50 normal Not Available [facility] [address] [place], [address], 09/23/2020 04:51:30 09/21/19 21 09/23/2020 lipid panel , serum triglyceride s 152 mg/dL <150 high Not Available [facility] [address], [place], [address], 09/23/2020 04:51:30 09/21/19 21 09/23/2020 lipid panel [...] 310(1 9): 2061- 2068 (http ://ed ucati on.Little Pim skyFlexMinder. com/f aq/FA Q164) Not Available [facility] [place] [facility] [address], [place], [address], 09/23/2020 04:51:30 09/21/1909/23/2020 lipid panel , serum chol/HDLC ratio 4.4 (calc ) <5.0 normal Not Available [facility] [place] [facility] [address], [place], [address], 09/23/2020 04:51:30 09/21/19 21 09/23/2020 lipid panel , serum non HDL cholesterol 179 mg/dL _(david c) <130 high For patie nts with diabe patience plus 1 major ASCVD risk facto r, treat ing to a non-H DL-C goal of <100 mg/dL (LDL- C of <70 mg/dL ) is consi yulid froilan castilloo n. Not Available [facility] [place] [facility] [address], [place], [address], 09/23/2020 04:51:30 09/21/1909/23/2020 TSH + free T4, serum TSH 1.15 mIU/L 0.40-4 .50 normal Not Available [facility] [place] [facility] [address], [place], [address], 09/23/2020 04:51:30 09/21/19 21 09/23/2020 TSH + free T4, serum T4, free 1.1 NG/dL 0.8-1. 8 normal Not Available [facility] [place] [facility] [address], [place], [address], 09/23/2020 04:51:30 09/21/1909/23/2020 CMP, serum or plasm a glucose 103 mg/dL 65-99 high Fasti ng refer ence inter izzy For someo ne witho ut known diabe patience, a gluco se value betwe en 100 and 125 mg/dL is consi stent with predi abete s and shoul d be confi rmed with a follo w-up test. Not Available [facility] [place] [facility] [address], [place], [address], 09/23/2020 04:51:31 09/21/1909/23/2020 CMP, serum or plasm a urea nitrogen (BUN) 19 mg/dL 7-25 normal Not Available [facility] [place] [facility] [address], [place], [address], 09/23/2020 04:51:31 09/21/1909/23/2020 CMP, serum or plasm a creatinine 0.90 mg/dL 0.50-0 .99 normal For patie nts >49 years of age, the refer ence limit for Creat inine is appro ximat magda 13% highe r for peopl e ident ified as Afric an-Am anita n. Not Available [facility] [place] [facility] [address], [place], [address], 09/23/2020 04:51:31 09/21/19 21 09/23/2020 CMP, serum or plasm a eGFR non-afr. nigerian 69 mL/mi n/1.7 3m2 > or = 60 normal Not Available [facility] [address], [place], [address], 09/23/2020 04:51:31 09/21/19 21 09/23/2020 CMP, serum or plasm a eGFR 81 mL/mi n/1.7 3m2 > or = 60 normal Not Available [facility] [address], [place], [address], 09/23/2020 04:51:31 09/21/1909/23/2020 CMP, serum or plasm a BUN/creatini ne ratio NOT APPLIC ABLE (calc ) 6-22 Not Available [facility] [address], [place], [address], 09/23/2020 04:51:31 09/21/19 21 09/23/2020 CMP, serum or plasm a sodium 144 mmol/ L 135-14 6 normal Not Available [facility] [address], [place], [address], 09/23/2020 04:51:31 09/21/19 21 09/23/2020 CMP, serum or plasm a potassium 4.4 mmol/ L 3.5-5. 3 normal Not Available [facility] [address], [place], [address], 09/23/2020 04:51:31 09/21/1909/23/2020 CMP, serum or plasm a chloride 105 mmol/ L 98-110 normal Not Available [facility] [address], [place], [address], 09/23/2020 04:51:31 09/21/19 21 09/23/2020 CMP, serum or plasm a carbon dioxide 20 mmol/ L 20-32 normal Not Available [facility] [place] [facility] [address], [place], [address], 09/23/2020 04:51:31 09/21/19 21 09/23/2020 CMP, serum or plasm a calcium 10.0 mg/dL 8.6-10 .4 normal Not Available [facility] [address], [place], [address], 09/23/2020 04:51:31 09/21/1909/23/2020 CMP, serum or plasm a protein, total 7.2 g/dL 6.1-8. 1 normal Not Available [facility] [address], [place], [address], 09/23/2020 04:51:31 09/21/1909/23/2020 CMP, serum or plasm a albumin 4.8 g/dL 3.6-5. 1 normal Not Available [facility], [place], [address], 09/23/2020 04:51:31 09/21/1909/23/2020 CMP, serum or plasm a globulin 2.4 g/dL_ (calc ) 1.9-3. 7 normal Not Available [facility] [address], [place], [address], 09/23/2020 04:51:31 09/21/1909/23/2020 CMP, serum or plasm a albumin/glob ulin ratio 2.0 (calc ) 1.0-2. 5 normal Not Available [facility] [address], [place], [address], 09/23/2020 04:51:31 09/21/1909/23/2020 CMP, serum or plasm a bilirubin, total 0.6 mg/dL 0.2-1. 2 normal Not Available [facility] [address], [place], [address], 09/23/2020 04:51:31 09/21/19 21 09/23/2020 CMP, serum or plasm a alkaline phosphatase 83 U/L 37-153 normal Not Available [facility] [place] [facility] [address], [place], [address], 09/23/2020 04:51:31 09/21/19 21 09/23/2020 CMP, serum or plasm a AST 31 U/L 10-35 normal Not Available [facility] [place] [facility] [address], [place], [address], 09/23/2020 04:51:31 09/21/19 21 09/23/2020 CMP, serum or plasm a ALT 35 U/L 6-29 high Not Available [facility] [place] [facility] [address], [place], [address], 09/23/2020 04:51:31 09/21/19 21 09/23/2020 HbA1c (hemo [...] patience(A DA). Not Available [facility] [place] [facility] [address], [place], [address], 09/23/2020 04:51:31 09/21/19 21 09/23/2020 vitam in [...] /MS is recom marilin d: order code 41535 (chioma ents >2yrs ). See Note 1 Note 1 For addit ional infor anais marshall e refer to http: //oneida De La Cruzia gnost ics.c om/fa q/FAQ 199 (This link is being provi ded for infor tresa ya/ educa renita l purpo ses only. ) Not Available [facility] [place] [facility] [address], [place], [address], 09/23/2020 04:51:32 09/21/19 21 09/23/2020 CBC w/ auto diff white blood cell count 5.4 thous and/u L 3.8-10 .8 normal Not Available [facility] [place] [facility] [address], [place], [address], 09/23/2020 04:51:32 09/21/19 21 09/23/2020 CBC w/ auto diff red blood cell count 5.06 ne on/uL 3.80-5 .10 normal Not Available [facility] [place] [facility] [address], [place], [address], 09/23/2020 04:51:32 09/21/19 21 09/23/2020 CBC w/ auto diff hemoglobin 14.8 g/dL 11.7-1 5.5 normal Not Available [facility] [address], [place], [address], 09/23/2020 04:51:32 09/21/19 21 09/23/2020 CBC w/ auto diff hematocrit 43.4 % 35.0-4 5.0 normal Not Available [facility] [address], [place], [address], 09/23/2020 04:51:32 09/21/1909/23/2020 CBC w/ auto diff MCV 85.8 fL 80.0-1 00.0 normal Not Available [facility] [address], [place], [address], 09/23/2020 04:51:32 09/21/1909/23/2020 CBC w/ auto diff MCH 29.2 pg 27.0-3 3.0 normal Not Available [facility] [address], [place], [address], 09/23/2020 04:51:32 09/21/19 21 09/23/2020 CBC w/ auto diff MCHC 34.1 g/dL 32.0-3 6.0 normal Not Available [facility] [facility] [address], [place], [address], 09/23/2020 04:51:32 09/21/1909/23/2020 CBC w/ auto diff RDW 13.5 % 11.0-1 5.0 normal Not Available [facility] [address], [place], [address], 09/23/2020 04:51:32 09/21/19 21 09/23/2020 CBC w/ auto diff platelet count 278 thous and/u L 140-40 0 normal Not Available [facility] [address], [place], [address], 09/23/2020 04:51:32 09/21/19 21 09/23/2020 CBC w/ auto diff MPV 11.5 fL 7.5-12 .5 normal Not Available [facility] [address], [place], [address], 09/23/2020 04:51:32 09/21/19 21 09/23/2020 CBC w/ auto diff absolute neutrophils 2813 cells /uL 1500-7 800 normal Not Available [facility] [address], [place], [address], 09/23/2020 04:51:32 09/21/19 21 09/23/2020 CBC w/ auto diff absolute lymphocytes 1993 cells /uL 850-39 00 normal Not Available [facility] [address], [place], [address], 09/23/2020 04:51:32 09/21/19 21 09/23/2020 CBC w/ auto diff absolute monocytes 443 cells /uL 200-95 0 normal Not Available [facility] [address], [place], [address], 09/23/2020 04:51:32 09/21/19 21 09/23/2020 CBC w/ auto diff absolute eosinophils 119 cells /uL 15-500 normal Not Available [facility] [address], [place], [address], 09/23/2020 04:51:32 09/21/19 21 09/23/2020 CBC w/ auto diff absolute basophils 32 cells /uL 0-200 normal Not Available [facility] [address], [place], [address], 09/23/2020 04:51:32 09/21/19 21 09/23/2020 CBC w/ auto diff neutrophils 52.1 % normal Not Available [facility] [place] [facility] [address], [place], [address], 09/23/2020 04:51:32 09/21/19 21 09/23/2020 CBC w/ auto diff lymphocytes 36.9 % normal Not Available [facility] [place] [facility] [address], [place], [address], 09/23/2020 04:51:32 09/21/19 21 09/23/2020 CBC w/ auto diff monocytes 8.2 % normal Not Available [facility] [place] [facility] [address], [place], [address], 09/23/2020 04:51:32 09/21/19 21 09/23/2020 CBC w/ auto diff eosinophils 2.2 % normal Not Available [facility] [place] [facility] [address], [place], [address], 09/23/2020 04:51:32 09/21/19 21 09/23/2020 CBC w/ auto diff basophils 0.6 % normal Not Available [facility] [place] [facility] [address], [place], [address], 09/23/2020 04:51:32 09/21/19 21 09/23/2020 urina lysis compl ete, refle x cultu re color YELLOW yellow normal Not Available [facility] [place] [facility] [address], [place], [address], 09/23/2020 04:51:33 09/21/1909/23/2020 urina lysis compl ete, refle x cultu re appearance CLEAR clear normal Not Available [facility] [place] [facility] [address], [place], [address], 09/23/2020 04:51:33 09/21/19 21 09/23/2020 urina lysis compl ete, refle x cultu re specific gravity 1.022 1.001- 1.035 normal Not Available [facility] [place] [facility] [address], [place], [address], 09/23/2020 04:51:33 09/21/19 21 09/23/2020 urina lysis compl ete, refle x cultu re pH 5.5 5.0-8. 0 normal Not Available [facility] [place] [facility] [address], [place], [address], 09/23/2020 04:51:33 09/21/19 21 09/23/2020 urina lysis compl ete, refle x cultu re glucose NEGATI VE negati ve normal Not Available [facility] [place] [facility] [address], [place], [address], 09/23/2020 04:51:33 09/21/19 21 09/23/2020 urina lysis compl ete, refle x cultu re bilirubin NEGATI VE negati ve normal Not Available [facility] [place] [facility] [address], [place], [address], 09/23/2020 04:51:33 09/21/19 21 09/23/2020 urina lysis compl ete, refle x cultu re ketones TRACE negati ve abnormal Not Available [facility] [place] [facility] [address], [place], [address], 09/23/2020 04:51:33 09/21/1909/23/2020 urina lysis compl ete, refle x cultu re occult blood NEGATI VE negati ve normal Not Available [facility] [place] [facility] [address], [place], [address], 09/23/2020 04:51:33 01/11/20 21 09/23/2020 urina lysis compl ete, refle x cultu re protein NEGATI VE negati ve normal Not Available [facility] [place] [facility] [address], [place], [address], 09/23/2020 04:51:33 09/21/19 21 09/23/2020 urina lysis compl ete, refle x cultu re nitrite NEGATI VE negati ve normal Not Available [facility] [place] [facility] [address], [place], [address], 09/23/2020 04:51:33 09/21/19 21 09/23/2020 urina lysis compl ete, refle x cultu re leukocyte esterase NEGATI VE negati ve normal Not Available [facility] [place] [facility] [address], [place], [address], 09/23/2020 04:51:33 09/21/19 21 09/23/2020 urina lysis compl ete, refle x cultu re WBC NONE SEEN /hpf < or = 5 normal Not Available [facility] [place] [facility] [address], [place], [address], 09/23/2020 04:51:33 09/21/19 21 09/23/2020 urina lysis compl ete, refle x cultu re RBC NONE SEEN /hpf < or = 2 normal Not Available [facility] [place] [facility] [address], [place], [address], 09/23/2020 04:51:33 09/21/19 21 09/23/2020 urina lysis compl ete, refle x cultu re squamous epithelial cells 0-5 /hpf < or = 5 Not Available [facility] [address], [place], [address], 09/23/2020 04:51:33 09/21/19 21 09/23/2020 urina lysis compl ete, refle x cultu re bacteria NONE SEEN /hpf none seen normal Not Available [facility] [place] [facility] [address], [place], [address], 09/23/2020 04:51:33 09/21/19 21 09/23/2020 urina lysis compl ete, refle x cultu re hyaline cast NONE SEEN /lpf none seen normal Not Available [facility] [place] [facility] [address], [place], [address], 09/23/2020 04:51:33 09/21/19 21 09/23/2020 cultu re, urine reflexive urine culture NO CULTU RE INDIC ATED Not Available [facility] [address], [place], [address], 09/23/2020 04:51:33 10/15/19 21 10/17/2020 urina lysis compl ete, refle x cultu re color DARK YELLOW yellow normal Not Available [facility] [address], [place], [address], 10/17/2020 11:28:37 10/15/19 21 10/17/2020 urina lysis compl ete, refle x cultu re appearance TURBID clear abnormal Not Available [facility] [address], [place], [address], 10/17/2020 11:28:37 10/15/19 21 10/17/2020 urina lysis compl ete, refle x cultu re specific gravity 1.026 1.001- 1.035 normal Not Available [facility] [place] [facility] [address], [place], [address], 10/17/2020 11:28:37 10/15/19 21 10/17/2020 urina lysis compl ete, refle x cultu re pH 6.0 5.0-8. 0 normal Not Available [facility] [address], [place], [address], 10/17/2020 11:28:37 10/15/19 21 10/17/2020 urina lysis compl ete, refle x cultu re glucose NEGATI VE negati ve normal Not Available [facility] [place] [facility] [address], [place], [address], 10/17/2020 11:28:37 10/15/19 21 10/17/2020 urina lysis compl ete, refle x cultu re bilirubin NEGATI VE negati ve normal Not Available [facility] [place] [facility] [address], [place], [address], 10/17/2020 11:28:37 10/15/19 21 10/17/2020 urina lysis compl ete, refle x cultu re ketones NEGATI VE negati ve normal Not Available [facility] [place] [facility] [address], [place], [address], 10/17/2020 11:28:37 10/15/19 21 10/17/2020 urina lysis compl ete, refle x cultu re occult blood 3+ negati ve abnormal Not Available [facility] [place] [facility] [address], [place], [address], 10/17/2020 11:28:37 10/15/19 21 10/17/2020 urina lysis compl ete, refle x cultu re protein 2+ negati ve abnormal Not Available [facility] [place] [facility] [address], [place], [address], 10/17/2020 11:28:37 10/15/19 21 10/17/2020 urina lysis compl ete, refle x cultu re nitrite POSITI VE negati ve abnormal Not Available [facility] [place] [facility] [address], [place], [address], 10/17/2020 11:28:37 10/15/19 21 10/17/2020 urina lysis compl ete, refle x cultu re leukocyte esterase 2+ negati ve abnormal Not Available [facility] [place] [facility] [address], [place], [address], 10/17/2020 11:28:37 10/15/19 21 10/17/2020 urina lysis compl ete, refle x cultu re WBC > OR = 60 /hpf < or = 5 abnormal Not Available [facility] [place] [facility] [address], [place], [address], 10/17/2020 11:28:37 10/15/19 21 10/17/2020 urina lysis compl ete, refle x cultu re RBC > OR = 60 /hpf < or = 2 abnormal Not Available [facility] [place] [facility] [address], [place], [address], 10/17/2020 11:28:37 10/15/19 21 10/17/2020 urina lysis compl ete, refle x cultu re squamous epithelial cells 0-5 /hpf < or = 5 Not Available [facility] [place] [facility] [address], [place], [address], 10/17/2020 11:28:37 10/15/19 21 10/17/2020 urina lysis compl ete, refle x cultu re bacteria MODERA TE /hpf none seen abnormal Not Available [facility] [place] [facility] [address], [place], [address], 10/17/2020 11:28:37 10/15/19 21 10/17/2020 urina lysis compl ete, refle x cultu re hyaline cast NONE SEEN /lpf none seen normal Not Available [facility] [place] [facility] [address], [place], [address], 10/17/2020 11:28:37 10/15/19 21 10/17/2020 urina lysis compl ete, refle x cultu re comments FEW MUCOUS THREAD S Not Available [facility] [place] [facility] [address], [place], [address], 10/17/2020 11:28:37 10/15/19 21 10/17/2020 urina lysis compl ete, refle x cultu re reflexive urine culture CULTU RE INDIC ATED - RESUL TS TO FOLLO W Not Available [facility] [place] [facility] [address], [place], [address], 10/17/2020 11:28:37 10/15/19 21 10/18/2020 cultu re, urine culture, urine, routine SEE NOTE abnormal CULTU RE, URINE , ROUTI NE Micro Numbe r: [id number] Test Statu s: Final Speci men [...] lexin and lorac arbef . Not Available [facility] [place] [facility] [address], [place], [address], 10/18/2020 09:21:54 10/15/1910/15/2020 urina lysis , dipst ick Color Brown Not Available [facility] [address], [place], [address], 10/15/2020 12:36:15 10/15/1910/15/2020 urina lysis , dipst ick Appearance Turbid Not Available [facility] [address], [place], [address], 10/15/2020 12:36:15 10/15/19 21 10/15/2020 urina lysis , dipst ick Leukocytes Modera te 125 (++) Not Available [facility] [address], [place], [address], 10/15/2020 12:36:15 10/15/19 21 10/15/2020 urina lysis , dipst ick Nitrite Positi ve Not Available [facility] [address], [place], [address], 10/15/2020 12:36:15 10/15/19 21 10/15/2020 urina lysis , dipst ick Urobilinogen 8 (140) mg/dL Not Available [facility] [address], [place], [address], 10/15/2020 12:36:15 10/15/19 21 10/15/2020 urina lysis , dipst ick Protein 100 (1.0) mg/dL (++) Not Available [facility] [address], [place], [address], 10/15/2020 12:36:15 10/15/19 21 10/15/2020 urina lysis , dipst ick pH 5.0 Not Available [facility] [address], [place], [address], 10/15/2020 12:36:15 10/15/19 21 10/15/2020 urina lysis , dipst ick Blood Trace Not Available [facility] [address], [place], [address], 10/15/2020 12:36:15 10/15/19 21 10/15/2020 urina lysis , dipst ick Specific [place] 1.030 Not Available [facility] [address], [place], [address], 10/15/2020 12:36:15 10/15/19 21 10/15/2020 urina lysis , dipst ick Ketone X-Larg e (++++) Not Available [facility] [address], [place], [address], 10/15/2020 12:36:15 10/15/19 21 10/15/2020 urina lysis , dipst ick Bilirubin Small 1(17) mg/dL (+) Not Available [facility] [address], [place], [address], 10/15/2020 12:36:15 10/15/19 21 10/15/2020 urina lysis , dipst ick Glucose Negati ve Not Available [facility] [address], [place], [address], 10/15/2020 12:36:15 07/16/20 20 07/08/2020 DEXA No observ ation record ed. [facility] [address] [place], [address], 08/24/2020 16:00:56 07/16/2007/15/2020 XR, chest , 2 view No observ ation record ed. [facility] Not Available 2019 16:00:56 07/17/20 elect rayar diogr am No observ ation record ed. [email or web address] Not Available 2019 17:59:16 07/17/20 20 07/08/2020 MAMMO , scree katy, digit al, bilat eral No observ ation record ed. [facility] [address] [place], [address], 08/24/2020 16:00:57 Result Notes None recorded. Problems Name Problem SNOMED Code Status Onset Date Resolution Date Notes Provider Name and Address Organization Details Recorded Time Insomnia 802173159 Active 2019 Marina lauren MD [address], [place], [address], [facility] 0 10:04:17 Anxiety 04446845 Active 2019 Marina lauren MD [address], [place], [address], [facility] 0 10:04:18 Abnormal weight gain 631716212 Active 2019 Marina lauren MD [address], [place], [address], [facility] 0 10:04:20 Recurrent major depression 75805206 Active 2019 Marina lauren MD [address], [place], [address], [facility] 0 10:04:22 Persistent cough 545571606 Active 2019 Marina lauren MD [address], [place], [address], [facility] 0 10:04:26 Ankle pain 510536155 Active 2019 Marina lauren MD [address], [place], [address], [facility] 0 10:04:27 Pain of right shoulder joint 3779290578868 9100 Active 2019 Marina lauren MD [address], [place], [address], [facility] 0 10:04:29 Restless legs 74342770 Active 2019 Pili Ching MD [address], [place], [address], [facility] 0 11:11:16 Hyperlipide zachery 24003691 Active 2019 Pili Ching MD [address], [place], [address], [place] [facility] 0 11:11:21 Osteopenia 521830338 Active 2019 Pili Ching MD [address], [place], [address], [place] [facility] 0 01:59:25 Gastroesoph ageal reflux disease 104747871 Active 2019 Pili Ching MD [address], [place], [address], [place] [facility] 0 02:03:26 Problem Notes None recorded. Procedures Surgical History Date Name Laterality Status Provider Name and Address Organization Details Recorded Time 04/25/20 19 Date of Last Mammogram completed [facility] 06/24/2020 08:53:49 01/10/20 19 Colonoscopy completed [facility] 06/24/2020 08:53:03 12/20/19 18 Other completed [facility] 06/24/2020 08:53:03 10/11/19 17 Other completed [facility] 06/24/2020 08:53:03 10/21/19 14 Other completed [facility] 06/24/2020 08:53:03 01/10/20 05 Breast Surgery completed [facility] 06/24/2020 08:53:03 Hysterectomy completed [facility] 06/24/2020 08:53:03 Imaging Results Imaging Date Name Status LastModified by Organization Details LastModified Time 07/08/2020 DEXA completed [facility] [address] [place], [address], 08/24/2020 16:00:56 07/15/2020 XR, chest, 2 view completed [facility] Informa tion not available 08/24/2020 16:00:56 07/17/2020 electrocardiogram completed [email or web address] Informa tion not available 08/03/2020 17:59:16 07/08/2020 MAMMO, screening, digital, bilateral completed [facility] [address] [place], [address], 08/24/2020 16:00:57 Procedure Notes None recorded. Medical [...] Updated DateTime 0 160.02 cm 33.5 kg/m2 39102.9 6 g 97.4 [degF] 63 /min 96 % 96 % 115 mm[Hg] 75 mm[Hg] Juan barr [facility] 0 08:59:27 Date Recorded Body height Body mass index (BMI) Body weight Heart rate Oxygen saturation Oxygen saturation in Arterial blood by Pulse oximetry Body temperature Systolic blood pressure Diastolic blood pressure Provider Name and Address Organization Details Last Updated DateTime 0 160.02 cm 33.1 kg/m2 83973.7 7 g 59 /min 97 % 97 % 96.3 [degF] 107 mm[Hg] 73 mm[Hg] Juan barr [facility] 0 10:24:30 Date Recorded Body height Body temperature Body mass index (BMI) Body weight Heart rate Oxygen saturation Oxygen saturation in Arterial blood by Pulse oximetry Systolic blood pressure Diastolic blood pressure Provider Name and Address Organization Details Last Updated DateTime 1 160.02 cm 96.8 [degF] 33.4 kg/m2 25471.8 g 73 /min 95 % 95 % 121 mm[Hg] 75 mm[Hg] Fernandez Evin [facility] 1 08:35:26 Date Recorded Body height Body temperature Body mass index (BMI) Body weight Heart rate Oxygen saturation Oxygen saturation in Arterial blood by Pulse oximetry Systolic blood pressure Diastolic blood pressure Provider Name and Address Organization Details Last Updated DateTime 1 160.02 cm 96.7 [degF] 33.2 kg/m2 55108.2 1 g 61 /min 97 % 97 % 110 mm[Hg] 71 mm[Hg] Juan barr [facility] 1 14:22:49 Social History Question Answer Notes LastModified by Organizat ion Details LastModified Time Tobacco Smoking Status Former Smoker Juan gutiérrez [facility] 06/24/2020 08:53:30 What Is Your Level [...] LastModified by Organization Details LastModified Time Father Harmful pattern of use of alcohol 20 62 Not available 08:53:39 Medical History Condition Response HIV N Coronary Artery Disease N Mood Disorders N Sleep Disorders N Weight Problems Y Depression Y Anemia N Kidney disease N CVA/Stroke N Arthritis/Joint Disease N Anxiety Disorder Y Diabetes N Hemorrhoids N High blood pressure/Hypertension N Psych disorders N COPD/Lung Disease N Kidney stones N Cancer N Hearing problems N DVT/Blood clot N Heart disease N [...] mL dose 03/23/2021 completed Diaina Prepetit null, [facility] 03/25/2021 12:26:32 COVID-19, mRNA, LNP-S, PF, 30 mcg/0.3 mL dose 04/13/2021 completed Diaina Prepetit null, [facility] 04/15/2021 10:25:26 Past Encounters Encounter ID Performer Location Encounter Start Date Encounter Closed Date Diagnosis/Indication Diagnosis SNOMED-CT Code Diagnosis ICD10 Code Diagnosis Note [id number] Marina villegas MD [facility] [address] [place] [address] [address] [place] [address] 06/24/2020 08:44:32 06/24/2020 10:26:08 Pain of right shoulder joint 2129843527 6139547 M25.511 No red flag findings on exam May take NSAID as needed, must take with food to prevent GI upset Muscle relaxant prescribed for more severe and persistent pain Discussed medication regimen as well as diet and exercise modificati on Patient will apply heat/ice as needed for pain relief Follow up in 2 weeks for re-evaluat ion Ankle pain 549703392 M25 .5[address] Hx of [address] in [address], referred for x-ray, further management as indicate dafter that Persistent cough 3465216 02 R05 Exam unremarkab le, will refer for chest x-ray Abnormal weight gain 161 155396 R63.5 R73.09 E78.9 R53.83 E61.1 Discussed lifestyle modificati ons, regular exercise and dietary changes Risk stratifica tion with A1c and lipids Follow up scheduled for monitoring Anxiety 22291137 F41.9 Contineu lexapro with busparPati ent identified triggers for anxiety and impact of anxious thinking on functionin g.Discusse d strategies to regulate symptoms and need for compliance with treatment. Insomnia 253650119 G47.0 0 Good sleep hygiene and natural remedies discussed: melatonin, sleepy time tea Trazodone as needed for persistent symptoms Recurrent major depression 59799569 F33.9 Stable on lexapro, continue as prescribed Renewal of prescription 029185329 Z76.0 Screening for malignant neoplasm of breast 839829186 Z12.39 Osteopenia 333757978 M85 .80 [id number] Pili Ching MD [facility] [address] [facility] [address] [place] [address] 07/17/2020 10:13:59 07/17/2020 11:49:05 Pain of right shoulder joint 1682204610 5287693 M25.511 No red flag findings on exam May take NSAID as needed, must take with food to prevent GI upset Muscle relaxant prescribed for more severe and persistent pain Discussed medication regimen as well as diet and exercise modificati on Patient will apply heat/ice as needed for pain relief Ankle pain 234205829 M25 .579 [address]x of [address] in place, x-ray 07/08/20 shows hardware intact.jhonny l place on diclofenac gel. further eval and ortho eval based on symptoms. Persistent cough 8855181 02 R05 Exam unremarkab le, CXR 07/15/20 N. Will treat for gerd. If symptoms persist despite PPI will get further eval with CT chest. Recurrent major depression 30889162 F33.9 Stable on lexapro, continue as prescribed Abnormal weight gain 161 458156 R63.5 R73.09 E78.9 R53.83 E61.1 Discussed lifestyle modificati ons, regular exercise and dietary changes Risk stratifica tion with A1c and lipids Follow up scheduled for monitoring Anxiety 97985955 F41.9 Continue lexapro with busparPati ent identified triggers for anxiety and impact of anxious thinking on functionin g.Discusse d strategies to regulate symptoms and need for compliance with treatment. Insomnia 470589089 G47.0 0 Good sleep hygiene and natural remedies discussed: melatonin, sleepy time tea Trazodone as needed for persistent symptoms but makes her feel groggy the next day. Osteopenia 311399202 M85 .80 DEXA 07/08/20 osteopenia L1-4 -1.5Patien [...] the patient? s satisfact ion. Restless legs 84056019 G 25.81 will eval with labs. For now will start on lyrica and reassess. Hyperlipidemia 90136175 E78.5 06/24/20 TC 260, HDL 59, TG [...] of the week. Atypical chest pain 1025 40869 R07.89 Patient presents with {{chest* a rm [...] if symptoms worsen. Gastroesop hageal reflux disease 732926619 K21.[address] on trial of PPE [...] nonsteroid al anti-infla mmatory medicines and asa [id number] [facility] [address] [facility] [address] [place] [address] 09/21/2020 08:27:49 09/21/2020 09:08:39 Recurrent major depression 85468180 F33.9 Stable on lexapro, continue as prescribed PHQ 9 score zero today. Abnormal weight gain 161 129373 R63.5 R73.09 E78.9 R53.83 E61.1 Discussed lifestyle modificati ons, regular exercise and dietary changes Risk stratifica tion with A1c and lipids Follow up scheduled for monitoring Anxiety 10105245 F41.9 Continue lexaproPat ient identified triggers for anxiety and impact of anxious thinking on functionpavel rasmussen strategies to regulate symptoms and need for compliance with treatment. Insomnia 321561016 G47.0 0 Good sleep hygiene and natural remedies discussed: melatonin, sleepy time tea Gabapentin prescribed for her restless legs since lyrica was not covered, it maybe able to help with her sleep . Osteopenia 938691318 M85 .80 Dexa 06/2020. Adult heal th examination 293105861 Z00.00 Patient presented to office today for their Annual Wellness Visit. She has started a diet and has lost 10 lbs since her last visit.Cont inue current regimen. No acute findings on exam.Refus es influenza vaccine and all other vaccines. Screening for disorder 593115531 Z13.9 CAGE and PHQ-9 screening, negative Advance di rective discussed with patient 567057167 Z71.89 Does not have a living will. She is working on it at this time. Hyperlipidemia 53796508 E78.5 LDL elevated at last visit.She has changed her diet and lost weigh.Foll ow up labs. Restless legs [id number] G 25.81 Lyrica was not covered by Insurance. Trial of Gabapentin today discussed. [id number] HUMER[place] ALCANTARA [facility] [address] [place] [address] 10/15/2020 13:58:29 10/15/2020 14:46:58 Acute urinary tract infection [id number] N39.0 Meds as directed.D iscussed clear fluids.David l if no resolution . Candidiasis of vagina [id number] B37.3 Discussed meds as directed.D iscussed probiotics . Health Concerns Section Related Observation LastModified by Organization Detai ls LastModified Time None Recorded Concern Status LastModified by Organization Details LastModified Time None Recorded Advance Directives Directive None Recorded Payers Encounter Date Sequence Insurance Name Policy Number Policy Grace Covered Member ID Grace Member ID Guarantor Name 06/24/2020 1 [place] Pamela Liz [id number] Pamela Liz 07/17/2020 1 [employer] Pamela Liz [id number] Pamela Liz 09/21/2020 1 [place] Pamela Liz [id number] Pamela Liz 10/15/2020 1 [place] Pamela Liz [id number] Pamela Liz Notes Date Note Type [...] her a few years ago, moved to [place] for healing, she recently moved to [place], lives with her elderly aunt. Takes trazodone as needed at bedtime. She is on lexapro and buspar. Marina desai MD [address], [place], [address], [facility] - [facility] 06/24/2020 10:18:27 07/17/2020 text/html Seen on follow [...] her a few years ago, moved to [place] for healing, she recently moved to [place], lives with her elderly aunt. Takes trazodone [...] joined weight watchers Pili Ching MD [address], [place], [address], [facility] 08/10/2020 02:18:49 09/21/2020 text/html 60 y/o [...] her a few years ago, moved to [place] for healing, she recently moved to [place], lives with her elderly aunt. She is [...] HUMERA DAVIS [address], [place], [address], [facility] - [facility] 09/21/2020 08:59:05 10/15/2020 text/html 60 y/o female presents today for a same day sick visit.C/O of dysuria for the past 2 days. Took AZO and cranberry without any help.Admits to some urinary frequency and urgency and suprapubic discomfort. Denies any hematuria.Admits to discharge and some pruritus. HUMERA DAVIS [address], [place], [address], [facility] 10/15/2020 14:47:24 OBGyn Episode No OBEpisode recorded.
--- OUTSIDE RECORDS SUMMARY | 2025-01-07 15:54 | XMS_ITS | Clinical Summary ---
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 [id number] 08/11/2022-Pres ent [address] [place] [id number] PPO
== END 2025-01-07 14:57 | disposition home or self-care (01) ==
LOC: HO.HNS 13:46
PROVIDERS: PCP Nurse Practitioner Family; Referring Provider Physician Assistant; Visit Provider Physician Assistant
DX: M54.50 Low back pain, unspecified (principal)
CPT/HCPCS: 99204

== ENCOUNTER 2025-01-07 13:45 | Outpatient (REF) | payer OTHER, SELFPAY ==
--- OUTSIDE RECORDS SUMMARY | 2025-01-07 16:25 | XMS_ITS | Clinical Summary ---
Author Organization [facility] Address [address] [place], [place] [id number] Care Team Providers Care Webbing Seamer P[employer] Net Name Role Phone Unavailable Primary Care Provider [...] ID Effect nicole Dates Phone Address Type [employer]. [email or web address] 08/11/2022-Pres ent [address] [place] [id number] PPO
== END 2025-01-07 13:46 | disposition home or self-care (01) ==
LOC: HO.HOSX 13:45
PROVIDERS: PCP Nurse Practitioner Family; Referring Provider Physician Assistant; Visit Provider Physician Assistant
DX: M54.50 Low back pain, unspecified (principal)
CPT/HCPCS: 99202

== ENCOUNTER 2025-01-23 07:56 | Outpatient (REF) | payer OTHER, SELFPAY ==
--- NOTE | ~2025-01-23 | XR_ITS ---
EXAMINATION: XR SHOULDER, LEFT CLINICAL INFORMATION: M25.519 - Pain in unspecified shoulder COMPARISON: None available. TECHNIQUE: AP external rotation, Grashey, scapular Y, and axillary views of the left shoulder. FINDINGS: Normal bone mineralization. No fracture, dislocation, or suspicious bone lesion. Normal alignment. The glenohumeral joint demonstrate mild degenerative arthritis. The AC joint demonstrates moderate degenerative arthritis with mild undersurface spurring and moderate superior surface spurring. There is a neutral lateral acromion. No undersurface spurring. The subacromial space is preserved. Remainder of the soft tissue and bony structures appear normal. XR/XR shoulder LT min 2V IMPRESSION: 1. No acute bony abnormalities. 2. Mild degenerative arthritis glenohumeral joint. 3. Mild to moderate degenerative arthritis AC joint. Electronically signed by: Zaki Tyson MD 01/23/2025 11:12 AM EDT
--- OUTSIDE RECORDS SUMMARY | 2025-01-23 07:59 | XMS_ITS | Data Portability ---
Author Organization [facility] [employer] Address [address] [place] [address] Assessment No assessment recorded. Plan of Treatment Reminders Order Date Submit Date Provider Last Modified By Organization Details Last Modified Time Details Appointments None recorded. Lab urinalysis , dipstick 2020 MATT [facility], [address], [address], [place], [address], 14:46:44 urinalysis complete, reflex culture 2020 MATT [...] 0 11:09:17 Referral physical therapist referral 2019 [facility], [address] [place], [address], 1 05:03:50 Procedures None recorded. Surgeries None recorded. Imaging electrocar diogram [address] [facility], [address], [address], [place], [address], 0 11:49:05 XR, chest, 2 view 2019 [facility], [address] [place], [address], 0 12:38:39 DEXA 2019 [facility], [address] [place], [address], 0 10:55:28 MAMMO, screening, digital, bilateral 2019 [facility], [address] [place], [address], 0 15:37:39 XR, ankle, 3 or more view 2019 [facility], [address] [place], [address], 1 05:08:53 Medication Orders Bactrim DS 800 mg-160 mg tablet 2020 021 [facility] #[id number], [address] [place], [address], 1 14:44:54 fluconazol e 150 mg tablet 2020 021 [facility] #[id number], [address] [place], [address], 1 14:44:55 gabapentin 300 mg capsule 2020 021 [facility] #[id number], [address] [place], [address], 1 08:55:14 pregabalin 50 mg capsule 2019 020 [facility][id number], [address] [place], [place], [id number], 1 08:35:15 omeprazole 20 mg capsule,de layed release 2019 020 INTERFACE [facility] #[id number], [address], [place], [place], [id number], 0 11:21:40 diclofenac 1 % topical gel 2019 020 INTERFACE [facility] #[id number], [address], [place], [place], [id number], 0 11:16:14 buspirone 30 mg tablet 2019 020 [email or web address] #[id number], [address], [place], [place], [id number], 0 11:16:50 Patient TargetsNo targets recorded. Patient Instructions Encounter Date Encounter Id Patient Instructions Last Modified By Organization Details Last Modified Time 06/24/2020 [id number] shoulder stretches: exercises [email or web address] Not available 06/24/2020 [...] total 260 mg/dL <200 high Not Available [facility] [address], [place], [address], 06/25/2020 11:09:16 06/24/2006/25/2020 lipid panel , serum HDL cholesterol 59 mg/dL > or = 50 normal Not Available [facility] [address], [place], [address], 06/25/2020 11:09:16 06/24/20 20 06/25/2020 lipid panel , serum triglyceride s 222 mg/dL <150 high If a non-f astin g speci men was colle cted, consi ward repea t trigl yceri de testi ng on a fasti ng speci men if clini bailey indic ated. Farhat potts et al. J. of Clin. Lipid ol. 2015; 9:129 -169. Not Available [facility] [place] [facility] [address], [place], [address], 06/25/2020 11:09:16 06/24/2006/25/2020 lipid panel , serum [...] 9): 2061- 2068 (http ://ed ucati on.Qu GOP[employer]. com/f aq/FA Q164) Not Available [facility] [place] [facility] [address], [place], [address], 06/25/2020 11:09:16 06/24/2006/25/2020 lipid panel , serum chol/HDLC ratio 4.4 (calc ) <5.0 normal Not Available [facility] [place] [facility] [address], [place], [address], 06/25/2020 11:09:16 06/24/2006/25/2020 lipid panel , serum non HDL cholesterol 201 mg/dL _(david c) <130 high For patie nts with diabe patience plus 1 major ASCVD risk facto r, treat ing to a non-H DL-C goal of <100 mg/dL (LDL- C of <70 mg/dL ) is consi dered a thera peuti c optio n. Not Available [facility] [address], [place], [address], 06/25/2020 11:09:16 06/24/2006/25/2020 TSH + free T4, serum TSH 1.47 mIU/L 0.40-4 .50 normal Not Available [facility] [place] [facility] [address], [place], [address], 06/25/2020 11:09:17 06/24/2006/25/2020 TSH + free T4, serum T4, free 1.1 NG/dL 0.8-1. 8 normal Not Available [facility] [address], [place], [address], 06/25/2020 11:09:17 06/24/2006/25/2020 CMP, serum or plasm a glucose 89 mg/dL 65-99 normal Fasti ng refer ence inter izzy Not Available [facility] [address], [place], [address], 06/25/2020 11:09:18 06/24/2006/25/2020 CMP, serum or plasm a urea nitrogen (BUN) 19 mg/dL 7-25 normal Not Available [facility] [address], [place], [address], 06/25/2020 11:09:18 06/24/2006/25/2020 CMP, serum or plasm a creatinine 0.85 mg/dL 0.50-0 .99 normal For patie nts >49 years of age, the refer ence limit for Creat inine is appro ximat magda 13% highe r for peopl e ident ified as Afric an-Am anita n. Not Available [facility] [address], [place], [address], 06/25/2020 11:09:18 06/24/2006/25/2020 CMP, serum or plasm a eGFR non-afr. iraqi 74 mL/mi n/1.7 3m2 > or = 60 normal Not Available [facility] [address], [place], [address], 06/25/2020 11:09:18 06/24/2006/25/2020 CMP, serum or plasm a eGFR 86 mL/mi n/1.7 3m2 > or = 60 normal Not Available [facility] [address], [place], [address], 06/25/2020 11:09:18 06/24/2006/25/2020 CMP, serum or plasm a BUN/creatini ne ratio NOT APPLIC ABLE (calc ) 6-22 Not Available [facility] [address], [place], [address], 06/25/2020 11:09:18 06/24/2006/25/2020 CMP, serum or plasm a sodium 142 mmol/ L 135-14 6 normal Not Available [facility] [address], [place], [address], 06/25/2020 11:09:18 06/24/2006/25/2020 CMP, serum or plasm a potassium 4.3 mmol/ L 3.5-5. 3 normal Not Available [facility] [address], [place], [address], 06/25/2020 11:09:18 06/24/2006/25/2020 CMP, serum or plasm a chloride 103 mmol/ L 98-110 normal Not Available [facility] [address], [place], [address], 06/25/2020 11:09:18 06/24/2006/25/2020 CMP, serum or plasm a carbon dioxide 25 mmol/ L 20-32 normal Not Available [facility] [address], [place], [address], 06/25/2020 11:09:18 06/24/2006/25/2020 CMP, serum or plasm a calcium 9.5 mg/dL 8.6-10 .4 normal Not Available [facility] [address], [place], [address], 06/25/2020 11:09:18 06/24/2006/25/2020 CMP, serum or plasm a protein, total 6.5 g/dL 6.1-8. 1 normal Not Available [facility] [address], [place], [address], 06/25/2020 11:09:18 06/24/2006/25/2020 CMP, serum or plasm a albumin 4.3 g/dL 3.6-5. 1 normal Not Available [facility] [address], [place], [address], 06/25/2020 11:09:18 06/24/2006/25/2020 CMP, serum or plasm a globulin 2.2 g/dL_ (calc ) 1.9-3. 7 normal Not Available [facility] [address], [place], [address], 06/25/2020 11:09:18 06/24/2006/25/2020 CMP, serum or plasm a albumin/glob ulin ratio 2.0 (calc ) 1.0-2. 5 normal Not Available [facility] [address], [place], [address], 06/25/2020 11:09:18 06/24/2006/25/2020 CMP, serum or plasm a bilirubin, total 0.6 mg/dL 0.2-1. 2 normal Not Available [facility] [address], [place], [address], 06/25/2020 11:09:18 06/24/20 20 06/25/2020 CMP, serum or plasm a alkaline phosphatase 81 U/L 37-153 normal Not Available [facility] [place] [facility] [address], [place], [address], 06/25/2020 11:09:18 06/24/2006/25/2020 CMP, serum or plasm a AST 26 U/L 10-35 normal Not Available [facility] [place] [address], [place], [address], 06/25/2020 11:09:18 06/24/2006/25/2020 CMP, serum or plasm a ALT 34 U/L 6-29 high Not Available [facility] [place] [facility] [address], [place], [address], 06/25/2020 11:09:18 06/24/2006/25/2020 HbA1c (hemo globi n [...] patience(A DA). Not Available [facility] [place] [facility] [address], [place], [address], 06/25/2020 11:09:19 06/24/2006/25/2020 CBC w/ auto diff white blood cell count 7.4 thous and/u L 3.8-10 .8 normal Not Available [facility] [address], [place], [address], 06/25/2020 11:09:19 06/24/2006/25/2020 CBC w/ auto diff red blood cell count 4.80 en on/uL 3.80-5 .10 normal Not Available [facility] [address], [place], [address], 06/25/2020 11:09:19 06/24/2006/25/2020 CBC w/ auto diff hemoglobin 14.2 g/dL 11.7-1 5.5 normal Not Available [facility] [address], [place], [address], 06/25/2020 11:09:19 06/24/2006/25/2020 CBC w/ auto diff hematocrit 42.4 % 35.0-4 5.0 normal Not Available [facility] [address], [place], [address], 06/25/2020 11:09:19 06/24/2006/25/2020 CBC w/ auto diff MCV 88.3 fL 80.0-1 00.0 normal Not Available [facility] [address], [place], [address], 06/25/2020 11:09:19 06/24/2006/25/2020 CBC w/ auto diff MCH 29.6 pg 27.0-3 3.0 normal Not Available [facility] [address], [place], [address], 06/25/2020 11:09:19 06/24/2006/25/2020 CBC w/ auto diff MCHC 33.5 g/dL 32.0-3 6.0 normal Not Available [facility] [address], [place], [address], 06/25/2020 11:09:19 06/24/2006/25/2020 CBC w/ auto diff RDW 13.8 % 11.0-1 5.0 normal Not Available [facility] [address], [place], [address], 06/25/2020 11:09:19 06/24/2006/25/2020 CBC w/ auto diff platelet count 242 thous and/u L 140-40 0 normal Not Available [facility] [address], [place], [address], 06/25/2020 11:09:19 06/24/2006/25/2020 CBC w/ auto diff MPV 10.3 fL 7.5-12 .5 normal Not Available [facility] [address], [place], [address], 06/25/2020 11:09:19 06/24/2006/25/2020 CBC w/ auto diff absolute neutrophils 4248 cells /uL 1500-7 800 normal Not Available [facility] [address], [place], [address], 06/25/2020 11:09:19 06/24/2006/25/2020 CBC w/ auto diff absolute lymphocytes 2546 cells /uL 850-39 00 normal Not Available [facility] [address], [place], [address], 06/25/2020 11:09:19 06/24/2006/25/2020 CBC w/ auto diff absolute monocytes 459 cells /uL 200-95 0 normal Not Available [facility] [address], [place], [address], 06/25/2020 11:09:19 06/24/2006/25/2020 CBC w/ auto diff absolute eosinophils 111 cells /uL 15-500 normal Not Available [facility] [address], [place], [address], 06/25/2020 11:09:19 06/24/2006/25/2020 CBC w/ auto diff absolute basophils 37 cells /uL 0-200 normal Not Available [facility] [address], [place], [address], 06/25/2020 11:09:19 06/24/2006/25/2020 CBC w/ auto diff neutrophils 57.4 % normal Not Available [facility] [address], [place], [address], 06/25/2020 11:09:19 06/24/2006/25/2020 CBC w/ auto diff lymphocytes 34.4 % normal Not Available [facility] [address], [place], [address], 06/25/2020 11:09:19 06/24/2006/25/2020 CBC w/ auto diff monocytes 6.2 % normal Not Available [facility] [address], [place], [address], 06/25/2020 11:09:19 06/24/2006/25/2020 CBC w/ auto diff eosinophils 1.5 % normal Not Available [facility] [address], [place], [address], 06/25/2020 11:09:19 06/24/2006/25/2020 CBC w/ auto diff basophils 0.5 % normal Not Available [facility] [address], [place], [address], 06/25/2020 11:09:19 07/17/2007/18/2020 test in [facility]- quant ity not suffi cient question/pro blem: THE QUANT ITY OF SPECI MEN(S ) SUBMI TTED IS INSUF FICIE NT FOR THE TEST( S) REQUE TRISTAND. Not Available [facility] [place] [facility] [address] [place], [address], 07/18/2020 04:09:12 07/17/2007/18/2020 test in [facility] ion- quant ity not suffi cient test(s) ordered: 5616/7 306 Not Available [facility] [place] [facility] [address], [place], [address], 07/18/2020 04:09:12 07/17/2007/18/2020 test in [facility] ion- quant ity not suffi cient quantity received: 1.0 ML SERUM Not Available [facility] [address], [place], [address], 07/18/2020 04:09:12 07/17/2007/18/2020 test in [facility]- quant ity not suffi cient qn required: 2.7 ML SERUM Not Available [facility] [place] [facility] [address] [place], [address], 07/18/2020 04:09:12 07/17/2007/18/2020 test in quest ion- quant ity not suffi cient resolution: * Not Available [facility] [place] [facility] [address], [place], [address], 07/18/2020 04:09:12 07/17/2007/18/2020 test in [facility]- quant ity not suffi cient comment REQUE STED INFOR TRESA N ___ AUTHO RIZED SIGNA TURE ____ TO PREVE NT FURTH ER DELAY S IN TESTI NG, PLEAS E COMPL ETE INFOR TRESA N ABOVE AND FAX TO [phone] [phone] TO RESOL VE THIS ORDER . Not Available [facility] [place] [facility] [address], [place], [address], 07/18/2020 04:09:12 07/17/2007/18/2020 H pylor i Ag, stool result: SEE NOTE Not Available [facility] [place] [facility] [address], [place], [address], 07/18/2020 04:09:12 07/17/2007/20/2020 H pylor i Ag, stool helicobacter pylori Ag, EIA, stool HELIC OBACT ER PYLOR I AG, EIA, STOOL Micro Numbe r: [id number] Test Statu s: Final Speci men Sourc e: NOT GIVEN Speci men Quali ty: Adequ ate H.pyl hali Ag: Test not perfo rmed. No speci men recei taya. Refer ence Range : Not Detec damian Not Available [facility] [place] [facility] [address], [place], [address], 07/20/2020 13:05:44 08/26/2008/2608/26/2020 elect rocar diogr am Rate & Rhythm Not Available [facility] [address], [place], [address], 07/17/2020 11:19:45 08/26/20 20 08/26/2020 elect rocar diogr am QRS Not Available [facility] [address], [place], [address], 07/17/2020 11:19:45 08/26/20 20 08/26/2020 elect rocar diogr am [place] Interval Not Available [facility] [address], [place], [address], 07/17/2020 11:19:45 08/26/20 20 08/26/2020 elect rocar diogr am QRS Duration Not Available [facility] [address], [place], [address], 07/17/2020 11:19:45 08/26/20 20 08/26/2020 elect rocar diogr am QT Interval Not Available [facility] [address], [place], [address], 07/17/2020 11:19:45 09/21/19 21 09/23/2020 lipid panel , serum cholesterol, total 231 mg/dL <200 high Not Available [facility] [address] [place], [address], 09/23/2020 04:51:30 09/21/19 21 09/23/2020 lipid panel , serum HDL cholesterol 52 mg/dL > or = 50 normal Not Available [facility] [address] [place], [address], 09/23/2020 04:51:30 09/21/19 21 09/23/2020 lipid panel , serum triglyceride s 152 mg/dL <150 high Not Available [facility] [address], [place], [address], 09/23/2020 04:51:30 09/21/19 21 09/23/2020 lipid panel [...] 310(1 9): 2061- 2068 (http ://ed ucati on.[employer]. com/f aq/FA Q164) Not Available [facility] [place] [facility] [address], [place], [address], 09/23/2020 04:51:30 09/21/1909/23/2020 lipid panel , serum chol/HDLC ratio 4.4 (calc ) <5.0 normal Not Available [facility] [place] [facility] [address], [place], [address], 09/23/2020 04:51:30 09/21/19 21 09/23/2020 lipid panel , serum non HDL cholesterol 179 mg/dL _(david c) <130 high For patie nts with diabe patience plus 1 major ASCVD risk facto r, treat ing to a non-H DL-C goal of <100 mg/dL (LDL- C of <70 mg/dL ) is consi yulid froilan castilloo n. Not Available [facility] [place] [facility] [address], [place], [address], 09/23/2020 04:51:30 09/21/1909/23/2020 TSH + free T4, serum TSH 1.15 mIU/L 0.40-4 .50 normal Not Available [facility] [place] [facility] [address], [place], [address], 09/23/2020 04:51:30 09/21/19 21 09/23/2020 TSH + free T4, serum T4, free 1.1 NG/dL 0.8-1. 8 normal Not Available [facility] [place] [facility] [address], [place], [address], 09/23/2020 04:51:30 09/21/1909/23/2020 CMP, serum or plasm a glucose 103 mg/dL 65-99 high Fasti ng refer ence inter izzy For someo ne witho ut known diabe patience, a gluco se value betwe en 100 and 125 mg/dL is consi stent with predi abete s and shoul d be confi rmed with a follo w-up test. Not Available [facility] [place] [facility] [address], [place], [address], 09/23/2020 04:51:31 09/21/1909/23/2020 CMP, serum or plasm a urea nitrogen (BUN) 19 mg/dL 7-25 normal Not Available [facility] [place] [facility] [address], [place], [address], 09/23/2020 04:51:31 09/21/1909/23/2020 CMP, serum or plasm a creatinine 0.90 mg/dL 0.50-0 .99 normal For patie nts >49 years of age, the refer ence limit for Creat inine is appro ximat magda 13% highe r for peopl e ident ified as Afric an-Am anita n. Not Available [facility] [place] [facility] [address], [place], [address], 09/23/2020 04:51:31 09/21/19 21 09/23/2020 CMP, serum or plasm a eGFR non-afr. iraqi 69 mL/mi n/1.7 3m2 > or = 60 normal Not Available [facility] [address], [place], [address], 09/23/2020 04:51:31 09/21/19 21 09/23/2020 CMP, serum or plasm a eGFR 81 mL/mi n/1.7 3m2 > or = 60 normal Not Available [facility] [address], [place], [address], 09/23/2020 04:51:31 09/21/1909/23/2020 CMP, serum or plasm a BUN/creatini ne ratio NOT APPLIC ABLE (calc ) 6-22 Not Available [facility] [address], [place], [address], 09/23/2020 04:51:31 09/21/19 21 09/23/2020 CMP, serum or plasm a sodium 144 mmol/ L 135-14 6 normal Not Available [facility] [address], [place], [address], 09/23/2020 04:51:31 09/21/19 21 09/23/2020 CMP, serum or plasm a potassium 4.4 mmol/ L 3.5-5. 3 normal Not Available [facility] [address], [place], [address], 09/23/2020 04:51:31 09/21/1909/23/2020 CMP, serum or plasm a chloride 105 mmol/ L 98-110 normal Not Available [facility] [address], [place], [address], 09/23/2020 04:51:31 09/21/19 21 09/23/2020 CMP, serum or plasm a carbon dioxide 20 mmol/ L 20-32 normal Not Available [facility] [place] [facility] [address], [place], [address], 09/23/2020 04:51:31 09/21/19 21 09/23/2020 CMP, serum or plasm a calcium 10.0 mg/dL 8.6-10 .4 normal Not Available [facility] [address], [place], [address], 09/23/2020 04:51:31 09/21/1909/23/2020 CMP, serum or plasm a protein, total 7.2 g/dL 6.1-8. 1 normal Not Available [facility] [address], [place], [address], 09/23/2020 04:51:31 09/21/1909/23/2020 CMP, serum or plasm a albumin 4.8 g/dL 3.6-5. 1 normal Not Available [facility], [place], [address], 09/23/2020 04:51:31 09/21/1909/23/2020 CMP, serum or plasm a globulin 2.4 g/dL_ (calc ) 1.9-3. 7 normal Not Available [facility] [address], [place], [address], 09/23/2020 04:51:31 09/21/1909/23/2020 CMP, serum or plasm a albumin/glob ulin ratio 2.0 (calc ) 1.0-2. 5 normal Not Available [facility] [address], [place], [address], 09/23/2020 04:51:31 09/21/1909/23/2020 CMP, serum or plasm a bilirubin, total 0.6 mg/dL 0.2-1. 2 normal Not Available [facility] [address], [place], [address], 09/23/2020 04:51:31 09/21/19 21 09/23/2020 CMP, serum or plasm a alkaline phosphatase 83 U/L 37-153 normal Not Available [facility] [place] [facility] [address], [place], [address], 09/23/2020 04:51:31 09/21/19 21 09/23/2020 CMP, serum or plasm a AST 31 U/L 10-35 normal Not Available [facility] [place] [facility] [address], [place], [address], 09/23/2020 04:51:31 09/21/19 21 09/23/2020 CMP, serum or plasm a ALT 35 U/L 6-29 high Not Available [facility] [place] [facility] [address], [place], [address], 09/23/2020 04:51:31 09/21/19 21 09/23/2020 HbA1c (hemo [...] patience(A DA). Not Available [facility] [place] [facility] [address], [place], [address], 09/23/2020 04:51:31 09/21/19 21 09/23/2020 vitam in [...] /MS is recom marilin d: order code 98126 (chioma ents >2yrs ). See Note 1 Note 1 For addit ional infor anais marshall e refer to http: //oneida De La Cruzia gnost ics.c om/fa q/FAQ 199 (This link is being provi ded for infor tresa ya/ educa renita l purpo ses only. ) Not Available [facility] [place] [facility] [address], [place], [address], 09/23/2020 04:51:32 09/21/19 21 09/23/2020 CBC w/ auto diff white blood cell count 5.4 thous and/u L 3.8-10 .8 normal Not Available [facility] [place] [facility] [address], [place], [address], 09/23/2020 04:51:32 09/21/19 21 09/23/2020 CBC w/ auto diff red blood cell count 5.06 en on/uL 3.80-5 .10 normal Not Available [facility] [place] [facility] [address], [place], [address], 09/23/2020 04:51:32 09/21/19 21 09/23/2020 CBC w/ auto diff hemoglobin 14.8 g/dL 11.7-1 5.5 normal Not Available [facility] [address], [place], [address], 09/23/2020 04:51:32 09/21/19 21 09/23/2020 CBC w/ auto diff hematocrit 43.4 % 35.0-4 5.0 normal Not Available [facility] [address], [place], [address], 09/23/2020 04:51:32 09/21/1909/23/2020 CBC w/ auto diff MCV 85.8 fL 80.0-1 00.0 normal Not Available [facility] [address], [place], [address], 09/23/2020 04:51:32 09/21/1909/23/2020 CBC w/ auto diff MCH 29.2 pg 27.0-3 3.0 normal Not Available [facility] [address], [place], [address], 09/23/2020 04:51:32 09/21/19 21 09/23/2020 CBC w/ auto diff MCHC 34.1 g/dL 32.0-3 6.0 normal Not Available [facility] [address], [place], [address], 09/23/2020 04:51:32 09/21/1909/23/2020 CBC w/ auto diff RDW 13.5 % 11.0-1 5.0 normal Not Available [facility] [address], [place], [address], 09/23/2020 04:51:32 09/21/19 21 09/23/2020 CBC w/ auto diff platelet count 278 thous and/u L 140-40 0 normal Not Available [facility] [address], [place], [address], 09/23/2020 04:51:32 09/21/19 21 09/23/2020 CBC w/ auto diff MPV 11.5 fL 7.5-12 .5 normal Not Available [facility] [address], [place], [address], 09/23/2020 04:51:32 09/21/19 21 09/23/2020 CBC w/ auto diff absolute neutrophils 2813 cells /uL 1500-7 800 normal Not Available [facility] [address], [place], [address], 09/23/2020 04:51:32 09/21/19 21 09/23/2020 CBC w/ auto diff absolute lymphocytes 1993 cells /uL 850-39 00 normal Not Available [facility] [address], [place], [address], 09/23/2020 04:51:32 09/21/19 21 09/23/2020 CBC w/ auto diff absolute monocytes 443 cells /uL 200-95 0 normal Not Available [facility] [address], [place], [address], 09/23/2020 04:51:32 09/21/19 21 09/23/2020 CBC w/ auto diff absolute eosinophils 119 cells /uL 15-500 normal Not Available [facility] [address], [place], [address], 09/23/2020 04:51:32 09/21/19 21 09/23/2020 CBC w/ auto diff absolute basophils 32 cells /uL 0-200 normal Not Available [facility] [address], [place], [address], 09/23/2020 04:51:32 09/21/19 21 09/23/2020 CBC w/ auto diff neutrophils 52.1 % normal Not Available [facility] [place] [facility] [address], [place], [address], 09/23/2020 04:51:32 09/21/19 21 09/23/2020 CBC w/ auto diff lymphocytes 36.9 % normal Not Available [facility] [place] [facility] [address], [place], [address], 09/23/2020 04:51:32 09/21/19 21 09/23/2020 CBC w/ auto diff monocytes 8.2 % normal Not Available [facility] [place] [facility] [address], [place], [address], 09/23/2020 04:51:32 09/21/19 21 09/23/2020 CBC w/ auto diff eosinophils 2.2 % normal Not Available [facility] [place] [facility] [address], [place], [address], 09/23/2020 04:51:32 09/21/19 21 09/23/2020 CBC w/ auto diff basophils 0.6 % normal Not Available [facility] [place] [facility] [address], [place], [address], 09/23/2020 04:51:32 09/21/19 21 09/23/2020 urina lysis compl ete, refle x cultu re color YELLOW yellow normal Not Available [facility] [place] [facility] [address], [place], [address], 09/23/2020 04:51:33 09/21/1909/23/2020 urina lysis compl ete, refle x cultu re appearance CLEAR clear normal Not Available [facility] [place] [facility] [address], [place], [address], 09/23/2020 04:51:33 09/21/19 21 09/23/2020 urina lysis compl ete, refle x cultu re specific gravity 1.022 1.001- 1.035 normal Not Available [facility] [place] [facility] [address], [place], [address], 09/23/2020 04:51:33 09/21/19 21 09/23/2020 urina lysis compl ete, refle x cultu re pH 5.5 5.0-8. 0 normal Not Available [facility] [place] [facility] [address], [place], [address], 09/23/2020 04:51:33 09/21/19 21 09/23/2020 urina lysis compl ete, refle x cultu re glucose NEGATI VE negati ve normal Not Available [facility] [place] [facility] [address], [place], [address], 09/23/2020 04:51:33 09/21/19 21 09/23/2020 urina lysis compl ete, refle x cultu re bilirubin NEGATI VE negati ve normal Not Available [facility] [place] [facility] [address], [place], [address], 09/23/2020 04:51:33 09/21/19 21 09/23/2020 urina lysis compl ete, refle x cultu re ketones TRACE negati ve abnormal Not Available [facility] [place] [facility] [address], [place], [address], 09/23/2020 04:51:33 09/21/1909/23/2020 urina lysis compl ete, refle x cultu re occult blood NEGATI VE negati ve normal Not Available [facility] [place] [facility] [address], [place], [address], 09/23/2020 04:51:33 01/11/20 21 09/23/2020 urina lysis compl ete, refle x cultu re protein NEGATI VE negati ve normal Not Available [facility] [place] [facility] [address], [place], [address], 09/23/2020 04:51:33 09/21/19 21 09/23/2020 urina lysis compl ete, refle x cultu re nitrite NEGATI VE negati ve normal Not Available [facility] [place] [facility] [address], [place], [address], 09/23/2020 04:51:33 09/21/19 21 09/23/2020 urina lysis compl ete, refle x cultu re leukocyte esterase NEGATI VE negati ve normal Not Available [facility] [place] [facility] [address], [place], [address], 09/23/2020 04:51:33 09/21/19 21 09/23/2020 urina lysis compl ete, refle x cultu re WBC NONE SEEN /hpf < or = 5 normal Not Available [facility] [place] [facility] [address], [place], [address], 09/23/2020 04:51:33 09/21/19 21 09/23/2020 urina lysis compl ete, refle x cultu re RBC NONE SEEN /hpf < or = 2 normal Not Available [facility] [place] [facility] [address], [place], [address], 09/23/2020 04:51:33 09/21/19 21 09/23/2020 urina lysis compl ete, refle x cultu re squamous epithelial cells 0-5 /hpf < or = 5 Not Available [facility] [address], [place], [address], 09/23/2020 04:51:33 09/21/19 21 09/23/2020 urina lysis compl ete, refle x cultu re bacteria NONE SEEN /hpf none seen normal Not Available [facility] [place] [facility] [address], [place], [address], 09/23/2020 04:51:33 09/21/19 21 09/23/2020 urina lysis compl ete, refle x cultu re hyaline cast NONE SEEN /lpf none seen normal Not Available [facility] [place] [facility] [address], [place], [address], 09/23/2020 04:51:33 09/21/19 21 09/23/2020 cultu re, urine reflexive urine culture NO CULTU RE INDIC ATED Not Available [facility] [address], [place], [address], 09/23/2020 04:51:33 10/15/19 21 10/17/2020 urina lysis compl ete, refle x cultu re color DARK YELLOW yellow normal Not Available [facility] [address], [place], [address], 10/17/2020 11:28:37 10/15/19 21 10/17/2020 urina lysis compl ete, refle x cultu re appearance TURBID clear abnormal Not Available [facility] [address], [place], [address], 10/17/2020 11:28:37 10/15/19 21 10/17/2020 urina lysis compl ete, refle x cultu re specific gravity 1.026 1.001- 1.035 normal Not Available [facility] [place] [facility] [address], [place], [address], 10/17/2020 11:28:37 10/15/19 21 10/17/2020 urina lysis compl ete, refle x cultu re pH 6.0 5.0-8. 0 normal Not Available [facility] [address], [place], [address], 10/17/2020 11:28:37 10/15/19 21 10/17/2020 urina lysis compl ete, refle x cultu re glucose NEGATI VE negati ve normal Not Available [facility] [place] [facility] [address], [place], [address], 10/17/2020 11:28:37 10/15/19 21 10/17/2020 urina lysis compl ete, refle x cultu re bilirubin NEGATI VE negati ve normal Not Available [facility] [place] [facility] [address], [place], [address], 10/17/2020 11:28:37 10/15/19 21 10/17/2020 urina lysis compl ete, refle x cultu re ketones NEGATI VE negati ve normal Not Available [facility] [place] [facility] [address], [place], [address], 10/17/2020 11:28:37 10/15/19 21 10/17/2020 urina lysis compl ete, refle x cultu re occult blood 3+ negati ve abnormal Not Available [facility] [place] [facility] [address], [place], [address], 10/17/2020 11:28:37 10/15/19 21 10/17/2020 urina lysis compl ete, refle x cultu re protein 2+ negati ve abnormal Not Available [facility] [place] [facility] [address], [place], [address], 10/17/2020 11:28:37 10/15/19 21 10/17/2020 urina lysis compl ete, refle x cultu re nitrite POSITI VE negati ve abnormal Not Available [facility] [place] [facility] [address], [place], [address], 10/17/2020 11:28:37 10/15/19 21 10/17/2020 urina lysis compl ete, refle x cultu re leukocyte esterase 2+ negati ve abnormal Not Available [facility] [place] [facility] [address], [place], [address], 10/17/2020 11:28:37 10/15/19 21 10/17/2020 urina lysis compl ete, refle x cultu re WBC > OR = 60 /hpf < or = 5 abnormal Not Available [facility] [place] [facility] [address], [place], [address], 10/17/2020 11:28:37 10/15/19 21 10/17/2020 urina lysis compl ete, refle x cultu re RBC > OR = 60 /hpf < or = 2 abnormal Not Available [facility] [place] [facility] [address], [place], [address], 10/17/2020 11:28:37 10/15/19 21 10/17/2020 urina lysis compl ete, refle x cultu re squamous epithelial cells 0-5 /hpf < or = 5 Not Available [facility] [place] [facility] [address], [place], [address], 10/17/2020 11:28:37 10/15/19 21 10/17/2020 urina lysis compl ete, refle x cultu re bacteria MODERA TE /hpf none seen abnormal Not Available [facility] [place] [facility] [address], [place], [address], 10/17/2020 11:28:37 10/15/19 21 10/17/2020 urina lysis compl ete, refle x cultu re hyaline cast NONE SEEN /lpf none seen normal Not Available [facility] [place] [facility] [address], [place], [address], 10/17/2020 11:28:37 10/15/19 21 10/17/2020 urina lysis compl ete, refle x cultu re comments FEW MUCOUS THREAD S Not Available [facility] [place] [facility] [address], [place], [address], 10/17/2020 11:28:37 10/15/19 21 10/17/2020 urina lysis compl ete, refle x cultu re reflexive urine culture CULTU RE INDIC ATED - RESUL TS TO FOLLO W Not Available [facility] [place] [facility] [address], [place], [address], 10/17/2020 11:28:37 10/15/19 21 10/18/2020 cultu re, urine culture, urine, routine SEE NOTE abnormal CULTU RE, URINE , ROUTI NE Micro Numbe r: [id number] Test Statu s: Final Speci men [...] lexin and lorac arbef . Not Available [facility] [place] [facility] [address], [place], [address], 10/18/2020 09:21:54 10/15/1910/15/2020 urina lysis , dipst ick Color Brown Not Available [facility] [address], [place], [address], 10/15/2020 12:36:15 10/15/1910/15/2020 urina lysis , dipst ick Appearance Turbid Not Available [facility] [address], [place], [address], 10/15/2020 12:36:15 10/15/19 21 10/15/2020 urina lysis , dipst ick Leukocytes Modera te 125 (++) Not Available [facility] [address], [place], [address], 10/15/2020 12:36:15 10/15/19 21 10/15/2020 urina lysis , dipst ick Nitrite Positi ve Not Available [facility] [address], [place], [address], 10/15/2020 12:36:15 10/15/19 21 10/15/2020 urina lysis , dipst ick Urobilinogen 8 (140) mg/dL Not Available [facility] [address], [place], [address], 10/15/2020 12:36:15 10/15/19 21 10/15/2020 urina lysis , dipst ick Protein 100 (1.0) mg/dL (++) Not Available [facility] [address], [place], [address], 10/15/2020 12:36:15 10/15/19 21 10/15/2020 urina lysis , dipst ick pH 5.0 Not Available [facility] [address], [place], [address], 10/15/2020 12:36:15 10/15/19 21 10/15/2020 urina lysis , dipst ick Blood Trace Not Available [facility] [address], [place], [address], 10/15/2020 12:36:15 10/15/19 21 10/15/2020 urina lysis , dipst ick Specific [place] 1.030 Not Available [facility] [address], [place], [address], 10/15/2020 12:36:15 10/15/19 21 10/15/2020 urina lysis , dipst ick Ketone X-Larg e (++++) Not Available [facility] [address], [place], [address], 10/15/2020 12:36:15 10/15/19 21 10/15/2020 urina lysis , dipst ick Bilirubin Small 1(17) mg/dL (+) Not Available [facility] [address], [place], [address], 10/15/2020 12:36:15 10/15/19 21 10/15/2020 urina lysis , dipst ick Glucose Negati ve Not Available [facility] [address], [place], [address], 10/15/2020 12:36:15 07/16/20 20 07/08/2020 DEXA No observ ation record ed. [facility] [address] [place], [address], 08/24/2020 16:00:56 07/16/2007/15/2020 XR, chest , 2 view No observ ation record ed. [facility] Not Available 2019 16:00:56 07/17/20 elect rayar diogr am No observ ation record ed. [email or web address] Not Available 2019 17:59:16 07/17/20 20 07/08/2020 MAMMO , scree katy, digit al, bilat eral No observ ation record ed. [facility] [address] [place], [address], 08/24/2020 16:00:57 Result Notes None recorded. Problems Name Problem SNOMED Code Status Onset Date Resolution Date Notes Provider Name and Address Organization Details Recorded Time Insomnia 019103328 Active 2019 Marina lauren MD [address], [place], [address], [facility] 0 10:04:17 Anxiety 92939813 Active 2019 Marina lauren MD [address], [place], [address], [facility] 0 10:04:18 Abnormal weight gain 755407979 Active 2019 Marina lauren MD [address], [place], [address], [facility] 0 10:04:20 Recurrent major depression 47978323 Active 2019 Marina lauren MD [address], [place], [address], [facility] 0 10:04:22 Persistent cough 894928360 Active 2019 Marina lauren MD [address], [place], [address], [facility] 0 10:04:26 Ankle pain 612348323 Active 2019 Marina lauren MD [address], [place], [address], [facility] 0 10:04:27 Pain of right shoulder joint 3283219177170 9100 Active 2019 Marina lauren MD [address], [place], [address], [facility] 0 10:04:29 Restless legs 11209608 Active 2019 Pili Ching MD [address], [place], [address], [facility] 0 11:11:16 Hyperlipide zachery 10247160 Active 2019 Pili Ching MD [address], [place], [address], [facility] 0 11:11:21 Osteopenia 532126612 Active 2019 Pili Ching MD [address], [place], [address], [place] [facility] 0 01:59:25 Gastroesoph ageal reflux disease 130321667 Active 2019 Pili Ching MD [address], [place], [address], [place] [facility] 0 02:03:26 Problem Notes None recorded. Procedures [...] Organization Details LastModified Time 07/08/2020 DEXA completed [facility] [address] [place], [address], 08/24/2020 16:00:56 07/15/2020 XR, chest, 2 view completed [facility] Informa tion not available 08/24/2020 16:00:56 07/17/2020 electrocardiogram completed [email or web address] Informa tion not available 08/03/2020 17:59:16 07/08/2020 MAMMO, screening, digital, bilateral completed [facility] [address] [place], [address], 08/24/2020 16:00:57 Procedure Notes None recorded. Medical [...] Updated DateTime 0 160.02 cm 33.5 kg/m2 99958.9 6 g 97.4 [degF] 63 /min 96 % 96 % 115 mm[Hg] 75 mm[Hg] Juan barr [facility] 0 08:59:27 Date Recorded Body height Body mass index (BMI) Body weight Heart rate Oxygen saturation Oxygen saturation in Arterial blood by Pulse oximetry Body temperature Systolic blood pressure Diastolic blood pressure Provider Name and Address Organization Details Last Updated DateTime 0 160.02 cm 33.1 kg/m2 28121.7 7 g 59 /min 97 % 97 % 96.3 [degF] 107 mm[Hg] 73 mm[Hg] Juan barr [facility] 0 10:24:30 Date Recorded Body height Body temperature Body mass index (BMI) Body weight Heart rate Oxygen saturation Oxygen saturation in Arterial blood by Pulse oximetry Systolic blood pressure Diastolic blood pressure Provider Name and Address Organization Details Last Updated DateTime 1 160.02 cm 96.8 [degF] 33.4 kg/m2 60291.8 g 73 /min 95 % 95 % 121 mm[Hg] 75 mm[Hg] Fernandez Evin [facility] 1 08:35:26 Date Recorded Body height Body temperature Body mass index (BMI) Body weight Heart rate Oxygen saturation Oxygen saturation in Arterial blood by Pulse oximetry Systolic blood pressure Diastolic blood pressure Provider Name and Address Organization Details Last Updated DateTime 1 160.02 cm 96.7 [degF] 33.2 kg/m2 10296.2 1 g 61 /min 97 % 97 % 110 mm[Hg] 71 mm[Hg] Juan barr [facility] 1 14:22:49 Social History Question Answer Notes LastModified by Organizat ion Details LastModified Time Tobacco Smoking Status Former Smoker Juan gutiérrez [facility] 06/24/2020 08:53:30 What Is Your Level Of Caffeine Consumption? Occasional Information not available 06/24/2020 How Much Tobacco Do You Chew? None Information not available 06/24/2020 What Type Of Diet Are You Following? REGULAR Information not available 06/24/2020 Which Illicit Or Recreational Drugs Have You Used? Marijuana Information not available 06/24/2020 Education 4 Year College Informat ion not available 06/24/2020 When Did You Quit [...] ion Details LastModified Time What is your level of alcohol consumption? 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 Occasional Information [...] dose 03/23/2021 completed Diaina Prepetit null, [facility] 03/25/2021 12:26:32 COVID-19, mRNA, LNP-S, PF, 30 mcg/0.3 mL dose 04/13/2021 completed Diaina Prepetit null, [facility] 04/15/2021 10:25:26 Past Encounters Encounter ID Performer Location Encounter Start Date Encounter Closed Date Diagnosis/Indication Diagnosis SNOMED-CT Code Diagnosis ICD10 Code Diagnosis Note [id number] Marina villegas MD [facility] [address] [place] [address] [address] [place] [address] 06/24/2020 08:44:32 06/24/2020 10:26:08 Pain of right shoulder joint 8953975202 1456029 M25.511 No red flag findings on exam May take NSAID as needed, must take with food to prevent GI upset Muscle relaxant prescribed for more severe and persistent pain Discussed medication regimen as well as diet and exercise modificati on Patient will apply heat/ice as needed for pain relief Follow up in 2 weeks for re-evaluat ion Ankle pain 830063470 M25 .5[address]x [address] in [address], referred for x-ray, further management as indicate dafter that Persistent cough 6686247 02 R05 Exam unremarkab le, will refer for chest x-ray Abnormal weight gain 161 226449 R63.5 R73.09 E78.9 R53.83 E61.1 Discussed lifestyle modificati ons, regular exercise and dietary changes Risk stratifica tion with A1c and lipids Follow up scheduled for monitoring Anxiety 87482408 F41.9 Contineu lexapro with busparPati ent identified triggers for anxiety and impact of anxious thinking on functionin g.Discusse d strategies to regulate symptoms and need for compliance with treatment. Insomnia 858904891 G47.0 0 Good sleep hygiene and natural remedies discussed: melatonin, sleepy time tea Trazodone as needed for persistent symptoms Recurrent major depression 80700248 F33.9 Stable on lexapro, continue as prescribed Renewal of prescription 592357172 Z76.0 Screening for malignant neoplasm of breast 193760114 Z12.39 Osteopenia 672676209 M85 .80 [id number] Pili Ching MD [facility] [address] [facility] [address] [place] [address] 07/17/2020 10:13:59 07/17/2020 11:49:05 Pain of right shoulder joint 1101238062 2625670 M25.511 No red flag findings on exam May take NSAID as needed, must take with food to prevent GI upset Muscle relaxant prescribed for more severe and persistent pain Discussed medication regimen as well as diet and exercise modificati on Patient will apply heat/ice as needed for pain relief Ankle pain 447252981 M25 .5[address]x [address] in place, x-ray 07/08/20 shows hardware intact.jhonny l place on diclofenac gel. further eval and ortho eval based on symptoms. Persistent cough 8111873 02 R05 Exam unremarkab le, CXR 07/15/20 N. Will treat for gerd. If symptoms persist despite PPI will get further eval with CT chest. Recurrent major depression 02559800 F33.9 Stable on lexapro, continue as prescribed Abnormal weight gain 161 882156 R63.5 R73.09 E78.9 R53.83 E61.1 Discussed lifestyle modificati ons, regular exercise and dietary changes Risk stratifica tion with A1c and lipids Follow up scheduled for monitoring Anxiety 60519391 F41.9 Continue lexapro with busparPati ent identified triggers for anxiety and impact of anxious thinking on functionin g.Discusse d strategies to regulate symptoms and need for compliance with treatment. Insomnia 048882225 G47.0 0 Good sleep hygiene and natural remedies discussed: melatonin, sleepy time tea Trazodone as needed for persistent symptoms but makes her feel groggy the next day. Osteopenia 443281904 M85 .80 DEXA 07/08/20 osteopenia L1-4 -1.5Patien [...] the patient? s satisfact ion. Restless legs 35970478 G 25.81 will eval with labs. For now will start on lyrica and reassess. Hyperlipidemia 30834387 E78.5 06/24/20 TC 260, HDL 59, TG [...] of the week. Atypical chest pain 1025 63033 R07.89 Patient presents with {{chest* a rm [...] if symptoms worsen. Gastroesop hageal reflux disease 448887782 K21.[address] on trial of PPE [...] nonsteroid al anti-infla mmatory medicines and asa [id number] [facility] [address] [facility] [address] [place] [address] 09/21/2020 08:27:49 09/21/2020 09:08:39 Recurrent major depression 40992619 F33.9 Stable on lexapro, continue as prescribed PHQ 9 score zero today. Abnormal weight gain 161 801250 R63.5 R73.09 E78.9 R53.83 E61.1 Discussed lifestyle modificati ons, regular exercise and dietary changes Risk stratifica tion with A1c and lipids Follow up scheduled for monitoring Anxiety 69713336 F41.9 Continue lexaproPat ient identified triggers for anxiety and impact of anxious thinking on functionpavel rasmussen strategies to regulate symptoms and need for compliance with treatment. Insomnia 606509300 G47.0 0 Good sleep hygiene and natural remedies discussed: melatonin, sleepy time tea Gabapentin prescribed for her restless legs since lyrica was not covered, it maybe able to help with her sleep . Osteopenia 008380399 M85 .80 Dexa 06/2020. Adult heal th examination 358845250 Z00.00 Patient presented to office today for their Annual Wellness Visit. She has started a diet and has lost 10 lbs since her last visit.Cont inue current regimen. No acute findings on exam.Refus es influenza vaccine and all other vaccines. Screening for disorder 555975945 Z13.9 CAGE and PHQ-9 screening, negative Advance di rective discussed with patient 629960695 Z71.89 Does not have a living will. She is working on it at this time. Hyperlipidemia 80320031 E78.5 LDL elevated at last visit.She has changed her diet and lost weigh.Foll ow up labs. Restless legs 11875042 G 25.81 Lyrica was not covered by Insurance. Trial of Gabapentin today discussed. [id number] [facility] [address] [place] [address] 10/15/2020 13:58:29 10/15/2020 14:46:58 Acute urinary tract infection 652134990 N39.0 Meds as directed.D iscussed clear fluids.David l if no resolution . Candidiasis of vagina 72 421027 B37.3 Discussed meds as directed.D iscussed probiotics . Health Concerns Section Related Observation LastModified by Organization Detai ls LastModified Time None Recorded Concern Status LastModified by Organization Details LastModified Time None Recorded Advance Directives Directive None Recorded Payers Encounter Date Sequence Insurance Name Policy Number Policy Grace Covered Member ID Grace Member ID Guarantor Name 06/24/2020 1 [employer] Pamela Liz [id number] Pamela Liz 07/17/2020 1 [employer] Pamela Liz [id number] Pamela Liz 09/21/2020 1 [employer] Pamela Liz [id number] Pamela Liz 10/15/2020 1 [employer] Pamela Liz [id number] Pamela Liz Notes Date Note Type [...] her a few years ago, moved to [place] for healing, she recently moved to [place], lives with her elderly aunt. Takes trazodone as needed at bedtime. She is on lexapro and buspar. Marina desai MD [address], [place], [address], [facility] 06/24/2020 10:18:27 07/17/2020 text/html Seen on follow [...] her a few years ago, moved to [place] for healing, she recently moved to [place], lives with her elderly aunt. Takes trazodone [...] joined weight watchers Pili Ching MD [address], [place], [address], [facility] 08/10/2020 02:18:49 09/21/2020 text/html 60 [...] her a few years ago, moved to [place] for healing, she recently moved to [place], lives with her elderly aunt. She is [...] HUMERA DAVIS [address], [place], [address], [facility] 09/21/2020 08:59:05 10/15/2020 text/html 60 y/o female presents today for a same day sick visit.C/O of dysuria for the past 2 days. Took AZO and cranberry without any help.Admits to some urinary frequency and urgency and suprapubic discomfort. Denies any hematuria.Admits to discharge and some pruritus. HUMERA DAVIS [address], [place], [address], [facility] 10/15/2020 14:47:24 OBGyn Episode No OBEpisode recorded.
--- OUTSIDE RECORDS SUMMARY | 2025-01-23 07:59 | XMS_ITS | Data Portability ---
Author Organization [place] [facility] C[facility] Pittman [facility] [place] Address [address] [place] [address] Assessment Encounter Date Assessment Date Assessment LastModified by Organization Details LastModified Time 12/01/2022 12/01/2022 Diagnosis #1 bilateral trochanteric bursitis. I had a lengthy discussion with patient guarding management including therapy, lifestyle modification as well as deps-cbx-xxxclgw remedies. She states she has had good [...] were conducted in the presence of female still operator gin RT Rajan (R). Additional treatment plan discussed with the patient [...] with cortisone injections. She has been taking slli-pes-tjjahml pain medications for symptomatic relief which is [...] be seen by Dr. Thomason in the [place] office. I will refer her to either [place] [facility] for surgical consultation. Patient is [...] in right proximal humerus 2022 023 [email or web address] [facility] ([facility]), [address], [place], [address], 13:33:32 XR, hip + pelvis, unilateral, 2 or 3 view 2022 023 [facility] [place] [facility], [address], [address], [place], [address], 3 10:06:52 XR, hip + pelvis, unilateral, 1 view 2022 023 [facility], [address], [address], [place], [address], 3 10:06:52 Medication Orders Kenalog 40 mg/mL suspension for injection 2022 023 [facility], [address] [place] [address], [id number], 3 12:19:59 lidocaine (PF) 10 mg/mL (1 %) injection solution 2022 023 [id number], [address] [place] [address], [id number], 3 12:19:59 Kenalog 40 mg/mL suspension for injection 2022 023 [facility]398, [address] [place], [id number], 12:19:59 lidocaine (PF) 10 mg/mL (1 %) injection solution 2022 023 [facility], [address], [place], [id number], 12:19:59 Patient TargetsNo targets recorded. Patient Instructions Encounter Date Encounter Id Patient Instructions Last Modified By Organization Details Last Modified Time 12/01/2022 [id number] Patient Instructions Following Cortisone Injections Orlando Baker [...] contr ast No observ ation record ed. [facility] ([facility]) [address] [place], [address], 01/30/2023 12:08:33 01/28/20 MRI, shoul ward, w/o contr ast No observ ation record ed. [email or web address] [facility] ([facility] [address] [place], [address], 01/27/2023 08:25:49 Result Notes None recorded. Problems Name Problem SNOMED Code Status Onset Date Resolution Date Notes Provider Name and Address Organization Details Recorded Time Adhesive capsulitis of right shoulder 4279195570962 09 Active 2022 ORLANDO BAKER PA-C [address], [place], [place], [address], [place] [facility] [place], P 3 15:37:37 Full thickness rotator cuff tear 564044131 Active 2022 ORLANDO BAKER PA-C [address], [place], [address], [place] [facility] [place] [facility], P 3 12:16:35 Trochanteri c bursitis of right hip 1025272924608 00 Active 2022 ORLANDO BAKER PA-C [address], [place], [address], [place] [facility] [place] [facility], P 3 12:15:16 Trochanteri c bursitis of left hip 2745309389019 03 Active 2022 ORLANDO BAKER PA-C [address], [place], [address], [place] [facility], P 12:15:21 Problem Notes None recorded. Procedures Surgical History Date Name Laterality Status Provider Name and Address Organization Details Recorded Time 12/02/19 LEOBARDO Troch Bursa Inj completed ORLANDO BAKER PA-C [address], [place], [address], [place] [facility] [place], P 12/01/2022 12:13:08 Breast reduction completed Krystal Ba [facility] - [facility] [place], P 12/01/2022 11:02:46 hysterectomy completed Krystal Ba [facility] [place] 12/01/2022 11:02:59 Shoulder Surgery completed Krystal Ba [facility] - [facility] [place], P 12/01/2022 11:03:08 Imaging Results Imaging Date Name Status LastModified by Organiz ation Details LastModified Time 01/23/2023 MRI, shoulder, w/o contrast completed [email or web address] [facility] ([facility] [address] [place], [address], 01/30/2023 12:08:33 01/27/2023 MRI, shoulder, w/o contrast completed [email or web address] [facility] ([facility] [address] [place], [address], 01/27/2023 08:25:49 Procedure Notes None recorded. Medical [...] Blood Transfusion N Emphysema N Hypothyroidism N Depression N [...] Anemia N Brain Injury N Heart Attack (IN) N Osteopenia N Diabetes N Bleeding Disorder [...] Code Diagnosis ICD10 Code Diagnosis Note [id number] [facility] [address] [facility] [address] [place] [address] 12/01/2022 10:58:59 12/01/2022 11:37:56 Pain of right hip joint [id number] 85309 M25.551 Pain of le ft hip joint 4317464908 78200 M25.552 Trochanter ic bursitis of right hip 9379661360 42702 M70.61 Trochanter ic bursitis of left hip 0728783949 01045 M70.62 [id number] [address] [facility] [address] [facility] [address] [place] [address] 12/21/2022 15:06:01 12/21/2022 15:45:14 Adhesive capsulitis of right shoulder 9862864687 32465 M75.01 12982 [address] [facility] [address] [facility] [address] [place] [address] 01/27/2023 11:16:14 01/27/2023 12:01:48 Adhesive capsulitis of right shoulder 4795824063 19024 M75.01 Full thick ness rotator cuff tear 058213095 M75.121 Health Concerns Section Related Observation LastModified by Organization Detai ls LastModified Time None Recorded Concern Status LastModified by Organization Details LastModified Time None Recorded Advance Directives Directive None Recorded Payers Encounter Date Sequence Insurance Name Policy Number Policy Grace Covered Member ID Grace Member ID Guarantor Name 12/21/2022 1 [employer] Khloejanet Hill [id number] Khloe Hill 01/27/2023 1 [employer] Khloe Liz [id number] Khloe Liz Notes Date Note Type Note Provider Name and Address Organization Details Recorded Time 12/01/2022 text/html 62-year-old fema le here for evaluation of bilateral outer hip pain. Patient states that she has had diagnosis of bilateral trochanteric bursitis many years ago for which she was treated out in [facility] with cortisone injections greater than 5 [...] mild symptomatic relief. ORLANDO BAKER PA-C [address] [facility] [address], [place], [address], [place] [facility] [place], P 12/01/2022 12:20:52 12/21/2022 text/html Assessment and Plan: Date of visit [id number] female with right shoulder pain history of [...] joint space narrowing. ORLANDO BAKER PA-C [address] [facility],[address], [place], [address], [place] [facility] [place], P 12/21/2022 18:35:33 01/27/2023 text/html Female still operator gin present for the entirety of the interview and exam until exiting the room Leigh Denson This is a 62-year-old female who is following up after undergoing her MRI at [facility]. Imaging study was delayed secondary to the patient had an MRI already arranged up at [facility] however the patient did not feel as [...] the intra-articular biceps tendon. ORLANDO BAKER PA-C [address] [place] [address], [address], [place] [facility], P 01/27/2023 12:17:14 OBGyn Episode No OBEpisode recorded.
--- OUTSIDE RECORDS SUMMARY | 2025-01-23 08:00 | XMS_ITS | Data Portability ---
Author Organization [facility] [employer], svmg_admin Address [address] [place] [id number] Care Team Providers Care Hot Packer Name Role Phone ROYA PALAFOX Primary Care [...] Lab lipid panel, serum 2020 021 [facility], [address] [place] [address], [address], 2 07:56:34 HbA1c (hemoglobin A1c), blood 2020 [facility], [address] [place] [address], [address], 07:56:34 hepatitis panel (A+B+C), acute, serum 2020 021 [facility], [address] [place] [address], [address], 2 07:56:34 celiac disease comprehensi ve panel, serum 2020 021 [facility], [address] [place] [address], [address], 12:07:15 CMP, serum or plasma 2020 021 [facility], [address] [place] [address], [address], 12:07:17 CBC w/ auto diff 2020 021 [facility], [address] [place] [address], [address], 12:07:16 food allergen panel, serum 2020 021 [facility], [address] [place] [address], [address], 12:07:19 H pylori igm+igg+iga Ab, serum 2020 021 [facility], [address] [place] [address], [address], 12:07:18 Referral physical therapist referral [email or web address] [facility], [address] [facility], [place], [address], 11:44:06 physical therapist referral [address] Physical Therapy, [address] [facility], [place], [address], 11:44:05 nutritionis t/dietitian referral 2020 021 [facility] (Nutrition), [address] [place] [address], [address], 15:08:15 physical therapist referral [address] Physical Therapy, [address] [place] [address], [place], [address], 11:44:05 Procedures None recorded. Surgeries None recorded. Imaging MAMMO, screening, digital, bilateral [address] ([facility]), [place], [address], 09:05:41 US, liver [address] ([facility]), [address] [place] [address], [address], 09:05:51 electrocard iogram 2020 021 [email or web address] In-Office Order, Internal Use Only DO Not Attach Compendium DO Not Attach Compendium, Do Not Delete/merge, [id number] 12:10:49 Medication Orders omeprazole 40 mg capsule,del ayed release 2020 021 [facility] #0007, [address] [address], [place], [address], 14:23:51 ropinirole 0.5 mg tablet 2020 021 [facility]acy #0001, [address], [place], [address], 13:08:25 Patient TargetsNo targets recorded. Patient Instructions Encounter Date Encounter Id Patient Instructions Last Modified By Organization Details Last Modified Time 02/15/2021 [id number] gastroesophageal reflux disease (GERD): care instructions kmako Not available 02/15/2021 14:23:43 restless legs syndrome: care instructions kmako Not available 02/15/2021 14:23:43 learning about m ood disorders kmako Not available 02/15/2021 14:39:27 body mass index: care instructions kmako Not available 02/15/2021 14:24:44 [facility] Not available 02/15/2021 14:24:44 06/29/2021 [id number] learning about breast cancer screening [facility] Not available 06/29/2021 13:27:21 Reason for Referral Physical Therapist Referral for Pain of right shoulder joint Referring Physician: Roya Palafox [facility], Encounter Date: 02/15/2021 Physical Therapist Referral for Pain of bilateral hip joints Referring Physician: [facility], Encounter Date: 02/15/2021 Physical Therapist Referral for Pain of left ankle joint Referring Physician: Roya Palafox [facility] Stefani, Encounter Date: 02/15/2021 Water Resources Project Manager/dietitian Refer ral for Body mass index 30+ - obesity Referring Physician: Roya Palafox [facility], Encounter Date: 02/15/2021 Results Created Date Observation [...] tive enter opath y. Not Available [facility] ([facility]) [address], [place], [address], 05/13/2021 12:07:15 05/10/20 21 05/11/2021 JOSE C DISEA SE PANEL immunoglobul in A, qn, serum 241 mg/dL 87-352 Not Available [facility] ([facility]) [address], [place], [address], 05/13/2021 12:07:15 05/10/20 21 05/13/2021 JOSE C DISEA SE PANEL endomysial antibody IgA Negati ve negati ve Not Available [facility] ([facility]) [address], [place], [address], 05/13/2021 12:07:15 05/10/20 21 05/10/2021 CBC WITH DIFFE RENTI AL/PL ATELE T WBC 6.5 x10e3 /uL 3.4-10 .8 Not Available [facility] ([facility]) [address] [place], [address], 05/13/2021 12:07:16 05/10/20 21 05/10/2021 CBC WITH DIFFE RENTI AL/PL ATELE T RBC 5.15 x10e6 /uL 3.77-5 .28 Not Available [facility] ([facility]) [address], [place], [address], 05/13/2021 12:07:16 05/10/20 21 05/10/2021 CBC WITH DIFFE RENTI AL/PL ATELE T hemoglobin 14.9 g/dL 11.1-1 5.9 Not Available [facility] ([facility]) [address], [place], [address], 05/13/2021 12:07:16 05/10/20 21 05/10/2021 CBC WITH DIFFE RENTI AL/PL ATELE T hematocrit 43.6 % 34.0-4 6.6 Not Available [facility] ([facility]) [address], [place], [address], 05/13/2021 12:07:16 05/10/20 21 05/10/2021 CBC WITH DIFFE RENTI AL/PL ATELE T MCV 85 fL 79-97 Not Available [facility] ([facility]) [address], [place], [address], 05/13/2021 12:07:16 05/10/20 21 05/10/2021 CBC WITH DIFFE RENTI AL/PL ATELE T MCH 28.9 pg 26.6-3 3.0 Not Available [facility] ([facility]) [address], [place], [address], 05/13/2021 12:07:16 05/10/20 21 05/10/2021 CBC WITH DIFFE RENTI AL/PL ATELE T MCHC 34.2 g/dL 31.5-3 5.7 Not Available [facility] ([facility]) [address], [place], [address], 05/13/2021 12:07:16 05/10/20 21 05/10/2021 CBC WITH DIFFE RENTI AL/PL ATELE T RDW 14.4 % 11.7-1 5.4 Not Available [facility] ([facility]) [address], [place], [address], 05/13/2021 12:07:16 05/10/20 21 05/10/2021 CBC WITH DIFFE RENTI AL/PL ATELE T platelets 278 x10e3 /uL 150-45 0 Not Available [facility] ([facility]) [address], [place], [address], 05/13/2021 12:07:16 05/10/20 21 05/10/2021 CBC WITH DIFFE RENTI AL/PL ATELE T neutrophils 55 % not estab. Not Available [facility] ([facility]) [address], [place], [address], 05/13/2021 12:07:16 05/10/20 21 05/10/2021 CBC WITH DIFFE RENTI AL/PL ATELE T lymphs 33 % not estab. Not Available [facility] ([facility]) [address], [place], [address], 05/13/2021 12:07:16 05/10/20 21 05/10/2021 CBC WITH DIFFE RENTI AL/PL ATELE T monocytes 8 % not estab. Not Available [facility] ([facility]) [address], [place], [address], 05/13/2021 12:07:16 05/10/20 21 05/10/2021 CBC WITH DIFFE RENTI AL/PL ATELE T eos 3 % not estab. Not Available [facility] ([facility]) [address], [place], [address], 05/13/2021 12:07:16 05/10/20 21 05/10/2021 CBC WITH DIFFE RENTI AL/PL ATELE T basos 1 % not estab. Not Available [facility] ([facility]) [address], [place], [address], 05/13/2021 12:07:16 05/10/20 21 05/10/2021 CBC WITH DIFFE RENTI AL/PL ATELE T immature cells IN STORE MARKETING REPRESENTATIVE Not Available [facility] ([facility]) [address], [place], [address], 05/13/2021 12:07:16 05/10/20 21 05/10/2021 CBC WITH DIFFE RENTI AL/PL ATELE T neutrophils (absolute) 3.7 x10e3 /uL 1.4-7. 0 Not Available [facility] ([facility]) [address] [place], [address], 05/13/2021 12:07:16 05/10/20 21 05/10/2021 CBC WITH DIFFE RENTI AL/PL ATELE T lymphs (absolute) 2.1 x10e3 /uL 0.7-3. 1 Not Available [facility] ([facility]) [address], [place], [address], 05/13/2021 12:07:16 05/10/20 21 05/10/2021 CBC WITH DIFFE RENTI AL/PL ATELE T monocytes(ab solute) 0.5 x10e3 /uL 0.1-0. 9 Not Available [facility] ([facility]) [address], [place], [address], 05/13/2021 12:07:16 05/10/20 21 05/10/2021 CBC WITH DIFFE RENTI AL/PL ATELE T eos (absolute) 0.2 x10e3 /uL 0.0-0. 4 Not Available [facility] ([facility]) [address], [place], [address], 05/13/2021 12:07:16 05/10/20 21 05/10/2021 CBC WITH DIFFE RENTI AL/PL ATELE T baso (absolute) 0.0 x10e3 /uL 0.0-0. 2 Not Available [facility] ([facility]) [address], [place], [address], 05/13/2021 12:07:16 05/10/20 21 05/10/2021 CBC WITH DIFFE RENTI AL/PL ATELE T immature granulocytes IN STORE MARKETING REPRESENTATIVE Not Available [facility] ([facility]) [address], [place], [address], 05/13/2021 12:07:16 05/10/20 21 05/10/2021 CBC WITH DIFFE RENTI AL/PL ATELE T immature grans (abs) IN STORE MARKETING REPRESENTATIVE Not Available [facility] ([facility]) [address], [place], [address], 05/13/2021 12:07:16 05/10/20 21 05/10/2021 CBC WITH DIFFE RENTI AL/PL ATELE T NRBC IN STORE MARKETING REPRESENTATIVE Not Available [facility] ([facility]) [address], [place], [address], 05/13/2021 12:07:16 05/10/20 21 05/10/2021 CBC WITH DIFFE RENTI AL/PL ATELE T hematology comments: IN STORE MARKETING REPRESENTATIVE Not Available [facility] ([facility]) [address], [place], [address], 05/13/2021 12:07:16 05/10/20 21 05/10/2021 COMP. METAB OLIC PANEL (14) glucose 97 mg/dL 65-99 Not Available [facility] ([facility]) [address], [place], [address], 05/13/2021 12:07:17 05/10/20 21 05/10/2021 COMP. METAB OLIC PANEL (14) BUN 15 mg/dL 8-27 Not Available [facility] ([facility]) [address] [place], [address], 05/13/2021 12:07:17 05/10/20 21 05/10/2021 COMP. METAB OLIC PANEL (14) creatinine 0.78 mg/dL 0.57-1 .00 Not Available [facility] ([facility]) [address], [place], [address], 05/13/2021 12:07:17 05/10/20 21 05/10/2021 COMP. METAB OLIC PANEL (14) eGFR if nonafricn AM 82 mL/mi n/1.7 3 >59 Not Available [facility] ([facility]) [address], [place], [address], 05/13/2021 12:07:17 05/10/20 21 05/10/2021 COMP. METAB [...] SN Task force . Not Available [facility] ([facility]) [address] [place], [address], 05/13/2021 12:07:17 05/10/20 21 05/10/2021 COMP. METAB OLIC PANEL (14) BUN/creatini ne ratio 19 12-28 Not Available [facility] ([facility]) [address] [place], [address], 05/13/2021 12:07:17 05/10/20 21 05/10/2021 COMP. METAB OLIC PANEL (14) sodium 141 mmol/ L 134-14 4 Not Available [facility] ([facility]) [address] [place], [address], 05/13/2021 12:07:17 05/10/20 21 05/10/2021 COMP. METAB OLIC PANEL (14) potassium 4.7 mmol/ L 3.5-5. 2 Not Available [facility] ([facility]) [address] [place], [address], 05/13/2021 12:07:17 05/10/20 21 05/10/2021 COMP. METAB OLIC PANEL (14) chloride 103 mmol/ L 96-106 Not Available [facility] ([facility]) [address] [place], [address], 05/13/2021 12:07:17 05/10/20 21 05/10/2021 COMP. METAB OLIC PANEL (14) carbon dioxide, total 23 mmol/ L 20-29 Not Available [facility] ([facility]) [address] [place], [address], 05/13/2021 12:07:17 05/10/20 21 05/10/2021 COMP. METAB OLIC PANEL (14) calcium 9.9 mg/dL 8.7-10 .3 Not Available [facility] ([facility]) [address], [place], [address], 05/13/2021 12:07:17 05/10/20 21 05/10/2021 COMP. METAB OLIC PANEL (14) protein, total 6.9 g/dL 6.0-8. 5 Not Available [facility] ([facility]) [address] [place], [address], 05/13/2021 12:07:17 05/10/20 21 05/10/2021 COMP. METAB OLIC PANEL (14) albumin 4.7 g/dL 3.8-4. 8 Not Available [facility] ([facility]) [address], [place], [address], 05/13/2021 12:07:17 05/10/20 21 05/10/2021 COMP. METAB OLIC PANEL (14) globulin, total 2.2 g/dL 1.5-4. 5 Not Available [facility] ([facility]) [address] [place], [address], 05/13/2021 12:07:17 05/10/20 21 05/10/2021 COMP. METAB OLIC PANEL (14) A/G ratio 2.1 1.2-2. 2 Not Available [facility] ([facility]) [address] [place], [address], 05/13/2021 12:07:17 05/10/20 21 05/10/2021 COMP. METAB OLIC PANEL (14) bilirubin, total 0.3 mg/dL 0.0-1. 2 Not Available [facility] ([facility]) [address] [place], [address], 05/13/2021 12:07:17 05/10/20 21 05/10/2021 COMP. METAB OLIC PANEL (14) alkaline phosphatase 113 IU/L 48-121 Not Available [facility] ([facility]) [address] [place], [address], 05/13/2021 12:07:17 05/10/20 21 05/10/2021 COMP. METAB OLIC PANEL (14) AST (SGOT) 45 IU/L 0-40 above high normal Not Available [facility] ([facility]) [address] [place], [address], 05/13/2021 12:07:17 05/10/20 21 05/10/2021 COMP. METAB OLIC PANEL (14) ALT (SGPT) 54 IU/L 0-32 above high normal Not Available [facility] ([facility]) [address] [place], [address], 05/13/2021 12:07:17 05/10/20 21 05/11/2021 H PYLOR I, IGM, IGG, IGA AB H. pylori, IgG abs 0.26 index _valu e 0.00-0 .79 Negat nicole <0.80 Equiv ocal 0.80 - 0.89 Posit nicole >0.89 Not Available [facility] ([facility]) [address] [place], [address], 05/13/2021 12:07:18 05/10/20 21 05/11/2021 H PYLOR I, IGM, IGG, IGA AB H. pylori, IgA abs 9.7 units 0.0-8. 9 above high normal Negat nicole <9.0 Equiv ocal 9.0 - 11.0 Posit nicole >11.0 Not Available [facility] ([facility]) [address] [place], [address], 05/13/2021 12:07:18 05/10/20 21 05/11/2021 H PYLOR I, IGM, IGG, IGA AB H pylori, IgM abs <9.0 units 0.0-8. 9 Negat nicole <9.0 Equiv ocal 9.0 - 11.0 Posit nicole >11.0 This test was clement cat and its perfo fani e ananya méndezri stics deter mined by [employer]. It has not been clear ed or appro taya by the Food and Drug Admin istra tion. Not Available [facility] ([facility]) [address] [place], [address], 05/13/2021 12:07:18 05/10/20 21 05/10/2021 FOOD ALLER [...] >100. 00 Very High Not Available [facility] ([facility]) [address] [place], [address], 05/13/2021 12:07:19 05/10/2005/13/2021 FOOD ALLER GY PROFI LE Z369-ZzZ egg white <0.10 kU/L class 0 Not Available [facility] ([facility]) [address] [place], [address], 05/13/2021 12:07:19 05/10/2005/13/2021 FOOD ALLER GY PROFI LE K282-TtF peanut <0.10 kU/L class 0 Not Available [facility] ([facility]) [address] [place], [address], 05/13/2021 12:07:19 05/10/20 21 05/13/2021 FOOD ALLER GY PROFI LE D067-QqI soybean <0.10 kU/L class 0 Not Available [facility] ([facility]) [address] [place], [address], 05/13/2021 12:07:19 05/10/20 21 05/13/2021 FOOD ALLER GY PROFI LE O273-DzA milk <0.10 kU/L class 0 Not Available [facility] ([facility]) [address] [place], [address], 05/13/2021 12:07:19 05/10/20 21 05/13/2021 FOOD ALLER GY PROFI LE C432-YxO clam <0.10 kU/L class 0 Not Available [facility] ([facility]) [address] [place], [address], 05/13/2021 12:07:19 05/10/20 21 05/13/2021 FOOD ALLER GY PROFI LE U427-MqU shrimp <0.10 kU/L class 0 Not Available [facility] ([facility]) [address] [place], [address], 05/13/2021 12:07:19 05/10/20 21 05/13/2021 FOOD ALLER GY PROFI LE C131-MtC walnut <0.10 kU/L class 0 Not Available [facility] ([facility]) [address] [place], [address], 05/13/2021 12:07:19 05/10/20 21 05/13/2021 FOOD ALLER GY PROFI LE J071-VeJ codfish <0.10 kU/L class 0 Not Available [facility] ([facility]) [address] [place], [address], 05/13/2021 12:07:19 05/10/20 21 05/13/2021 FOOD ALLER GY PROFI LE H504-FdH scallop <0.10 kU/L class 0 Not Available [facility] ([facility]) [address], [place], [address], 05/13/2021 12:07:19 05/10/20 21 05/13/2021 FOOD ALLER GY PROFI LE E236-WzD wheat <0.10 kU/L class 0 Not Available [facility] ([facility]) [address], [place], [address], 05/13/2021 12:07:19 05/10/20 21 05/13/2021 FOOD ALLER GY PROFI LE F887-GjY corn <0.10 kU/L class 0 Not Available [facility] ([facility]) [address], [place], [address], 05/13/2021 12:07:19 05/10/20 21 05/13/2021 FOOD ALLER GY PROFI LE Y702-FzM sesame seed <0.10 kU/L class 0 Not Available [facility] ([facility]) [address], [place], [address], 05/13/2021 12:07:19 05/10/20 21 elect rocar diogr am No observ ation record ed. [email or web address] In-Office Order Internal Use Only DO Not Attach Compendium DO Not Attach Compendium, Do Not Delete/merge, [id number] 05/10/2021 09:54:21 05/10/20 21 05/10/2021 elect rocar diogr am No observ ation record ed. [email or web address] In-Office Order Internal Use Only DO Not Attach Compendium DO Not Attach Compendium, Do Not Delete/merge, [id number] 05/11/2021 14:27:15 07/19/20 21 07/19/2021 US, abdom en, limit ed [facility] [address], [address] Name: ARLENE HIDALGO : [id number] Date of Servic e: 0839 Acct Number : [id number] Order Number : [id number] Locati on: WUS Report Number : [id number] Servic e: REG REF/ Reques ting Physic hansa: Joaquin Orourke IN STORE MARKETING REPRESENTATIVE Catego ry: ULTRAS OUND Exam: US ABDOME N SINGLE [employer] LTD Access ion #: [id number] VH Signs/ Sympto ms: ELEVAT ED [...] Candy Orourke, , Brandee King, , , [facility] (Radiology) [address] [place] [address], [address], 08/09/2021 08:54:29 08/04/20 21 08/04/2021 MAMMO , scree katy, tomos ynthe sis, bilat eral [facility] o[facility] [address] [place] [address], [address] Name: ARLENE HIDALGO : [birth year]17 Date of Servic e: 1431 Acct Number : [id number] Order Number : [id number] Locati on: WWELL Report Number : [id number] Servic e: REG REF/ Reques ting Physic hansa: Joaquin Orourke IN STORE MARKETING REPRESENTATIVE Catego ry: MAMMOG SHINE Exam: DIGITA L BREAST JORDANA SCREEN ING Access ion #: [id number] VH Signs/ Sympto ms: SCREEN ING [...] Approv ed By Attend ing Radiol ogist: rCiselda Grayson MD 1643 Orderi ng physic hansa: Candy Orourke Other provid ers: Candy Orourke, Candy Orourke, , Candy Orourke, , , [facility] (Radiology) [address] [place] [address], [address], 08/09/2021 10:37:39 Result Notes None recorded. Problems Name Problem SNOMED Code Status Onset Date Resolution Date Notes Provider Name and Address Organization Details Recorded Time Depressi ve disorder 02331721 Active 2020 Kimberly gutiérrez MA [facility] 13:34:32 Anxiety 79435227 Active 2020 Kimberly gutiérrez MA [facility] 13:34:37 Gastroes ophageal reflux disease 439185237 Active 2020 Kimberly gutiérrez MA [facility] 13:34:42 Screenin g for malignan t neoplasm of breast Active 202007/08/20 wnl, 08/04/21 wnl ROYA PALAFOX NP [address] [place], [address], [facility] 08:56:16 Screenin g for malignan t neoplasm of cervix Completed 202002/15/2021 ROYA PALAFOX NP [address] [place], [address], [facility] [employer] [facility] 14:32:49 Screenin g for malignan t neoplasm of colon Active 2020 2019 [facility], repeat in 10 years ROYA PALAFOX NP [address] [place], [address], [facility] [employer] [facility] 13:39:33 Screenin g for osteopor osis Active 202007/08/20- osteopeni a ROYA PALAFOX NP [address] [place], [address], [facility] [employer] [facility] 15:20:47 Body mass index 30+ - obesity 570688075 Active 2020 ROYA PALAFOX NP [address] [place] [address], [address], [facility] [employer] [facility] 13:44:20 Osteopen ia 185903249 Active 2020 ROYA PALAFOX NP [address] [place], [address], [facility] [employer] [facility] 13:16:55 Steatoti c liver disease 999709468 Active 2020 Moderate- abd US 07/19/21 ROYA PALAFOX NP [address] [place], [address], [facility] [employer] [facility] 10:21:31 Biliary sludge 22454036 Active 2020 ROYA PALAFOX NP [address] [place], [address], [facility] 10:21:44 Problem Notes None recorded. Procedures Surgical History Date Name Laterality Status Provider Name and Address Organization Details Recorded Time Orthopedic Surgery completed [facility] 05/10/2021 09:35:10 Breast Surgery (Lumpectomy, Biopsy, Implants) completed [facility] 05/10/2021 09:35:10 Imaging Results Imaging Date Name Status LastModified by Organization Details LastModified Time 05/10/2021 electrocardiogram completed [email or web address] In-Offi ce Order Internal Use Only DO Not Attach Compendium DO Not Attach Compendium, Do Not Delete/merge, [id number] 05/10/2021 09:54:21 05/10/2021 electrocardiogram completed [email or web address] In-Offi ce Order Internal Use Only DO Not Attach Compendium DO Not Attach Compendium, Do Not Delete/merge, [id number] 05/11/2021 14:27:15 07/19/2021 US, abdomen, limited completed [facility] (Radiology) [address] [place] [address], [address], 08/09/2021 08:54:29 08/04/2021 MAMMO, screening, tomosynthesis, bilateral completed [facility] (Radiology) [address] [place] [address], [address], 08/09/2021 10:37:39 Procedure Notes None recorded. Medical [...] Updated DateTime 1 160.02 cm 33.1 kg/m2 99852.7 7 g 96.4 [degF] 65 /min 97 % 97 % 112 mm[Hg] 68 mm[Hg] [facility] 1 13:42:22 Date Recorded Body height Body mass index (BMI) Body weight Body temperature Heart rate Oxygen saturation Oxygen saturation in Arterial blood by Pulse oximetry Systolic blood pressure Diastolic blood pressure Provider Name and Address Organization Details Last Updated DateTime 1 160.02 cm 34 kg/m2 30326.7 4 g 98.7 [degF] 72 /min 98 % 98 % 116 mm[Hg] 72 mm[Hg] [facility] 1 09:39:34 Date Recorded Body height Body mass index (BMI) Body weight Body temperature Pain severity - 0-10 verbal numeric rating [Score] - Reported Oxygen saturation Oxygen saturation in Arterial blood by Pulse oximetry Heart rate Systolic blood pressure Diastolic blood pressure Provider Name and Address Organization Details Last Updated DateTime 1 158.75 cm 32.8 kg/m2 48731.6 1 g 97 [degF] 0 98 % 98 % 84 /min 114 mm[Hg] 70 mm[Hg] [place] [facility] 13:13:38 Social History Question Answer Notes LastModified by Organizat ion Details LastModified Time Tobacco Smoking Status Former Smoker Palmira gutiérrez [facility] 06/29/2021 13:10:59 Do You Have An Advance Directive? Yes Information not available 02/15/2021 Animal Exposure? Yes [...] None Information not available 02/15/2021 Are You Deaf Or Do You Have Serious Difficulty Hearing? No Information not available 02/15/2021 What Type Of Diet Are You Following? REGULAR Information not available 02/15/2021 Which Illicit Or Recreational Drugs Have You Used? Marijuana Information not available 05/10/2021 What Is The Highest Grade Or Level Of School You Have Completed Or The Highest Degree You Have Received? [id number] Information not available 05/10/2021 Have There Been Any Changes To Your Family Or Social Situation? No Information no t available 05/10/2021 How Hard Is It For You To Pay For The Very Basics Like Food, Housing, Medical Care, And Heating? Not Very Hard Information not available 05/10/2021 When Did You Quit Smoking? 16+yearssincel astcigarette Information not available 06/29/2021 How Many Days [...] Smoke? Yes Information no t available 05/10/2021 Are There Any Smokers In Your House? Yes Information not available 05/10/2021 Smoking Pre- No Information not available 05/10/2021 General Stress Level Medium Information not available 05/10/2021 Do You Use Sunscreen Routinely? Yes Information not available 05/10/2021 Has Tobacco Cessation Counseling Been Provided? Yes Information not available 02/15/2021 On What Date Was Tobacco Cessation Counseling Provided? 06/29/2021 Information not available 06/29/2021 How Many Years Have You Smoked Tobacco? 25 Information not available 06/29/2021 Have You Used IV Drugs? No Information not available 05/10/2021 Do You Have Difficulty Walking Or Climbing Stairs? No Information not available 05/10/2021 Are You Currently In School? No Information not available 05/10/2021 Sex: Female Functional Status Question Answer Note LastModified by Organizat ion Details LastModified Time Do you or have you ever used smokeless tobacco? Never used smokeless tobacco Information not available 02/15/2021 Are you currently employed? Yes Information not available 05/10/2021 Do you have transportation difficulties? No Information not available 05/10/2021 Urinary incontinence assessment performed? Yes Information not available 05/10/2021 Are you able to care for yourself? Yes Information n ot available 02/15/2021 Do you or have you ever used e-cigarettes or vape? Never used electronic cigarettes Information not available 02/15/2021 What is your exercise level? None Information not available 02/15/2021 Do you use any illicit or recreational drugs? Yes Information not available 05/10/2021 Do you or have you ever used any other forms of tobacco or nicotine? No Information not available 06/29/2021 What is your level of alcohol consumption? None Information not available 02/15/2021 Are you able to walk? YESWOREST Information not available 05/10/2021 Do you have difficulty doing errands alone? 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 [id number] Information not available 05/10/2021 Do you have difficulty concentrating, remembering or [...] last pap 2005 Facility of last mammogram [place] History of infertility N Number of Terminations? [...] Tdap 02/15/2021 completed ROYA PALAFOX NP [address] [place], [address], [facility] 02/15/2021 15:11:54 COVID-19, mRNA, LNP-S, PF, 30 mcg/0.3 mL dose 04/13/2021 completed Kimberly gutiérrez [facility] 05/10/2021 09:40:46 COVID-19, mRNA, LNP-S, PF, 30 mcg/0.3 mL dose 03/23/2021 completed Kimberly gutiérrez [facility] 05/10/2021 09:40:55 Past Encounters Encounter ID Performer Location Encounter Start Date Encounter Closed Date Diagnosis/Indication Diagnosis SNOMED-CT Code Diagnosis ICD10 Code Diagnosis Note [id number] ROYA PALAFOX NP [facility] [address] [place] [address] 02/15/2021 13:27:22 02/15/2021 14:38:43 Borderline personality disorder 52138140 F60.3 Long history of anxiety, depression , [...] upcoming appt with a psychophar macist through [employer]. She is interested in restarting her adderall and will consult with them. Restless legs 80854897 G 25.81 For the past several years. Muscle cramping and restless legs keep her up every night. She has been taking gabapentin 300mg at bedtime but it has not been helping. She will d/c gabapentin and start ropinirole 0.5mg at bedtime. Gastroesop hageal reflux disease 968710664 K21.9 Gerd- Discussed etiology and management of [...] daily. Pain of bi lateral hip joints [id number] 0794360 M25.551 M25.552 Chronic. Patient has had cortisone injections in the past. She has also gained weight recently which could be adding to her pain. She will start PT. If no improvemen t, will consider imaging or referral for injections . Pain of ri ght shoulder joint [id number] 6822516 M25.511 Hx of right rotator cuff surgery. Referral to PT to help increase ROM and strength. Administra tion of diphtheria, pertussis, and tetanus vaccine 359390471 Z23 Pain of le ft ankle joint 7499799144 0819643 M25.572 S/p ankle fracture and surgery. She has been wearing a brace for 2 years and continues to have pain. Referral placed to PT. Body mass index 30+ - obesity 615330566 Z68.33 Diet and Exercise recommenda tions have [...] talked about counting steps. Referral placed to [facility]. Anxiety 87297660 F41.9 Long history of anxiety, depression , [...] upcoming appt with a psychophar macist through [employer]. She is interested in restarting her adderall and will consult with them. Depressive disorder 9239 5580 F32.9 Long history of anxiety, depression , [...] upcoming appt with a psychophar macist through [employer]. She is interested in restarting her adderall and will consult with them. [id number] ROYA PALAFOX NP [facility] [address] [address] 05/10/2021 09:27:40 05/10/2021 12:10:48 Restless legs 98788957 G25.81 For the past several years. Muscle cramping and restless legs keep her up every night. She has been taking gabapentin 300mg at bedtime but it has not been helping. She stopped gabapentin and switched to ropinirole at her last visit. Restless legs have improved but she is now having trouble falling asleep for several hours. She will f/u with psychopaedic nurse on Monday to discuss any sleep aids. Loose stool 063235373 R1 9.5 Multiple loose stools a day. Patient has not been able to identify any specific food triggers. She also has urgency, especially first thing in the morning. Will check labs. Advised bland diet and increased fluids as well. Anxiety 01146798 F41.9 Long history of anxiety, depression , [...] provider. She has an appt with a psychopaedic nurse on Monday. She needs to EKG prior to her visit. EKG done today, normal sinus rhythm. She is currently on escitalopr am 40mg daily. Advised patient that all psych meds should come from psych provider. [id number] ROYA PALAFOX NP [facility] [address] [facility] [place] [address] 06/29/2021 12:59:34 06/29/2021 13:42:19 Adult health examination 283426443 Z00.00 Anxiety 25992859 F41.9 Long history of anxiety, depression , [...] daily. Screening for malignant neoplasm of breast 151245357 Z12.39 Liver enzy mes level above reference range 023772963 R74.8 AST 45, ALT 54 on 05/10/21. Will repeat. Order placed for liver US. Screening for cardiovascular system disease 751042228 Z13.6 Health Concerns Section Related Observation LastModified by Organization Detai ls LastModified Time None Recorded Concern Status LastModified by Organization Details LastModified Time None Recorded Advance Directives Directive Y: Payers Encounter Date Sequence Insurance Name Policy Number Policy Grace Covered Member ID Grace Member ID Guarantor Name 02/15/2021 1 [facility] (O) [id number] Arlene F Liz [id number] Arlene Liz 05/10/2021 1 [facility] (O) [id number] Arlene F Liz [id number] Arlene Liz 06/29/2021 1 [facility] (O) [id number] Arlene Hidalgo [id number] Arlene Hidalgo Notes Date Note Type Note [...] She [facility]. She will also get muscle cramps in her feet and legs. She also gets cramps in her fingers. Left ankle pain. She saw [facility] in [facility]. Mammogram, colonoscopy, bone density.Pt had a partial hysterectomy. ROYA PALAFOX NP [address] [place] [address], [phone], [facility] Physician [facility]. 02/15/2021 14:40:20 05/10/2021 text/html Patient has [...] other medications. She had an appt with [employer] but they do not prescribe adderall. She has an appt with a psychopaedic nurse on Monday. She is working with a therapist. ROYA PALAFOX NP [address] [place], [address], [facility]. 05/10/2021 10:18:04 06/29/2021 text/html Patient has [...] has been going regularly.Colonosc opy was in [place]- she was told to repeat in 10 years. 01/09/19. [facility] ROYA PALAFOX NP [address] [place], [address], [facility]. 06/29/2021 13:41:05 OBGyn Episode No OBEpisode recorded.
--- OUTSIDE RECORDS SUMMARY | 2025-01-23 08:00 | XMS_ITS | Clinical Summary ---
Author Organization [facility] Address [address] [place], [place] [id number] Care Team Providers Care Melt Down Furnace Operator Name Role Phone Unavailable Primary Care [...] ID Effect nicole Dates Phone Address Type [employer] [id number] 08/11/2022-Pres ent [address] [place] [phone] PPO
== END 2025-01-23 07:57 | disposition home or self-care (01) ==
LOC: HO.HOSX 07:56
PROVIDERS: Visit Provider Orthopaedic Surgery
DX: M25.312 Other instability, left shoulder (principal); M25.512 Pain in left shoulder
CPT/HCPCS: 20610; 73030; 99212; J0665; J1100; J2003

== ENCOUNTER 2025-01-23 10:30 | Outpatient (AMB) | payer OTHER, SELFPAY ==
[2025-01-23 10:41] VITALS: BMI 29.8
--- NOTE | 2025-01-23 10:41 | A.OFFVIS_ITS ---
Vital Signs 01/23/25 10:41 Height 5 ft 3 in Weight 168 lb BMI 29.8 Intake Visit Reasons: OV- Discuss L TSA Intake Note: Khloe is a 64 year old right hand dominant female who presents today to discuss possible Left TSA due to referral from Dr. Costello. Patient reports that she has had pain in the left shoulder since falling from a step stool in november. She reports history of Right RTC Repair and R Bicep Rupture. She also expresses multiple concerns of neck, back and leg pain. She is booked for a lumbar fusion with Dr. Torres for 02/19/25 Allergies No Known Allergies Allergy (Verified 01/07/25 14:12) HPI HPI OV- Discuss L TSA: Details: Khloe is a 64 year old right hand dominant female who presents today to discuss possible Left TSA due to referral from Dr. Costello. Patient reports that she has had pain in the left shoulder since falling from a step stool in november. She states that her right shoulder has a full-thickness rotator cuff tear but with therapy she was able to return to full use of the right shoulder. She reports history of Right RTC tear and R Bicep Rupture. She also expresses multiple concerns of neck, back and leg pain. She is booked for a lumbar fusion with Dr. Torres for 02/19/25 [facility] Social History (Updated 12/12/24 @ 09:12 by JESUS Del Cid) Current occupation: rt handed Physical Exam Vital Signs: BMI result Body Mass Index 29.8 Extrem Other: Left shoulder is painful and difficult to examine. She has at least 4+ strength with empty can testing and a positive Garcia and Neer. External rotation of 35 degrees passively. Office Procedures Joint Inj/Aspir; Non-Pain Clin Joint Injection/Drain Details: Injected 1 mL of Decadron and 3 mL 1% lidocaine and 3 mL of 0.25% Marcaine. Site was prepped using aseptic technique. Patient tolerated the procedure well. Shoulders, Hips, Knees, Shoulder Injection Large joint : Left Shoulder Coding Procedure code (CPT) selection complete Results Reviewed Results Reviewed: I personally reviewed relevant radiographs. Mild glenohumeral OA and AC joint OA Assessment & Plan Assessment & Plan (1) Rotator cuff insufficiency of left shoulder: Code(s): M25.312 - Other instability, left shoulder Category: Medical Plan: Injected left shoulder and recommend PT. She is pretty hesitant to do PT but I strongly advise this. Her radiographs show some mild arthritis and difficult to accurately assess her mechanics given the discomfort. She is scheduled for spine surgery soon. She seemed to agree to try physical therapy. An order was faxed to PT and Jayesh. I also injected her left subacromial space. Orders: Orders PT Evaluation and Treatment 01/23/25 M25.312 - Other instability, left shoulder XR shoulder LT min 2V 01/23/25 M25.519 - Pain in unspecified shoulder Coding Level of Care Code Est Pt Level 4 (76947) Diagnoses Rotator cuff insufficiency of left shoulder M25.312 CPT Codes Shoulders, Hips, Knees, - Shoulder Injection Large joint : Left Shoulder ([id number])
--- OUTSIDE RECORDS SUMMARY | 2025-01-23 11:41 | XMS_ITS | Clinical Summary ---
Author Organization [facility] Address [address] [place], [place] [id number] Care Team Providers Care City Carrier Assistant Name Role Phone Unavailable Primary Care Provider [...] ID Effect nicole Dates Phone Address Type [employer] [id number] 08/11/2022-Pres ent [address] [place] [phone] PPO
== END 2025-01-23 11:49 | disposition home or self-care (01) ==
LOC: HO.HOS 10:31
PROVIDERS: PCP Nurse Practitioner Family; Visit Provider Orthopaedic Surgery
DX: M25.312 Other instability, left shoulder (principal)
CPT/HCPCS: 20610; 99214

== ENCOUNTER → 2025-01-23 10:32 | Outpatient (BNV) | payer OTHER, SELFPAY | PROVIDERS: Visit Provider Radiology Diagnostic Radiology | DX: M19.012 Primary osteoarthritis, left shoulder (principal) | CPT/HCPCS: 73030 ==

== ENCOUNTER 2025-03-26 06:18 | Inpatient (IN) | payer MEDICARE, SELFPAY ==
[2025-02-11 13:40] VITALS: BP 144/72; PULSE 86; RESP 16; O2SAT 96; BMI 30.6
--- NOTE | 2025-02-11 14:04 | HO.ANESPROP2 ---
Documented by User: Ffii Fang NP 03/25/25 08:43 HPI - Anesthesia Eval Consult details Narrative: 64yo F for L4-5 Oblique Lumbar Interbody Fusion, 03/26/25 No recent illness No CP/SOB with walks, yard work, house work GERD: prn ppi - rare use Quit THC 08/2024 PMFSH Active Problems Active Problems: All Active Problems Lumbago (Acute) Neck pain (Acute) Rotator cuff insufficiency of left shoulder (Acute) Past Medical History Medical History ELISABET (generalized anxiety disorder) Depression Anxiety PTSD (post-traumatic stress disorder) ADHD (attention deficit hyperactivity disorder) Acid reflux Shoulder pain, bilateral Sciatica Hx of influenza (09/2024) Family History Family history of problems with anesthesia: No Surgical History Surgical History Hx of bilateral breast reduction surgery (~2004) Hx of hysterectomy (~2009) History of ankle surgery History of repair of right rotator cuff (~2016) History of Problems with Anesthesia: No Social History Social History Household Members: Significant Other Housing: House Are you a primary healthcare specialist to a significant other at home: No Do you presently have visiting nurse or other home services: No Patient Tobacco Use Status: Former Tobacco user Tobacco use type: Cigarette Have you been hit, kicked, punched, or otherwise hurt by someone within the past year? If so, by whom?: No Are you DNR?: No Advance Directives: No Advance Directives Information Provided: Yes Advance Directives on File: No Current occupation: rt handed Meds Allergies Allergy/AdvReac Type Severity Reaction Status Date / Time No Known Allergies Allergy Verified 03/26/25 06:18 Home Medications ?Medication ?Instructions ?Recorded ?Confirmed ?Last Taken ?Type vilazodone 20 mg tablet 20 mg PO DAILY 11/26/24 03/26/25 03/26/25 History Vit B Comp W/C PO DAILY 02/11/25 03/23/25 History Vitamin C PO DAILY 02/11/25 03/23/25 History atomoxetine 40 mg capsule 40 mg PO DAILY 02/11/25 03/26/25 03/26/25 History calcium PO DAILY 02/11/25 03/23/25 History magnesium PO DAILY 02/11/25 03/23/25 History multivitamin 1 tab PO DAILY 02/11/25 03/26/25 03/23/25 History omeprazole 20 mg capsule,delayed 20 mg PO DAILY PRN Acid Reflux 02/11/25 03/26/25 Unknown History release vitamin C 500 mg-multivitamin with 1 tab PO BID 02/11/25 03/26/25 03/23/25 History minerals chewable tablet (Emergen-C) acetaminophen 1,000 mg PO 03/26/25 03/25/25 History ibuprofen PO DAILY PRN Pain 03/26/25 03/23/25 History Exam Height,Weight and Vital Signs: Height 5 ft 3 in Weight 78.471 kg Last Vital Signs Pulse 86 02/11/25 13:40 Resp 16 02/11/25 13:40 BP 144/72 H 02/11/25 13:40 Pulse Ox 96 02/11/25 13:40 O2 Del Method Room Air 02/11/25 13:40 Pertinent Lab Results Pertinent Lab Results: CBC and BMP 09/2024 from [facility] Airway Mallampati Class: II TM Dist: >3cm Neck ROM: Limited Partial: Lower Loose/Missing/Broken Teeth: No (Crowned x 4 top front teeth) Heart: RRR Lungs: CTAB Assessment and Plan Assessment Anesthesia Assessment: Anesthesia Plan Discussed and PAT Visit Final Anesthetic Review Family History of Problems with Anesthesia: No History of Problems with Anesthesia: No Documented by User: Oscar Grady MD 03/26/25 06:47 [facility] Past Medical History Medical History ELISABET (generalized anxiety disorder) Depression Anxiety PTSD (post-traumatic stress disorder) ADHD (attention deficit hyperactivity disorder) Acid reflux Shoulder pain, bilateral Sciatica Hx of influenza (09/2024) Cognitive capacity: normal Functional capacity: independent ambulation Patient : No Surgical History Surgical History Hx of bilateral breast reduction surgery (~2004) Hx of hysterectomy (~2009) History of ankle surgery History of repair of right rotator cuff (~2016) Social History Social History Household Members: Significant Other Housing: House Are you a primary healthcare specialist to a significant other at home: No Do you presently have visiting nurse or other home services: No Patient Tobacco Use Status: Former Tobacco user Tobacco use type: Cigarette Have you been hit, kicked, punched, or otherwise hurt by someone within the past year? If so, by whom?: No Are you DNR?: No Advance Directives: No Advance Directives Information Provided: Yes Advance Directives on File: No Current occupation: rt handed Meds Allergies Allergy/AdvReac Type Severity Reaction Status Date / Time No Known Allergies Allergy Verified 03/26/25 06:18 Home Medications ?Medication ?Instructions ?Recorded ?Confirmed ?Last Taken ?Type vilazodone 20 mg tablet 20 mg PO DAILY 11/26/24 03/26/25 03/26/25 History Vit B Comp W/C PO DAILY 02/11/25 03/23/25 History Vitamin C PO DAILY 02/11/25 03/23/25 History atomoxetine 40 mg capsule 40 mg PO DAILY 02/11/25 03/26/25 03/26/25 History calcium PO DAILY 02/11/25 03/23/25 History magnesium PO DAILY 02/11/25 03/23/25 History multivitamin 1 tab PO DAILY 02/11/25 03/26/25 03/23/25 History omeprazole 20 mg capsule,delayed 20 mg PO DAILY PRN Acid Reflux 02/11/25 03/26/25 Unknown History release vitamin C 500 mg-multivitamin with 1 tab PO BID 02/11/25 03/26/25 03/23/25 History minerals chewable tablet (Emergen-C) acetaminophen 1,000 mg PO 03/26/25 03/25/25 History ibuprofen PO DAILY PRN Pain 03/26/25 03/23/25 History Exam Exam Date and Time: 03/26/2025 Assessment and Plan Final Anesthetic Review NPO: Yes ASA Class: II Final Preanesthetic Review: No Changes in Pt Med Stat, Meds/Allgs Chart Reviewed, Consent Obtained/Reviewed and Anes Risks/Benef Reviewed Patient Risk: Low Procedure Risk: Intermediate Anesthetic Plan Anesthetic Plan: GA Disposition: Standard PACU
--- OUTSIDE RECORDS SUMMARY | 2025-03-20 23:59 | XMS_ITS | Continuity of Care Document ---
Author Organization [facility] Address [address] [place] [address] Care Team Providers Care Health Specialist Name Role Phone Yue WHITE, Rio Aguirre Primary Care Physician Encounter [facility] Date(s): 11/20/24 - 03/20/25 [facility] [address] [place] [address] Attending Physician: Mayelin Walton MD Admitting Physician: Mayelin Walton MD Encounter Type: Pre-OutPatient One Time Allergies, Adverse Reactions, Alerts No Known Allergies Immunizations Given and Recorded Vaccine Date Status Refusal Reason tetanus/diphtheria/pertussis, acel(Tdap) 08/23/23 Given tetanus/diphtheria/pertussis, acel(Tdap) 02/15/21 Recorded tetanus/diphtheria/pertussis, acel(Tdap) 09/17/15 Recorded SARS-CoV-2 (COVID-19) mRNA BNT-162b2 vac 04/13/21 Recorded SARS-CoV-2 (COVID-19) mRNA BNT-162b2 vac 03/23/21 Recorded Medications atomoxetine 40 mg oral capsule 1 capsule = 40 mg, By Mouth, Daily in AM, # 30 capsule, 0 Refills, Maintenance, 01/14/25 1:00:00 PM EDT, Capsule, Partial fill upon patient request if the prescription is for a schedule II opioid drug. Start Date: 01/14/25 Status: Ordered Quantity: 30.0 Unit: capsule Repeat number: 1 Calcium Citrate By Mouth, 2 times a day, 0 Refills, Maintenance, 12/27/24 2:29:00 PM EDT, Partial fill upon patient request if the prescription is for a schedule II opioid drug. Start Date: 12/27/24 Status: Ordered Repeat number: 1 Ibuprofen Refills 0, Maintenance, 12/27/24 2:28:00 PM EDT, Partial fill upon patient request if the prescription is for a schedule II opioid drug. Start Date: 12/27/24 Status: Ordered Repeat number: 1 Tylenol 325 mg oral capsule 1 capsule = 325 mg, By Mouth, 3 times a day, 0 Refills, Maintenance, 12/27/24 2:28:00 PM EDT, Partial fill upon patient request if the prescription is for a schedule II opioid drug. Start Date: 12/27/24 Status: Ordered Repeat number: 1 vilazodone 40 mg oral tablet 1 tablet = 40 mg, By Mouth, Daily, with food, # 90 tablet, 1 Refills, Maintenance, 11/22/24 4:49:00 PM EDT, Tablet, [facility]/pharmacy #[id number], Partial fill upon patient request if the prescription is for a schedule II opioid drug., 160, cm, 11/10/24 13:37:00 EST, Height, 78.2, kg, 11/10/24 13:37:00 EST, Dry Weight Start Date: 11/22/24 Status: Ordered Quantity: 90.0 Unit: tablet Repeat number: 2 Vit B Complex Tablet 0 Refills, Maintenance, 12/27/24 2:27:00 PM EDT, Partial fill upon patient request if the prescription is for a schedule II opioid drug. Start Date: 12/27/24 Status: Ordered Repeat number: 1 Vitamin C By Mouth, Daily, 0 Refills, Maintenance, 12/27/24 2:28:00 PM EDT, Partial fill upon patient request if the prescription is for a schedule II opioid drug. Start Date: 12/27/24 Status: Ordered Repeat number: 1 Problem List [...] Care team information Care Team Personnel Name: Yue WHITE, Rio Aguirre Position: [facility] PCO Associate Professional Member Role: PCP Address: [address] [place] [address] [facility] [address]- Telecom: Care Team Related Persons Name: LACEY DOWNEY Name: ADY HIDALGO Name: MATEO HIDALGO Insurance Providers Guarantor name: [facility] [employer] Plan Information #: 1 Payer: [facility] PPO Payer Identifier: NA Member Number: [id number] Group Number: [id number] Subscriber Identifier: [id number] Relationship to Subscriber: self Coverage Type: Medicare PPO Coverage Verification Date: NA Telecom: NA Address:
[2025-03-26] VITALS (11 sets, daily range): BP systolic 101–131; BP diastolic 53–72; PULSE 77–104; RESP 12–20; TEMP 36–36.4; O2SAT 96–100; BMI 33.1
--- NOTE | ~2025-03-26 | FL_ITS ---
EXAMINATION: FL GUIDANCE ONLY HISTORY: L4-5 OLIF COMPARISON: None available. TECHNIQUE: Fluoroscopy time: 1 minute, 16.7 seconds. Cumulative Dose: 54.82 mGy. DAP: 19.272 mGym2 Images: 6. FINDINGS: Fluoroscopic spot films of the lumbar spine demonstrate posterior fusion of L4 and L5 with pedicle screws, spinal stabilization rods, and an intervertebral spacer. FL/FL guidance in OR IMPRESSION: Fluoroscopy during procedure. Please see procedure report for additional information. Electronically signed by: Parish Goldsmith MD 03/26/2025 10:27 AM EDT
--- OUTSIDE RECORDS SUMMARY | 2025-03-26 06:23 | XMS_ITS | Clinical Summary ---
Author Organization [facility] Address [address] [place], [place] [id number] Care Team Providers Care Class A Regional Truck Driver Name Role Phone Unavailable Primary Care Provider [...] o f 2) 02/17/2010 COVID-19 Vaccine (3 2023-2 5 season) 2024 04/13/2021, 03/23/2021 Fall Risk Assessment 02/17/2025 Osteoporosis Screening (DEXA Scan) 02/17/2025 Pneumococcal Vaccine (1 of 1 - PCV) 02/17/2025 Influenza Vaccine (#1) 2025 RSV Adult > 60+ Yrs or (1 [...] ID Effect nicole Dates Phone Address Type [employer] [id number] 08/11/2022-Pres ent [address] [place] [id number] PPO
--- OUTSIDE RECORDS SUMMARY | 2025-03-26 06:23 | XMS_ITS ---
Author Name [facility] Organization Unknown History of Medication Use Medication Directions Dispensed Refills Start Date End Date Stat Kenalog 40 mg/mL suspension for injection Take 1 mL by injection route. 12/01/2022 active Lexapro active Naprosyn active Prilosec active Problems Problem Status Onset Date Problem Type Date of Resoluti on Source Full thickness rotator cuff tear active 2023-01-27 ProblemAct [facility] Adhesive capsulitis of right shoulder active 2022-12-21 ProblemAct [facility] Trochanteric bursitis of left hip active 2022-12-01 ProblemAct [facility] Trochanteric bursitis of right hip active 2022-12-01 ProblemAct [facility] Encounters Encounter Type Encounter Reason Primary Diagnosis Location Date Ambulatory [facility] 07/31/2024 Ambulatory [facility] 07/31/2024 Amb[facility] 07/31/2024 Ambulatory [facility] 09/25/2023 [facility] 07/01/2023 Ambulatory [facility] 07/01/2023 Ambulatory [facility] 05/29/2023 Ambulatory [facility] 05/27/2023 Ambulatory [facility] 04/27/2023 Ambulatory [facility] 03/14/2023 Ambulatory [facility] 01/31/2023 Ambulatory [facility] 01/27/2023 Ambulatory [facility] 01/27/2023 Ambulatory [facility] 01/06/2023 Ambulatory [facility] 12/09/2022
[2025-03-26] MEDS: Lactated Ringers 1,000 ML 100 ML IVCONT (06:46)
--- NOTE | 2025-03-26 06:52 | P.HPSUR_ITS ---
Pre-Procedural Eval Section A - 24 Hr Update-Section A only Date of Service: 03/26/25 Section B - Complete if H&P > 30 days Chief Complaint: s/p L4-5 OLIF Allergies: Allergies Allergy/AdvReac Type Severity Reaction Status Date / Time No Known Allergies Allergy Verified 03/26/25 06:18 Review of Systems Sugical H&P ROS: Negative: Constitution, Cardiovascular, Respiratory, Neurol ogical, Psychiatric, Hem-Onc, Allergic/Immunologic, Gastrointestinal, Genitourinary, Musculoskeletal, Integumentary, Endocrine and Eyes/Ears/Nose/Throat Exam Surgical H&P Exam: Not Evaluated: HEENT, Not Evaluated: Heart, Not Evaluated: Lungs, Not Evaluated: Extremities, Not Evaluated: Abdomen, Not Evaluated: Skin and Not Evaluated: Neurological Exam Comment: The patient is awake, alert, no acute distress. Proposed surgical incision site is clean, dry, with no signs of recent trauma or injury. Plan I have reviewed the history and physical and performed a pertinent physical examination on my patient. No changes have occurred unless specified. Plan remains the same, L4-5 OLIF. Time Spent With Patient Time: Total time managing care of this patient today __7__ minutes.
--- NOTE | 2025-03-26 07:25 | PHA.MEDREC ---
Pharmacy Consult ? Medication Reconciliation Pharmacy has reviewed the medication reconciliation done by nursing and also spoke to patient to confirm med list. Per patient, she's taking the increased dose of atomoxetine (80 mg) and vilazodone (40 mg). She alternates acetaminophen, ibuprofen and naproxen prn pain. She takes otc supplements calcium, magnesium, vitamin C, vitamin B complex but doesn't know the doses of them so they were left out of med list.
--- NOTE | 2025-03-26 09:31 | P.OP_ITS ---
Operative Note Operative Note Date of Service: 03/26/25 Narrative: Preop Diagnosis: 1.) L4-5 spondylolisthesis 2.) Back pain Procedure: 1) L4-5 discectomy, arthrodesis and implantation cage through an anterolateral, retroperitoneal approach 2) L4-5 posterior instrumented fusion 3) allograft 4) Injection of 10 cc of Exparel at the transverse process for a muscular erector spinae block and additional Exparel in paravertebral tissue for postop management Consent Informed Consent was obtained for this operation. I have explained the nature, purpose and benefits of the operation. I have discussed the risks and benefit of the operation including possible complications or adverse events with patient/family. Alternative(s) were discussed with the patient with their relative benefits and risks as well as the consequences of not accepting the operation were included in obtaining consent. Surgeon: AUGUSTINA CANNON MD, PHD Procedure Assisted By: HUMERA Pro Description of Procedure This patient is suffering from back pain and bilateral hip pain. Imaging reviews a unstable L4-5 spondylolisthesis with spinal stenosis. The patient was offered an oblique lumbar interbody fusion L4-5. The procedure and complications were explained. The patient was consented. The patient was brought to the operating room and endotracheally intubated. The patient was turned in a lateral position with the left side up. Prep and drape was done followed by timeout. A small incision was made in the left lower abdominal quadrant. The muscle fascia was opened after which the 3 muscle layer was split to enter the retroperitoneal space. Dilators were docked in the anterior one third of the L4-5 disc space followed by a retractor. The retractor was opened. The L4-5 disc space was exposed. An annulotomy was done after which an elevator [employer] was used to release the disc material from its endplates and to perforate the contralateral side. A partial discectomy was done. An 8 mm and 10 mm height trial implant was inserted. The discectomy was completed. The endplates were prepared. An 10 x 45 mm with 0 degree lordosis 4 web cage filled with allograft was inserted into the disc space under fluoroscopic guidance. This resulted in correction of the spondylolisthesis. The retractor was removed. Hemostasis was done. The incision was closed in 2 layers. Steri-Strips used to approximate incision. An OpSite with Tegaderm was used to cover the incision. This marked first part of the pro cedure. The patient was turned prone on the [place] spine table. 2C arms were installed for fluoroscopy. Prep and drape was done followed by a second timeout. Injection of 10 cc of Exparel at the bilateral L4 transverse processi for a muscular erector spinae block. Two paramedian incisions were made lateral from the L4 and L5 pedicles. The muscle fascia was opened after which the muscle layer was split bluntly to expose the posterolateral gutter. The following steps were taken. A pediguard tap was used to create a transpedicular trajectory into the vertebral body. A K wire was placed. A specially designed instrument was advanced over the K wire to decorticate the posterolateral gutter in preparation for the posterolateral fusion. A pedicle screw was advanced over the K wire and the K wire was removed. The steps were done for the bilateral L4 and L5 pedicles. A total of 4 screws were placed with a diameter of 6.5 x 45 mm. Pedicle screws were connected with 40 mm sydni bilaterally and locked down with locking caps. The extension towers were removed. The posterolateral gutter was filled with allograft to complete the posterolateral L4-5 fusion Hemostasis was done and the incision was closed in 2 layers. Steri-Strips were used to approximate the incision. An OpSite with tegaderm was used to cover the incision. All sponge and needle counts were correct. Patient was extubated and transferred in stable is to recovery room. Anesthesia: General Estimated Blood Loss (ml): Less than 50 Duration of Surgery: 90 minutes Complications: None Postoperative Plan: Admit to inpatient for clinical observation
[2025-03-26] MEDS: oxyCODONE HCl Immed Release 5 MG TABLET PO ×2 (10:40→16:21)
[2025-03-27] MEDS: oxyCODONE HCl Immed Release 5 MG TABLET PO (02:25)
--- NOTE | 2025-03-27 03:38 | PC.NURSE ---
03:35 Moderate staining on lower back dsg. ABD removed and changed. Kept small dsgs covering incision lines. Ice packs applied.
[2025-03-27 03:59] VITALS: BP 127/59; PULSE 93; RESP 18; TEMP 36.4; O2SAT 97
[2025-03-27 07:53] VITALS: BP 118/81; PULSE 95; RESP 18; TEMP 36.4; O2SAT 99
--- NOTE | 2025-03-27 08:01 | HO.POSTANES ---
Post Anesthesia Evaluation Post Anesthesia Evaluation Date of Service: 03/27/25 Vital Signs: Vital Signs Temp Pulse Resp BP Pulse Ox O2 Del Method 03/27/25 07:53 97.5 F 95 18 118/81 99 Room Air 03/27/25 03:59 97.6 F 93 18 127/59 L 97 Room Air Anesthesia: General Mental Status: Awake Pain Control: Satisfactory Nausea/Vomiting: None Hydration: Adequate Anesthesia-Related Issues: No Anes. Related Issues
--- NOTE | 2025-03-27 09:20 | PM.DS ---
DS: Providers Provider Date of Service: 03/27/25 Date of admission: 03/26/25 06:18 Date of discharge: 03/27/25 Primary care physician: Rio Turner NP DS: Summary Time Attestation Discharge Coordination Time (in mins): 12 Quality: Safe Use of Opioids Does Pt have an Active Cancer Diagnosis on the Problem List?: No Quality: Stroke Does the patient have a stroke diagnosis?: No Physical Exam Vital Signs: Vital Signs: Last Vital Signs Temp 97.5 F 03/27/25 07:53 Pulse 95 03/27/25 07:53 Resp 18 03/27/25 07:53 BP 118/81 03/27/25 07:53 Pulse Ox 99 03/27/25 07:53 O2 Del Method Room Air 03/27/25 07:53 O2 Flow Rate 4 03/26/25 10:08 BMI result Body Mass Index 33.1 Discharge Plan Discharge Anticipated Discharge Date/Time: 03/27/25 09:25 Patient Disposition: Home, Self-Care Discharge Diagnosis: s/p L4-5 OLIF Referrals: Rio Turner NP [Primary Care Provider, Medical] - 1 Week Discharge Medications: New oxycodone 5 mg tablet See Rx Instructions .ROUTE .COMPLEX PRN (Reason: pain) Qty: 30 0RF Rx Instructions: Take 1-2 tablets by mouth every 4 hours; Partial Fill upon patient request. methocarbamol 750 mg tablet 750 mg PO TID PRN (Reason: muscle spasms) Qty: 30 0RF docusate sodium 100 mg capsule 100 mg PO BID PRN (Reason: constipation) Qty: 30 0RF Continued omeprazole 20 mg capsule,delayed release(DR/EC) 20 mg PO DAILY PRN (Reason: Acid Reflux) atomoxetine 40 mg capsule 80 mg PO DAILY multivitamin Tablet 1 tab PO DAILY Emergen-C 500 mg Tablet,Chewable 1 tab PO BID acetaminophen 500 mg 1,000 mg PO DAILY PRN (Reason: Pain) ibuprofen 200 mg PO DAILY PRN (Reason: Pain) naproxen 250 mg tablet 250 mg PO BID PRN (Reason: pain) Qty: 28 1RF vilazodone 20 mg tablet 40 mg PO DAILY Discharge Orders: Discharge Order (Routine); Ordered 03/27/25 Ordered By: Mauro Garcia Diet: Advance to usual diet Activity on Discharge: As tolerated Stand Alone Forms: Patient Portal Discharge page Print Language: Trinidadian Activity Restrictions/Additional Instructions: After your spinal surgery we ask you to observe the following restrictions/guidelines: Activity: It is normal to feel some discomfort as you increase your activity, but that will improve with time. We ask you avoid heavy lifting or acitivities that cause pain. As a general rule, 8lbs is a safe limit for lifting right after surgery. Walk as much as you feel comfortable but not to exhaustion. You will feel extra tired the first few days after surgery. Stay well hydrated. It is OK to walk up and down stairs You may return to driving when you are off narcotics (such as vicodin, oxycodone, dilaudid, etc), and you are back to normal functional capacity. If you have any concerns please check with office before driving. Return to work is specific to each patient and each surgery, so please speak with your doctor/PA at first follow up. Please bring paperwork such as FMLA at that time if you need it filled out. Medications: We recommend you take 1,000mg Tylenol every 8 hours for the first few weeks after surgery, if you do not have any liver issues and can tolerate this medication. Do not exceed 4,000mg daily. We will give you a short supply of narcotics after surgery (usually one weeks worth). If you need more please call the office but do not use more than prescribed. You will need to give our office 48 hours notice if you need narcotics refilled and we do not fill narcotics on weekends or evenings. If you are on a narcotic, it is a good idea to take a stool softener such as colace or senna to avoid constipation If you take blood thinner such as aspirin, Plavix, Coumadin, Effient, Eliquis etc for conditions such as Afib, DVT, Pulmonary embolus, coronary disease, stents etc please speak with your surgeon about specific details as to when you can resume these medications. You can resume NSAIDs on post op day 1 (eg: Motrin, Naproxen, etc). Follow up: Please call the office, , after surgery to arrange a 3 week follow up for wound check. Wound Care: You may remove your dressing on the first day after surgery. ?You may ?leave open to air. Please do not remove the steri strips underneath. they will fall off on their own in one week. IT IS NORMAL FOR THE WOUND TO OOZE OR BE BLOODY FOR A FEW DAYS AFTER SURGERY. ?IF THIS HAPPENS JUST PLACE NEW DRESSING OVER IT TO AVOID STAINING CLOTHES. You may shower on post op day # 1 We ask that you do not let the water soak the wound. If it does get wet, just towel dry lightly. Please do not scrub your incision or place any type of chemical/ointment on the wound. No tub baths, pools or jacuzzis for one month. If you have any leaking or redness from your wound, or fevers, please call the office. Care Plan Goals: Return to normal activity as tolerated Health Concerns: None Plan of Treatment: Follow-up in clinic in 2-3 weeks Assessment: The patient is postop day 1 status post L4-5 OLIF she was admitted yesterday afternoon to [facility]. Her pain has been well controlled with the current pain medication. She is tolerating her current diet and voiding independently/ambulating to the bathroom. She is progressing as expected. She reports that she is ready to return home. I will send in her medications to [facility] pharmacy, and place DC order.
[2025-03-27] MEDS: oxyCODONE HCl Immed Release 5 MG TABLET 10 MG PO (10:43)
--- NOTE | 2025-03-27 11:36 | W.MHC.F2F ---
Service Date Service Date: 03/27/25 Encounter Date of encounter: 03/27/25 Reasons for Services Signs and symptoms assessed: s/p L4-5 OLIF Reason for physical therapy: home safety and mobility, restore joint function, gait/transfer training and ADL training Homebound: Leaving the home is medically contraindicated at this time without the asist of a device and/or another person due th the listed conditions above and below. Reason homebound: unsteady gait / fall risk, leg weakness, poor balance / fall risk and weakness related to hospital stay Certification: Based on the above findings, I certify that this patient is confined to the home and needs intermittent care home care, physical therapy and/or speech therapy, or continues to need occupational therapy. The patient is under my care, and I have initiated the establishment of the plan of care. The patient will be followed by a physician who will periodically review the plan of care. Time Spent With Patient Time: Total time managing care of this patient today ___12_ minutes.
--- NOTE | 2025-03-27 11:57 | MHC.CM.PN ---
Addendum entered by Alba Christianson 03/27/25 12:27: [facility] ACCEPTED, HOWEVER THEY ARE UNABLE TO PROVIDE PT SERVICES BEFORE MONDAY PT IS AWARE AND AGREEABLE TO THIS PLAN SHE KNOWS THEY WILL CALL HER DIRECTLY TO MAKE ARRANGEMENTS Original Note: PT REPORTS SHE LIVES ALONE BUT HER [employer] IS THERE MUCH OF THE TIME SHE IS INDEPENDENT WITH CARE AT BASELINE SHE OBTAINED A WALKER FOR SHORT TERM USE UPON DC SHE DECLINES A HCP PCP: ANABEL VALLEJO IMM DELIVERED DCP: HOME ? [facility] ORDERED, HOWEVER PT UNDERSTANDS HER LOCATION AND INSURANCE ARE BARRIERS SHE REPORTS HER FIANCE CAN ASSIST HER AT HOME IF NO [facility] ACCEPTS [facility] WILL TRANSPORT
[2025-03-27 12:55] VITALS: BP 113/59; PULSE 77; RESP 16; TEMP 36.2; O2SAT 98
== END 2025-03-27 12:38 | disposition home health service (06) | DRG 451 ==
LOC: HO.SSSA 06:21 → HO.S3 10:30
PROVIDERS: Admitting Provider Neurological Surgery; PCP Nurse Practitioner Family; Visit Provider Neurological Surgery
PROC: 0SG00A0 Fusion of Lumbar Vertebral Joint with Interbody Fusion Device, Anterior Approach, Anterior Column, Open Approach (ICD-10-PCS; principal; 2025-03-26 07:30)
DX: M43.16 Spondylolisthesis, lumbar region (principal); Z87.891 Personal history of nicotine dependence; Z79.899 Other long term (current) drug therapy
CPT/HCPCS: 86850; 86900; 86901; 97110; 97116; 97162; C1713; C1889; J0131; J0665; J0666; J0690; J1100; J1885; J2003; J2250; J2405; J2704; J3010; L8699

== ENCOUNTER → 2025-03-26 06:18 | Outpatient (BNV) | payer MEDICARE, SELFPAY | PROVIDERS: Admitting Provider Neurological Surgery; PCP Nurse Practitioner Family; Visit Provider Neurological Surgery | DX: M43.16 Spondylolisthesis, lumbar region (principal) | CPT/HCPCS: 20930; 22558; 22612; 22840; 22853; 99499; G0180 ==

== ENCOUNTER 2025-04-16 13:43 | Outpatient (AMB) | payer MEDICARE, SELFPAY ==
--- OUTSIDE RECORDS SUMMARY | 2025-04-10 23:59 | XMS_ITS | Continuity of Care Document ---
Author Organization [facility] [employer] Address [address] [place] [address], [address] [place] [address]- Care Team Providers Care Insurance Business Analyst Name Role Phone Rio Turner NP Primary Care Physician [id number] Date[facility]s): 12/27[facility]24 - 04/10/25 [facility] [address] [place] [address], [address] [place], [place] [address] Attending Physician: Tonia Connor DO Admitting Physician: Tonia Connor DO Referring Physician: Rio Turner NP Encounter Type: Pre-OutPatient One Time Allergies, Adverse [...] Date: 12/27/24 Status: Ordered Repeat number: 1 cyclobenzaprine 10 mg oral tablet 10 mg, 1, tablet, By Mouth, Daily at bedtime, PRN, for 30 days, # 30 tablet, Refills 1, Tot. Refills 1, Acute 05/23/25 5:49:00 PM EDT, Spasm for spasm, 03/24/25 5:49:00 PM EDT, Route to Pharmacy Electronically, [id number], Partial fill upon patient request if the prescription is for a schedule II opioid drug., 160, cm, 01/14/25 13:00:00 EDT, Height, 77.6, kg, 12/27/24 14:16:00 EDT, Dry Weight Start Date: 03/24/25 Stop Date: 05/23/25 Status: Ordered Quantity: 30.0 Unit: tablet Repeat number: 2 estradiol 0.025 mg/24 hours twice weekly transdermal film, extended release 1 patch, Topically, Every Monday and , # 9 patch, 2 Refills, Maintenance, 04/03/25 11:15:00 AM EDT, [facility] #[id number], Partial fill upon patient request if the prescription is for a schedule II opioid drug., 160, cm, 01/14/25 13:00:00 EDT, Height, 77.6, kg, 12/27/24 14:16:00 EDT, Dry Weight Start Date: 04/03/25 Stop Date: 07/02/25 Status: Ordered Quantity: 9.0 Unit: patch Repeat number: 3 Ibuprofen Refills 0, Maintenance, 12/27/24 2:28:00 PM EDT, Partial fill upon patient request if the prescription is for a schedule II opioid drug. Start Date: 12/27/24 Status: Ordered Repeat number: 1 omeprazole 20 mg oral enteric coated capsule 1 capsule = 20 mg, By Mouth, Daily, # 90 capsule, 1 Refills, Maintenance, 03/24/25 5:52:00 PM EDT, EC Capsule, [id number], Partial fill upon patient request if the prescription is fora schedule II opioid drug., 160, cm, 01/14/25 13:00:00 EDT, Height, 77.6, kg, 12/27/24 14:16:00 EDT, Dry Weight Start Date: 03/24/25 Status: Ordered Quantity: 90.0 Unit: capsule Repeat number: 2 Indications: Gastro-esophageal reflux disease without esophagitis; Tylenol 325 mg oral capsule 1 capsule [...] Refills, Maintenance, 11/22/24 4:49:00 PM EDT, Tablet, [facility]/pharmacy #[id number], Partial fill upon patient request if [...] Team Personnel Name: Rio Turner NP Position: [facility] PC[facility] Associate Professional Member Role: PCP Address: [address] [place] [address] [facility] [place] [address] Telecom: Care Team Related Persons Name: LACEY DOWNEY Name: ADY HIDALGO Name: MATEO HIDALGO Insurance Providers Guarantor name: ARLENE ROCKY Health Plan Information #: 1 Payer: [facility] PPO Payer Identifier: ANT Member Number: [id number] Group Number: [id number] Subscriber Identifier: [id number] Relationship to Subscriber: self Coverage Type: Medicare PPO Coverage Verification Date: Telecom: NA Address:
--- NOTE | 2025-04-16 13:48 | HO.SPINEOV ---
Intake Visit Reasons: 1st post op Intake Note: Mrs. Hill is here today for her 1st post-op visit. Allergies No Known Allergies Allergy (Verified 03/26/25 06:18) Assessment & Plan Assessment & Plan (1) Lumbago: Code(s): M54.50 - Low back pain, unspecified Category: Medical Plan Procedure: L4-5 OLIF Khloe is a pleasant 65-year-old female comes in today for her 1st postoperative visit after having a L4-5 lumbar fusion completed by Dr. Torres. To recap she was initially evaluated in clinic for low back pain and bilateral hip pain, right side worse than left. Today, she reports that the bulk of her preoperative pain has resolved since her surgery. She overall is very happy with her procedure. She does still have some left-sided posterior buttocks/hip pain, which we discussed his likely a result of the surgical approach for the OLIF cage. Other than that she has been doing very well. She does occasionally still get flare-ups of pain at night, and has a difficult time sleeping due to needing to change positions frequently to relieve her discomfort. She asked several questions regarding the postoperative healing course, all of which I answered to the best of my ability. No new neurological deficits. The patient ambulates well and rises from a seated position without difficulty. Her posterior and lateral incision sites are closed and well healing. I would like to have Khloe follow up with us again in 6 weeks for her 2nd postoperative visit. At that time we will get a set of x-rays. Mauro Torres MD,PhD [facility] Orders: Orders XR lumbar spine 4V min 04/16/25 M54.50 - Low back pain, unspecified Medications: Changed From oxycodone Take 1-2 tablets by mouth every 4 hours; Partial Fill upon patient request. 42 tabs 0RF pain To oxycodone Take 1-2 tablets by mouth before bed; 14 tabs 0RF pain Coding Level of Care Code Global (67760) Diagnoses Lumbago M54.50
--- OUTSIDE RECORDS SUMMARY | 2025-04-16 14:11 | XMS_ITS | Clinical Summary ---
Author Organization [facility] Address [address] [place], [place] [id number] Care Team Providers Care Catalogue Compiler Name Role Phone Unavailable Primary Care Provider [...] ID Effect nicole Dates Phone Address Type [email or web address] [id number] 08/11/2022-Pres ent [address] [place] [id number] PPO
== END 2025-04-16 14:33 | disposition home or self-care (01) ==
LOC: HO.HNS 13:43
PROVIDERS: PCP Nurse Practitioner Family; Visit Provider Physician Assistant
DX: M54.50 Low back pain, unspecified (principal)
CPT/HCPCS: 99024

== ENCOUNTER 2025-04-16 13:43 | Outpatient (REF) | payer MEDICARE, SELFPAY | END 2025-04-16 13:44 | disposition home or self-care (01) | LOC: HO.HOSX 13:43 | PROVIDERS: PCP Nurse Practitioner Family; Visit Provider Physician Assistant | DX: Z47.89 Encounter for other orthopedic aftercare (principal); M25.552 Pain in left hip; M54.50 Low back pain, unspecified; Z79.891 Long term (current) use of opiate analgesic | CPT/HCPCS: 99212 ==

== ENCOUNTER 2025-05-28 08:30 | Outpatient (REF) | payer MEDICARE, SELFPAY ==
--- NOTE | ~2025-05-28 | XR_ITS ---
EXAMINATION: XR LUMBAR SPINE 4 OR MORE VIEWS CLINICAL INFORMATION: M54.50 - Low back pain, unspecified COMPARISON: None available. TECHNIQUE: AP view and lateral views in neutral, extension and flexion positions. FINDINGS: Posterior fusion hardware at L4-L5 breast intact. Disc spacer at L4-L5. Grade 1 retrolisthesis of L2 on L3 on the neutral, flexion and extension positions. Grade 1 anterolisthesis of approximately 0.5-0.6 cm of L4 on L5 on the flexion and extension positions is not appreciated on the neutral position. Mild depression of the super endplate of L4 vertebral body. Bridging marginal osteophytes at multiple levels. XR/XR lumbar spine 4V min IMPRESSION: Grade 1 anterolisthesis of L4 on L5 on the flexion and extension positions. Electronically signed by: Brooks Vasquez MD 05/28/2025 03:00 PM EDT
--- OUTSIDE RECORDS SUMMARY | 2025-05-29 09:38 | XMS_ITS | Clinical Summary ---
Author Organization [facility] Address [address] [place], [place] [id number] Care Team Providers Care Senior Engineering Technician Name Role Phone Unavailable Primary Care Provider [...] ID Effect nicole Dates Phone Address Type artaculous. [email or web address] 08/11/2022-Pres ent [address] [place] [address] PPO
== END 2025-05-28 08:31 | disposition home or self-care (01) ==
LOC: HO.HOSX 08:30
PROVIDERS: Visit Provider Physician Assistant
DX: Z47.89 Encounter for other orthopedic aftercare (principal); M54.50 Low back pain, unspecified; M25.551 Pain in right hip; M25.552 Pain in left hip; M79.645 Pain in left finger(s); Z98.1 Arthrodesis status
CPT/HCPCS: 72110; 99212

== ENCOUNTER 2025-05-28 13:27 | Outpatient (AMB) | payer MEDICARE, SELFPAY ==
--- NOTE | 2025-05-28 13:50 | HO.SPINEOV ---
Intake Visit Reasons: 2nd post op w/ xray Intake Note: Ms. Hill is here today for her 2nd post op with xrays. Continuity Tester Required: No Allergies No Known Allergies Allergy (Verified 03/26/25 06:18) Assessment & Plan Assessment & Plan (1) Lumbago: Code(s): M54.50 - Low back pain, unspecified Category: Medical Plan Procedure: L4-5 OLIF Khloe is a pleasant 65-year-old female comes in today for her 2nd postoperative visit after having a L4-5 lumbar fusion completed by Dr. Torres. To recap she was initially evaluated in clinic for low back pain and bilateral hip pain, right side worse than left. She continues to report that the bulk of her preoperative pain has resolved since her surgery. She does still feel like she has trouble with prolonged ambulation, and states she is only able to walk about a 1/4 mile at a time before experiencing pain. She discussed how she still has some difficulties with right-sided pelvic tilt, and left-sided versus right-sided leg length discrepancy. She was previously evaluated for this a [place] [facility], and did wear a special shoe/boot for this issue in the past. She asked several questions regarding the postoperative healing course, all of which I answered to my best of my ability. I reviewed her x-ray imaging taken during this visit which shows stable placement of her surgical construct with no changes from fluoroscopy. No new neurological deficits. The patient ambulates well and rises from a seated position without difficulty. She still uses a cane for assistance with ambulation. I would like to send Khloe for a course of physical therapy at [facility] in [place]. I will also place a referral for our hand surgeon Dr. Townsend as the patient has previous trauma to her left hand causing her left ring finger to remain stuck in a extended position. She reports that an orthopedic surgeon previously recommended breaking the finger and fixating it in a more flexed position. She would like another opinion regarding her options. Mauro Torres MD,PhD [facility] Orders: Orders PT Evaluation and Treatment Today M54.50 - Low back pain, unspecified Referrals Orthopedics Referral M79.645 - Pain in left finger(s) Coding Level of Care Code Global (13434) Diagnoses Lumbago M54.50
--- OUTSIDE RECORDS SUMMARY | 2025-05-28 17:19 | XMS_ITS | Clinical Summary ---
Author Organization [facility] Address [address] [place], [place] [id number] Care Team Providers Care Nurse Transitional Name Role Phone Unavailable Primary Care Provider [...] Shingrix-Zoster Vaccine (1 o f 2) 02/17/2010 Fall Risk Assessment 02/17/2025 Osteoporosis Screening (DEXA Scan) 02/17/2025 Pneumococcal Vaccine (1 of 1 - PCV) 02/17/2025 COVID-19 Vaccine (3 - 2024-2 6 season) 2025 04/13/2021, 03/23/2021 Influenza Vaccine (#1) 2025 RSV Adult > [...] ID Effect nicole Dates Phone Address Type Attender. [email or web address] 08/11/2022-Pres ent [address] [place] [address] PPO
== END 2025-05-28 14:54 | disposition home or self-care (01) ==
LOC: HO.HNS 13:27
PROVIDERS: PCP Nurse Practitioner Family; Visit Provider Physician Assistant
DX: M54.50 Low back pain, unspecified (principal)
CPT/HCPCS: 99024

== ENCOUNTER → 2025-05-28 14:08 | Outpatient (BNV) | payer MEDICARE, SELFPAY | PROVIDERS: Visit Provider Radiology Body Imaging | DX: M54.50 Low back pain, unspecified (principal) | CPT/HCPCS: 72110 ==

== ENCOUNTER 2025-08-15 10:49 | Outpatient (AMB) | payer MEDICARE, SELFPAY ==
[2025-08-15 10:54] VITALS: BMI 32.9
--- NOTE | 2025-08-15 10:54 | A.OFFVIS_ITS ---
Vital Signs 08/15/25 10:54 Height 5 ft 3 in Weight 186 lb BMI 32.9 Intake Visit Reasons: NewProb: Left hand pain, injury from 08/2023 Intake Note: Khloe is a 65 year old right hand dominant female who presents today for a New Problem Visit for evaluation of Left Hand Pain. Patient reports she injured her left middle, ring, and small fingers on a saw table back in August,. She states she was seen at [facility] ED at the time, cannot fully recall what was done. She does have a scar from old sutures. Patient complains of hypersensitivity on the dorsal aspect of the left middle finger as well the ability to move her finger. She also complains of left middle and small finger limited ROM. She has not received any form of treatmet for her hand. Patient has a history of left shoulder rotator cuff insufficiency. Allergies No Known Allergies Allergy (Verified 08/15/25 10:54) HPI HPI NewProb: Left hand pain, injury from 08/2023: Details: Khloe is a 65 year old right hand dominant female who presents today for a New Problem Visit for evaluation of Left Hand Pain. Patient reports she injured her left middle, ring, and small fingers on a saw table back in August,. She states she was seen at [facility] ED at the time, cannot fully recall what was done. Patient states that at that time, she was told that the only intervention that would be performed would be for them to ?bend of the finger surgically?, but is unable to recall any further recommendations. She does have a scar from old sutures. Patient complains of hypersensitivity on the dorsal aspect of the left ring finger as well the ability to move her finger. Patient states she is able to bend at the MCP joint, but bending at the D IP and PIP joints is incredibly difficult, if not impossible. She also complains of left middle and small finger limited ROM. She has not received any form of treatmet for her hand. Patient has a history of left shoulder rotator cuff insufficiency. [facility] Medical History ELISABET (generalized anxiety disorder) Depression Anxiety PTSD (post-traumatic stress disorder) ADHD (attention deficit hyperactivity disorder) Acid reflux Shoulder pain, bilateral Sciatica Hx of influenza (09/2024) Surgical History Hx of bilateral breast reduction surgery (~2004) Hx of hysterectomy (~2009) History of ankle surgery History of repair of right rotator cuff (~2016) Social History Household Members: None Housing: House Are you a primary career and technology education teacher to a significant other at home: No Do you presently have visiting nurse or other home services: No 75 years or older and lives alone: No Patient Tobacco Use Status: Former Tobacco user Tobacco use type: Cigarette service: No Current occupation: rt handed Review of Systems Const All systems reviewed & are unremarkable except as noted in HPI and below Physical Exam Vital Signs: BMI result Body Mass Index 32.9 Extrem Other: Patient is alert, oriented, and in no acute distress. Neuro: Normal sensation of the tips of all digits of the left hand at this time Vascular: Cap refill brisk Pain: No tenderness to palpation or pain with range of motion of any of the digits of the left hand in the office today ROM: Patient is unable to be actively or passively be flexed at the PIP joint of the left ring finger, active or passive flexion of the left ring finger D IP joint is also extremely limited Patient is able to flex and extend at the MCP joint of the ring finger, but motion is somewhat limited Patient is able to flex and extend at all other digits of the left hand, but middle finger motion in particular is difficult at the D IP joint, as the patient feels that her skin is ?too tight? Skin: Old scars noted on the dorsal aspect of the left middle and ring fingers, well healed No lacerations or abrasions. General: No ecchymosis, erythema, or evidence of infection. Psych: Appears grossly normal Affect normal Attitude cooperative Assessment & Plan Assessment & Plan (1) Laceration of hand, left: Code(s): S61.412A - Laceration without foreign body of left hand, initial encounter Category: Medical Plan 1. Laceration of left middle and ring fingers With probable open fracture in 2022 with posttraumatic fusion of the PIP joint of the left ring finger Date of injury approximately 2022 Patient is educated about this condition Patient is educated about the typical recovery course At this time, I feel the best course of action is for the patient to follow-up with Dr. Townsend for discussion of potential osteotomy or other surgical procedures that may be indicated At this time, patient is informed that if there is a tendon that is out of function, 2 years later, it is highly unlikely we will be able to pursue any operative intervention to fix this However, I do feel it is best of the patient's see Dr. Townsend to discuss these options Patient understands this and is amenable to this plan Coding Level of Care Code New Pt Level 3 (03913) Diagnoses Laceration of hand, left S61.412A
== END 2025-08-15 11:38 | disposition home or self-care (01) ==
DX: S61.412A Laceration without foreign body of left hand, initial encounter (principal)
CPT/HCPCS: 99213

== ENCOUNTER → 2025-08-15 10:51 | Outpatient (BNV) | payer MEDICARE, SELFPAY | PROVIDERS: Visit Provider Radiology Diagnostic Radiology | DX: M19.042 Primary osteoarthritis, left hand (principal) | CPT/HCPCS: 73130 ==

== ENCOUNTER 2025-08-15 16:38 | Outpatient (REF) | payer MEDICARE, SELFPAY ==
--- OUTSIDE RECORDS SUMMARY | 2018-05-10 03:40 | XMS_ITS | Continuity of Care Document ---
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 Name Role Phone Angelo Ochoa OD Unavailable Unavailable Allergies, Adverse Reactions, Alerts Substance Reaction Status Criticality No Known Allergies Active No Inform ation Medications Medication Instructions Dosage Effective Dates (start - stop) Status Comments clonazepam 2 mg tablet - Act nicole PAXIL (unknown strength) Not Available - Active Procedures Procedure Date Comprehensive eye exam, new patient Determination of refractive state Advance Directives Directive Yes / No Effective Date File Name No Information Encounters Encounter Description Practice Location Reason(s) For Visit Diagnoses Date Provider Providers Copied on Encounter Eye [facility], [address] [address], [place], [place], [id number], [place] tel:[phone] Patient is here for a complete eye exam (chief complaint) Nuclear sclerosis senile cataract, bilateral H25.13Myopi a, bilateral H52.13 Don Stephens. [address]aria [place], [address], [place], [id number], [place]. tel:[phone] Referring Provider: Daria Buenrostro [place] [address], [place], [address]. tel:[phone] Family History Family Member Type Diagnosis Age At Onset Problem (finding) No relevant family hist ory Payers Payer name Insurance type Covered green party ID Authoriza tion(s) No Information Social History Type Description Quantity Date Captured Comments Alcohol Use Details No Caffeine Use Details coffee Tobacco Use Status Ex-cigarette smoker 018 Smoking Status Former smoker Smoking Tobacco Use Details Cigarette: Age Stopped: 29 Cigarette: No Details Available Sex Female Chief Complaint And Reason For Visit From encounter dated '05/10/2018 08:40'. Patient is here for a complete eye exam (chief complaint) Reason For Referral Reason For Referral No Information Plan Of Treatment Date Type Action Status Patient Education Cataract Information co mpleted History Of Present Illness Encounter Date Complaint History Of Prese nt Illness Patient is here for a complete eye exam Patient is here for a complete eye exam and reports that reading vision isn't as good with progressives as with +2.75 OTC readers. Functional Status Date Functional Assessmen t No Information Instructions Date Instruction Additional Infor mation - The patient was co unseled in detail on the diagnosis and understands. New glasses prescription was given today. Related to Myopia, bilateral H52.13 - The patient was co unseled in detail on the diagnosis and understands. No treatment is required at this time. Will continue to observe condition and or symptoms. 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
--- NOTE | ~2025-08-15 | XR_ITS ---
EXAMINATION: XR HAND 3 OR MORE VIEWS LEFT HISTORY: M79.643 - Pain in unspecified hand COMPARISON: There are no prior studies available for comparison. FINDINGS: Four views of the left hand are submitted. Osseous mineralization is normal. There is no fracture or dislocation. 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 The soft tissues are unremarkable. XR/XR hand LT min 3V IMPRESSION: Degenerative changes of the left hand as described. Electronically signed by: Parish Goldsmith MD 08/15/2025 11:12 AM DINO
--- OUTSIDE RECORDS SUMMARY | 2025-08-17 16:40 | XMS_ITS | Data Portability ---
Author Organization [facility] [place] Address [address] [place] [address] Assessment Encounter Date Assessment Date Assessment LastModified by Organization Details LastModified Time 12/01/2022 12/01/2022 Diagnosis #1 bilateral trochanteric bursitis. I had a lengthy discussion with patient guarding management including therapy, lifestyle modification as well as qpty-tzn-padhnzb remedies. She states she has had good [...] were conducted in the presence of female portable pinch riveter RT Rajan (Ken). Additional treatment plan discussed [...] findings at length with the patient today. We discussed the nature and etiology of this problem along with current treatment options. We discussed the expected course and outcomes and what to expect. We also discussed risks and benefits. All of their questions were answered today, and there was exhibited understanding and comprehension of all that was discussed. 10 minutes were spent reviewing previous imaging and charting. 10 minutes were spent obtaining patient history. 5 minutes were spent on physical exam. 5minutes were spent explaining diagnosis and assessment. Today's documentation was made using voice recognition software. This note may contain grammatical errors secondary to the software. Not available 12/01/2022 12:15:10 12/21/2022 12/21/2022 62-year-old female ongoing right shoulder pain treated with cortisone injections. She has been taking tave-qsa-rugzqvd pain medications for symptomatic relief which is [...] findings at length with the patient today. We discussed the nature and etiology of this problem along with current treatment options. We discussed the expected course and outcomes and what to expect. We also discussed risks and benefits. All of their questions were answered today, and there was exhibited understanding and comprehension of all that was discussed. 10 minutes were spent reviewing previous imaging and charting. 10 minutes were spent obtaining patient history. 5 minutes were spent on physical exam. 5minutes were spent explaining diagnosis and assessment. Today's [...] be seen by Dr. Thomason in the [place] office. I will refer her to either [facility] for surgical consultation. Patient is [...] findings at length with the patient today. We discussed the nature and etiology of this problem along with current treatment options. We discussed the expected course and outcomes and what to expect. We also discussed risks and benefits. All of their questions were answered today, and there was exhibited understanding and comprehension of all that was discussed. Time Spent: 15 minutes were spent reviewing previous imaging and charting. 15 minutes were spent obtaining patient history. 5 minutes were spent on physical exam. 15minutes were spent explaining diagnosis and assessment. Today's documentation was made using voice recognition software. This note may contain grammatical errors secondary to the software. Not available 01/27/2023 12:16:57 Plan of Treatment Reminders Order Date Submit Date Provider Last Modified By Organization Details Last Modified Time Details Appointments None recorded. Lab None recorded. Referral None recorded. Procedures None recorded. Surgeries None recorded. Imaging MRI, shoulder, w/o contrast - Previous history of rotator cuff tear and repair 2 suture anchors in right proximal humerus 2022 023 [email or web address] [facility] [address], [place], [address], 13:33:32 XR, hip + pelvis, unilateral, 2 or 3 view 2022 023 [facility], [address], [place], [address], 3 10:06:52 XR, hip + pelvis, unilateral, 1 view 2022 023 [facility], [address], [place], [address], 3 10:06:52 Medication Orders Kenalog 40 mg/mL suspension for injection 2022 023 Happy Inspector[employer], [facility][id number], [address] [place] [address], [id number], 3 12:19:59 lidocaine (PF) 10 mg/mL (1 %) injection solution 2022 023 [facility][id number], [address] [place] [place], [place], [id number], 3 12:19:59 Kenalog 40 mg/mL suspension for injection 2022 023 [facility] #[id number], [address], [place], [id number], 3 12:19:59 lidocaine (PF) 10 mg/mL (1 %) injection solution 2022 023 [facility][id number], [address] , [place], [place], [id number], 12:19:59 Patient TargetsNo targets recorded. Patient Instructions Encounter Date Encounter Id Patient Instructions Last Modified By Organization Details Last Modified Time 12/01/2022 [id number] Patient Instructions Following Cortisone Injections Orlando Baker [...] following the injection. This is called a tequila artis . To help minimize the chances of [...] contr ast No observ ation record ed. [email or web address] [facility]) [address] [place], [address], 01/30/2023 12:08:33 01/28/20 MRI, shoul ward, w/o contr ast No observ ation record ed. [email or web address] [facility] [address] [place], [address], 01/27/2023 08:25:49 Result Notes None recorded. Problems Name Problem SNOMED Code Status Onset Date Resolution Date Notes Provider Name and Address Organization Details Recorded Time Trochanteri c bursitis of right hip 9860946711474 00 Active 2022 ORLANDO BAKER PA-C [address], [place], [address], [place] [facility] 3 12:15:16 Trochanteri c bursitis of left hip 6800224623608 03 Active 2022 ORLANDO BAKER PA-C [address], [place], [address], [place] [facility] 3 12:15:21 Adhesive capsulitis of right shoulder 3397372290328 09 Active 2022 ORLANDO BAKER PA-C [address], [place], [address], [place] [facility] 3 15:37:37 Full thickness rotator cuff tear 765971668 Active 2022 ORLANDO BAKER PA-C [address], [place], [address], [place] [facility] 3 12:16:35 Problem Notes None recorded. Procedures Surgical History Date Name Laterality Status Provider Name and Address Organization Details Recorded Time 12/02/19 LEOBARDO Troch Bursa Inj completed ORLANDO BAKER PA-C [address] [facility] [address], [place], [address], [place] [facility] P 12/01/2022 12:13:08 Breast reduction completed Krystal Ba [facility], P 12/01/2022 11:02:46 hysterectomy completed Krystal Ba [facility] 12/01/2022 11:02:59 Shoulder Surgery completed Krystal Ba [facility] P 12/01/2022 11:03:08 Imaging Results None recorded. Procedure Notes None recorded. Medical Equipment None [...] Not Available Not Available No t Available bupivacaine HCl 0.5 % (5 mg/mL) injection solution 11/15 completed Not Available Not Available Not Available clonazepam 0.5 mg tablet TAKE 1 TABLET BY MOUTH FOUR TIMES DAILY NEEDED FOR PANIC OR ANXIETY active Not Available Not Available No t Available clonazepam 1 mg tablet TAKE ONE TABLET BY MOUTH EVERY DAY ANXIETY -- NEEDED active Not Available Not Available No t Available methylpredn isolone 4 mg tablet FOLLOW PACKAGE DIRECTION S 2022 active Not Available Not Available Not Avai lable amoxicillin 500 mg tablet TAKE 1 TABLET BY MOUTH THREE TIMES DAILY UNTIL ALL TAKEN active Not Available Not Available No t Available Kenalog 40 mg/mL suspension for injection Take 1 mL by injection route. 2022 active Not Available Not Available Not Avai lable dextroamphe tamine-amph etamine 30 mg tablet TAKE 1 TABLET BY MOUTH IN THE AM AND 1 TABLET AT NOON active Not Available Not Available No t Available omeprazole 20 mg capsule,del ayed release Take 1 capsule (20 mg total) by mouth daily. 2022 active Not Available Not Available Not Avai lable diclofenac sodium 75 mg tablet,douglas yed release TAKE 1 TABLET BY MOUTH TWICE DAILY NEEDED FOR MODERATE PAIN 2022 active Not Available Not Available Not Avai lable dextroamphe tamine-amph etamine ER 30 mg 24hr capsule,ext end release TAKE 1 CAPSULE BY MOUTH DAILY IN THE MORNING active Not Available Not Available No t Available naproxen 500 mg tablet TAKE 1 TABLET BY MOUTH TWICE DAILY FOR 5 DAYS NEEDED FOR PAIN 2022 active Not Available Not Available Not Avai lable escitalopra m 20 mg tablet TAKE 2 TABLETS BY [...] Anemia N Brain Injury N Heart Attack (AR) N Osteopenia N Diabetes N Bleeding Disorder [...] Diagnosis SNOMED-CT Code Diagnosis ICD10 Code Diagnosis IMO Codes Diagnosis Note [id number] T[address] REMYharry [address] [facility] [address] [place] [address] 12/01/2022 10:58:59 12/01/2022 11:37:56 Pain of right hip joint 4782306647 66756 M25.551 Pain of le ft hip joint 8885467956 89869 M25.552 Trochanter ic bursitis of right hip 7104111927 18385 M70.61 Trochanter ic bursitis of left hip 0414458435 40439 M70.62 5168 TAVARES REMY [facility] [address] [facility] [address] [place] [address] 12/21/2022 15:06:01 12/21/2022 15:45:14 Adhesive capsulitis of right shoulder 2225931348 51460 M75.01 19054 TAVARES REMY [facility] [address] [facility] [address] [place] [address] 01/27/2023 11:16:14 01/27/2023 12:01:48 Adhesive capsulitis of right shoulder 3527566047 39199 M75.01 Full thick ness rotator cuff tear 531840084 M75.121 Health Concerns Section Related Observation LastModified by Organization Detai ls LastModified Time None Recorded Concern Status LastModified by Organization Details LastModified Time None Recorded Advance Directives Directive None Recorded Payers Insurance Date Sequence Insurance Name Policy Number Policy Grace Covered Member ID Grace Member ID Guarantor Name 01/31/2023 1 [employer] - MULTIPLAN (PPO) Khloe Hill [id number] Khloe Hill 10/12/2023 1 UNSPECIFIED REMIT PAYOR Khloe Hill Notes Date Note Type Note Provider Name and Address Organization Details Recorded Time 12/01/2022 text/html 62-year-old female here for evaluation of bilateral outer hip [...] mild symptomatic relief. ORLANDO BAKER PA-C [address] [facility] [address], [place], [address], [place] [facility] 12/01/2022 12:20:52 12/21/2022 text/html Assessment and Plan: Date of visit [id number] female with right shoulder pain history of rotator cuff repair back in 2017 with onset of discomfort after using a power tool 5 weeks ago. She is been doing physical therapy for 3 weeks.She has however been in her sling which is impeding on her progress. We discussed treatment options including pros, cons, benefits and risk both inherent and unexpected regarding cortisone injection for which she did opt for. After verbal consent was obtained the procedure was carried out the right shoulder she had notable improvement immediately aftercare instructions were discussed in detail.She has been instructed not to utilize the [...] glenohumeral joint space narrowing. ORLANDO BAKER PA-C [address] [place] [address],[facility] [address], [place], [address], [place] [facility] 12/21/2022 18:35:33 01/27/2023 text/html Female portable pinch riveter present for the entirety of the interview and exam until exiting the room Leigh Denson This is a 62-year-old female who is following up after undergoing her MRI at [facility]. Imaging study was delayed secondary to the patient had an MRI already arranged up at [facility] however the patient did not feel [...] the intra-articular biceps tendon. ORLANDO BAKER PA-C [address] [place] [address],[facility] [address], [place], [address], [place] [facility], 01/27/2023 12:17:14 OBGyn Episode No OBEpisode recorded.
--- OUTSIDE RECORDS SUMMARY | 2025-08-17 16:40 | XMS_ITS | Clinical Summary ---
Author Organization [facility] Prior to 02/08/[address] [place] [address] Care Team Providers Care Flight Line Service Attendant Name Role Phone Unavailable Primary Care Provider [...] ID Effect nicole Dates Phone Address Type [employer] [id number] 08/11/2022-Pres ent [address] [place] [address] PPO
== END 2025-08-15 16:39 | disposition home or self-care (01) ==
LOC: HO.HOSX 16:38
DX: S61.412A Laceration without foreign body of left hand, initial encounter (principal); W22.8XXA Striking against or struck by other objects, initial encounter
CPT/HCPCS: 73130